=== PATIENT | male | born 1960 | race Caucasian/White ===

== ENCOUNTER → 2018-10-31 11:09 | Outpatient (CLI) | payer OTHER, SELFPAY ==
--- NOTE | 2018-10-31 11:12 | DI.CT.S_ITS ---
PROCEDURE: CT CHEST W CON INDICATIONS: colon cancer staging TECHNIQUE: After the administration of intravenous contrast, 5 mm thick sections acquired from the pulmonary apices to the posterior costophrenic angles. 7 mm thick coronal and sagittal MIP reformats were acquired. For radiation dose reduction, the following was used: automated exposure control, adjustment of mA and/or kV according to patient size. COMPARISON: Outside Film, CT, CT ABDOMEN PELVIS WITH CONTRAST, 09/30/2018, 19:41. FINDINGS: Image quality: Excellent. Lungs and pleura: There is a 2 mm pulmonary nodule in the left lung base on image 49/3. There is a second 2 mm pulmonary nodule in the extreme left lung base on image 58/3. There is a very subtle 4 mm area of density on the minor fissure on image 44/3 and image 26/6. No acute air space opacities. There are platelike areas of atelectasis in the lung bases bilaterally. No pleural effusions or pneumothorax. Central and peripheral airways are patent and normal in caliber. Mediastinum: Heart size is normal. No pericardial effusion. No mediastinal or hilar adenopathy by size criteria. Thoracic aorta and central pulmonary arteries are normal in size. Esophagus is normal in caliber. No hiatal hernia. Bones and chest wall: No suspicious bony lesions. No vertebral body compression fractures. No axillary or supraclavicular adenopathy by size criteria. Thyroid gland is unremarkable. Abdomen: Extensive hepatic metastatic disease is present throughout the liver. The entire liver is not imaged. Patient has had a recent CT from [facility] dated 09/30/18 which demonstrates the entire liver. No gross changes are identified. IMPRESSION: 1. Extensive hepatic metastatic disease, as previously described the. 2. There are 2 tiny pulmonary nodules in the left lung base, both of which measure 2 mm, too small to characterize. Additionally, there is a 4 mm area of fissural thickening on the minor fissure of the right lung. These are of uncertain significance, and can be followed on future studies. Dictated by: Jerrod Murcia M.D. on 10/31/2018 at 12:43 Approved by: Jerrod Murcia M.D. on 10/31/2018 at 13:04
== END ==
PROVIDERS: PCP Family Medicine
DX: C18.9 Malignant neoplasm of colon, unspecified (principal); C78.7 Secondary malignant neoplasm of liver and intrahepatic bile duct; R91.8 Other nonspecific abnormal finding of lung field
CPT/HCPCS: 71260; Q9967

== ENCOUNTER 2019-01-04 16:08 | Emergency (ER) | payer OTHER, SELFPAY ==
--- NOTE | 2019-01-04 16:19 | ED.RECABL ---
HPI - Recheck/Abnormal Lab/Rx <Kristina Suarez PA-C - Last Filed: 01/04/19 20:59> General Chief Complaint: Recheck/Abnormal Lab/Rx Stated Complaint: had a CT today, told he has Pulmonary embolism Time Seen by Provider: 01/04/19 16:18 Related Data Home Medications Medication Instructions Recorded Confirmed docusate calcium [Stool Softener] 240 mg DAILY 10/17/18 12/25/18 ergocalciferol (vitamin D2) 50,000 unit PO QWEEK 10/17/18 12/25/18 [Vitamin D2] ferrous sulfate 325 mg PO DAILY 10/17/18 12/25/18 oxycodone 10 mg PO Q4-6H PRN 10/17/18 12/25/18 fentanyl 1 patch TRANSDERMAL Q72H 11/06/18 12/25/18 oxycodone See Rx Instructions .ROUTE 11/06/18 12/25/18 .COMPLEX PRN dexamethasone 4 mg PO DAILY 12/11/18 12/25/18 Previous Rx's Medication Instructions Recorded fluorouracil 4,800 mg IV NOW #1 device 11/06/18 ondansetron HCl 8 mg PO Q8H PRN #30 tab 11/06/18 prochlorperazine maleate 10 mg PO Q6H PRN #30 tab 11/06/18 lorazepam [Ativan] 0.5 mg PO BID-TID PRN #30 tab 11/15/18 hyoscyamine sulfate 0.25 mg PO QID PRN #100 tab 12/05/18 apixaban [Eliquis] See Rx Instructions .ROUTE 01/04/19 .COMPLEX #74 each Allergies Allergy/AdvReac Type Severity Reaction Status Date / Time No Known Drug Allergies Allergy Verified 11/15/18 15:27 <Niurka Jade DO - Last Filed: 01/05/19 07:34> History of Present Illness HPI narrative: Patient 58-year-old male who presents today with pulmonary emboli. He has a history of cancer he had outpatient CT chest abdomen pelvis of results did show bilateral pulmonary emboli with moderate clot burden. He denies chest pain or shortness of breath. PFSH <Kristina Suarez PA-C - Last Filed: 01/04/19 20:59> Medical History (Updated 01/04/19 @ 17:53 by Kristina Suarez PA-C) Metastatic colon cancer to liver (Chronic) Surgical History (Updated 01/04/19 @ 16:54 by Kristina Suarez PA-C) Status post anterior cruciate ligament surgery (Resolved) Social History (Updated 01/04/19 @ 16:54 by Kristina Suarez PA-C) Smoking Status: Current some day smoker Social History (Updated 01/04/19 @ 16:54 by Kristina Suarez PA-C) Smoking Status: Current some day smoker Exam <Kristina Suarez PA-C - Last Filed: 01/04/19 20:59> Initial Vital Signs Initial Vital Signs: Vital Signs Temperature 97.7 F 01/04/19 16:20 Pulse Rate 100 H 01/04/19 16:20 Respiratory Rate 16 01/04/19 16:20 Blood Pressure 129/98 H 01/04/19 16:20 Pulse Oximetry 96 01/04/19 16:20 <DO Rosemary Hubbard Last Filed: 01/05/19 07:34> Initial Vital Signs Initial Vital Signs: Vital Signs Temperature 97.7 F 01/04/19 16:20 Pulse Rate 100 H 01/04/19 16:20 Respiratory Rate 16 01/04/19 16:20 Blood Pressure 129/98 H 01/04/19 16:20 Pulse Oximetry 96 01/04/19 16:20 Course <Kristina Suarez PA-C - Last Filed: 01/04/19 20:59> Orders Ordered: Discontinued Medications Apixaban (Eliquis) 10 mg PO NOW ONE Stop: 01/04/19 17:27 Last Admin: 01/04/19 17:51 Dose: 10 mg Vital Signs - 8 hr 01/04/19 16:20 01/04/19 16:30 01/04/19 17:00 Temperature 97.7 F Pulse Rate 100 H 90 94 H Respiratory Rate 16 17 16 Blood Pressure 129/98 H Blood Pressure [Left Arm] 127/98 H 112/75 Pulse Oximetry 96 96 96 <DO Rosemary Hubbard Last Filed: 01/05/19 07:34> Orders Ordered: Discontinued Medications Apixaban (Eliquis) 10 mg PO NOW ONE Stop: 01/04/19 17:27 Last Admin: 01/04/19 17:51 Dose: 10 mg Vital Signs - 8 hr 01/04/19 16:20 01/04/19 16:30 01/04/19 17:00 Temperature 97.7 F Pulse Rate 100 H 90 94 H Respiratory Rate 16 17 16 Blood Pressure 129/98 H Blood Pressure [Left Arm] 127/98 H 112/75 Pulse Oximetry 96 96 96 MDM - Recheck/Abnormal Lab/Rx <Kristina Suarez PA-C - Last Filed: 01/04/19 20:59> Lab Data Lab Results 01/04/19 01/04/19 Range/Units 16:34 16:34 PT 13.3 H (10.1-12.7) SECONDS INR 1.1 (0.9-1.3) APTT 29 (26.4-36.2) SECONDS Total Creatine Kinase < 20 L (55-170) U/L CK-MB (CK-2) TNP CK-MB (CK-2) Rel Index TNP Troponin I < 0.012 (0.01-0.034) ng/mL Imaging Data CT scan - chest: Radiologist's impression: [place] [address] CT Scan Report Signed Patient: Billy Johansen LMR#: [id number] : 2Acct:[id number] Age/Sex: 58 / MDate of Service: 01/04/19 Loc: ONC Accession Number: [id number] Procedure: CT chest abd pel w con Ordering Provider: Jerome Bass MD PROCEDURE: CT CHEST ABD PEL W CON INDICATIONS: f/u colon cancer TECHNIQUE: After the administration of oral and intravenous contrast, 5 mm thick sections acquired from the lung apices to the symphysis. 5 mm coronal and sagittal reformats were performed, with additional 7 mm coronal MIP reformats through the lungs. For radiation dose reduction, the following was used: automated exposure control, adjustment of mA and/or kV according to patient size. COMPARISON: [facility], CT, CT CHEST W CON, 10/31/2018, 11:28. Outside Film, CT, CT ABDOMEN PELVIS WITH CONTRAST, 09/30/2018, 19:41. FINDINGS: Image quality: Excellent. CHEST: Lungs and pleura: Platelike subsegmental atelectasis is present in the posterior right lower lobe and posterior medial right lower lobe. Platelike atelectatic changes are also seen vertically in the posterior and posterior medial left lower lobe, and along the lower lingular surface. Atelectatic changes are also seen minimally at the anteromedial right middle lobe. There is small area of subpleural honeycombing in the posterior lateral left lower lobe at the lung base. A perifissural 4 mm lung nodule along the medial right minor fissure is present. There is a 5 mm subpleural lung nodule laterally in the left upper lobe and midlung level No pleural effusions or pneumothorax. Central and peripheral airways appear patent and normal in caliber. Mediastinum: A left subclavian Mediport is in position. Heart size is normal. No pericardial effusion. No significant right heart enlargement or intraventricular septal deviation. Incidental note is made of bilateral pulmonary emboli which involve left anterior, lateral basal first order branches and proximal second order branches. An acute embolus also is seen in the right lower lobar pulmonary artery and extending into anterior and lateral basal segmental arteries. A second order thrombus is seen in lateral segment right middle lobe pulmonary arteries as well as anterior segment right upper lobe pulmonary arteries proximally. No mediastinal or hilar adenopathy by size criteria. Thoracic aorta and central pulmonary arteries are normal in size. Esophagus is normal in caliber. No hiatal hernia. Chest wall: No axillary or supraclavicular adenopathy by size criteria. Thyroid gland is normal. ABDOMEN: Solid organs: There has been interval overall decrease in size of liver as well as multiple ill-defined low-density metastatic lesions throughout the right and left lobes. The largest lesion in the medial right liver lobe has decreased in size from 4.5 cm to 2.4 cm. All other liver lesions also decreased in size. Gallbladder appears normal. Biliary system is non dilated. Pancreas enhances normally. Spleen is normal in size and enhancement. There is a nodule associated with the lateral limb of left adrenal gland and one associated with the body of the adrenal gland which has not changed since prior studies. The right adrenal gland is normal. Kidneys demonstrate normal size and enhancement, without hydronephrosis. Peritoneum and bowel: Luminal narrowing, wall thickening in the distal sigmoid with mild mucosal hyperemia. The remainder the colon contains a normal quantity of stool. Normal appendix is identified. Small bowel loops and stomach appear normal. No free fluid or air. Nodes and vessels: There is a prominent azul chain in left periodic retroperitoneum. The largest node measures about 1.2 cm in short axis, previously 1.1 cm (series 2 image 88). The distal abdominal aorta is minimally aneurysmal measuring 3.2 cm in AP diameter, stable. Bilateral common iliac artery aneurysms are present extending into the internal iliac arteries bilaterally. The left internal iliac artery aneurysm measures 2.9 cm in diameter and the right measures 2.8 cm. The inferior vena cava is normal in size. Miscellaneous: No ventral hernias. Small intramuscular lipoma along the right lateral abdominal wall. PELVIS: Genitourinary: Bladder wall thickness is normal. Mild prostatomegaly. Miscellaneous: No inguinal hernias or adenopathy. Bones: No suspicious bony lesions. No vertebral body compression fractures. IMPRESSION: 1. Small bilateral pulmonary nodules, one of which appears to be apparent visual lymph node, appear stable compared to the prior study given changes in technique. No new evidence of metastatic disease in the chest. 2. Incidental note made of bilateral pulmonary emboli. Overall clot burden is moderate. This finding was discussed with Dr. Trinidad, oncologist at 1340 hrs. on 01/04/19. Dr. Bass was unavailable. 3. Interval decrease in size of innumerable hepatic metastases. 4. Stable left periaortic adenopathy. 5. Distal sigmoid/rectosigmoid luminal narrowing suspicious for patient's primary neoplasm. No significant changes compared to the prior scan. 6. Distal abdominal aortic aneurysm and bilateral common/internal iliac artery aneurysms. 7. No evidence of new metastatic disease in the abdomen or pelvis. Dictated by: Amanda Henriquez M.D. on 01/04/2019 at 13:11 Approved by: Amanda Henriquez M.D. on 01/04/2019 at 14:09 ECG Data Attestation: I personally reviewed and interpreted this ECG as follows: (Sinus rhythm with ectopic atrial focus, rate 90, normal axis) Prior ECG tracings: available for review <Niurka Jade DO - Last Filed: 01/05/19 07:34> Lab Data Lab Results 01/04/19 01/04/19 Range/Units 16:34 16:34 PT 13.3 H (10.1-12.7) SECONDS INR 1.1 (0.9-1.3) APTT 29 (26.4-36.2) SECONDS Total Creatine Kinase < 20 L (55-170) U/L CK-MB (CK-2) TNP CK-MB (CK-2) Rel Index TNP Troponin I < 0.012 (0.01-0.034) ng/mL Imaging Data Chest abdomen pelvis: Radiologist's impression: PROCEDURE: CT CHEST ABD PEL W CON INDICATIONS: f/u colon cancer TECHNIQUE: After the administration of oral and intravenous contrast, 5 mm thick sections acquired from the lung apices to the symphysis. 5 mm coronal and sagittal reformats were performed, with additional 7 mm coronal MIP reformats through the lungs. For radiation dose reduction, the following was used: automated exposure control, adjustment of mA and/or kV according to patient size. COMPARISON: [facility], CT, CT CHEST W CON, 10/31/2018, 11:28. Outside Film, CT, CT ABDOMEN PELVIS WITH CONTRAST, 09/30/2018, 19:41. FINDINGS: Image quality: Excellent. CHEST: Lungs and pleura: Platelike subsegmental atelectasis is present in the posterior right lower lobe and posterior medial right lower lobe. Platelike atelectatic changes are also seen vertically in the posterior and posterior medial left lower lobe, and along the lower lingular surface. Atelectatic changes are also seen minimally at the anteromedial right middle lobe. There is small area of subpleural honeycombing in the posterior lateral left lower lobe at the lung base. A perifissural 4 mm lung nodule along the medial right minor fissure is present. There is a 5 mm subpleural lung nodule laterally in the left upper lobe and midlung level No pleural effusions or pneumothorax. Central and peripheral airways appear patent and normal in caliber. Mediastinum: A left subclavian Mediport is in position. Heart size is normal. No pericardial effusion. No significant right heart enlargement or intraventricular septal deviation. Incidental note is made of bilateral pulmonary emboli which involve left anterior, lateral basal first order branches and proximal second order branches. An acute embolus also is seen in the right lower lobar pulmonary artery and extending into anterior and lateral basal segmental arteries. A second order thrombus is seen in lateral segment right middle lobe pulmonary arteries as well as anterior segment right upper lobe pulmonary arteries proximally. No mediastinal or hilar adenopathy by size criteria. Thoracic aorta and central pulmonary arteries are normal in size. Esophagus is normal in caliber. No hiatal hernia. Chest wall: No axillary or supraclavicular adenopathy by size criteria. Thyroid gland is normal. ABDOMEN: Solid organs: There has been interval overall decrease in size of liver as well as multiple ill-defined low-density metastatic lesions throughout the right and left lobes. The largest lesion in the medial right liver lobe has decreased in size from 4.5 cm to 2.4 cm. All other liver lesions also decreased in size. Gallbladder appears normal. Biliary system is non dilated. Pancreas enhances normally. Spleen is normal in size and enhancement. There is a nodule associated with the lateral limb of left adrenal gland and one associated with the body of the adrenal gland which has not changed since prior studies. The right adrenal gland is normal. Kidneys demonstrate normal size and enhancement, without hydronephrosis. Peritoneum and bowel: Luminal narrowing, wall thickening in the distal sigmoid with mild mucosal hyperemia. The remainder the colon contains a normal quantity of stool. Normal appendix is identified. Small bowel loops and stomach appear normal. No free fluid or air. Nodes and vessels: There is a prominent azul chain in left periodic retroperitoneum. The largest node measures about 1.2 cm in short axis, previously 1.1 cm (series 2 image 88). The distal abdominal aorta is minimally aneurysmal measuring 3.2 cm in AP diameter, stable. Bilateral common iliac artery aneurysms are present extending into the internal iliac arteries bilaterally. The left internal iliac artery aneurysm measures 2.9 cm in diameter and the right measures 2.8 cm. The inferior vena cava is normal in size. Miscellaneous: No ventral hernias. Small intramuscular lipoma along the right lateral abdominal wall. PELVIS: Genitourinary: Bladder wall thickness is normal. Mild prostatomegaly. Miscellaneous: No inguinal hernias or adenopathy. Bones: No suspicious bony lesions. No vertebral body compression fractures. IMPRESSION: 1. Small bilateral pulmonary nodules, one of which appears to be apparent visual lymph node, appear stable compared to the prior study given changes in technique. No new evidence of metastatic disease in the chest. 2. Incidental note made of bilateral pulmonary emboli. Overall clot burden is moderate. This finding was discussed with Dr. Trinidad, oncologist at 1340 hrs. on 01/04/19. Dr. Bass was unavailable. 3. Interval decrease in size of innumerable hepatic metastases. 4. Stable left periaortic adenopathy. 5. Distal sigmoid/rectosigmoid luminal narrowing suspicious for patient's primary neoplasm. No significant changes compared to the prior scan. 6. Distal abdominal aortic aneurysm and bilateral common/internal iliac artery aneurysms. 7. No evidence of new metastatic disease in the abdomen or pelvis. Dictated by: Amanda Henriquez M.D. on 01/04/2019 at 13:11 Approved by: Amanda Henriquez M.D. on 01/04/2019 at 14:09 ECG Data Attestation: I personally reviewed and interpreted this ECG as follows: Prior ECG tracings: not available for review Interpretation: [place] rhythm rate 90 [place] interval 136. No priors to compare no ST elevation Discharge Plan Departure Patient Disposition: Home Clinical Impression: Pulmonary emboli Qualifiers: Pulmonary embolism type: other Chronicity: unspecified Acute cor pulmonale presence: without acute cor pulmonale Qualified Code(s): I26.99 - Other pulmonary embolism without acute cor pulmonale Discharge Date/Time: 01/04/19 18:02 Interventions: ED Discharge Assessment Last Done: 01/04/19 18:02 Instructions: DI for Pulmonary Embolism Activity Restrictions/Additional Instructions: Your scan today showed coincidentally that you have blood clots in your lungs, called pulmonary emboli. These have likely been there for sometime between your previous scan and today. Your more prone to blood clots just due to having cancer. Having been immobilized more due to being ill from your last chemotherapy cycle might increase risk and nicotine can as well. Please avoid smoking. We have given you the 1st dose of medicine to help thin the blood and prevent more clotting called Eliquis today. This is to be taken twice daily, 10 mg twice daily for a week, then 5 mg twice daily. You will likely need this for a minimum of 3-6 months, possibly longer. As we talked about, you should call 911 if you have any acute chest pain, difficulty breathing, fainting or other acute changes. Please talk with Dr. Bass as you have planned on Monday about your scan and chemotherapy side effects. Good luck with your treatment! Prescriptions: New Eliquis 5 mg (74 tabs) tablets,dose pack See Rx Instructions .ROUTE .COMPLEX Qty: 74 RF: 0 No Action ergocalciferol (vitamin D2) [Vitamin D2] 50,000 unit Capsule 50,000 unit PO QWEEK RF: 0 ferrous sulfate 325 mg (65 mg iron) Tablet 325 mg PO DAILY RF: 0 docusate calcium [Stool Softener] 240 mg Capsule 240 mg DAILY RF: 0 oxycodone 10 mg Tablet 10 mg PO Q4-6H PRN (Reason: Pain (Scale Score 4-6)) RF: 0 oxycodone 5 mg Tablet See Rx Instructions .ROUTE .COMPLEX PRN (Reason: Pain (Scale Score 4-6)) RF: 0 fentanyl 12 mcg/hr Patch 72 Hour 1 patch TRANSDERMAL Q72H RF: 0 ondansetron HCl 8 mg Tablet 8 mg PO Q8H PRN (Reason: Nausea) Qty: 30 RF: 0 prochlorperazine maleate 10 mg Tablet 10 mg PO Q6H PRN (Reason: Nausea) Qty: 30 RF: 0 fluorouracil 2.5 gram/50 mL Solution 4,800 mg IV NOW Qty: 1 RF: 0 lorazepam [Ativan] 0.5 mg Tablet 0.5 mg PO BID-TID PRN (Reason: Nausea) Qty: 30 RF: 0 hyoscyamine sulfate 0.125 mg Tablet 0.25 mg PO QID PRN (Reason: Cramps) Qty: 100 RF: 1 dexamethasone 4 mg Tablet 4 mg PO DAILY RF: 0 Referrals: Jerome Bass MD [Physician] - Mikel Page MD [Non-Staff] - <Niurka Jade DO - Last Filed: 01/05/19 07:34> Cosign ED Attending Diegoature Attestation: I was immediately available in the department for consultation. Documentation has been reviewed. I agree with assessment and plan.
[2019-01-04 16:20] VITALS: BP 129/98; PULSE 100; RESP 16; TEMP 36.5; O2SAT 96; BMI 18.8
[2019-01-04 16:30] VITALS: BP 127/98; PULSE 90; RESP 17; O2SAT 96
[2019-01-04 16:48] LABS: INR 1.1 (0.9-1.3); Prothrombin Time 13.3 SECONDS (10.1-12.7)
[2019-01-04 16:50] LABS: Creatine Kinase < 20 U/L (55-170)
[2019-01-04 16:51] LABS: PTT Partial Thromboplastin Tim 29 SECONDS (26.4-36.2)
[2019-01-04 17:00] VITALS: BP 112/75; PULSE 94; RESP 16; O2SAT 96
[2019-01-04 17:04] LABS: Troponin I < 0.012 ng/mL (0.01-0.034)
[2019-01-04] MEDS: APIXABAN 5 MG TABLET 10 MG PO (17:51)
== END 2019-01-04 18:02 | disposition home or self-care (01) ==
PROVIDERS: Emergency Provider Internal Medicine
DX: I26.99 Other pulmonary embolism without acute cor pulmonale (principal); C18.9 Malignant neoplasm of colon, unspecified; C78.7 Secondary malignant neoplasm of liver and intrahepatic bile duct
CPT/HCPCS: 36415; 82550; 84484; 85610; 85730; 93005; 99282; 99285

== ENCOUNTER → 2019-04-24 11:30 | Outpatient (CLI) | payer OTHER, SELFPAY ==
--- NOTE | 2019-04-24 12:14 | DI.CT.S_ITS ---
PROCEDURE: CT CHEST ABD PEL W CON INDICATIONS: follow up colon cancer TECHNIQUE: After the administration of oral and intravenous contrast, 5 mm thick sections acquired from the lung apices to the symphysis. 5 mm coronal and sagittal reformats were performed, with additional 7 mm coronal MIP reformats through the lungs. For radiation dose reduction, the following was used: automated exposure control, adjustment of mA and/or kV according to patient size. COMPARISON: [facility], CT, CT CHEST ABD PEL W CON, 01/04/2019, 11:23. FINDINGS: Image quality: Excellent. CHEST: Lungs and pleura: No acute airspace opacities. No pleural effusions or pneumothorax. Central and peripheral airways appear patent and normal in caliber. There is an unchanged appearance of nodularity along the left major fissure and lingula. Previous areas of patchy opacity within the bases and lingula have improved compared to prior exam. There are punctate areas of nodularity in the posterior left lower lobe seen on series 3 images 303 and 328. These areas were obscured by overlying opacities on prior exam. Mediastinum: Heart size is normal. No pericardial effusion. No mediastinal or hilar adenopathy by size criteria. Thoracic aorta and central pulmonary arteries are normal in size. Esophagus is normal in caliber. No hiatal hernia. Chest wall: No axillary or supraclavicular adenopathy by size criteria. Thyroid gland is unremarkable. Right chest wall musculature lipoma unchanged. ABDOMEN: Solid organs: Liver continues to demonstrate multiple low attenuation foci, although decreased in size and number compared to prior exam. The largest lesion in the right medial hepatic lobe seen on series 2 image 82 measures 1.7 cm AP by 1.1 cm transverse compared to 4.5 cm AP by 2.4 cm transverse. Gallbladder gallbladder is contracted. Biliary system is non dilated. Pancreas enhances normally. Spleen is normal in size and enhancement. No adrenal nodules. Kidneys demonstrate normal size and enhancement, without hydronephrosis. Peritoneum and bowel: Bowel loops are nonobstructive. No free fluid or air. Persistent appearance of sigmoid thickening and luminal narrowing, unchanged. Nodes and vessels: No retroperitoneal or mesenteric adenopathy by size criteria. The previous periaortic lymph node measuring 11 mm in short axis has decreased in size currently measuring 9 mm. Aortic and bilateral common iliac artery aneurysms are unchanged. Miscellaneous: No ventral hernias. PELVIS: Genitourinary: Bladder wall thickness is normal. Miscellaneous: No inguinal hernias or adenopathy. Bones: No suspicious bony lesions. No vertebral body compression fractures. IMPRESSION: 1. Interval decrease in size of previous hepatic lesions as well as adenopathy. 2. Pulmonary nodules as described above. Continued interval followup is recommended. 3. Persistent appearance of luminal narrowing and thickening within the sigmoid colon suspicious for site of colon neoplasm. Dictated by: Suki Llanes M.D. on 04/24/2019 at 13:20 Approved by: Suki Llanes M.D. on 04/24/2019 at 13:31
== END ==
PROVIDERS: PCP General Practice
DX: C19 Malignant neoplasm of rectosigmoid junction (principal); C78.7 Secondary malignant neoplasm of liver and intrahepatic bile duct; R91.8 Other nonspecific abnormal finding of lung field
CPT/HCPCS: 71260; 74177; Q9967

== ENCOUNTER → 2019-06-20 11:52 | Outpatient (CLI) | payer OTHER, SELFPAY ==
--- NOTE | 2019-06-20 11:53 | DI.CT.S_ITS ---
PROCEDURE: CT CHEST ABD PEL W CON INDICATIONS: Restaging colon cancer TECHNIQUE: After the administration of oral and intravenous contrast, 5 mm thick sections acquired from the lung apices to the symphysis. 5 mm coronal and sagittal reformats were performed, with additional 7 mm coronal MIP reformats through the lungs. For radiation dose reduction, the following was used: automated exposure control, adjustment of mA and/or kV according to patient size. COMPARISON: [facility], CT, CT CHEST ABD PEL W CON, 04/24/2019, 12:17. FINDINGS: Image quality: Excellent. CHEST: Lungs and pleura: No suspicious pulmonary nodules. Linear bibasilar atelectasis. Mediastinum: Heart size is normal. No pericardial effusion. No mediastinal or hilar adenopathy by size criteria. Thoracic aorta and central pulmonary arteries are normal in size. Esophagus is normal in caliber. No hiatal hernia. Chest wall: No axillary or supraclavicular adenopathy by size criteria. Thyroid gland is unremarkable. ABDOMEN: Solid organs: Liver: Numerous low density liver lesions are again noted. Many these are small. A segment 6 posterior segment right lobe liver lesion has increased in size from 1.5-2.1 cm. Reference previous image 77/2 and current image 78/2. A medial lesion in the right lobe is likely stable, previously measuring 1.7 cm on previous image 82/2 and currently measuring 1.6 cm in maximum diameter on current image 73/2. Other lesions are stable. Gallbladder is unremarkable. Biliary system is non dilated. Pancreas enhances normally. Spleen is normal in size and enhancement. No adrenal nodules. Kidneys demonstrate normal size and enhancement, without hydronephrosis. Peritoneum and bowel: Continued sigmoid wall thickening and luminal narrowing. Mild inflammatory change in adjacent fat. No free fluid or air. Nodes and vessels: Shotty periaortic and retrocrural adenopathy is stable. Again noted is aneurysmal dilatation of the abdominal aorta, measuring approximately 3.5 cm. Again noted is bilateral common iliac artery aneurysmal dilatation, measuring 2.4 cm on the right and 2.3 cm on the left. There is a left internal iliac artery aneurysm, measuring 3.1 cm. There is a right internal iliac artery aneurysm measuring 2.6 cm. There is a left external iliac artery aneurysm with moderate thrombus measuring 2.1 cm. Miscellaneous: No ventral hernias. PELVIS: Genitourinary: Bladder wall thickness is normal. Miscellaneous: No inguinal hernias or adenopathy. Bones: No suspicious bony lesions. No vertebral body compression fractures. IMPRESSION: 1. Stable appearance of sigmoid, which is likely the site of the patient's colonic neoplasm. 2. No evidence of metastatic disease in the chest. Linear bibasilar atelectasis. 3. Relatively stable hepatic metastatic disease. There is definite interval increase in size of one of the metastatic lesions, in segment 6. 3. Stable shotty periaortic adenopathy and retrocrural adenopathy. 7. Aortic aneurysm, bilateral common iliac artery aneurysms, left external iliac artery aneurysm, and bilateral internal iliac artery aneurysms. Dictated by: Jerrod Murcia M.D. on 06/20/2019 at 14:05 Approved by: Jerrod Murcia M.D. on 06/20/2019 at 14:25
--- NOTE | 2019-07-17 10:08 | PC.NURSE ---
[facility] CONTACT IS: TEL [phone] FAX: [phone]; THIS WAS NOT PUT IN THE SELF-POPULATING PATIENT PHARMACY IN SUMMARY OF EMR THE PHONE NUMBERS GIVEN ARE NOT CORRECT FOR THIS PATIENT.
== END ==
PROVIDERS: PCP General Practice; Visit Provider Internal Medicine Hematology & Oncology
DX: C18.9 Malignant neoplasm of colon, unspecified (principal); C78.7 Secondary malignant neoplasm of liver and intrahepatic bile duct; J98.11 Atelectasis; I71.4 Abdominal aortic aneurysm, without rupture; I72.3 Aneurysm of iliac artery
CPT/HCPCS: 71260; 74177; Q9967

== ENCOUNTER → 2019-10-16 11:32 | Outpatient (CLI) | payer OTHER, SELFPAY ==
--- NOTE | 2019-10-16 11:34 | DI.CT.S_ITS ---
PROCEDURE: CT CHEST ABD PEL W CON INDICATIONS: METASTATIC COLON CANCER TECHNIQUE: After the administration of oral and intravenous contrast, 5 mm thick sections acquired from the lung apices to the symphysis. 5 mm coronal and sagittal reformats were performed, with additional 7 mm coronal MIP reformats through the lungs. For radiation dose reduction, the following was used: automated exposure control, adjustment of mA and/or kV according to patient size. COMPARISON: [facility], CT, CT CHEST ABD PEL W CON, 01/04/2019, 11:23. [facility], CT, CT ABDOMEN PELVIS WITH CONTRAST, 09/30/2018, 19:41. [facility], CT, CT CHEST ABD PEL W CON, 06/20/2019, 13:21. FINDINGS: Image quality: Excellent. CHEST: Lungs and pleura: Mild emphysematous change. Dependent streaky opacity which is similar the prior exam and most likely represents scarring or atelectasis. Left lower lobe superior segment 3 mm pulmonary nodule, (3/253), may be previously obscured. Left major fissure nodule measuring 5 mm, (3/315), unchanged. No pleural effusions or pneumothorax. Trace secretions in the right mainstem bronchus. Mediastinum: Left-sided port with the catheter tip in the mid SVC. Heart size is normal. No pericardial effusion. No mediastinal or hilar adenopathy by size criteria. Thoracic aorta and central pulmonary arteries are normal in size. No central pulmonary embolism. Esophagus is normal in caliber. No hiatal hernia. Chest wall: Right lateral inferior chest wall intramuscular lipoma. No axillary or supraclavicular adenopathy by size criteria. Thyroid gland is unremarkable. ABDOMEN: Solid organs: Numerous hypodense lesions to the liver which are increased in size. For example: -Segment 6 inferior tip measuring 3 x 3 cm, (2/), previously 1.9 x 1.8 cm. -Segment 7 medially at the dome measuring 3.6 x 3.4 cm, (2), previously not well seen. -Note: Baseline CT demonstrated numerous hepatic lesions on 09/30/2018 which had previously decreased in size and are now enlarging. Gallbladder is unremarkable. Biliary system is non dilated. Pancreas enhances normally. Spleen is normal in size and enhancement. Calcified granuloma. Nodular thickening of the left adrenal gland, unchanged. Kidneys demonstrate normal size and enhancement, without hydronephrosis. Punctate nonobstructing calculus in the mid left kidney. Peritoneum and bowel: Descending colon loop colostomy in the left abdomen which is new compared to 06/20/2019. There is scattered colonic diverticuli. A focal thickening at the rectosigmoid junction, (2/123), more conspicuous. No bowel obstruction. Normal appendix. No pneumoperitoneum or ascites. Nodes and vessels: Shotty periaortic and right retrocrural lymph nodes, unchanged. Aortoiliac aneurysms are not significant change. Infrarenal aortic aneurysm measures 3.2 cm (21), previously 3.4 cm. 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 Right hepatic artery is replaced to the SMA, variant. Miscellaneous: No ventral hernias. PELVIS: Genitourinary: Bladder wall thickness is normal. Miscellaneous: No inguinal hernias or adenopathy. Bones: No suspicious bony lesions. No vertebral body compression fractures. IMPRESSION: 1. Interval increase in the numerous hypodense hepatic metastases. No ascites. 2. Shotty retrocrural and periaortic lymph nodes are unchanged. Indeterminate for metastatic disease. 3. Abnormal thickening of the rectosigmoid junction. Post left loop colostomy. 4. No definite metastatic disease in the chest or bones. 5. Trace secretions in the right mainstem bronchus. Similar dependent scarring or atelectasis. Dictated by: Bjorn Orellana M.D. on 10/16/2019 at 12:49 Approved by: Bjorn Orellana M.D. on 10/16/2019 at 13:44
== END ==
PROVIDERS: PCP General Practice; Referring Provider Internal Medicine Hematology & Oncology; Visit Provider Internal Medicine Hematology & Oncology
DX: C18.9 Malignant neoplasm of colon, unspecified (principal); C78.7 Secondary malignant neoplasm of liver and intrahepatic bile duct; R59.0 Localized enlarged lymph nodes; Z93.3 Colostomy status
CPT/HCPCS: 71260; 74177; Q9967

== ENCOUNTER → 2020-01-27 10:31 | Outpatient (CLI) | payer OTHER, SELFPAY ==
--- NOTE | 2020-01-27 10:33 | DI.CT.S_ITS ---
PROCEDURE: CT CHEST ABD PEL W CON INDICATIONS: Restaging met colon cancer TECHNIQUE: After the administration of oral and intravenous contrast, 5 mm thick sections acquired from the lung apices to the symphysis. 5 mm coronal and sagittal reformats were performed, with additional 7 mm coronal MIP reformats through the lungs. For radiation dose reduction, the following was used: automated exposure control, adjustment of mA and/or kV according to patient size. COMPARISON: [facility], CT, CT CHEST ABD PEL W CON, 10/16/2019, 12:31. [facility], CT, CT CHEST ABD PEL W CON, 06/20/2019, 13:21. FINDINGS: Image quality: Excellent. CHEST: Lungs and pleura: No acute airspace opacities. Note is made of areas of posterior medial lung scarring previously present, and a pulmonary mass lesions suggestive of metastatic disease is not found. No pleural effusions or pneumothorax. Central and peripheral airways appear patent and normal in caliber. Mediastinum: Heart size is normal. No pericardial effusion. No mediastinal or hilar adenopathy by size criteria. Thoracic aorta and central pulmonary arteries are normal in size. Esophagus is normal in caliber. No hiatal hernia. Chest wall: No axillary or supraclavicular adenopathy by size criteria. Thyroid gland appears normal where well seen. ABDOMEN: Solid organs: Liver is normal in size and shows improvement in previously present multifocal metastatic lesions. These lesions previously and currently have been hypoenhancing, with indistinct margination, but with reference to the most recent study when compared to the examination from 10/16/19 a mild interval reduction in size of hepatic masses has occurred. For example, at the posterior aspect of the right posterior hepatic segment a mass lesion previously estimated at measuring 4.1 cm has diminished to 2.7 cm. More inferiorly a lead generation representative mass at the inferior aspect of the right hepatic lobe posteriorly had previously measured up to 4.0 cm and when measured in the same area now measures 2.9 cm. At the same axial level a enhancing perfusion anomaly is seen anterolaterally, slightly more prominent than on the comparison study, but likely benign in etiology. Similar reduction in size of additional hepatic metastatic disease has developed. Gallbladder appears normal . Biliary system is non dilated. Pancreas enhances normally. Spleen is normal in size and enhancement. No adrenal nodules. Kidneys demonstrate normal size and enhancement, without hydronephrosis. Peritoneum and bowel: Bowel loops demonstrate normal wall thickness and caliber. No free fluid or air. Nodes and vessels: No retroperitoneal or mesenteric adenopathy by size criteria. Aorta and inferior vena cava are unchanged in size with mild aneurysmal dilatation of the mid abdominal aorta to 3.6 cm, and the common iliac arteries measure up to 2.2 cm on the right and 2.3 cm on the left. 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 Miscellaneous: No ventral hernias. PELVIS: Genitourinary: Bladder wall thickness is normal. Miscellaneous: No inguinal hernias or adenopathy. Ostomy site left lower quadrant, shows no operative complication. Bones: No suspicious bony lesions. No vertebral body compression fractures. IMPRESSION: 1. Mild but definite interval improvement in size of multiple hepatic mass lesions previously documented. 2. 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 Vascular surgical consultation likely is warranted specifically with attention to the internal iliac artery caliber which are unusually prominent in this patient. Dictated by: Augustus Richter M.D. on 01/27/2020 at 16:17 Approved by: Augustus Richter M.D. on 01/27/2020 at 16:32
--- NOTE | 2020-01-29 11:57 | ONC.SCHED ---
Faxed referral to [facility] with request to call patient to schedule and to let me know when scheduled. Requested that Alec call patient to ensure that he is not surprised by a call from [facility].
== END ==
PROVIDERS: PCP Family Medicine; Referring Provider Internal Medicine Hematology & Oncology; Visit Provider Internal Medicine Hematology & Oncology
DX: C18.9 Malignant neoplasm of colon, unspecified (principal); C78.7 Secondary malignant neoplasm of liver and intrahepatic bile duct; I71.4 Abdominal aortic aneurysm, without rupture; I72.3 Aneurysm of iliac artery
CPT/HCPCS: 71260; 74177; Q9967

== ENCOUNTER → 2020-04-01 11:16 | Outpatient (CLI) | payer OTHER, SELFPAY ==
--- NOTE | 2020-04-01 12:13 | DI.CT.S_ITS ---
PROCEDURE: CT CHEST ABD PEL W CON INDICATIONS: colon cancer TECHNIQUE: After the administration of oral and intravenous contrast, 5 mm thick sections acquired from the lung apices to the symphysis. 5 mm coronal and sagittal reformats were performed, with additional 7 mm coronal MIP reformats through the lungs. For radiation dose reduction, the following was used: automated exposure control, adjustment of mA and/or kV according to patient size. COMPARISON: [facility], CT, CT CHEST W CON, 10/31/2018, 11:28. [facility], CT, CT CHEST ABD PEL W CON, 10/16/2019, 12:31. [facility], CT, CT CHEST ABD PEL W CON, 01/27/2020, 11:19. FINDINGS: Image quality: Excellent. CHEST: Lungs and pleura: Moderate emphysematous change. Bibasilar streaky opacity similar to CT from October most likely represents scarring and or atelectasis. Left lower lobe pulmonary nodule measuring 6 mm, (2/221), previously 3 mm, and not seen in 2019. Left upper lobe pulmonary nodule measuring at 2 mm, (2/243), unchanged. No pleural effusions or pneumothorax. Central and peripheral airways appear patent and normal in caliber. Mediastinum: Left-sided port with the catheter tip at the upper 3rd of the SVC. Heart size is normal. No pericardial effusion. No mediastinal or hilar adenopathy by size criteria. Thoracic aorta and central pulmonary arteries are normal in size. Esophagus is normal in caliber. No hiatal hernia. Chest wall: No axillary or supraclavicular adenopathy by size criteria. Small right thyroid nodule. ABDOMEN: Solid organs: Interval increase in the hepatic lesions. Innumerable ill-defined hypodense hepatic lesions are again seen. For example: -Segment 2 measuring at 2.5 x 2.5 cm, (), previously 0.5 cm. -Segment six inferior margin measuring 2.4 x 2.3 cm, (), previously 1.9 x 1.9 cm on Gallbladder is unremarkable. Biliary system is non dilated. Pancreas enhances normally. Spleen is normal in size and enhancement. Nodular thickening of the right adrenal gland, unchanged but appears increased compared to 2019. Kidneys demonstrate normal size and enhancement, without hydronephrosis. Peritoneum and bowel: No small bowel obstruction. Left lower quadrant loop colostomy. Mild thickening of the distal sigmoid colon, (4/117), unchanged. A few colonic diverticuli. Normal appendix. No free fluid. No pneumoperitoneum. Nodes and vessels: Left periaortic node measuring 1.7 x 1.3 cm, (4/84), previously 1.3 x 1 cm. 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 Infrarenal abdominal aortic aneurysm measuring 3.4 cm, (487). Aneurysm of the right external iliac artery measuring 2.9 cm, (4/103). Aneurysm of the left external iliac artery measuring at 2.9 cm, (4/103). Aneurysm of the right internal iliac artery measuring up to 2.8 cm, (4/107). Aneurysm of the left internal iliac artery measuring up to 3.7 cm, (4/111). Miscellaneous: Tiny fat containing periumbilical hernia. PELVIS: Genitourinary: Bladder wall thickness is normal. Miscellaneous: No inguinal hernias or adenopathy. Bones: No suspicious bony lesions. No vertebral body compression fractures. IMPRESSION: 1. Interval increase in the numerous hepatic metastases. 2. Small retroperitoneal lymph node and nodular thickening of the right adrenal gland may represent metastases. 3. Left lower lobe pulmonary nodule measuring 6 mm appears increased and could represent metastasis. 4. No aggressive appearing osseous lesions. 5. Similar aortoiliac aneurysms. Dictated by: Bjorn Orellana M.D. on 04/01/2020 at 13:57 Approved by: Bjorn Orellana M.D. on 04/01/2020 at 14:19
== END ==
PROVIDERS: PCP Nurse Practitioner Family; Referring Provider Nurse Practitioner Family; Visit Provider Internal Medicine Hematology & Oncology
DX: C18.7 Malignant neoplasm of sigmoid colon (principal); C78.7 Secondary malignant neoplasm of liver and intrahepatic bile duct; R91.8 Other nonspecific abnormal finding of lung field; E27.9 Disorder of adrenal gland, unspecified; I71.4 Abdominal aortic aneurysm, without rupture; I72.3 Aneurysm of iliac artery
CPT/HCPCS: 36415; 71260; 74177; 80053; 85025; Q9967

== ENCOUNTER 2020-05-20 16:00 | Emergency (ER) | payer OTHER, SELFPAY ==
[2020-05-20] VITALS (9 sets, daily range): BP systolic 120–180; BP diastolic 77–115; PULSE 72–109; RESP 22; TEMP 36.5; O2SAT 87–98; BMI 21.8
--- NOTE | 2020-05-20 16:11 | DI.RAD.S_ITS ---
PROCEDURE: XR RIBS RT MIN 3V W CXR 1V INDICATIONS: fall pain posterior TECHNIQUE: 2 views of the right ribs were acquired, along with a single view chest. COMPARISON: , CT, CT CHEST ABD PEL W CON, 04/01/2020, 12:11. FINDINGS: Surgical changes and devices: Left chest Port-A-Cath. Bones and chest wall: Question nondisplaced posterior right 10th rib fracture.. No suspicious bony lesions. Overlying soft tissues appear unremarkable. Lungs and pleura: No pleural effusions or pneumothorax. Lungs appear clear. Question interval increase in size of a left lower lobe pulmonary nodule. Mediastinum: Mediastinal contours appear normal. Heart size is normal. IMPRESSION: 1. Question nondisplaced posterior right 10th rib fracture. 2. Question interval increase in size of left lower lobe pulmonary nodule. Dictated by: Jerrod Murcia M.D. on 05/20/2020 at 16:47 Approved by: Jerrod Murcia M.D. on 05/20/2020 at 16:49
--- NOTE | 2020-05-20 16:22 | PC.NURSE ---
CSpine cleared by Dr Jade, no C-Collar applied.
--- NOTE | 2020-05-20 16:25 | ED.FALL ---
HPI - Fall General Chief Complaint: Trauma Stated Complaint: 8ft fall from ladder to back Time Seen by Provider: 05/20/20 16:03 Source: patient Mode of arrival: Ambulatory Limitations: no limitations History of Present Illness HPI Narrative: Patient is a 59-year-old male presents after a fall off ladder. He has a history pulmonary embolism on Eliquis, metastatic colon cancer. He states he was cleaning the gutters when the ladder slipped and he fell landing on his right side. He did not hit his head or lose consciousness he has no neck pain. However he is quite adamant that he walks although he is quite slow and in pain. His right rib seems to be hurting him the most and are worse with movement. He denies any shortness of breath MD complaint: fall Onset (ago): hour(s) Fall from: from height (distance) (8ft off ladder) and other Related Data Home Medications Medication Instructions Recorded Confirmed docusate calcium [Stool Softener] 240 mg DAILY 10/17/18 05/04/20 ergocalciferol (vitamin D2) 50,000 unit PO QWEEK 10/17/18 05/04/20 [Vitamin D2] oxycodone 10 mg PO Q4-6H PRN 10/17/18 05/04/20 Previous Rx's Medication Instructions Recorded lorazepam [Ativan] 0.5 mg PO BID-TID PRN #30 tab 11/15/18 hyoscyamine sulfate 0.25 mg PO QID PRN #100 tab 12/05/18 apixaban [Eliquis] See Rx Instructions .ROUTE 01/04/19 .COMPLEX #74 each dexamethasone 1 mg PO DAILY 30 Days #30 tab 04/30/19 oxycodone 5 mg PO Q4H PRN #180 tab 07/09/19 apixaban [Eliquis] 5 mg PO BID #60 tab 07/18/19 fluorouracil See Rx Instructions .ROUTE 10/14/19 .COMPLEX #1 device fluorouracil See Rx Instructions .ROUTE 10/22/19 .COMPLEX #1 device fluorouracil See Rx Instructions .ROUTE 11/05/19 .COMPLEX #1 device fluorouracil See Rx Instructions .ROUTE 11/19/19 .COMPLEX #1 device fluorouracil See Rx Instructions .ROUTE 11/19/19 .COMPLEX #1 device fluorouracil See Rx Instructions .ROUTE 12/30/19 .COMPLEX #1 device prochlorperazine maleate 10 mg PO Q6H PRN #60 tab 12/30/19 [Compazine] fluorouracil See Rx Instructions .ROUTE 01/20/20 .COMPLEX #1 device fluorouracil See Rx Instructions .ROUTE 03/02/20 .COMPLEX #1 device fluorouracil See Rx Instructions .ROUTE 04/13/20 .COMPLEX #1 device fluorouracil See Rx Instructions .ROUTE 05/04/20 .COMPLEX #1 device Allergies Allergy/AdvReac Type Severity Reaction Status Date / Time No Known Drug Allergies Allergy Verified 05/20/20 16:13 Review of Systems Review of Systems Narrative: GENERAL: Denies chills, fatigue, malaise, fever, sweats, travel HEENT: Denies sinus pain, ear pain, sore throat, difficulty swallowing, neck pain RESPIRATORY: Denies dyspnea, cough, wheezing, hemoptysis, sputum. CARDIOVASCULAR: Denies chest pain, palpitations, orthopnea, edema GASTROINTESTINAL: Denies nausea, vomiting, abdominal pain, diarrhea, constipation, melena. : Denies dysuria, frequency, incontinence, hematuria, urinary retention, flank pain. MUSCULOSKELETAL: Back pain rib pain, see SKIN: No rash, no erythema, no pruritus NEUROLOGIC: Denies weakness, dizziness, headache, numbness, change in speech, confusion, no LOC PSYCHIATRIC: No concerning psychosocial issues. 12 point review of systems is negative except for those stated above and HPI Patient History Medical History (Updated 05/20/20 @ 18:29 by Niurka Jade DO) Colon cancer Colostomy in place Metastatic colon cancer to liver Port-A-Cath in place Pulmonary embolism Surgical History Status post anterior cruciate ligament surgery Social History Smoking Status: Current some day smoker Smoking Status: Current some day smoker Substance Use Type: marijuana Exam Initial Vital Signs Initial Vital Signs: Vital Signs Pulse Rate 107 H 05/20/20 16:08 GENERAL: Chronically ill male a, appears in pain walking very slowly. HEENT: Head atraumatic,EOMI, pupils reactive, face symmetric, moist mucous membranes CARDIOVASCULAR: Regular rate and rhythm without murmurs, rubs or gallops. RESPIRATORY: Breath sounds equal bilaterally, no wheezes rales or rhonchi. In tender right posterior ribs just below scapula ABDOMEN: Soft, nontender. Normoactive bowel sounds all 4 quadrants. No guarding or rebound. BACK: No midline pain or spinal pain no sign of contusion or erythema EXTREMITIES: Normal range of motion, no clubbing or edema. Neurovascularly intact. No scapula pain or shoulder pain NEUROLOGICAL: Alert and oriented x4.Normal gait and speech. Cranial nerves II through XII grossly intact. SKIN: Warm, dry, no laceration, no petechiae, no rashes or lesions. Course Orders Ordered: Discontinued Medications Hydromorphone HCl (Hydromorphone 1 Mg Inj) 1 mg IM NOW ONE Stop: 05/20/20 17:15 Last Admin: 05/20/20 17:43 Dose: 1 mg Documented by: Hydromorphone HCl (Hydromorphone 0.5 Mg Inj) 0.5 mg IV NOW ONE Stop: 05/20/20 17:42 Last Admin: 05/20/20 17:49 Dose: 0.5 mg Documented by: Sodium Chloride (Normal Saline 0.9%) 1,000 mls @ 1,000 mls/hr IV BOLUS ONE Stop: 05/20/20 18:40 Last Infusion: 05/20/20 18:43 Dose: Infused Documented by: Vital Signs Vital signs: Vital Signs - 8 hr 05/20/20 16:08 05/20/20 16:09 05/20/20 16:13 Temperature 97.7 F Pulse Rate 107 H 109 H 109 H Respiratory Rate 22 Blood Pressure 180/115 H 180/115 H Pulse Oximetry 92 92 05/20/20 16:40 05/20/20 17:00 05/20/20 17:30 Temperature Pulse Rate 72 99 H 90 Respiratory Rate Blood Pressure Pulse Oximetry 98 94 89 L 05/20/20 17:42 Temperature Pulse Rate 101 H Respiratory Rate Blood Pressure 120/77 Pulse Oximetry 87 L MDM - Fall Lab Data Result diagrams: 05/20/20 17:34 05/20/20 17:34 Labs: Lab Results 05/20/20 05/20/20 Range/Units 17:34 17:34 WBC 12.2 H (4.5-11.0) X10^3/uL RBC 4.91 (4.5-5.9) X10^6/uL Hgb 14.5 (13.5-17.5) g/dL Hct 43.7 (41-53) % MCV 89.1 (80-100) fL MCH 29.5 (26-34) PG MCHC 33.2 (30-36) % RDW 16.3 H (11.6-14.8) % Plt Count 264 (150-400) X10^3/uL Neut % (Auto) 73.8 (50-75) % Lymph % (Auto) 14.5 L (25-40) % [place] % (Auto) 10.5 (3-14) % Eos % (Auto) 0.4 L (2-4) % Baso % (Auto) 0.8 (0-2) % Neut # (Auto) 9000 H (4337-6368) /uL Lymph # (Auto) 1800 (1355-7493) /uL [place] # (Auto) 1300 H (0-900) /uL Eos # (Auto) 0 (0-450) /uL Baso # (Auto) 100 (0-100) /uL Sodium 138 (137-145) mmol/L Potassium 4.0 (3.4-5.1) mmol/L Chloride 107 (98-107) mmol/L Carbon Dioxide 23 (22-32) mmol/L BUN 9 (9-20) mg/dL Creatinine 0.70 (0.66-1.25) mg/dL Estimated GFR > 60.0 (>60) mL/min BUN/Creatinine Ratio 12.9 (6-22) Glucose 139 H (70-100) mg/dL Calcium 9.4 (8.4-10.2) mg/dL Total Bilirubin 0.7 (0.2-1.3) mg/dL AST 36 (17-59) IU/L ALT 29 (<50) IU/L Alkaline Phosphatase 122 (38-126) U/L Total Protein 8.0 (6.3-8.2) g/dL Albumin 4.4 (3.5-5.0) g/dL Globulin 3.6 (1.7-4.1) g/dL Albumin/Globulin Ratio 1.2 (1.0-2.8) Imaging Data Chest x-ray: My Impression: Obvious 6 rib fracture on the right Radiologist's Impression: PROCEDURE: XR RIBS RT MIN 3V W CXR 1V INDICATIONS: fall pain posterior TECHNIQUE: 2 views of the right ribs were acquired, along with a single view chest. COMPARISON: [facility], CT, CT CHEST ABD PEL W CON, 04/01/2020, 12:11. FINDINGS: Surgical changes and devices: Left chest Port-A-Cath. Bones and chest wall: Question nondisplaced posterior right 10th rib fracture.. No suspicious bony lesions. Overlying soft tissues appear unremarkable. Lungs and pleura: No pleural effusions or pneumothorax. Lungs appear clear. Question interval increase in size of a left lower lobe pulmonary nodule. Mediastinum: Mediastinal contours appear normal. Heart size is normal. IMPRESSION: 1. Question nondisplaced posterior right 10th rib fracture. 2. Question interval increase in size of left lower lobe pulmonary nodule. Dictated by: Jerrod Murcia M.D. on 05/20/2020 at 16:47 MDM Narrative Medical decision making narrative: Initially rib x-ray head CT and C-spine CT are ordered patient is offered pain medicine but refuses. Unfortunately due to pain he is unable to lie on the CT can not scanner and now refusing his head CT. I did discuss with both he and his daughter though he did not hit his head he did have high risk injury of falling at least 8 ft on EliSolexelis, he also has known metastatic disease concern for intracranial process. Patient finally did agree to pain medication. Prior to him receiving pain medication he started vomiting. IV was placed with Zofran and Dilaudid. Patient is overall feeling much better. He still is refusing head CT. Mostly because he is scared every time has CTs something else is found. I discussed of warning signs with the patient and daughter of intracranial bleed. He has no headache no sign of head trauma. At this time patient continues to refuse CT scan he has pain medication nausea medication and incentive spirometer at home. Encouraged him to use the incentive spirometer. He has oxycodone at home and fentanyl patches. The patient is clinically sober, free from distracting injury, appears to have intact insight, judgment and reason. Does not meet criteria for involuntary hospitalization. Patient has the capacity to make decisions. I discussed all findings with the patient and daughter, Education has been performed regarding treatment plan, diagnosis, warning signs and symptoms and all concerns have been addressed. Verbally agree with and understood all of the above. Discharge Plan Departure Patient Disposition: Home Clinical Impression: Multiple rib fractures Qualifiers: Encounter type: initial encounter Fracture type: closed Laterality: right Qualified Code(s): S22.41XA - Multiple fractures of ribs, right side, initial encounter for closed fracture Instructions: DI for Rib Fracture Activity Restrictions/Additional Instructions: *You have been diagnosed with possible rib fractures *What to do: You are at risk for brain bleeding because he 1 Eliquis and you had quite a big fall today. Expect to have rib pain ongoing for a number of weeks however it should start to improve Use incentive spirometer 4-5 times an hour while awake to help prevent pneumonia *Continue to take medications as directed *Follow up with your primary care provider in 2-3 days *Return to ER if you should have persistent vomiting, headache, confusion, increased pain, shortness of breaths or any new, worsening or concerning symptoms Prescriptions: No Action ergocalciferol (vitamin D2) [Vitamin D2] 50,000 unit Capsule 50,000 unit PO QWEEK RF: 0 docusate calcium [Stool Softener (docusate samantha)] 240 mg Capsule 240 mg DAILY RF: 0 oxycodone 10 mg Tablet 10 mg PO Q4-6H PRN (Reason: Pain (Scale Score 4-6)) RF: 0 lorazepam [Ativan] 0.5 mg Tablet 0.5 mg PO BID-TID PRN (Reason: Nausea) Qty: 30 RF: 0 hyoscyamine sulfate 0.125 mg Tablet 0.25 mg PO QID PRN (Reason: Cramps) Qty: 100 RF: 1 dexamethasone 1 mg Tablet 1 mg PO DAILY 30 Days Qty: 30 RF: 6 oxycodone 5 mg Tablet 5 mg PO Q4H PRN (Reason: Pain (Scale Score 4-6)) Qty: 180 RF: 0 Eliquis 5 mg Tablet 5 mg PO BID Qty: 60 RF: 11 fluorouracil 2.5 gram/50 mL Solution See Rx Instructions .ROUTE .COMPLEX Qty: 1 RF: 0 fluorouracil 2.5 gram/50 mL Solution See Rx Instructions .ROUTE .COMPLEX Qty: 1 RF: 0 fluorouracil 2.5 gram/50 mL Solution See Rx Instructions .ROUTE .COMPLEX Qty: 1 RF: 0 fluorouracil 2.5 gram/50 mL Solution See Rx Instructions .ROUTE .COMPLEX Qty: 1 RF: 0 fluorouracil 2.5 gram/50 mL Solution See Rx Instructions .ROUTE .COMPLEX Qty: 1 RF: 0 prochlorperazine maleate [Compazine] 10 mg Tablet 10 mg PO Q6H PRN (Reason: nausea, chemotherapy) Qty: 60 RF: 0 fluorouracil 2.5 gram/50 mL Solution See Rx Instructions .ROUTE .COMPLEX Qty: 1 RF: 0 fluorouracil 2.5 gram/50 mL Solution See Rx Instructions .ROUTE .COMPLEX Qty: 1 RF: 0 fluorouracil 2.5 gram/50 mL Solution See Rx Instructions .ROUTE .COMPLEX Qty: 1 RF: 0 fluorouracil 2.5 gram/50 mL Solution See Rx Instructions .ROUTE .COMPLEX Qty: 1 RF: 0 fluorouracil 2.5 gram/50 mL Solution See Rx Instructions .ROUTE .COMPLEX Qty: 1 RF: 0 Eliquis DVT-PE Treat 30D Start 5 mg (74 tabs) tablets,dose pack See Rx Instructions .ROUTE .COMPLEX Qty: 74 RF: 0 Referrals: Giovanna Benton ARNP [Primary Care Provider] -
--- NOTE | 2020-05-20 16:50 | PC.NURSE ---
Refusing head and neck CT due to pain, also declining pain medication. aware
[2020-05-20] MEDS: ONDANSETRON 4 MG/2 ML INJ (17:42)
[2020-05-20] MEDS: SODIUM CHLORIDE 0.9% 1,000 ML 1000 ML IV (17:42)
[2020-05-20] MEDS: HYDROMORPHONE 1 MG INJ IM (17:43)
[2020-05-20 17:48] LABS: Add Manual Diff / Slide Review NO; Basophils Absolute Auto 100 /uL (0-100); Basophils Percent Auto 0.8 % (0-2); Eosinophils Absolute Auto 0 /uL (0-450); Eosinophils Percent Auto 0.4 % (2-4); Hematocrit 43.7 % (41-53); Hemoglobin 14.5 g/dL (13.5-17.5); Lymphocytes Absolute Auto 1800 /uL (1100-4500); Lymphocytes Percent Auto 14.5 % (25-40); Mean Corpuscular HGB Conc 33.2 % (30-36); Mean Corpuscular Hemoglobin 29.5 PG (26-34); Mean Corpuscular Volume 89.1 fL (80-100); Monocytes Absolute Auto 1300 /uL (0-900); Monocytes Percent Auto 10.5 % (3-14); Neutrophils Absolute Auto 9000 /uL (1500-7000); Neutrophils Percent Auto 73.8 % (50-75); Platelet Count 264 X10^3/uL (150-400); Red Blood Cell Count 4.91 X10^6/uL (4.5-5.9); Red Cell Distribution Width 16.3 % (11.6-14.8); White Blood Cell Count 12.2 X10^3/uL (4.5-11.0)
[2020-05-20] MEDS: HYDROMORPHONE 0.5 MG INJ IV (17:49)
[2020-05-20 17:53] LABS: Alanine Aminotransferase 29 IU/L (<50); Albumin 4.4 g/dL (3.5-5.0); Albumin Globulin Ratio 1.2 (1.0-2.8); Alkaline Phosphatase 122 U/L (38-126); Aspartate Aminotransferase 36 IU/L (17-59); BUN Creatinine Ratio 12.9 (6-22); Bilirubin Total 0.7 mg/dL (0.2-1.3); Blood Urea Nitrogen 9 mg/dL (9-20); Calcium 9.4 mg/dL (8.4-10.2); Carbon Dioxide 23 mmol/L (22-32); Chloride 107 mmol/L (98-107); Estimated Glomerular Filt Rate > 60.0 mL/min (>60); Globulin 3.6 g/dL (1.7-4.1); Glucose 139 mg/dL (70-100); HEMOLYSIS < 15 (0-50); Sodium 138 mmol/L (137-145)
--- NOTE | 2020-05-20 17:55 | PC.NURSE ---
pt ashen and nauseous with bout of emesis x 2 in room. states feeling better. color returned to face. IV placed, labs drawn, pain meds and nausea meds given per MAR. pt continues to refuse CT due to inability to lay down. Dr ordaz made aware. pt standing or leaning on side of bed in position of comfort. NAD.
== END 2020-05-20 18:43 | disposition home or self-care (01) ==
PROVIDERS: Emergency Provider Emergency Medicine; PCP Nurse Practitioner Family
DX: S22.41XA Multiple fractures of ribs, right side, initial encounter for closed fracture (principal); W11.XXXA Fall on and from ladder, initial encounter; I26.99 Other pulmonary embolism without acute cor pulmonale; Z79.01 Long term (current) use of anticoagulants
CPT/HCPCS: 36415; 71101; 80053; 85025; 96361; 96372; 96374; 96375; 99283; 99285; 99291; J1170; J2405

== ENCOUNTER → 2020-06-04 11:17 | Outpatient (CLI) | payer OTHER, SELFPAY ==
--- NOTE | 2020-06-04 11:17 | DI.CT.S_ITS ---
PROCEDURE: CT CHEST ABD PEL W CON INDICATIONS: worsening pain post fall TECHNIQUE: After the administration of oral and intravenous contrast, 5 mm thick sections acquired from the lung apices to the symphysis. 5 mm coronal and sagittal reformats were performed, with additional 7 mm coronal MIP reformats through the lungs. For radiation dose reduction, the following was used: automated exposure control, adjustment of mA and/or kV according to patient size. COMPARISON: [facility], CT, CT CHEST ABD PEL W CON, 04/01/2020, 12:11. [facility], CT, CT CHEST ABD PEL W CON, 01/27/2020, 11:19. FINDINGS: Image quality: Excellent. CHEST: Lungs and pleura: No acute airspace opacities. There is increased alveolar consolidation and air bronchograms seen at the posterior lung bases, either representing atelectasis or development of mild pneumonia bilaterally. No pleural effusions or pneumothorax. Central and peripheral airways appear patent and normal in caliber. Mediastinum: Heart size is normal. No pericardial effusion. No mediastinal or hilar adenopathy by size criteria. Thoracic aorta and central pulmonary arteries are normal in size. Esophagus is normal in caliber. No hiatal hernia. Chest wall: No axillary or supraclavicular adenopathy by size criteria. Thyroid gland appears normal where well seen. ABDOMEN: Solid organs: Liver is normal in size and its abnormal enhancement pattern produced by extensive hepatic metastatic disease has further worsened from 04/01/20. To example metastatic lesions located at the upper right hepatic lobe seen currently on series 2, image 56 have approximately doubled in volume, more anteriorly measuring 1.7 cm previously and 2.5 cm currently. More posteriorly measuring 1.4 cm previously and 2.1 cm currently within the left hepatic lobe anteriorly a 2.7 cm mass has enlarged to 4.2 cm. Gallbladder shows an unusual increase in radiodensity likely due to tumor invasion or metastatic focus when comparing the appearance of the gallbladder 04/01/20 versus currently on series 2, image 86. . Biliary system is non dilated. Pancreas enhances normally. Spleen is normal in size and enhancement. No adrenal nodules. Kidneys demonstrate normal size and enhancement, without hydronephrosis. Peritoneum and bowel: Bowel loops demonstrate normal wall thickness and caliber. No free fluid or air. Nodes and vessels: New retroperitoneal and mesenteric adenopathy by size criteria has developed, best seen in the peripancreatic region where previously present small nodes now are significantly enlarged up to 4.5 cm in maximal dimension. An impinging extraluminal node may explain the apparent change in the gallbladder appearance from the prior study to the current examination.. Aorta and inferior vena cava are normal in size. Miscellaneous: No ventral hernias. PELVIS: Genitourinary: Bladder wall thickness is normal. Miscellaneous: No inguinal hernias or adenopathy. Aneurysmal dilatation of the iliac arteries is again seen, with patent internal blood flow crossing into the lower extremities. Ostomy site left lower quadrant again noted. Bones: No suspicious bony lesions. No vertebral body compression fractures. IMPRESSION: Significant interval change has occurred involving the liver and azul structures within the abdomen. The liver contains new and enlarging multifocal metastatic lesions, which previously had appeared moderately severe and now appears severe. The azul changes are best seen at the peripancreatic area, with multiple large lymph nodes now present in areas previously free of adenopathy. Currently no bowel or biliary obstruction is seen but the appreciable enlargement raises concern for impending obstructive influence. Stable bilateral common iliac artery aneurysms, extending into the external iliac arteries bilaterally. This is stable from 04/01/20. Dictated by: Augustus Richter M.D. on 06/04/2020 at 12:59 Approved by: Augustus Richter M.D. on 06/04/2020 at 13:09
== END ==
PROVIDERS: PCP Nurse Practitioner Family; Referring Provider Internal Medicine Hematology & Oncology; Visit Provider Internal Medicine Hematology & Oncology
DX: C18.9 Malignant neoplasm of colon, unspecified (principal); C78.7 Secondary malignant neoplasm of liver and intrahepatic bile duct; R59.0 Localized enlarged lymph nodes; S22.41XA Multiple fractures of ribs, right side, initial encounter for closed fracture
CPT/HCPCS: 71260; 74177; Q9967

== ENCOUNTER → 2020-08-13 08:20 | Oncology outpatient (ONC) | payer OTHER, SELFPAY ==
[2018-10-17 08:44] VITALS: BP 112/76; PULSE 110; RESP 18; TEMP 36.5; O2SAT 95
--- NOTE | 2018-10-17 10:01 | P.CONONC_ITS ---
History of Present Illness - Data of Consult Consult date: 10/17/18 Primary Care Provider: Liang Deleon MD - Consult Narrative Narrative: Diagnosis: Metastatic colon cancer History of present illness: Billy Johansen is a 57 year old male who is referred for further evaluation of a newly discovered sigmoid colon mass with likely liver metastasis. Patient reports that for the last year, he has had some blood in the stool that he thought was related to a hemorrhoid. He initially was having some pain with bowel movements but those symptoms resolved. Over the winter, he began to develop some abdominal pain. he tried changing his diet but it did not really help with the pain. he did lose about 20-30 lb though. Eventually, the pain was bad enough that he sought medical attention. He had a CT scan done that showed some thickening of the colon at the rectosigmoid junction. There is also evidence of multiple liver metastasis. His CEA was markedly elevated at 1652. He was seen by Dr. Deleon and had a colonoscopy performed. He was found to have a mass at 20 cm. A biopsy showed serrated adenoma but no evidence of malignancy. The patient denies any shortness of breath or chest pain. He is not having any cough. His appetite has been fair over the last couple of days. He is not having any nausea or vomiting. He has had some intermittent blood in the stool. He was taking iron and vitamin D for awhile but has stopped. He is using some oxycodone for pain. The pain is primarily in the right upper quadrant. It seems to be worse if he lies flat. He has not noted any adenopathy. He is not having any numbness tingling or paresthesias. His past medical history is notable for prior ACL repair. He has otherwise been quite healthy. His medications include only oxycodone. Again, he had been taking vitamin D and iron. Social history: He lives in [place]. He quit smoking about 2 years ago. He does not drink alcohol. 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 He is . He is here with his daughter today. His family history is notable for grandmother with colon cancer. There is no other family history of malignancy. CC: Jerome Bass MD Home Medications and Allergies Home Medications Medication Instructions Recorded Confirmed Type docusate calcium [Stool Softener] 10/17/18 History ergocalciferol (vitamin D2) 50,000 unit PO QWEEK 10/17/18 10/17/18 History [Vitamin D2] ferrous sulfate 325 mg PO DAILY 10/17/18 10/17/18 History oxycodone 10 mg PO Q4-6H PRN 10/17/18 10/17/18 History Review of Systems - Patient Self-Reported Symptoms SR Constitution: Weight loss/gain SR Gastrointestinal issues: Poor or no appetite Constitutional: weight loss, able to conduct usual activities Gastrointestinal: change in appetite, abdominal pain, abnormal stools Exam Vital signs: Vital Signs Temp Pulse Resp BP Pulse Ox 10/17/18 08:44 97.7 F 110 H 18 112/76 95 Intake and Output 10/16/18 10/17/18 10/17/18 23:59 07:59 15:59 Other: Weight 80.5 kg Patient Weight 10/17/18 23:59 Weight 80.5 kg - Constitutional positive no acute distress, positive average body habitus - Routine HEENT Exam Head: Present: normocephalic, atraumatic Eye: Present: EOMI, PERRL. Absent: conjunctival icterus, scleral injection ENT: Present: mucous membranes moist, oropharynx clear Comments: He does have dentures. - Routine Neck Exam Present: supple. Absent: lymphadenopathy, thyromegaly - Routine Chest/Breast/Axilla Exam Axillae: Absent: lymphadenopathy - Routine Respiratory Exam Present: Clear to auscultation bilaterally. Absent: rales, wheezes - Routine Cardiovascular Exam Present: RRR, S1, S2. Absent: murmur - Routine Abdominal Exam Present: soft, normoactive bowel sounds. Absent: distended Comments: He is tender in the right upper quadrant. There is no rebound or guarding. The liver edge is palpable about 3-4 finger breaths below the costal margin. There are no other masses. - Routine Extremities Exam Absent: cyanosis, clubbing, edema - Routine Back/Spine Exam Back/Spine: Present: full ROM. Absent: paraspinal tenderness, vertebral tenderness - Routine Skin Exam Present: intact. Absent: petechiae, rash - Routine Neurological Exam Present: alert, oriented X3 - Routine Psychiatric Exam Present: normal affect, normal thought process Assessment and Plan (1) Colon cancer Current visit: Yes Status: Acute 57-year-old man with a rectosigmoid mass and apparent liver metastasis. This almost certainly represents metastatic colon cancer. Unfortunately, his initial biopsy was nondiagnostic. Will make referral back to Dr. Deleon for a repeat biopsy. If for some reason that is going to be delayed or is not feasible, liver biopsy would be acceptable as well. he does not have any symptoms to suggest obstruction and there has been only a small amount of bleeding from his tumor. I think he can be managed initially with chemotherapy. If he were to develop obstructive symptoms or significant bleeding, surgical resection of his primary tumor should be considered. Today, we discussed the role of chemotherapy in prolonging survival and maintaining her improving quality of life in patients with metastatic colon cancer. Initial chemotherapy choice would depend somewhat on his molecular make up of his tumor. If he is wild type MARION and BRAF, there is a suggestion that left-sided tumors do better with initial Erbitux based therapy. If that were the case, I would likely suggested FOLFIRI with Erbitux. On the other hand, if he does have her mutation, FOLFIRI or FOLFOX with Avastin would be recommended. We did talk about side effects of chemotherapy. This would include a low risk for alopecia. Nausea vomiting myelosuppression risk for infection, mouth sores skin rash, diarrhea ear and risk for neuropathy were reviewed. He is anxious to get started as soon as can be practically arranged. He will need to have a re-biopsy is his initial 1 was negative or nondiagnostic. He will need to have a port placed. He also should have a CT scan of his chest to complete his staging. He did have multiple questions regarding the role of diet which I answered to the best my ability. He also had questions regarding expected survival. I explained that the average survival for newly diagnosed metastatic colon cancer with chemotherapy was on the order of about 2-2 and half years but that there was a lot of variation. He will return to clinic here after his biopsy and CT scan. Hopefully at that time, more definitive treatment plan can be made. 80 minutes was spent with the patient and his daughter that, the majority in counseling.
--- NOTE | 2018-10-18 15:19 | PC.NURSE ---
Pt called regarding pain medication. He saw Dr Bass for his first consult on 10/17 where they discussed the idea of him transitioning to oxycontin for better control. Dr Bass is not in the office until Monday, Pt says he has enough to get him thru until then. I suggested that he try to increase his dose 1-2 hours after taking the initial 10mg. Pills are scored so he could take an additional 5mg 1-2 hours into it and he may get better control. I will request a to phone call on Monday so that Dr Trinidad may order the oxycontin.
--- NOTE | 2018-10-22 16:53 | ONC.SCHED ---
SPOKE WITH KATHARINE AT THE [facility] LAST WEEK AND SHE WAS GOING TO HANDLE THE REFERRALS HERSELF AND THE CT. I HAVE NOT HEARD BACK SO I WILL FOLLOW UP TOMORROW. I TRIED CALLING KATHARINE AND GOT VM TODAY. I'M NOT CONFIDENT THAT SHE DID HANDLE THE REFERRAL.
--- NOTE | 2018-10-23 10:00 | ONC.SCHED ---
SPOKE WITH KATHARINE SEVERAL TIMES AND YESTERDAY SHE SAID SHE HAD TAKEN CARE OF THE REFERRAL TO DR. CAMARENA AND HAS THE PATIENT SCHEDULED. SHE SAID SHE WOULD ALSO TAKE CARE OF THE CT. THIS MORNING I GOT A CALL FROM ANOTHER PERSON, DID NOT GET HER NAME BUT SHE WAS A NURSE WHO SAID THAT THE REFERRALS WERE NOT IN PLACE BUT THAT SHE WOULD TAKE CARE OF IT CYNTHIA SINCE THE PT. IS SCHEDULED TOMORROW. I TOLD HER WE NORMALLY DO THE REFERRALS BUT THIS BREAKFAST HOSTESS (KATHARINE) AND THE PATIENT TOLD ME KATHARINE WAS TAKING CARE OF IT. I ASKED HER IF SHE COULD DO AN URGENT REFERRAL TODAY AND THAT GOING FURTHER WE WOULD HANDLE THE REFERRALS. I'M NOT SURE ON THE PROTOCOL TO WHAT THE [facility] DOES FOR REFERRALS BUT I'LL STAY IN TOUCH WITH THEM.
--- NOTE | 2018-10-23 12:17 | PC.NURSE ---
Rx for oxycontin received and placed in will call. Pt notified.
--- NOTE | 2018-10-23 12:43 | ONC.SCHED ---
Spoke with [facility] over the phone and there is an auth already in place for surgery and the CT falls under the visit and does not require prior auth. in this case. I don't know if it's always the case with [facility] and diagnositic procedures so we will probably have to always double check. So everything is a go for this patient that's order this far. He will have his procedure tomorrow and CT October 31.
--- NOTE | 2018-10-23 12:47 | ONC.SCHED ---
Pt's CT Scan is a check in at 11:10 for an 11:30 scan. I called the patient to let him know.
--- NOTE | 2018-10-23 13:17 | ONC.SCHED ---
The person I spoke with at [facility] [place] was Melissa Pollard who told me the auth was good for biopsy and port placement with Dr. Deleon and that the CT did not need prior auth.
--- NOTE | 2018-10-23 16:02 | ONC.SCHED ---
I wanted to document that I spoke with Melissa Pollard with [facility] regarding the auth for the referral and port placement.
--- NOTE | 2018-11-06 15:05 | ONC.SCHED ---
per Dr Bass's request, Karen called [facility] and ordered MARION and BRAF mutations to be run (11/01/18)
[2018-11-06 16:38] VITALS: BP 126/87; PULSE 96; RESP 18; TEMP 37.1; O2SAT 95
--- NOTE | 2018-11-06 17:45 | ONC.PN ---
PN -Subjective Interval history: Diagnosis: Metastatic colon cancer with liver metastasis, normal mismatch repair. Interval history: The patient is a 57-year-old man who returns today for follow-up. He has recently been diagnosed with metastatic colon cancer with liver metastasis. He continues to complain of pain in the right upper quadrant. He has been using oxycodone 1 tablet about every 4 hours. He finds that this does provide relief although not particularly long-lasting. He did try some OxyContin but found that it made him too groggy and he stopped taking it after just 1 pill. He was seen by our palliative care nurse and given a prescription for fentanyl patches but he has not used them yet. His appetite has been fair. His bowels have been moving. He has had a little bit of ongoing bleeding but it has not been severe. He has not noted any adenopathy. No shortness of breath or cough. Strength and energy level have been stable as well. he did have a repeat biopsy of the colon as well as a port placement. He denies any other changes in his health. His medications include Colace vitamin-D iron and oxycodone. He does have a prescription for fentanyl patches but has not used it. - Patient Self-Reported Symptoms SR Constitution: Weight loss/gain SR Gastrointestinal issues: Poor or no appetite Home Medications and Allergies Home Medications Medication Instructions Recorded Confirmed Type docusate calcium [Stool Softener] 10/17/18 History ergocalciferol (vitamin D2) 50,000 unit PO QWEEK 10/17/18 10/17/18 History [Vitamin D2] ferrous sulfate 325 mg PO DAILY 10/17/18 10/17/18 History oxycodone 10 mg PO Q4-6H PRN 10/17/18 10/17/18 History oxycodone [OxyContin] 20 mg PO Q12H 30 Days #60 tab 10/23/18 Rx fentanyl 1 patch TRANSDERMAL Q72H 11/06/18 11/06/18 History fluorouracil 4,800 mg IV NOW #1 device 11/06/18 Rx ondansetron HCl 8 mg PO Q8H PRN #30 tab 11/06/18 Rx oxycodone See Rx Instructions .ROUTE 11/06/18 11/06/18 History .COMPLEX PRN prochlorperazine maleate 10 mg PO Q6H PRN #30 tab 11/06/18 Rx Exam Vital signs: Vital Signs Temp Pulse Resp BP Pulse Ox 11/06/18 16:38 98.7 F 96 H 18 126/87 95 Intake and Output 11/06/18 11/06/18 11/06/18 07:59 15:59 23:59 Other: Weight 79.7 kg Patient Weight 11/06/18 23:59 Weight 79.7 kg - Constitutional positive no acute distress, positive average body habitus Comments: He is not further examined. Results - Imaging CT scan - chest: report reviewed (No obvious metastasis in the lungs. He did have some tiny indeterminate pulmonary nodules in the 2-4 mm range.) Assessment and Plan (1) Colon cancer Current visit: Yes Status: Acute 57-year-old man with a rectosigmoid mass and apparent liver metastasis. His recent biopsy did in fact confirm a invasive well-differentiated adenocarcinoma. Mismatch repair proteins were normal. MARION and BR AF mutations are pending. He did have his port placed. He is ready to begin therapy soon. Today, we discussed the Backbone chemotherapy for colorectal cancer. I described FOLFIRI or FOLFOX given intravenously over 2 days every 2 weeks. Side effects of each were reviewed and compared. In general, I think the FOLFIRI is a little bit better tolerated with the lower risk for neuropathy and cytopenias but a higher risk for diarrhea and GI side effects. We also reviewed low risk for alopecia, nausea and vomiting. We talked about changes in taste and appetite as well as fatigue. We did talk about risk for infection and cytopenias. We talked about abdominal pain and diarrhea as well as the need for Imodium. For patients who have left-sided tumors with wild-type MARION and BR AF, it appears that survival is better with the addition of Erbitux. If there are mutations then Avastin should be used instead. I would expect the results of his mutation testing within the next few days. Side effects of Erbitux and skin rash and allergic reactions reviewed. We also talked about side effects of Avastin including hypertension proteinuria and bleeding and clotting complications. He had questions regarding the role of nutrition. I explained that he should follow general healthy well-balanced diet. He had questions regarding prognosis. I did point out that the average survival for patients with metastatic colon cancer was on the order about 2-2 and half years but there was extensive variation about that. He is anxious to begin therapy as soon as can be practically arranged. We will plan on starting next week. Greater than 40 minutes was spent with the patient and his , the majority in counseling.
--- NOTE | 2018-11-12 10:33 | ONC.MSW ---
Description: T/C-Pt complaint re: treatment scheduling Activity: Pt called, upset, because he states that he was told by Dr. Bass that he is supposed to start chemo tomorrow, and has not been scheduled for either the chemo teaching or told what time he's supposed to be here. MANAGER ETL went to schedulers, determined that he was ready to be scheduled last week. They will f/u with pt to schedule him for tomorrow as originally planned. QMM completed by NUSRAT.
--- NOTE | 2018-11-12 16:34 | ONC.SCHED ---
Authorization has been done for his Chemo. Check Scanning
--- NOTE | 2018-11-12 16:48 | ONC.SCHED ---
Perez Valdez did not need auth for chemo meds
[2018-11-13 09:11] LABS: Add Manual Diff / Slide Review NO; Basophils Absolute Auto 100 /uL (0-100); Basophils Percent Auto 1.2 % (0-2); Eosinophils Absolute Auto 200 /uL (0-450); Eosinophils Percent Auto 2.1 % (2-4); Hemoglobin 12.7 g/dL (13.5-17.5); Lymphocytes Absolute Auto 1000 /uL (1100-4500); Lymphocytes Percent Auto 9.4 % (25-40); Mean Corpuscular HGB Conc 33.4 % (30-36); Mean Corpuscular Hemoglobin 26.7 PG (26-34); Mean Corpuscular Volume 79.8 fL (80-100); Monocytes Absolute Auto 900 /uL (0-900); Monocytes Percent Auto 9.4 % (3-14); Neutrophils Absolute Auto 7900 /uL (1500-7000); Neutrophils Percent Auto 77.9 % (50-75); Platelet Count 436 X10^3/uL (150-400); Red Blood Cell Count 4.76 X10^6/uL (4.5-5.9); Red Cell Distribution Width 14.9 % (11.6-14.8); White Blood Cell Count 10.1 X10^3/uL (4.5-11.0)
[2018-11-13 09:20] VITALS: BP 114/79; PULSE 102; RESP 16; TEMP 36.5; O2SAT 95
[2018-11-13 09:23] LABS: Alanine Aminotransferase 33 IU/L (21-72); Albumin Globulin Ratio 1.1 (1.0-2.8); Alkaline Phosphatase 227 U/L (38-126); Aspartate Aminotransferase 38 IU/L (17-59); BUN Creatinine Ratio 12.5 (6-22); Bilirubin Total 0.4 mg/dL (0.2-1.3); Blood Urea Nitrogen 10 mg/dL (9-20); Calcium 9.1 mg/dL (8.4-10.2); Carbon Dioxide 30 mmol/L (22-32); Chloride 100 mmol/L (98-107); Estimated Glomerular Filt Rate > 60.0 mL/min (>60); Globulin 3.5 g/dL (1.7-4.1); Glucose 133 mg/dL (70-100); HEMOLYSIS < 15 (0-50); Magnesium 2.2 mg/dL (1.6-2.3); Potassium 4.4 mmol/L (3.4-5.1); Sodium 139 mmol/L (137-145); Total Protein 7.5 g/dL (6.3-8.2)
--- NOTE | 2018-11-13 09:29 | ONC.PN ---
PN -Subjective Interval history: Diagnosis: Metastatic colon cancer with liver metastasis, normal mismatch repair. Interval history: The patient is a 57-year-old man who returns today for follow-up. He has recently been diagnosed with metastatic colon cancer with liver metastasis. Since his last visit here, he has been feeling about the same. He notes ongoing pain in his abdomen and back. He has been using oxycodone with some degree of relief. He has a fentanyl patches but has not been using them. He denies any fevers or chills. He has had a little bit of nausea but no vomiting. He has been using some Zofran which has been working well. No shortness of breath or cough. He has not noted any adenopathy. His bowels are moving well. His pathology did show wild type MARION and BRAF His medications include Colace vitamin-D iron and oxycodone. He does have a prescription for fentanyl patches but has not used it. - Patient Self-Reported Symptoms SR Constitution: Fatigue/Malaise SR Gastrointestinal issues: Poor or no appetite, Nausea, Diarrhea, Constipation, Abdominal pain SR Musculoskeletal issues: Muscle pain or cramps, Back or neck pain, Difficulty walking Home Medications and Allergies Home Medications Medication Instructions Recorded Confirmed Type docusate calcium [Stool Softener] 10/17/18 History ergocalciferol (vitamin D2) 50,000 unit PO QWEEK 10/17/18 10/17/18 History [Vitamin D2] ferrous sulfate 325 mg PO DAILY 10/17/18 10/17/18 History oxycodone 10 mg PO Q4-6H PRN 10/17/18 10/17/18 History oxycodone [OxyContin] 20 mg PO Q12H 30 Days #60 tab 10/23/18 Rx fentanyl 1 patch TRANSDERMAL Q72H 11/06/18 11/06/18 History fluorouracil 4,800 mg IV NOW #1 device 11/06/18 Rx ondansetron HCl 8 mg PO Q8H PRN #30 tab 11/06/18 Rx oxycodone See Rx Instructions .ROUTE 11/06/18 11/06/18 History .COMPLEX PRN prochlorperazine maleate 10 mg PO Q6H PRN #30 tab 11/06/18 Rx Exam Vital signs: Vital Signs Temp Pulse Resp BP Pulse Ox 11/13/18 09:20 97.7 F 102 H 16 114/79 95 Intake and Output 11/12/18 11/13/18 11/13/18 23:59 07:59 15:59 Other: Weight 77.4 kg Patient Weight 11/13/18 23:59 Weight 77.4 kg - Constitutional positive no acute distress, positive average body habitus Comments: He is not further examined. Results - Labs Laboratory Last Values WBC 10.1 X10^3/uL (4.5-11.0) 11/13/18 08:45 RBC 4.76 X10^6/uL (4.5-5.9) 11/13/18 08:45 Hgb 12.7 g/dL (13.5-17.5) L 11/13/18 08:45 Hct 38.0 % (41-53) L 11/13/18 08:45 MCV 79.8 fL (80-100) L 11/13/18 08:45 MCH 26.7 PG (26-34) 11/13/18 08:45 MCHC 33.4 % (30-36) 11/13/18 08:45 RDW 14.9 % (11.6-14.8) H 11/13/18 08:45 Plt Count 436 X10^3/uL (150-400) H 11/13/18 08:45 Neut % (Auto) 77.9 % (50-75) H 11/13/18 08:45 Lymph % (Auto) 9.4 % (25-40) L 11/13/18 08:45 Hitchcock % (Auto) 9.4 % (3-14) 11/13/18 08:45 Eos % (Auto) 2.1 % (2-4) 11/13/18 08:45 Baso % (Auto) 1.2 % (0-2) 11/13/18 08:45 Neut # (Auto) 7900 /uL (7493-9960) H 11/13/18 08:45 Lymph # (Auto) 1000 /uL (7308-3336) L 11/13/18 08:45 Hitchcock # (Auto) 900 /uL (0-900) 11/13/18 08:45 Eos # (Auto) 200 /uL (0-450) 11/13/18 08:45 Baso # (Auto) 100 /uL (0-100) 11/13/18 08:45 Sodium 139 mmol/L (137-145) 11/13/18 08:45 Potassium 4.4 mmol/L (3.4-5.1) 11/13/18 08:45 Chloride 100 mmol/L (98-107) 11/13/18 08:45 Carbon Dioxide 30 mmol/L (22-32) 11/13/18 08:45 BUN 10 mg/dL (9-20) 11/13/18 08:45 Creatinine 0.80 mg/dL (0.66-1.25) 11/13/18 08:45 Estimated GFR > 60.0 mL/min (>60) 11/13/18 08:45 BUN/Creatinine Ratio 12.5 (6-22) 11/13/18 08:45 Glucose 133 mg/dL (70-100) H 11/13/18 08:45 Calcium 9.1 mg/dL (8.4-10.2) 11/13/18 08:45 Magnesium 2.2 mg/dL (1.6-2.3) 11/13/18 08:45 Total Bilirubin 0.4 mg/dL (0.2-1.3) 11/13/18 08:45 AST 38 IU/L (17-59) 11/13/18 08:45 ALT 33 IU/L (21-72) 11/13/18 08:45 Alkaline Phosphatase 227 U/L (38-126) H 11/13/18 08:45 Total Protein 7.5 g/dL (6.3-8.2) 11/13/18 08:45 Albumin 4.0 g/dL (3.5-5.0) 11/13/18 08:45 Globulin 3.5 g/dL (1.7-4.1) 11/13/18 08:45 Albumin/Globulin Ratio 1.1 (1.0-2.8) 11/13/18 08:45 Assessment and Plan (1) Colon cancer Current visit: Yes Status: Acute 57-year-old man with a rectosigmoid mass and apparent liver metastasis. His recent biopsy did in fact confirm a invasive well-differentiated adenocarcinoma. Mismatch repair proteins were normal. MARION and BR AF mutations are normal. He did have his port placed. He is ready to begin therapy today. We briefly reviewed schedule chemotherapy and expected toxicities. He is anxious to begin. He will continue with oxycodone for his pain. He is somewhat nervous about using the fentanyl patches. He will return to clinic in about 2 weeks for follow-up but sooner should the need arise. Greater than 40 minutes was spent with the patient and his , the majority in counseling.
[2018-11-13] MEDS: SODIUM CHLORIDE 0.9% 100 ML 21 ML IV (09:54)
[2018-11-13] MEDS: DEXAMETHASONE 12 MG in SODIUM CHLORIDE 0.9% 50 ML 212 ML IV (10:04)
[2018-11-13] MEDS: diphenhydrAMINE 50 MG/ML VIAL 25 MG IV (10:30)
[2018-11-13] MEDS: ONDANSETRON 16 MG in SODIUM CHLORIDE 0.9% 50 ML 232 ML IV (10:44)
[2018-11-13] MEDS: CETUXIMAB IV (11:41)
[2018-11-13] MEDS: ISOOSMOTIC VEHICLE IV ×2 (11:41→16:36)
[2018-11-13] MEDS: OXYCODONE IR 5 MG TABLET 10 MG PO (12:10)
[2018-11-13] MEDS: IRINOTECAN IV (13:59)
[2018-11-13] MEDS: DEXTROSE 5% IV ×2 (13:59)
[2018-11-13] MEDS: LEUCOVORIN IV (13:59)
[2018-11-13] MEDS: FLUOROURACIL IV (16:36)
--- NOTE | 2018-11-13 17:19 | PC.NURSE ---
5fu dose checked with NR.RXB, CADD pump attached with equashield after checking for positive blood return, all clamps open, pump running with green light flashing.
[2018-11-14] MEDS: SODIUM CHLORIDE 0.9% 1,000 ML 1000 ML IV (16:55)
[2018-11-15 15:09] VITALS: BP 104/61; PULSE 82; RESP 16; TEMP 36.5
--- NOTE | 2018-11-15 15:12 | PC.NURSE ---
Patient here for pump disconnect. He reports feeling quite a bit of nauseau so that he is also not eating very much since Monday's treatment. He is taking his zofran tablets as ordered at home. Request to Dr. Trinidad made to give 1 L. NS while patient here today and 1 tab lorazepam as well as to call in a prescription to his [place] pharmacy for Lorazepam to be taken with his zofran at home.
--- NOTE | 2018-11-15 16:49 | PC.NURSE ---
Pt states he's been feeling horrible. C/O feeling nauseated, decreased appetite, fatigue. States hasn't eaten much these past 2 days. States he feels he's been drinking enough fluids. States experienced chills on Monday and covered himself with a whole bunch of warm blankets and a heated blanket and took temp and it read 102.5, but then took off all the warm blankets and got out of bed and walked around and rechecked temp and it was 100.3-100.4. Only had that one episode of feeling chilled. Pt is afebrile today. Spoke with pt about taking ondansetron and lorazepam together to see if that's more effective. Prescription sent over to his pharmacy by Sylvia BELL. IV fluids being administered today. Will continue to monitor.
--- NOTE | 2018-11-20 09:57 | PC.NURSE ---
Patient called this am with following report: Since 11/18 evening severe waves of cramps in lower abdomen up to 10 pain scale, was not able to have a bowel movement. Went to ER on Monday after being up with this pain all night. They did CT scan and told him it was colitis and prescribed Augmentin 875/125. On returning home he had a very large amount of watery diahrrea with no blood or mucous. As well he had emesis 2x during night and continued cramping in waves up to severity 10. He was also prescribed naproxen. This am he took one immodium after diahrrea with 8oz water and one pain pill. He states he will not come in for labs or fluids because feeling too poorly but does have a palliative nurse coming at 1300. He states ER doc said WBC was ok and patient will request ER to fax lab results to Dr. Bass. Report made to Dr. Bass and communicated back to patient per telephone that he wants patient to finish the Augmentin and that he can come in if he can come in for fluids and nausea medication, that he should continue taking the immodium after each diahrrea up to 8 times/day. Patient voiced understanding and will consider coming in if needed. He was advised to eat and drink small amounts frequently through out day. Patient will be in for labs and treatment in one week.
--- NOTE | 2018-11-27 08:26 | ONC.PN ---
PN -Subjective Interval history: Diagnosis: Metastatic colon cancer with liver metastasis, normal mismatch repair, wild type MARION and BRAF Treatment: FOLFIRI X1 11/13/2018 Interval history: Patient reported that at the end of the first week of the first cycle FOLFIRI and cetuximab, patient developed worsening abdominal cramping. He was afraid of blocked up', and went to the emergency room at [facility]. CT scan showed ?colitis?. Patient was constipated. Patient was given MiraLax and enema. Thereafter patient has episodes of diarrhea. Overall patient was thought to be dehydrated and possibly infected. He was treated with intravenous fluids as well as antibiotics. Patient only took antibiotics once and stopped. Patient thereafter has been doing well without any fever or chills. Patient did notice some papular rashes across the nose - Patient Self-Reported Symptoms SR Constitution: Fatigue/Malaise SR Gastrointestinal issues: Poor or no appetite, Nausea, Diarrhea, Constipation, Abdominal pain SR Musculoskeletal issues: Muscle pain or cramps, Back or neck pain, Difficulty walking - Additional ROS All systems PM: reviewed and no additional remarkable complaints except as stated Home Medications and Allergies Home Medications Medication Instructions Recorded Confirmed Type docusate calcium [Stool Softener] 10/17/18 History ergocalciferol (vitamin D2) 50,000 unit PO QWEEK 10/17/18 10/17/18 History [Vitamin D2] ferrous sulfate 325 mg PO DAILY 10/17/18 10/17/18 History oxycodone 10 mg PO Q4-6H PRN 10/17/18 10/17/18 History fentanyl 1 patch TRANSDERMAL Q72H 11/06/18 11/06/18 History fluorouracil 4,800 mg IV NOW #1 device 11/06/18 Rx ondansetron HCl 8 mg PO Q8H PRN #30 tab 11/06/18 Rx oxycodone See Rx Instructions .ROUTE 11/06/18 11/06/18 History .COMPLEX PRN prochlorperazine maleate 10 mg PO Q6H PRN #30 tab 11/06/18 Rx lorazepam [Ativan] 0.5 mg PO BID-TID PRN #30 tab 11/15/18 Rx Allergies Allergy/AdvReac Type Severity Reaction Status Date / Time No Known Drug Allergies Allergy Verified 11/15/18 15:27 Exam Vital signs: Last Vital Signs Temp 97.1 F L 11/27/18 09:10 Pulse 85 11/27/18 09:10 Resp 16 11/27/18 09:10 BP 108/75 11/27/18 09:10 Pulse Ox 96 11/27/18 09:10 ECOG 1 Narrative: Gen: WD, thin, NAD, pleasant and cooperative. Accompanied by his HEENT: NCAT, EOMI, PERRLA, anicteric sclera. Neck: Supple, No palpable thyromegaly or lymphadenopathy. Respiratory: CTAB, no wheezes audible. No JVD Cardiovascular: RRR, S1 and S2 normal, no M/G/R. Abdomen: Soft, liver palpable below the right costal margin with mild tenderness Extremities: No LE pitting edema. Lymphatic: no palpable lymph nodes in the neck, axillae Skin: scattered papular rashes noted across the nose Neurological: AOx3, CN II-XII grossly intact. No focal motor or sensory deficit. Psychiatric: anxious; cooperative. Results - Labs Laboratory Last Values WBC 7.3 X10^3/uL (4.5-11.0) 11/27/18 08:50 RBC 4.42 X10^6/uL (4.5-5.9) L 11/27/18 08:50 Hgb 11.8 g/dL (13.5-17.5) L 11/27/18 08:50 Hct 35.2 % (41-53) L 11/27/18 08:50 MCV 79.8 fL (80-100) L 11/27/18 08:50 MCH 26.7 PG (26-34) 11/27/18 08:50 MCHC 33.5 % (30-36) 11/27/18 08:50 RDW 15.5 % (11.6-14.8) H 11/27/18 08:50 Plt Count 304 X10^3/uL (150-400) 11/27/18 08:50 Neut % (Auto) 76.2 % (50-75) H 11/27/18 08:50 Lymph % (Auto) 9.7 % (25-40) L 11/27/18 08:50 [place] % (Auto) 8.8 % (3-14) 11/27/18 08:50 Eos % (Auto) 4.5 % (2-4) H 11/27/18 08:50 Baso % (Auto) 0.8 % (0-2) 11/27/18 08:50 Neut # (Auto) 5600 /uL (5146-5064) 11/27/18 08:50 Lymph # (Auto) 700 /uL (7487-2197) L 11/27/18 08:50 [place] # (Auto) 600 /uL (0-900) 11/27/18 08:50 Eos # (Auto) 300 /uL (0-450) 11/27/18 08:50 Baso # (Auto) 100 /uL (0-100) 11/27/18 08:50 Sodium 136 mmol/L (137-145) L 11/27/18 08:50 Potassium 4.3 mmol/L (3.4-5.1) 11/27/18 08:50 Chloride 102 mmol/L (98-107) 11/27/18 08:50 Carbon Dioxide 29 mmol/L (22-32) 11/27/18 08:50 BUN 12 mg/dL (9-20) 11/27/18 08:50 Creatinine 0.70 mg/dL (0.66-1.25) 11/27/18 08:50 Estimated GFR > 60.0 mL/min (>60) 11/27/18 08:50 BUN/Creatinine Ratio 17.1 (6-22) 11/27/18 08:50 Glucose 99 mg/dL (70-100) 11/27/18 08:50 Calcium 8.5 mg/dL (8.4-10.2) 11/27/18 08:50 Magnesium 2.1 mg/dL (1.6-2.3) 11/27/18 08:50 Total Bilirubin 0.2 mg/dL (0.2-1.3) 11/27/18 08:50 AST 21 IU/L (17-59) 11/27/18 08:50 ALT 35 IU/L (21-72) 11/27/18 08:50 Alkaline Phosphatase 138 U/L (38-126) H 11/27/18 08:50 Total Protein 6.6 g/dL (6.3-8.2) 11/27/18 08:50 Albumin 3.6 g/dL (3.5-5.0) 11/27/18 08:50 Globulin 3.0 g/dL (1.7-4.1) 11/27/18 08:50 Albumin/Globulin Ratio 1.2 (1.0-2.8) 11/27/18 08:50 Carcinoembryonic Ag 2030.0 ng/mL (0.1-3.0) H 11/13/18 08:45 Assessment and Plan (1) Colon cancer 58-year-old man with a rectosigmoid mass and apparent liver metastasis. Biopsy showed invasive well-differentiated adenocarcinoma. Mismatch repair proteins were normal. MARION and BR AF mutations are normal. He did have his port placed. He was started on FOLFIRI with cetuximab on 11/13/2018. The first cycle of the chemotherapy was complicated by abdominal cramping and mild papular rashes on the face. I will proceed with scheduled cycle 2 therapy with FOLFIRI and cetuximab. Patient will be back in 2 weeks for the next cycle of the chemotherapy and to see Dr. Bass.
[2018-11-27 09:10] VITALS: BP 108/75; PULSE 85; RESP 16; TEMP 36.2; O2SAT 96
[2018-11-27 09:15] LABS: Add Manual Diff / Slide Review NO; Basophils Absolute Auto 100 /uL (0-100); Basophils Percent Auto 0.8 % (0-2); Eosinophils Absolute Auto 300 /uL (0-450); Eosinophils Percent Auto 4.5 % (2-4); Hematocrit 35.2 % (41-53); Hemoglobin 11.8 g/dL (13.5-17.5); Lymphocytes Absolute Auto 700 /uL (1100-4500); Lymphocytes Percent Auto 9.7 % (25-40); Mean Corpuscular HGB Conc 33.5 % (30-36); Mean Corpuscular Hemoglobin 26.7 PG (26-34); Mean Corpuscular Volume 79.8 fL (80-100); Monocytes Absolute Auto 600 /uL (0-900); Monocytes Percent Auto 8.8 % (3-14); Neutrophils Absolute Auto 5600 /uL (1500-7000); Neutrophils Percent Auto 76.2 % (50-75); Platelet Count 304 X10^3/uL (150-400); Red Blood Cell Count 4.42 X10^6/uL (4.5-5.9); Red Cell Distribution Width 15.5 % (11.6-14.8); White Blood Cell Count 7.3 X10^3/uL (4.5-11.0)
[2018-11-27 09:33] LABS: Alanine Aminotransferase 35 IU/L (21-72); Albumin 3.6 g/dL (3.5-5.0); Albumin Globulin Ratio 1.2 (1.0-2.8); Alkaline Phosphatase 138 U/L (38-126); Aspartate Aminotransferase 21 IU/L (17-59); BUN Creatinine Ratio 17.1 (6-22); Bilirubin Total 0.2 mg/dL (0.2-1.3); Blood Urea Nitrogen 12 mg/dL (9-20); Calcium 8.5 mg/dL (8.4-10.2); Carbon Dioxide 29 mmol/L (22-32); Chloride 102 mmol/L (98-107); Estimated Glomerular Filt Rate > 60.0 mL/min (>60); Glucose 99 mg/dL (70-100); HEMOLYSIS < 15 (0-50); Magnesium 2.1 mg/dL (1.6-2.3); Potassium 4.3 mmol/L (3.4-5.1); Sodium 136 mmol/L (137-145); Total Protein 6.6 g/dL (6.3-8.2)
[2018-11-27] MEDS: DEXAMETHASONE 12 MG in SODIUM CHLORIDE 0.9% 50 ML 212 ML IV (09:52)
[2018-11-27] MEDS: ONDANSETRON 16 MG in SODIUM CHLORIDE 0.9% 50 ML 232 ML IV (10:24)
[2018-11-27] MEDS: diphenhydrAMINE 50 MG/ML VIAL 25 MG IV (10:24)
[2018-11-27] MEDS: SODIUM CHLORIDE 0.9% 100 ML 21 ML IV (10:29)
[2018-11-27] MEDS: OXYCODONE IR 5 MG TABLET 10 MG PO ×2 (11:00→15:18)
--- NOTE | 2018-11-27 11:07 | ONC.MSW ---
*Pt received a Chemo Quilt today.
[2018-11-27] MEDS: CETUXIMAB IV (11:09)
[2018-11-27] MEDS: ISOOSMOTIC VEHICLE IV ×2 (11:09→15:47)
[2018-11-27] MEDS: IRINOTECAN IV (13:32)
[2018-11-27] MEDS: LEUCOVORIN IV (13:32)
[2018-11-27] MEDS: DEXTROSE 5% IV ×2 (13:32)
[2018-11-27] MEDS: FLUOROURACIL IV (15:47)
--- NOTE | 2018-11-27 16:49 | PC.NURSE ---
5FU casette dosage double checked with NR.RXB. Blood return positive. CADD pump attached using equashield, all clamps open, pump running with green light flashing. Patient informed to return at 1430 on .
--- NOTE | 2018-11-29 18:05 | PC.NURSE ---
5FU pump Dc'd w/o issue. Pt tolerated treatment. Denies chest pain and SOB. Port flushes per protocol.
--- NOTE | 2018-12-04 15:52 | PC.NURSE ---
Returned pt's call. Pt c/o stomach cramps with nausea. Pt reports 1-2 BMs/day over the last few days. Pt canceled appt for today. Pt reports it's not as bad as the last cycle, but it's really uncomfortable. Discussed pain regimen with pt and importance of staying on pain med schedule, pt voiced understanding. Pt reports not having tried his Ativan RX for nausea at this time, instructed pt to take as prescribed, pt agreeable. Pt declines to come into clinic today for IV fluids but agrees to come in tomorrow for lab draw and fluids at 11am. This securities underwriter asked schedulers to place pt on schedule for tomorrow.
[2018-12-05] MEDS: SODIUM CHLORIDE 0.9% 1,000 ML 1000 ML IV (11:32)
[2018-12-05 11:40] VITALS: BP 100/77; PULSE 100; RESP 15; TEMP 36.9; O2SAT 94
[2018-12-05] MEDS: ONDANSETRON 8 MG in SODIUM CHLORIDE 0.9% 50 ML 216 ML IV (11:46)
[2018-12-05 11:53] LABS: Add Manual Diff / Slide Review NO; Basophils Absolute Auto 0 /uL (0-100); Basophils Percent Auto 0.6 % (0-2); Eosinophils Absolute Auto 100 /uL (0-450); Eosinophils Percent Auto 2.9 % (2-4); Hematocrit 40.2 % (41-53); Hemoglobin 13.4 g/dL (13.5-17.5); Lymphocytes Absolute Auto 800 /uL (1100-4500); Mean Corpuscular HGB Conc 33.3 % (30-36); Mean Corpuscular Hemoglobin 26.5 PG (26-34); Mean Corpuscular Volume 79.6 fL (80-100); Monocytes Absolute Auto 800 /uL (0-900); Monocytes Percent Auto 16.7 % (3-14); Neutrophils Absolute Auto 2900 /uL (1500-7000); Neutrophils Percent Auto 62.8 % (50-75); Platelet Count 340 X10^3/uL (150-400); Red Blood Cell Count 5.05 X10^6/uL (4.5-5.9); Red Cell Distribution Width 15.2 % (11.6-14.8); White Blood Cell Count 4.5 X10^3/uL (4.5-11.0)
[2018-12-05 12:01] LABS: Alanine Aminotransferase 56 IU/L (21-72); Albumin 3.9 g/dL (3.5-5.0); Albumin Globulin Ratio 1.2 (1.0-2.8); Alkaline Phosphatase 151 U/L (38-126); Aspartate Aminotransferase 41 IU/L (17-59); BUN Creatinine Ratio 13.8 (6-22); Bilirubin Total 0.6 mg/dL (0.2-1.3); Blood Urea Nitrogen 11 mg/dL (9-20); Calcium 8.9 mg/dL (8.4-10.2); Carbon Dioxide 28 mmol/L (22-32); Chloride 94 mmol/L (98-107); Estimated Glomerular Filt Rate > 60.0 mL/min (>60); Globulin 3.2 g/dL (1.7-4.1); Glucose 96 mg/dL (70-100); HEMOLYSIS < 15 (0-50); Magnesium 1.8 mg/dL (1.6-2.3); Potassium 4.1 mmol/L (3.4-5.1); Sodium 133 mmol/L (137-145); Total Protein 7.1 g/dL (6.3-8.2)
[2018-12-05] MEDS: DEXAMETHASONE 10 MG/ML VIAL 8 MG IV (12:30)
--- NOTE | 2018-12-06 16:12 | PC.NURSE ---
On 11/12 chemo teaching was done with patient who was accompanied by his parents. His mother will be accompanying him during some treatments and assisting him at home in addition to patient's . Chemotherapy Education: Cetuximab, 5FU, irinotecan, leucovorin Pt provided written information on all topics discussed. Written materials printed from www[facility] Pt was given an overview of cancer and mechanism of action of cancer cells, that cancer is caused by cells that are dividing rapidly, and out of control. Traditional chemotherapy works by targeting the fast dividing cells and killing them. Chemotherapy affecting healthy cells dividing quickly causes many of the side effects (hair follicles, bone marrow, mucus membranes). Overview of blood cell functions of white cells to fight infection, red cells to carry oxygen, and platelets to stop bleeding was discussed, and that when bone marrow is affected by chemo, there is a decrease in production of these cells. Home care of the patient following chemotherapy was discussed. Body fluids will be contaminated for 48 hours following treatment, and any body fluids handled by caregivers should be handled wearing gloves, surfaces need to be cleaned with soap and water, any soiled linens or clothing need to be washed separately in hot water, toilet lid should be closed when flushing, person cleaning the toilet should wear gloves. How chemotherapy is administered by the RN?s in the clinic, that orders are double checked by pharmacy and checked again by two RN?s prior to administration. Nurses wear protective gear to prevent exposure to them of the chemotherapy agents which can also cause cancer. Cancer center information discussed and written hand out provided listing on-call oncologist available weekends and after hours triage R.N. hours and infusion room guide. New patient binder given, which includes clinic names, phone numbers, clinic information, calendar, cancer glossary, and list of resources. Handout on advanced directives Common side effects of chemotherapy were discussed with self care tips for prevention of complications. Information also provided in writing. These included: Low blood counts (anemia, thrombocytopenia, neutropenia) Hair loss (alopecia) Nausea and vomiting Decreased appetite Loss of fertility Diarrhea Mouth sores Constipation Peripheral neuropathy Chemo brain/cognitive changes Fatigue Instructions on when to call your healthcare team or on-call physician immediately: Fever of 100.4 or higher, chills, any signs of infection Shortness of breath, wheezing, difficulty breathing, closing of throat, swelling of face, hives (signs of possible allergic reaction) Chest pain, fast heart beat or feelings of a different heart rhythm Swelling of an extremity with or without pain signs of stroke Instructions on when to call your healthcare team within the next 24 hours Nausea that interferes with ability to eat and unrelieved with prescribed medication Diarrhea (4-6 episodes in 24 hour period). Unusual bleeding or bruising Black or tarry stools, or blood in your stools Blood in the urine pain or burning with urination Extreme fatigue (unable to perform self-care activities) Mouth sores or sore areas in your mouth Bad headache Dizziness or lightheadedness Large weight gain over a short period of time General self-care tips while undergoing treatment discussed were as follows. Written materials were provided covering in detail and additional self care tips. Drink at least 2-3 quarts (8-10 glasses) of no-caffeinated beverages daily unless you are instructed otherwise and empty your bladder frequently Report any concerning symptoms to your healthcare team Avoid crowds and sick people, wash your hands frequently Use a soft bristled toothbrush, rinse three times a day with 1 tsp baking soda or 1 tsp salt mixed with warm water Avoid any mouthwashes or oral and skin products containing alcohol or fragrances Use electric razors to avoid cutting yourself Avoid contact sports or activities that could cause head injury or bleeding Avoid sun exposure, wear SPF 15 or higher, wear protective clothing Get plenty of rest, meter your activities Maintain good nutrition Avoid alcoholic beverages Attend your scheduled appointments and lab draws Treatment regimen reviewed and medications were discussed with attention to specific side effects and self care for the pt?s treatment regimen. Pt was provided with literature regarding chemo and common side effects. Additionally, pt was provided with information regarding the immunotherapy cetuximab particularly that this drug can cause a rash which he should report. Patient was also given a wallet card to show at other medical providers indicating that he is on immunotherapy and the possible side effects. Patient was also instructed to report mucous or blood in his stool. Pt instructed to read literature at home. Keep a list of questions which we are happy to go over at future visits. For any urgent questions please feel free to call any time.
[2018-12-11 08:46] LABS: Add Manual Diff / Slide Review NO; Basophils Absolute Auto 100 /uL (0-100); Basophils Percent Auto 0.8 % (0-2); Eosinophils Absolute Auto 200 /uL (0-450); Eosinophils Percent Auto 3.4 % (2-4); Hematocrit 38.3 % (41-53); Hemoglobin 12.8 g/dL (13.5-17.5); Lymphocytes Absolute Auto 1700 /uL (1100-4500); Lymphocytes Percent Auto 23.6 % (25-40); Mean Corpuscular HGB Conc 33.3 % (30-36); Mean Corpuscular Hemoglobin 26.5 PG (26-34); Mean Corpuscular Volume 79.6 fL (80-100); Monocytes Absolute Auto 1500 /uL (0-900); Monocytes Percent Auto 20.8 % (3-14); Neutrophils Absolute Auto 3800 /uL (1500-7000); Neutrophils Percent Auto 51.4 % (50-75); Platelet Count 343 X10^3/uL (150-400); Red Blood Cell Count 4.82 X10^6/uL (4.5-5.9); Red Cell Distribution Width 15.9 % (11.6-14.8); White Blood Cell Count 7.4 X10^3/uL (4.5-11.0)
[2018-12-11 08:53] VITALS: BP 116/74; PULSE 88; RESP 18; TEMP 36.8; O2SAT 98
[2018-12-11 08:56] LABS: Alanine Aminotransferase 57 IU/L (21-72); Albumin 3.7 g/dL (3.5-5.0); Albumin Globulin Ratio 1.2 (1.0-2.8); Alkaline Phosphatase 112 U/L (38-126); Aspartate Aminotransferase 35 IU/L (17-59); BUN Creatinine Ratio 16.7 (6-22); Bilirubin Total 0.4 mg/dL (0.2-1.3); Blood Urea Nitrogen 10 mg/dL (9-20); Calcium 9.1 mg/dL (8.4-10.2); Carbon Dioxide 29 mmol/L (22-32); Chloride 103 mmol/L (98-107); Estimated Glomerular Filt Rate > 60.0 mL/min (>60); Glucose 91 mg/dL (70-100); HEMOLYSIS 34 (0-50); Magnesium 2.1 mg/dL (1.6-2.3); Potassium 3.7 mmol/L (3.4-5.1); Sodium 138 mmol/L (137-145); Total Protein 6.7 g/dL (6.3-8.2)
--- NOTE | 2018-12-11 09:25 | P.PNONC_ITS ---
PN -Subjective Interval history: Diagnosis: Metastatic colon cancer with liver metastasis, normal mismatch repair, wild type MARION and BRAF Treatment: FOLFIRI and Erbitux X 2 starting in October 2018 Interval history: Patient is a 58-year-old man with metastatic colon cancer. He returns today for follow-up. He has completed 2 cycles of FOLFIRI with Erbitux. He had a lot of abdominal cramping and diarrhea following his 2nd cycle. He needed some extra hydration. He also tried some hyoscyamine without much relief. He did start on some dexamethasone 4 mg daily beginning about a week ago. Since then, he has been feeling a lot better. He feels like his appetite has improved. He has been able to gain a couple of lb. He has not had any further nausea and vomiting. His abdominal cramping persist but has lessened in severity. He is having 1 or 2 watery stools per day. He has not noticed any worsening skin rash. No fevers or chills. No mouth sores. No shortness of breath or cough. He has not noticed any adenopathy. He denies any other changes in his health. - Patient Self-Reported Symptoms SR Constitution: Fatigue/Malaise SR Gastrointestinal issues: Poor or no appetite, Nausea, Diarrhea, Constipation, Abdominal pain SR Musculoskeletal issues: Muscle pain or cramps, Back or neck pain, Difficulty walking Home Medications and Allergies Home Medications Medication Instructions Recorded Confirmed Type docusate calcium [Stool Softener] 240 mg DAILY 10/17/18 12/11/18 History ergocalciferol (vitamin D2) 50,000 unit PO QWEEK 10/17/18 12/11/18 History [Vitamin D2] ferrous sulfate 325 mg PO DAILY 10/17/18 12/11/18 History oxycodone 10 mg PO Q4-6H PRN 10/17/18 12/11/18 History fentanyl 1 patch TRANSDERMAL Q72H 11/06/18 12/11/18 History fluorouracil 4,800 mg IV NOW #1 device 11/06/18 Rx ondansetron HCl 8 mg PO Q8H PRN #30 tab 11/06/18 Rx oxycodone See Rx Instructions .ROUTE 11/06/18 12/11/18 History .COMPLEX PRN prochlorperazine maleate 10 mg PO Q6H PRN #30 tab 11/06/18 12/11/18 Rx lorazepam [Ativan] 0.5 mg PO BID-TID PRN #30 tab 11/15/18 Rx hyoscyamine sulfate 0.25 mg PO QID PRN #100 tab 12/05/18 Rx dexamethasone 4 mg PO DAILY 12/11/18 12/11/18 History Allergies Allergy/AdvReac Type Severity Reaction Status Date / Time No Known Drug Allergies Allergy Verified 11/15/18 15:27 Exam Vital signs: Vital Signs Temp Pulse Resp BP Pulse Ox 12/11/18 08:53 98.2 F 88 18 116/74 98 Intake and Output 12/10/18 12/11/18 12/11/18 23:59 07:59 15:59 Other: Weight 71.4 kg Patient Weight 12/11/18 23:59 Weight 71.4 kg - Constitutional positive no acute distress, positive average body habitus - Routine HEENT Exam Head: Present: normocephalic, atraumatic Eye: Present: EOMI, PERRL. Absent: conjunctival icterus, scleral injection ENT: Present: mucous membranes moist, oropharynx clear - Routine Neck Exam Present: supple. Absent: lymphadenopathy, thyromegaly - Routine Respiratory Exam Present: Clear to auscultation bilaterally. Absent: rales, wheezes - Routine Cardiovascular Exam Present: RRR, S1, S2. Absent: murmur - Routine Abdominal Exam Present: soft, normoactive bowel sounds. Absent: tenderness, organomegaly, mass - Routine Extremities Exam Absent: cyanosis, clubbing, edema - Routine Skin Exam Present: intact. Absent: petechiae Comments: He has a faint follicular rash on the nose and a little bit on the hands. - Routine Neurological Exam Present: alert, oriented X3 - Routine Psychiatric Exam Present: normal affect, normal thought process Results - Labs Laboratory Last Values WBC 7.4 X10^3/uL (4.5-11.0) 12/11/18 08:35 RBC 4.82 X10^6/uL (4.5-5.9) 12/11/18 08:35 Hgb 12.8 g/dL (13.5-17.5) L 12/11/18 08:35 Hct 38.3 % (41-53) L 12/11/18 08:35 MCV 79.6 fL (80-100) L 12/11/18 08:35 MCH 26.5 PG (26-34) 12/11/18 08:35 MCHC 33.3 % (30-36) 12/11/18 08:35 RDW 15.9 % (11.6-14.8) H 12/11/18 08:35 Plt Count 343 X10^3/uL (150-400) 12/11/18 08:35 Neut % (Auto) 51.4 % (50-75) 12/11/18 08:35 Lymph % (Auto) 23.6 % (25-40) L 12/11/18 08:35 [place] % (Auto) 20.8 % (3-14) H 12/11/18 08:35 Eos % (Auto) 3.4 % (2-4) 12/11/18 08:35 Baso % (Auto) 0.8 % (0-2) 12/11/18 08:35 Neut # (Auto) 3800 /uL (3775-6503) 12/11/18 08:35 Lymph # (Auto) 1700 /uL (1467-1625) 12/11/18 08:35 [place] # (Auto) 1500 /uL (0-900) H 12/11/18 08:35 Eos # (Auto) 200 /uL (0-450) 12/11/18 08:35 Baso # (Auto) 100 /uL (0-100) 12/11/18 08:35 Sodium 138 mmol/L (137-145) 12/11/18 08:35 Potassium 3.7 mmol/L (3.4-5.1) 12/11/18 08:35 Chloride 103 mmol/L (98-107) 12/11/18 08:35 Carbon Dioxide 29 mmol/L (22-32) 12/11/18 08:35 BUN 10 mg/dL (9-20) 12/11/18 08:35 Creatinine 0.60 mg/dL (0.66-1.25) L 12/11/18 08:35 Estimated GFR > 60.0 mL/min (>60) 12/11/18 08:35 BUN/Creatinine Ratio 16.7 (6-22) 12/11/18 08:35 Glucose 91 mg/dL (70-100) 12/11/18 08:35 Calcium 9.1 mg/dL (8.4-10.2) 12/11/18 08:35 Magnesium 2.1 mg/dL (1.6-2.3) 12/11/18 08:35 Total Bilirubin 0.4 mg/dL (0.2-1.3) 12/11/18 08:35 AST 35 IU/L (17-59) 12/11/18 08:35 ALT 57 IU/L (21-72) 12/11/18 08:35 Alkaline Phosphatase 112 U/L (38-126) 12/11/18 08:35 Total Protein 6.7 g/dL (6.3-8.2) 12/11/18 08:35 Albumin 3.7 g/dL (3.5-5.0) 12/11/18 08:35 Globulin 3.0 g/dL (1.7-4.1) 12/11/18 08:35 Albumin/Globulin Ratio 1.2 (1.0-2.8) 12/11/18 08:35 Carcinoembryonic Ag 1460.0 ng/mL (0.1-3.0) H 11/27/18 08:50 Assessment and Plan (1) Colon cancer 58-year-old man with a rectosigmoid mass and liver metastasis. Biopsy showed invasive well-differentiated adenocarcinoma. Mismatch repair proteins were no rmal. MARION and BR AF mutations are normal. He has completed 2 cycles of FOLFIRI with Erbitux but has had a lot of GI toxicity. Will go ahead with his 3rd cycle today but with a 25% dose reduction in the irinotecan. His CEA has been dropping which is encouraging. He will continue with his steroids for now. I would anticipate a CT scan following his 4th cycle of treatment to assess response.
[2018-12-11] MEDS: DEXAMETHASONE 12 MG in SODIUM CHLORIDE 0.9% 50 ML 212 ML IV (09:47)
[2018-12-11] MEDS: FOSAPREPITANT 150 MG in SODIUM CHLORIDE 0.9% 150 ML 300 ML IV (10:10)
[2018-12-11] MEDS: SODIUM CHLORIDE 0.9% 1,000 ML 1000 ML IV (10:39)
[2018-12-11] MEDS: diphenhydrAMINE 50 MG/ML VIAL 25 MG IV (11:05)
[2018-12-11] MEDS: PALONOSETRON 0.25 MG/5 ML VIAL IV (11:05)
[2018-12-11] MEDS: CETUXIMAB IV (11:18)
[2018-12-11] MEDS: ISOOSMOTIC VEHICLE IV ×2 (11:18→15:40)
[2018-12-11] MEDS: IRINOTECAN IV (13:36)
[2018-12-11] MEDS: DEXTROSE 5% IV ×2 (13:36)
[2018-12-11] MEDS: LEUCOVORIN IV (13:36)
[2018-12-11] MEDS: FLUOROURACIL IV (15:40)
--- NOTE | 2018-12-11 16:41 | PC.NURSE ---
5fu pump settings werified with 2nd RN, Latisha.Blood return confirmed, equa-sgield in place. Clear dressing;CDI. Pump connected and infusing w/o difficulty, green light flashing.
--- NOTE | 2018-12-12 14:50 | PC.NURSE ---
Pt phone earlier this morning expressing concern r/t to port needle. Pt felt that port needle was positioned in a way that he felt it might just fall out, I can see a bit of the needle. Pt reports speaking with [facility] and followed their instructions over the phone. Pt reports that clear tega derm dressing is still intact and secured. Pt states I couldn't sleep last night at all, I was so worried it was going to come out. PT has 5fu pump in place. Pt agreeable to come into clinic for port assessment. Pt arrived to clinic, port assessed, appears intact. Pump stopped and line flushed, good blood return noted. Port needled dc'd per pt's request and new needle placed. 5fu pump reconnected, equa-shield in place, new tegaderm in place and secured, pump infusing w/o difficulty, green light flashing. Pt reports feeling much better.
[2018-12-13] MEDS: SODIUM CHLORIDE 0.9% 1,000 ML 1000 ML IV (15:01)
[2018-12-18 13:39] VITALS: BP 98/69; PULSE 86; RESP 16
[2018-12-18] MEDS: SODIUM CHLORIDE 0.9% 500 ML 1000 ML IV (13:39)
[2018-12-18 13:47] LABS: Add Manual Diff / Slide Review NO; Basophils Absolute Auto 0 /uL (0-100); Basophils Percent Auto 0.4 % (0-2); Eosinophils Absolute Auto 100 /uL (0-450); Eosinophils Percent Auto 2.3 % (2-4); Hematocrit 38.3 % (41-53); Hemoglobin 12.5 g/dL (13.5-17.5); Lymphocytes Absolute Auto 700 /uL (1100-4500); Lymphocytes Percent Auto 12.4 % (25-40); Mean Corpuscular HGB Conc 32.6 % (30-36); Mean Corpuscular Hemoglobin 26.2 PG (26-34); Mean Corpuscular Volume 80.5 fL (80-100); Monocytes Absolute Auto 300 /uL (0-900); Monocytes Percent Auto 5.1 % (3-14); Neutrophils Absolute Auto 4700 /uL (1500-7000); Neutrophils Percent Auto 79.8 % (50-75); Platelet Count 212 X10^3/uL (150-400); Red Blood Cell Count 4.76 X10^6/uL (4.5-5.9); Red Cell Distribution Width 15.7 % (11.6-14.8); White Blood Cell Count 5.9 X10^3/uL (4.5-11.0)
[2018-12-18 14:01] LABS: Alanine Aminotransferase 46 IU/L (21-72); Albumin 3.3 g/dL (3.5-5.0); Albumin Globulin Ratio 1.2 (1.0-2.8); Alkaline Phosphatase 102 U/L (38-126); Aspartate Aminotransferase 24 IU/L (17-59); Bilirubin Total 0.4 mg/dL (0.2-1.3); Blood Urea Nitrogen 12 mg/dL (9-20); Calcium 8.4 mg/dL (8.4-10.2); Carbon Dioxide 28 mmol/L (22-32); Chloride 101 mmol/L (98-107); Estimated Glomerular Filt Rate > 60.0 mL/min (>60); Globulin 2.8 g/dL (1.7-4.1); Glucose 113 mg/dL (70-100); HEMOLYSIS 28 (0-50); Magnesium 1.9 mg/dL (1.6-2.3); Potassium 3.9 mmol/L (3.4-5.1); Sodium 137 mmol/L (137-145); Total Protein 6.1 g/dL (6.3-8.2)
[2018-12-25 08:39] VITALS: BP 107/68; PULSE 79; RESP 16; TEMP 36.7; O2SAT 96
--- NOTE | 2018-12-25 08:59 | ONC.PN ---
PN -Subjective Interval history: Diagnosis: Metastatic colon cancer with liver metastasis, normal mismatch repair, wild type MARION and BRAF Treatment: FOLFIRI and Erbitux for 3 cycles with a dose reduction in irinotecan starting in October 2018 Interval history: Patient is a 58-year-old man with metastatic colon cancer. He returns today for follow-up. He has completed 3 cycles of FOLFIRI with Erbitux. With his last cycle, he did have a dose reduction in the irinotecan. He reports that he has tolerated the cycle of chemotherapy better than previous cycles. He had a little bit of diarrhea that lasted for 2 or 3 days but has since resolved. His strength and energy level have improved especially over the last 5 or 6 days. His pain has been improving. He is only taking about 3 oxycodone per day. His appetite has been good. He has had a little bit of nausea on the 1st 3 or 4 days after the infusions but no vomiting. No mouth sores or skin rash. No fevers or chills. He denies any shortness of breath or cough. He continues on dexamethasone 4 mg a day but does have a plan with his palliative nurse to taper that dose over the next 1-2 weeks. He denies any other changes in his health. - Patient Self-Reported Symptoms SR Constitution: Fatigue/Malaise SR Gastrointestinal issues: Poor or no appetite, Nausea, Diarrhea, Constipation, Abdominal pain SR Musculoskeletal issues: Muscle pain or cramps, Back or neck pain, Difficulty walking Home Medications and Allergies Home Medications Medication Instructions Recorded Confirmed Type docusate calcium [Stool Softener] 240 mg DAILY 10/17/18 12/25/18 History ergocalciferol (vitamin D2) 50,000 unit PO QWEEK 10/17/18 12/25/18 History [Vitamin D2] ferrous sulfate 325 mg PO DAILY 10/17/18 12/25/18 History oxycodone 10 mg PO Q4-6H PRN 10/17/18 12/25/18 History fentanyl 1 patch TRANSDERMAL Q72H 11/06/18 12/25/18 History fluorouracil 4,800 mg IV NOW #1 device 11/06/18 12/25/18 Rx ondansetron HCl 8 mg PO Q8H PRN #30 tab 11/06/18 12/25/18 Rx oxycodone See Rx Instructions .ROUTE 11/06/18 12/25/18 History .COMPLEX PRN prochlorperazine maleate 10 mg PO Q6H PRN #30 tab 11/06/18 12/25/18 Rx lorazepam [Ativan] 0.5 mg PO BID-TID PRN #30 tab 11/15/18 12/25/18 Rx hyoscyamine sulfate 0.25 mg PO QID PRN #100 tab 12/05/18 12/25/18 Rx dexamethasone 4 mg PO DAILY 12/11/18 12/25/18 History Allergies Allergy/AdvReac Type Severity Reaction Status Date / Time No Known Drug Allergies Allergy Verified 11/15/18 15:27 Exam Vital signs: Vital Signs Temp Pulse Resp BP Pulse Ox 12/25/18 08:39 98.0 F 79 16 107/68 96 Intake and Output 12/24/18 12/25/18 12/25/18 23:59 07:59 15:59 Other: Weight 73.3 kg Patient Weight 12/25/18 23:59 Weight 73.3 kg - Constitutional positive no acute distress, positive average body habitus - Routine HEENT Exam Head: Present: normocephalic, atraumatic Eye: Present: EOMI, PERRL. Absent: conjunctival icterus, scleral injection ENT: Present: mucous membranes moist, oropharynx clear - Routine Neck Exam Present: supple. Absent: lymphadenopathy, thyromegaly - Routine Respiratory Exam Present: Clear to auscultation bilaterally. Absent: rales, wheezes - Routine Cardiovascular Exam Present: RRR, S1, S2. Absent: murmur - Routine Abdominal Exam Present: soft, normoactive bowel sounds. Absent: tenderness, organomegaly, mass Comments: The liver is palpable under the costal margin on deep inspiration. - Routine Extremities Exam Absent: cyanosis, clubbing, edema - Routine Back/Spine Exam Back/Spine: Absent: vertebral tenderness - Routine Skin Exam Present: intact. Absent: petechiae, rash - Routine Neurological Exam Present: alert, oriented X3 - Routine Psychiatric Exam Present: normal affect, normal thought process Results - Labs Laboratory Last Values WBC 5.9 X10^3/uL (4.5-11.0) 12/18/18 13:35 RBC 4.76 X10^6/uL (4.5-5.9) 12/18/18 13:35 Hgb 12.5 g/dL (13.5-17.5) L 12/18/18 13:35 Hct 38.3 % (41-53) L 12/18/18 13:35 MCV 80.5 fL (80-100) 12/18/18 13:35 MCH 26.2 PG (26-34) 12/18/18 13:35 MCHC 32.6 % (30-36) 12/18/18 13:35 RDW 15.7 % (11.6-14.8) H 12/18/18 13:35 Plt Count 212 X10^3/uL (150-400) 12/18/18 13:35 Neut % (Auto) 79.8 % (50-75) H 12/18/18 13:35 Lymph % (Auto) 12.4 % (25-40) L 12/18/18 13:35 [place] % (Auto) 5.1 % (3-14) 12/18/18 13:35 Eos % (Auto) 2.3 % (2-4) 12/18/18 13:35 Baso % (Auto) 0.4 % (0-2) 12/18/18 13:35 Neut # (Auto) 4700 /uL (1048-5949) 12/18/18 13:35 Lymph # (Auto) 700 /uL (5911-6796) L 12/18/18 13:35 [place] # (Auto) 300 /uL (0-900) 12/18/18 13:35 Eos # (Auto) 100 /uL (0-450) 12/18/18 13:35 Baso # (Auto) 0 /uL (0-100) 12/18/18 13:35 Sodium 137 mmol/L (137-145) 12/18/18 13:35 Potassium 3.9 mmol/L (3.4-5.1) 12/18/18 13:35 Chloride 101 mmol/L (98-107) 12/18/18 13:35 Carbon Dioxide 28 mmol/L (22-32) 12/18/18 13:35 BUN 12 mg/dL (9-20) 12/18/18 13:35 Creatinine 0.60 mg/dL (0.66-1.25) L 12/18/18 13:35 Estimated GFR > 60.0 mL/min (>60) 12/18/18 13:35 BUN/Creatinine Ratio 20.0 (6-22) 12/18/18 13:35 Glucose 113 mg/dL (70-100) H 12/18/18 13:35 Calcium 8.4 mg/dL (8.4-10.2) 12/18/18 13:35 Magnesium 1.9 mg/dL (1.6-2.3) 12/18/18 13:35 Total Bilirubin 0.4 mg/dL (0.2-1.3) 12/18/18 13:35 AST 24 IU/L (17-59) 12/18/18 13:35 ALT 46 IU/L (21-72) 12/18/18 13:35 Alkaline Phosphatase 102 U/L (38-126) 12/18/18 13:35 Total Protein 6.1 g/dL (6.3-8.2) L 12/18/18 13:35 Albumin 3.3 g/dL (3.5-5.0) L 12/18/18 13:35 Globulin 2.8 g/dL (1.7-4.1) 12/18/18 13:35 Albumin/Globulin Ratio 1.2 (1.0-2.8) 12/18/18 13:35 Carcinoembryonic Ag 918.0 ng/mL (0.1-3.0) H 12/11/18 08:35 Assessment and Plan (1) Colon cancer 58-year-old man with a rectosigmoid mass and liver metastasis. Biopsy showed invasive well-differentiated adenocarcinoma. Mismatch repair proteins were normal. MARION and BR AF mutations are normal. He has completed 3 cycles of FOLFIRI with Erbitux with a decrease in the irinotecan dose. He is tolerating it much better. His CEA has been dropping steadily. Will go ahead with his 4th cycle today. He will return to clinic in about 2 weeks for follow-up. He will be due for a CT scan at that time.
[2018-12-25 09:22] LABS: Add Manual Diff / Slide Review NO; Basophils Absolute Auto 0 /uL (0-100); Basophils Percent Auto 0.6 % (0-2); Eosinophils Absolute Auto 300 /uL (0-450); Eosinophils Percent Auto 4.1 % (2-4); Hematocrit 39.2 % (41-53); Hemoglobin 13.1 g/dL (13.5-17.5); Lymphocytes Absolute Auto 2200 /uL (1100-4500); Lymphocytes Percent Auto 27.9 % (25-40); Mean Corpuscular HGB Conc 33.5 % (30-36); Mean Corpuscular Hemoglobin 27.3 PG (26-34); Mean Corpuscular Volume 81.6 fL (80-100); Monocytes Absolute Auto 1100 /uL (0-900); Monocytes Percent Auto 13.7 % (3-14); Neutrophils Absolute Auto 4300 /uL (1500-7000); Neutrophils Percent Auto 53.7 % (50-75); Platelet Count 235 X10^3/uL (150-400); Red Cell Distribution Width 17.4 % (11.6-14.8)
[2018-12-25 09:35] LABS: Alanine Aminotransferase 42 IU/L (21-72); Albumin 3.5 g/dL (3.5-5.0); Albumin Globulin Ratio 1.2 (1.0-2.8); Alkaline Phosphatase 95 U/L (38-126); BUN Creatinine Ratio 21.7 (6-22); Bilirubin Total 0.5 mg/dL (0.2-1.3); Blood Urea Nitrogen 13 mg/dL (9-20); Calcium 8.4 mg/dL (8.4-10.2); Carbon Dioxide 28 mmol/L (22-32); Chloride 104 mmol/L (98-107); Estimated Glomerular Filt Rate > 60.0 mL/min (>60); Globulin 2.9 g/dL (1.7-4.1); Glucose 96 mg/dL (70-100); Sodium 139 mmol/L (137-145); Total Protein 6.4 g/dL (6.3-8.2)
[2018-12-25 09:36] LABS: HEMOLYSIS 77 (0-50)
[2018-12-25 09:37] LABS: Aspartate Aminotransferase 25 IU/L (17-59)
[2018-12-25] MEDS: SODIUM CHLORIDE 0.9% 1,000 ML 1000 ML IV (09:50)
[2018-12-25] MEDS: PALONOSETRON 0.25 MG/5 ML VIAL IV (10:21)
[2018-12-25] MEDS: diphenhydrAMINE 50 MG/ML VIAL 25 MG IV (10:21)
[2018-12-25] MEDS: FOSAPREPITANT 150 MG in SODIUM CHLORIDE 0.9% 150 ML 300 ML IV (10:32)
[2018-12-25] MEDS: CETUXIMAB IV (11:34)
[2018-12-25] MEDS: ISOOSMOTIC VEHICLE IV ×2 (11:34→15:53)
[2018-12-25] MEDS: DEXTROSE 5% IV ×2 (13:45→13:47)
[2018-12-25] MEDS: IRINOTECAN IV (13:45)
[2018-12-25] MEDS: LEUCOVORIN IV (13:47)
[2018-12-25] MEDS: FLUOROURACIL IV (15:53)
--- NOTE | 2018-12-25 15:58 | PC.NURSE ---
dose checked and +blood return on Irinotecan
--- NOTE | 2018-12-25 16:56 | PC.NURSE ---
orders checked for 5FU pump. +blood return and checked with second RN Isabel. 5FU pumping.
[2018-12-27 14:57] VITALS: BP 105/69; PULSE 85; RESP 16; TEMP 36.6; O2SAT 94
[2018-12-27] MEDS: SODIUM CHLORIDE 0.9% 1,000 ML 1000 ML IV (14:58)
--- NOTE | 2018-12-27 16:26 | PC.NURSE ---
CADD pump disconnect. Pt tolerated tx well.
--- NOTE | 2019-01-02 12:09 | PC.NURSE ---
This nurse called patient re his cancellation of today and labs previous. Yesterday he had called and cancelled due to feeling poorly with nauseau. Today he states feeling somewhat better, eating and drinking some with urine output being adequate, no dizziness and nauseau a little but ok. This nurse planned with him to schedule him to go to acute care floor on Monday to receive fluids and zofran after his CT scan of that day at 1000 if he feels he is needing it. He voiced understanding and that he would get labs drawn before hand at main lab and inform acute care if he will not be staying for the fluids.
--- NOTE | 2019-01-02 18:25 | PC.NURSE ---
This nurse called to inform patient that labs on Monday will be drawn at CT office so that he does not have to come earlier than the original DI scheduled time of 1000, also that a nurse there will access his port for him for the blood draw and IV fluids, reminded him that he is scheduled and if desired can go to acute care floor afterwards for IV fluids and zofran if nauseau still bad. Patient voiced understanding.
--- NOTE | 2019-01-04 11:03 | DI.CT.S_ITS ---
PROCEDURE: CT CHEST ABD PEL W CON INDICATIONS: f/u colon cancer TECHNIQUE: After the administration of oral and intravenous contrast, 5 mm thick sections acquired from the lung apices to the symphysis. 5 mm coronal and sagittal reformats were performed, with additional 7 mm coronal MIP reformats through the lungs. For radiation dose reduction, the following was used: automated exposure control, adjustment of mA and/or kV according to patient size. COMPARISON: [facility], CT, CT CHEST W CON, 10/31/2018, 11:28. Outside Film, CT, CT ABDOMEN PELVIS WITH CONTRAST, 09/30/2018, 19:41. FINDINGS: Image quality: Excellent. CHEST: Lungs and pleura: Platelike subsegmental atelectasis is present in the posterior right lower lobe and posterior medial right lower lobe. Platelike atelectatic changes are also seen vertically in the posterior and posterior medial left lower lobe, and along the lower lingular surface. Atelectatic changes are also seen minimally at the anteromedial right middle lobe. There is small area of subpleural honeycombing in the posterior lateral left lower lobe at the lung base. A perifissural 4 mm lung nodule along the medial right minor fissure is present. There is a 5 mm subpleural lung nodule laterally in the left upper lobe and midlung level No pleural effusions or pneumothorax. Central and peripheral airways appear patent and normal in caliber. Mediastinum: A left subclavian Mediport is in position. Heart size is normal. No pericardial effusion. No significant right heart enlargement or intraventricular septal deviation. Incidental note is made of bilateral pulmonary emboli which involve left anterior, lateral basal first order branches and proximal second order branches. An acute embolus also is seen in the right lower lobar pulmonary artery and extending into anterior and lateral basal segmental arteries. A second order thrombus is seen in lateral segment right middle lobe pulmonary arteries as well as anterior segment right upper lobe pulmonary arteries proximally. No mediastinal or hilar adenopathy by size criteria. Thoracic aorta and central pulmonary arteries are normal in size. Esophagus is normal in caliber. No hiatal hernia. Chest wall: No axillary or supraclavicular adenopathy by size criteria. Thyroid gland is normal. ABDOMEN: Solid organs: There has been interval overall decrease in size of liver as well as multiple ill-defined low-density metastatic lesions throughout the right and left lobes. The largest lesion in the medial right liver lobe has decreased in size from 4.5 cm to 2.4 cm. All other liver lesions also decreased in size. Gallbladder appears normal. Biliary system is non dilated. Pancreas enhances normally. Spleen is normal in size and enhancement. There is a nodule associated with the lateral limb of left adrenal gland and one associated with the body of the adrenal gland which has not changed since prior studies. The right adrenal gland is normal. Kidneys demonstrate normal size and enhancement, without hydronephrosis. Peritoneum and bowel: Luminal narrowing, wall thickening in the distal sigmoid with mild mucosal hyperemia. The remainder the colon contains a normal quantity of stool. Normal appendix is identified. Small bowel loops and stomach appear normal. No free fluid or air. Nodes and vessels: There is a prominent azul chain in left periodic retroperitoneum. The largest node measures about 1.2 cm in short axis, previously 1.1 cm (series 2 image 88). The distal abdominal aorta is minimally aneurysmal measuring 3.2 cm in AP diameter, stable. Bilateral common iliac artery aneurysms are present extending into the internal iliac arteries bilaterally. The left internal iliac artery aneurysm measures 2.9 cm in diameter and the right measures 2.8 cm. The inferior vena cava is normal in size. Miscellaneous: No ventral hernias. Small intramuscular lipoma along the right lateral abdominal wall. PELVIS: Genitourinary: Bladder wall thickness is normal. Mild prostatomegaly. Miscellaneous: No inguinal hernias or adenopathy. Bones: No suspicious bony lesions. No vertebral body compression fractures. IMPRESSION: 1. Small bilateral pulmonary nodules, one of which appears to be apparent visual lymph node, appear stable compared to the prior study given changes in technique. No new evidence of metastatic disease in the chest. 2. Incidental note made of bilateral pulmonary emboli. Overall clot burden is moderate. This finding was discussed with Dr. Trinidad, oncologist at 1340 hrs. on 01/04/19. Dr. Bass was unavailable. 3. Interval decrease in size of innumerable hepatic metastases. 4. Stable left periaortic adenopathy. 5. Distal sigmoid/rectosigmoid luminal narrowing suspicious for patient's primary neoplasm. No significant changes compared to the prior scan. 6. Distal abdominal aortic aneurysm and bilateral common/internal iliac artery aneurysms. 7. No evidence of new metastatic disease in the abdomen or pelvis. Dictated by: Amanda Henriquez M.D. on 01/04/2019 at 13:11 Approved by: Amanda Henriquez M.D. on 01/04/2019 at 14:09
[2019-01-04] MEDS: SODIUM CHLORIDE 0.9% 1,000 ML 1000 ML IV (11:08)
[2019-01-04 11:09] VITALS: BP 107/70; PULSE 90; RESP 16; TEMP 35.9; O2SAT 96
[2019-01-04 11:59] LABS: Add Manual Diff / Slide Review NO; Basophils Absolute Auto 0 /uL (0-100); Basophils Percent Auto 0.3 % (0-2); Eosinophils Absolute Auto 200 /uL (0-450); Eosinophils Percent Auto 1.9 % (2-4); Hematocrit 39.6 % (41-53); Hemoglobin 13.2 g/dL (13.5-17.5); Lymphocytes Absolute Auto 1000 /uL (1100-4500); Mean Corpuscular HGB Conc 33.2 % (30-36); Mean Corpuscular Hemoglobin 27.1 PG (26-34); Mean Corpuscular Volume 81.4 fL (80-100); Monocytes Absolute Auto 1100 /uL (0-900); Monocytes Percent Auto 13.6 % (3-14); Neutrophils Absolute Auto 5800 /uL (1500-7000); Neutrophils Percent Auto 72.2 % (50-75); Platelet Count 296 X10^3/uL (150-400); Red Blood Cell Count 4.86 X10^6/uL (4.5-5.9); Red Cell Distribution Width 18.6 % (11.6-14.8); White Blood Cell Count 8.1 X10^3/uL (4.5-11.0)
[2019-01-04 12:06] LABS: Alanine Aminotransferase 32 IU/L (21-72); Albumin 3.3 g/dL (3.5-5.0); Albumin Globulin Ratio 1.1 (1.0-2.8); Alkaline Phosphatase 137 U/L (38-126); Aspartate Aminotransferase 28 IU/L (17-59); BUN Creatinine Ratio 17.1 (6-22); Bilirubin Total 0.7 mg/dL (0.2-1.3); Blood Urea Nitrogen 12 mg/dL (9-20); Calcium 8.5 mg/dL (8.4-10.2); Carbon Dioxide 29 mmol/L (22-32); Chloride 96 mmol/L (98-107); Estimated Glomerular Filt Rate > 60.0 mL/min (>60); Glucose 93 mg/dL (70-100); HEMOLYSIS 15 (0-50); Magnesium 1.9 mg/dL (1.6-2.3); Potassium 3.9 mmol/L (3.4-5.1); Sodium 134 mmol/L (137-145); Total Protein 6.3 g/dL (6.3-8.2)
[2019-01-09 14:38] VITALS: BP 116/78; PULSE 100; RESP 20; TEMP 36.8; O2SAT 97
--- NOTE | 2019-01-09 15:12 | ONC.PN ---
PN -Subjective Interval history: Diagnosis: Metastatic colon cancer with liver metastasis, normal mismatch repair, wild type MARION and BRAF Treatment: FOLFIRI and Erbitux for 4 cycles with a dose reduction in irinotecan starting in October 2018 Interval history: Patient is a 58-year-old man with metastatic colon cancer. He returns today for follow-up. He has completed 4 cycles of FOLFIRI with Erbitux. With his last cycle, he noticed some increased toxicity. He had more prolonged abdominal cramping and diarrhea. His appetite was poor. He felt weak and tired. He did not have any fevers or chills. No shortness of breath cough for chest pain. He did stop he his steroid and also stopped his oxycodone. He had a restaging CT scan done. He had dramatic improvement in his liver metastasis but was found to have pulmonary emboli. He has since started on anticoagulation with Xarelto. He denies any other changes in his health. - Patient Self-Reported Symptoms SR Constitution: Fatigue/Malaise SR Gastrointestinal issues: Poor or no appetite, Nausea, Diarrhea, Constipation, Abdominal pain SR Musculoskeletal issues: Muscle pain or cramps, Back or neck pain, Difficulty walking Home Medications and Allergies Home Medications Medication Instructions Recorded Confirmed Type docusate calcium [Stool Softener] 240 mg DAILY 10/17/18 12/25/18 History ergocalciferol (vitamin D2) 50,000 unit PO QWEEK 10/17/18 12/25/18 History [Vitamin D2] ferrous sulfate 325 mg PO DAILY 10/17/18 12/25/18 History oxycodone 10 mg PO Q4-6H PRN 10/17/18 12/25/18 History fentanyl 1 patch TRANSDERMAL Q72H 11/06/18 12/25/18 History fluorouracil 4,800 mg IV NOW #1 device 11/06/18 12/25/18 Rx ondansetron HCl 8 mg PO Q8H PRN #30 tab 11/06/18 12/25/18 Rx oxycodone See Rx Instructions .ROUTE 11/06/18 12/25/18 History .COMPLEX PRN prochlorperazine maleate 10 mg PO Q6H PRN #30 tab 11/06/18 12/25/18 Rx lorazepam [Ativan] 0.5 mg PO BID-TID PRN #30 tab 11/15/18 12/25/18 Rx hyoscyamine sulfate 0.25 mg PO QID PRN #100 tab 12/05/18 12/25/18 Rx apixaban [Eliquis] See Rx Instructions .ROUTE 01/04/19 Rx .COMPLEX #74 each Allergies Allergy/AdvReac Type Severity Reaction Status Date / Time No Known Drug Allergies Allergy Verified 11/15/18 15:27 Exam Vital signs: Vital Signs Temp Pulse Resp BP Pulse Ox 01/09/19 14:38 98.2 F 100 H 20 116/78 97 Intake and Output 01/08/19 01/09/19 01/09/19 23:59 07:59 15:59 Other: Weight 71.5 kg Patient Weight 01/09/19 23:59 Weight 71.5 kg - Constitutional positive no acute distress, positive average body habitus - Routine HEENT Exam Head: Present: normocephalic, atraumatic Eye: Present: EOMI, PERRL. Absent: conjunctival icterus, scleral injection ENT: Present: mucous membranes moist, oropharynx clear - Routine Neck Exam Present: supple. Absent: lymphadenopathy, thyromegaly - Routine Respiratory Exam Present: Clear to auscultation bilaterally. Absent: rales, wheezes - Routine Cardiovascular Exam Present: RRR, S1, S2. Absent: murmur - Routine Abdominal Exam Present: soft, normoactive bowel sounds. Absent: tenderness, organomegaly, mass - Routine Extremities Exam Absent: cyanosis, clubbing, edema - Routine Back/Spine Exam Back/Spine: Absent: vertebral tenderness - Routine Skin Exam Present: intact. Absent: petechiae, rash - Routine Neurological Exam Present: alert, oriented X3 - Routine Psychiatric Exam Present: normal affect, normal thought process Results - Labs Laboratory Last Values WBC 8.1 X10^3/uL (4.5-11.0) 01/04/19 11:00 RBC 4.86 X10^6/uL (4.5-5.9) 01/04/19 11:00 Hgb 13.2 g/dL (13.5-17.5) L 01/04/19 11:00 Hct 39.6 % (41-53) L 01/04/19 11:00 MCV 81.4 fL (80-100) 01/04/19 11:00 MCH 27.1 PG (26-34) 01/04/19 11:00 MCHC 33.2 % (30-36) 01/04/19 11:00 RDW 18.6 % (11.6-14.8) H 01/04/19 11:00 Plt Count 296 X10^3/uL (150-400) 01/04/19 11:00 Neut % (Auto) 72.2 % (50-75) 01/04/19 11:00 Lymph % (Auto) 12.0 % (25-40) L 01/04/19 11:00 [place] % (Auto) 13.6 % (3-14) 01/04/19 11:00 Eos % (Auto) 1.9 % (2-4) L 01/04/19 11:00 Baso % (Auto) 0.3 % (0-2) 01/04/19 11:00 Neut # (Auto) 5800 /uL (5294-9964) 01/04/19 11:00 Lymph # (Auto) 1000 /uL (7745-2763) L 01/04/19 11:00 [place] # (Auto) 1100 /uL (0-900) H 01/04/19 11:00 Eos # (Auto) 200 /uL (0-450) 01/04/19 11:00 Baso # (Auto) 0 /uL (0-100) 01/04/19 11:00 Sodium 134 mmol/L (137-145) L 01/04/19 11:00 Potassium 3.9 mmol/L (3.4-5.1) 01/04/19 11:00 Chloride 96 mmol/L (98-107) L 01/04/19 11:00 Carbon Dioxide 29 mmol/L (22-32) 01/04/19 11:00 BUN 12 mg/dL (9-20) 01/04/19 11:00 Creatinine 0.70 mg/dL (0.66-1.25) 01/04/19 11:00 Estimated GFR > 60.0 mL/min (>60) 01/04/19 11:00 BUN/Creatinine Ratio 17.1 (6-22) 01/04/19 11:00 Glucose 93 mg/dL (70-100) 01/04/19 11:00 Calcium 8.5 mg/dL (8.4-10.2) 01/04/19 11:00 Magnesium 1.9 mg/dL (1.6-2.3) 01/04/19 11:00 Total Bilirubin 0.7 mg/dL (0.2-1.3) 01/04/19 11:00 AST 28 IU/L (17-59) 01/04/19 11:00 ALT 32 IU/L (21-72) 01/04/19 11:00 Alkaline Phosphatase 137 U/L (38-126) H 01/04/19 11:00 Total Protein 6.3 g/dL (6.3-8.2) 01/04/19 11:00 Albumin 3.3 g/dL (3.5-5.0) L 01/04/19 11:00 Globulin 3.0 g/dL (1.7-4.1) 01/04/19 11:00 Albumin/Globulin Ratio 1.1 (1.0-2.8) 01/04/19 11:00 Carcinoembryonic Ag 576.0 ng/mL (0.1-3.0) H 12/25/18 09:10 Assessment and Plan (1) Colon cancer 58-year-old man with a rectosigmoid mass and liver metastasis. Biopsy showed invasive well-differentiated adenocarcinoma. Mismatch repair proteins were normal. MARION and BRAF mutations are normal. He has completed 4 cycles of FOLFIRI with Erbitux with a decrease in the irinotecan dose. His CT scan shows dramatic improvement. He will continue with his current regimen but does request a delay of about 2 weeks before his next cycle. Because of his side effects, he will try taking a lower dose of dexamethasone, 2 mg daily from days 3 through 7. I have also encouraged him to use the oxycodone if needed for pain or cramping. He will return to clinic in about 2 weeks for follow-up but sooner should the need arise.
[2019-01-22 08:25] VITALS: BP 127/87; PULSE 82; RESP 18; TEMP 36.7; O2SAT 98
--- NOTE | 2019-01-22 08:40 | ONC.PN ---
PN -Subjective Interval history: Diagnosis: Metastatic colon cancer with liver metastasis, normal mismatch repair, wild type MARION and BRAF Treatment: FOLFIRI and Erbitux for 4 cycles with a dose reduction in irinotecan starting in October 2018 Interval history: Patient is a 58-year-old man with metastatic colon cancer. He returns today for follow-up. He has completed 4 cycles of FOLFIRI with Erbitux. Because of some increasing abdominal cramping and diarrhea as well as fatigue, he took an extra 2 weeks between his treatments. Over the last week or 2, he has been feeling much better. He notes that his appetite has been improving and he has been gaining some weight. He is bowels have been moving normally. He has not had any further abdominal cramping. No fevers chills or sweats. No skin rash. He has had some itching. He has not noticed any increasing pain. No shortness of breath or cough. No mouth sores. He denies any other changes in his health. - Patient Self-Reported Symptoms SR Constitution: Fatigue/Malaise SR Gastrointestinal issues: Poor or no appetite, Nausea, Diarrhea, Constipation, Abdominal pain SR Musculoskeletal issues: Muscle pain or cramps, Back or neck pain, Difficulty walking Home Medications and Allergies Home Medications Medication Instructions Recorded Confirmed Type docusate calcium [Stool Softener] 240 mg DAILY 10/17/18 12/25/18 History ergocalciferol (vitamin D2) 50,000 unit PO QWEEK 10/17/18 12/25/18 History [Vitamin D2] oxycodone 10 mg PO Q4-6H PRN 10/17/18 12/25/18 History fentanyl 1 patch TRANSDERMAL Q72H 11/06/18 12/25/18 History fluorouracil 4,800 mg IV NOW #1 device 11/06/18 12/25/18 Rx ondansetron HCl 8 mg PO Q8H PRN #30 tab 11/06/18 12/25/18 Rx oxycodone See Rx Instructions .ROUTE 11/06/18 12/25/18 History .COMPLEX PRN prochlorperazine maleate 10 mg PO Q6H PRN #30 tab 11/06/18 12/25/18 Rx lorazepam [Ativan] 0.5 mg PO BID-TID PRN #30 tab 05/16/19 06/25/19 Rx hyoscyamine sulfate 0.25 mg PO QID PRN #100 tab 12/05/18 12/25/18 Rx apixaban [Eliquis] See Rx Instructions .ROUTE 01/04/19 01/22/19 Rx .COMPLEX #74 each dexamethasone 2 mg PO DAILY 01/22/19 01/22/19 History Allergies Allergy/AdvReac Type Severity Reaction Status Date / Time No Known Drug Allergies Allergy Verified 11/15/18 15:27 Exam Vital signs: Vital Signs Temp Pulse Resp BP Pulse Ox 01/22/19 08:25 98.1 F 82 18 127/87 98 Intake and Output 01/21/19 01/22/19 01/22/19 23:59 07:59 15:59 Other: Weight 78.6 kg Patient Weight 01/22/19 23:59 Weight 78.6 kg - Constitutional positive no acute distress, positive average body habitus - Routine HEENT Exam Head: Present: normocephalic, atraumatic Eye: Present: EOMI, PERRL. Absent: conjunctival icterus, scleral injection ENT: Present: mucous membranes moist, oropharynx clear - Routine Neck Exam Present: supple. Absent: lymphadenopathy, thyromegaly - Routine Respiratory Exam Present: Clear to auscultation bilaterally. Absent: rales, wheezes - Routine Cardiovascular Exam Present: RRR, S1, S2. Absent: murmur - Routine Abdominal Exam Present: soft, normoactive bowel sounds. Absent: tenderness, organomegaly, mass - Routine Extremities Exam Absent: cyanosis, clubbing, edema - Routine Skin Exam Present: intact. Absent: petechiae, rash - Routine Neurological Exam Present: alert, oriented X3 - Routine Psychiatric Exam Present: normal affect, normal thought process Results - Labs Laboratory Last Values WBC 8.1 X10^3/uL (4.5-11.0) 01/04/19 11:00 RBC 4.86 X10^6/uL (4.5-5.9) 01/04/19 11:00 Hgb 13.2 g/dL (13.5-17.5) L 01/04/19 11:00 Hct 39.6 % (41-53) L 01/04/19 11:00 MCV 81.4 fL (80-100) 01/04/19 11:00 MCH 27.1 PG (26-34) 01/04/19 11:00 MCHC 33.2 % (30-36) 01/04/19 11:00 RDW 18.6 % (11.6-14.8) H 01/04/19 11:00 Plt Count 296 X10^3/uL (150-400) 01/04/19 11:00 Neut % (Auto) 72.2 % (50-75) 01/04/19 11:00 Lymph % (Auto) 12.0 % (25-40) L 01/04/19 11:00 [place] % (Auto) 13.6 % (3-14) 01/04/19 11:00 Eos % (Auto) 1.9 % (2-4) L 01/04/19 11:00 Baso % (Auto) 0.3 % (0-2) 01/04/19 11:00 Neut # (Auto) 5800 /uL (8959-4185) 01/04/19 11:00 Lymph # (Auto) 1000 /uL (7897-4712) L 01/04/19 11:00 [place] # (Auto) 1100 /uL (0-900) H 01/04/19 11:00 Eos # (Auto) 200 /uL (0-450) 01/04/19 11:00 Baso # (Auto) 0 /uL (0-100) 01/04/19 11:00 Sodium 134 mmol/L (137-145) L 01/04/19 11:00 Potassium 3.9 mmol/L (3.4-5.1) 01/04/19 11:00 Chloride 96 mmol/L (98-107) L 01/04/19 11:00 Carbon Dioxide 29 mmol/L (22-32) 01/04/19 11:00 BUN 12 mg/dL (9-20) 01/04/19 11:00 Creatinine 0.70 mg/dL (0.66-1.25) 01/04/19 11:00 Estimated GFR > 60.0 mL/min (>60) 01/04/19 11:00 BUN/Creatinine Ratio 17.1 (6-22) 01/04/19 11:00 Glucose 93 mg/dL (70-100) 01/04/19 11:00 Calcium 8.5 mg/dL (8.4-10.2) 01/04/19 11:00 Magnesium 1.9 mg/dL (1.6-2.3) 01/04/19 11:00 Total Bilirubin 0.7 mg/dL (0.2-1.3) 01/04/19 11:00 AST 28 IU/L (17-59) 01/04/19 11:00 ALT 32 IU/L (21-72) 01/04/19 11:00 Alkaline Phosphatase 137 U/L (38-126) H 01/04/19 11:00 Total Protein 6.3 g/dL (6.3-8.2) 01/04/19 11:00 Albumin 3.3 g/dL (3.5-5.0) L 01/04/19 11:00 Globulin 3.0 g/dL (1.7-4.1) 01/04/19 11:00 Albumin/Globulin Ratio 1.1 (1.0-2.8) 01/04/19 11:00 Carcinoembryonic Ag 576.0 ng/mL (0.1-3.0) H 12/25/18 09:10 Assessment and Plan (1) Colon cancer 58-year-old man with a rectosigmoid mass and liver metastasis. Biopsy showed invasive well-differentiated adenocarcinoma. Mismatch repair proteins were normal. MARION and BRAF mutations are normal. He has completed 4 cycles of FOLFIRI with Erbitux with a decrease in the irinotecan dose. His CT scan shows dramatic improvement. He will resume his chemotherapy today. He will return to clinic in about 2 weeks for follow-up. Because of his side effects, he will try taking a lower dose of dexamethasone, 2 mg daily from days 3 through 7. I have also encouraged him to use the oxycodone if needed for pain or cramping. His CT scan did show incidental bilateral pulmonary emboli and he remains on anticoagulation.
--- NOTE | 2019-01-22 08:44 | P.PNONC_ITS ---
PN -Subjective Interval history: Diagnosis: Metastatic colon cancer with liver metastasis, normal mismatch repair, wild type MARION and BRAF Treatment: FOLFIRI and Erbitux for 4 cycles with a dose reduction in irinotecan starting in October 2018 Interval history: Patient is a 58-year-old man with metastatic colon cancer. He returns today for follow-up. He has completed 4 cycles of FOLFIRI with Erbitux. Because of some increasing abdominal cramping and diarrhea as well as fatigue, he took an extra 2 weeks between his treatments. Over the last week or 2, he has been feeling much better. He notes that his appetite has been improving and he has been gaining some weight. He is bowels have been moving normally. He has not had a ny further abdominal cramping. No fevers chills or sweats. No skin rash. He has had some itching. He has not noticed any increasing pain. No shortness of breath or cough. No mouth sores. He denies any other changes in his health. - Patient Self-Reported Symptoms SR Constitution: Fatigue/Malaise SR Gastrointestinal issues: Poor or no appetite, Nausea, Diarrhea, Constipation, Abdominal pain SR Musculoskeletal issues: Muscle pain or cramps, Back or neck pain, Difficulty walking Home Medications and Allergies Home Medications Medication Instructions Recorded Confirmed Type docusate calcium [Stool Softener] 240 mg DAILY 10/17/18 12/25/18 History ergocalciferol (vitamin D2) 50,000 unit PO QWEEK 10/17/18 12/25/18 History [Vitamin D2] oxycodone 10 mg PO Q4-6H PRN 10/17/18 12/25/18 History fentanyl 1 patch TRANSDERMAL Q72H 11/06/18 12/25/18 History fluorouracil 4,800 mg IV NOW #1 device 11/06/18 12/25/18 Rx ondansetron HCl 8 mg PO Q8H PRN #30 tab 11/06/18 12/25/18 Rx oxycodone See Rx Instructions .ROUTE 11/06/18 12/25/18 History .COMPLEX PRN prochlorperazine maleate 10 mg PO Q6H PRN #30 tab 11/06/18 12/25/18 Rx lorazepam [Ativan] 0.5 mg PO BID-TID PRN #30 tab 11/15/18 12/25/18 Rx hyoscyamine sulfate 0.25 mg PO QID PRN #100 tab 12/05/18 12/25/18 Rx apixaban [Eliquis] See Rx Instructions .ROUTE 01/04/19 01/22/19 Rx .COMPLEX #74 each dexamethasone 2 mg PO DAILY 01/22/19 01/22/19 History Allergies Allergy/AdvReac Type Severity Reaction Status Date / Time No Known Drug Allergies Allergy Verified 11/15/18 15:27 Exam Vital signs: Vital Signs Temp Pulse Resp BP Pulse Ox 01/22/19 08:25 98.1 F 82 18 127/87 98 Intake and Output 01/21/19 01/22/19 01/22/19 23:59 07:59 15:59 Other: Weight 78.6 kg Patient Weight 01/22/19 23:59 Weight 78.6 kg - Constitutional positive no acute distress, positive average body habitus - Routine HEENT Exam Head: Present: normocephalic, atraumatic Eye: Present: EOMI, PERRL. Absent: conjunctival icterus, scleral injection ENT: Present: mucous membranes moist, oropharynx clear - Routine Neck Exam Present: supple. Absent: lymphadenopathy, thyromegaly - Routine Respiratory Exam Present: Clear to auscultation bilaterally. Absent: rales, wheezes - Routine Cardiovascular Exam Present: RRR, S1, S2. Absent: murmur - Routine Abdominal Exam Present: soft, normoactive bowel sounds. Absent: tenderness, organomegaly, mass - Routine Extremities Exam Absent: cyanosis, clubbing, edema - Routine Skin Exam Present: intact. Absent: petechiae, rash - Routine Neurological Exam Present: alert, oriented X3 - Routine Psychiatric Exam Present: normal affect, normal thought process Results - Labs Laboratory Last Values WBC 8.1 X10^3/uL (4.5-11.0) 01/04/19 11:00 RBC 4.86 X10^6/uL (4.5-5.9) 01/04/19 11:00 Hgb 13.2 g/dL (13.5-17.5) L 01/04/19 11:00 Hct 39.6 % (41-53) L 01/04/19 11:00 MCV 81.4 fL (80-100) 01/04/19 11:00 MCH 27.1 PG (26-34) 01/04/19 11:00 MCHC 33.2 % (30-36) 01/04/19 11:00 RDW 18.6 % (11.6-14.8) H 01/04/19 11:00 Plt Count 296 X10^3/uL (150-400) 01/04/19 11:00 Neut % (Auto) 72.2 % (50-75) 01/04/19 11:00 Lymph % (Auto) 12.0 % (25-40) L 01/04/19 11:00 [place] % (Auto) 13.6 % (3-14) 01/04/19 11:00 Eos % (Auto) 1.9 % (2-4) L 01/04/19 11:00 Baso % (Auto) 0.3 % (0-2) 01/04/19 11:00 Neut # (Auto) 5800 /uL (8686-8918) 01/04/19 11:00 Lymph # (Auto) 1000 /uL (9910-8050) L 01/04/19 11:00 [place] # (Auto) 1100 /uL (0-900) H 01/04/19 11:00 Eos # (Auto) 200 /uL (0-450) 01/04/19 11:00 Baso # (Auto) 0 /uL (0-100) 01/04/19 11:00 Sodium 134 mmol/L (137-145) L 01/04/19 11:00 Potassium 3.9 mmol/L (3.4-5.1) 01/04/19 11:00 Chloride 96 mmol/L (98-107) L 01/04/19 11:00 Carbon Dioxide 29 mmol/L (22-32) 01/04/19 11:00 BUN 12 mg/dL (9-20) 01/04/19 11:00 Creatinine 0.70 mg/dL (0.66-1.25) 01/04/19 11:00 Estimated GFR > 60.0 mL/min (>60) 01/04/19 11:00 BUN/Creatinine Ratio 17.1 (6-22) 01/04/19 11:00 Glucose 93 mg/dL (70-100) 01/04/19 11:00 Calcium 8.5 mg/dL (8.4-10.2) 01/04/19 11:00 Magnesium 1.9 mg/dL (1.6-2.3) 01/04/19 11:00 Total Bilirubin 0.7 mg/dL (0.2-1.3) 01/04/19 11:00 AST 28 IU/L (17-59) 01/04/19 11:00 ALT 32 IU/L (21-72) 01/04/19 11:00 Alkaline Phosphatase 137 U/L (38-126) H 01/04/19 11:00 Total Protein 6.3 g/dL (6.3-8.2) 01/04/19 11:00 Albumin 3.3 g/dL (3.5-5.0) L 01/04/19 11:00 Globulin 3.0 g/dL (1.7-4.1) 01/04/19 11:00 Albumin/Globulin Ratio 1.1 (1.0-2.8) 01/04/19 11:00 Carcinoembryonic Ag 576.0 ng/mL (0.1-3.0) H 12/25/18 09:10 Assessment and Plan (1) Colon cancer 58-year-old man with a rectosigmoid mass and liver metastasis. Biopsy showed invasive well-differentiated adenocarcinoma. Mismatch repair proteins were normal. MARION and BRAF mutations are normal. He has completed 4 cycles of FOLFIRI with Erbitux with a decrease in the irinotecan dose. His CT scan shows dramatic improvement. He will resume his chemotherapy today. He will return to clinic in about 2 weeks for follow-up. Because of his side effects, he will try taking a lower dose of dexamethasone, 2 mg daily from days 3 through 7. I have also encouraged him to use the oxycodone if needed for pain or cramping. His CT scan did show incidental bilateral pulmonary emboli and he remains on anticoagulation.
[2019-01-22 09:29] LABS: Add Manual Diff / Slide Review NO; Basophils Absolute Auto 100 /uL (0-100); Basophils Percent Auto 1.2 % (0-2); Eosinophils Absolute Auto 200 /uL (0-450); Eosinophils Percent Auto 2.6 % (2-4); Hematocrit 34.7 % (41-53); Hemoglobin 11.6 g/dL (13.5-17.5); Lymphocytes Absolute Auto 1100 /uL (1100-4500); Lymphocytes Percent Auto 12.3 % (25-40); Mean Corpuscular HGB Conc 33.3 % (30-36); Mean Corpuscular Hemoglobin 28.1 PG (26-34); Mean Corpuscular Volume 84.4 fL (80-100); Monocytes Absolute Auto 1100 /uL (0-900); Monocytes Percent Auto 12.6 % (3-14); Neutrophils Absolute Auto 6200 /uL (1500-7000); Neutrophils Percent Auto 71.3 % (50-75); Platelet Count 296 X10^3/uL (150-400); Red Blood Cell Count 4.11 X10^6/uL (4.5-5.9); Red Cell Distribution Width 21.7 % (11.6-14.8); White Blood Cell Count 8.7 X10^3/uL (4.5-11.0)
[2019-01-22 09:55] LABS: Alanine Aminotransferase 26 IU/L (21-72); Albumin 3.3 g/dL (3.5-5.0); Albumin Globulin Ratio 1.2 (1.0-2.8); Alkaline Phosphatase 100 U/L (38-126); Aspartate Aminotransferase 15 IU/L (17-59); Bilirubin Total 0.4 mg/dL (0.2-1.3); Blood Urea Nitrogen 11 mg/dL (9-20); Calcium 8.4 mg/dL (8.4-10.2); Carbon Dioxide 26 mmol/L (22-32); Chloride 108 mmol/L (98-107); Estimated Glomerular Filt Rate > 60.0 mL/min (>60); Globulin 2.7 g/dL (1.7-4.1); Glucose 87 mg/dL (70-100); HEMOLYSIS < 15 (0-50); Potassium 4.5 mmol/L (3.4-5.1); Sodium 140 mmol/L (137-145)
[2019-01-22 09:56] LABS: Anisocytosis 1+; Poikilocytosis 1+
[2019-01-22] MEDS: diphenhydrAMINE 50 MG/ML VIAL 25 MG IV (10:26)
[2019-01-22] MEDS: PALONOSETRON 0.25 MG/5 ML VIAL IV (10:26)
[2019-01-22] MEDS: SODIUM CHLORIDE 0.9% 100 ML 21 ML IV (10:27)
[2019-01-22] MEDS: FOSAPREPITANT 150 MG in SODIUM CHLORIDE 0.9% 150 ML 300 ML IV (11:11)
[2019-01-22] MEDS: ISOOSMOTIC VEHICLE IV ×2 (11:54→16:30)
[2019-01-22] MEDS: CETUXIMAB IV (11:54)
[2019-01-22] MEDS: LEUCOVORIN IV (14:30)
[2019-01-22] MEDS: DEXTROSE 5% IV ×2 (14:30)
[2019-01-22] MEDS: IRINOTECAN IV (14:30)
[2019-01-22] MEDS: FLUOROURACIL IV (16:30)
--- NOTE | 2019-01-22 17:06 | PC.NURSE ---
CADD pump setting verified with Sylvia BELL. Equa shield in place, blood return confirmed. 5FU infusing w/o difficulty, green light flashing. Tega derm dressing to port CDI.
[2019-01-24 14:54] VITALS: BP 103/81; PULSE 81; RESP 14; TEMP 36.7; O2SAT 93
[2019-01-24] MEDS: SODIUM CHLORIDE 0.9% 1,000 ML 1000 ML IV (15:20)
--- NOTE | 2019-01-24 15:24 | PC.NURSE ---
Addendum entered by Joslyn Marie R.N. 01/24/19 16:38: Patient tolerated NS bolus well. Patient states that zofran helpful. Original Note: Patient here for CAD pump disconnect. Patient tolerated procedure well. Patient feeling very weak and nauseous. Patient will received 1L NS bolus while here as well as zofran iv for nausea. Patient states that he has very little appetite at home. Patient states he is taking PO zofran as needed for nausea.
[2019-01-24] MEDS: ONDANSETRON 8 MG in SODIUM CHLORIDE 0.9% 50 ML 216 ML IV (15:40)
--- NOTE | 2019-01-29 16:37 | PC.NURSE ---
no blood return on port; pt declined TPA today. flushes without pain or problems. pt declined NS 1 liter today. states drinking fluids without problems; states has 1 diarrhea stool daily. no nausea.
[2019-02-05 08:33] VITALS: BP 128/70; PULSE 73; RESP 16; TEMP 37; O2SAT 98
--- NOTE | 2019-02-05 08:50 | P.PNONC_ITS ---
PN -Subjective Interval history: Diagnosis: Metastatic colon cancer with liver metastasis, normal mismatch repair, wild type MARION and BRAF Treatment: FOLFIRI and Erbitux for 5 cycles with a dose reduction in irinotecan starting in October 2018 Interval history: Patient is a 58-year-old man with metastatic colon cancer. He returns today for follow-up. He has completed 5 cycles of FOLFIRI with Erbitux. He reports that he tolerated his most recent cycle quite well. He did have some mild diarrhea for about 3 days after disconnect in the pump but it was only about 1 time a day. His cramping was much reduced. His appetite has been good. He denies any nausea or vomiting. No mouth sores or skin rash. No fevers chills or sweats. No shortness of breath. Strength and energy level have been good. He still has some mild pain in the right upper quadrant but it continues to diminish. He denies any other changes in his health. - Patient Self-Reported Symptoms SR Constitution: Fatigue/Malaise SR Gastrointestinal issues: Poor or no appetite, Nausea, Diarrhea, Constipation, Abdominal pain SR Musculoskeletal issues: Muscle pain or cramps, Back or neck pain, Difficulty walking Home Medications and Allergies Home Medications Medication Instructions Recorded Confirmed Type docusate calcium [Stool Softener] 240 mg DAILY 10/17/18 02/05/19 History ergocalciferol (vitamin D2) 50,000 unit PO QWEEK 10/17/18 02/05/19 History [Vitamin D2] oxycodone 10 mg PO Q4-6H PRN 10/17/18 02/05/19 History fentanyl 1 patch TRANSDERMAL Q72H 11/06/18 02/05/19 History fluorouracil 4,800 mg IV NOW #1 device 11/06/18 02/05/19 Rx ondansetron HCl 8 mg PO Q8H PRN #30 tab 11/06/18 02/05/19 Rx oxycodone See Rx Instructions .ROUTE 11/06/18 02/05/19 History .COMPLEX PRN prochlorperazine maleate 10 mg PO Q6H PRN #30 tab 11/06/18 02/05/19 Rx lorazepam [Ativan] 0.5 mg PO BID-TID PRN #30 tab 11/15/18 02/05/19 Rx hyoscyamine sulfate 0.25 mg PO QID PRN #100 tab 12/05/18 02/05/19 Rx apixaban [Eliquis] See Rx Instructions .ROUTE 01/04/19 02/05/19 Rx .COMPLEX #74 each dexamethasone 2 mg PO DAILY 01/22/19 02/05/19 History apixaban [Eliquis] 5 mg PO BID #60 tab 02/05/19 Rx Allergies Allergy/AdvReac Type Severity Reaction Status Date / Time No Known Drug Allergies Allergy Verified 11/15/18 15:27 Exam Vital signs: Vital Signs Temp Pulse Resp BP Pulse Ox 02/05/19 08:33 98.6 F 73 16 128/70 98 Intake and Output 02/04/19 02/05/19 02/05/19 23:59 07:59 15:59 Other: Weight 79.1 kg Patient Weight 02/05/19 23:59 Weight 79.1 kg - Constitutional positive no acute distress, positive average body habitus - Routine HEENT Exam Head: Present: normocephalic, atraumatic Eye: Present: EOMI, PERRL. Absent: conjunctival icterus, scleral injection ENT: Present: mucous membranes moist, oropharynx clear - Routine Neck Exam Present: supple. Absent: lymphadenopathy, thyromegaly - Routine Respiratory Exam Present: Clear to auscultation bilaterally. Absent: rales, wheezes - Routine Cardiovascular Exam Present: RRR, S1, S2. Absent: murmur - Routine Abdominal Exam Present: soft, normoactive bowel sounds. Absent: tenderness, organomegaly, mass - Routine Extremities Exam Absent: cyanosis, clubbing, edema - Routine Back/Spine Exam Back/Spine: Absent: vertebral tenderness - Routine Skin Exam Present: intact. Absent: petechiae, rash - Routine Neurological Exam Present: alert, oriented X3 - Routine Psychiatric Exam Present: normal affect, normal thought process Results - Labs Laboratory Last Values WBC 8.7 X10^3/uL (4.5-11.0) 01/22/19 09:15 RBC 4.11 X10^6/uL (4.5-5.9) L 01/22/19 09:15 Hgb 11.6 g/dL (13.5-17.5) L 01/22/19 09:15 Hct 34.7 % (41-53) L 01/22/19 09:15 MCV 84.4 fL (80-100) 01/22/19 09:15 MCH 28.1 PG (26-34) 01/22/19 09:15 MCHC 33.3 % (30-36) 01/22/19 09:15 RDW 21.7 % (11.6-14.8) H 01/22/19 09:15 Plt Count 296 X10^3/uL (150-400) 01/22/19 09:15 Neut % (Auto) 71.3 % (50-75) 01/22/19 09:15 Lymph % (Auto) 12.3 % (25-40) L 01/22/19 09:15 [place] % (Auto) 12.6 % (3-14) 01/22/19 09:15 Eos % (Auto) 2.6 % (2-4) 01/22/19 09:15 Baso % (Auto) 1.2 % (0-2) 01/22/19 09:15 Neut # (Auto) 6200 /uL (7963-9130) 01/22/19 09:15 Lymph # (Auto) 1100 /uL (9125-1430) 01/22/19 09:15 [place] # (Auto) 1100 /uL (0-900) H 01/22/19 09:15 Eos # (Auto) 200 /uL (0-450) 01/22/19 09:15 Baso # (Auto) 100 /uL (0-100) 01/22/19 09:15 RBC Morphology Not Reportable 01/22/19 09:15 Poikilocytosis 1+ H 01/22/19 09:15 Anisocytosis 1+ H 01/22/19 09:15 Sodium 140 mmol/L (137-145) 01/22/19 09:15 Potassium 4.5 mmol/L (3.4-5.1) 01/22/19 09:15 Chloride 108 mmol/L (98-107) H 01/22/19 09:15 Carbon Dioxide 26 mmol/L (22-32) 01/22/19 09:15 BUN 11 mg/dL (9-20) 01/22/19 09:15 Creatinine 0.50 mg/dL (0.66-1.25) L 01/22/19 09:15 Estimated GFR > 60.0 mL/min (>60) 01/22/19 09:15 BUN/Creatinine Ratio 22.0 (6-22) 01/22/19 09:15 Glucose 87 mg/dL (70-100) 01/22/19 09:15 Calcium 8.4 mg/dL (8.4-10.2) 01/22/19 09:15 Magnesium 2.0 mg/dL (1.6-2.3) 01/22/19 09:15 Total Bilirubin 0.4 mg/dL (0.2-1.3) 01/22/19 09:15 AST 15 IU/L (17-59) L 01/22/19 09:15 ALT 26 IU/L (21-72) 01/22/19 09:15 Alkaline Phosphatase 100 U/L (38-126) 01/22/19 09:15 Total Protein 6.0 g/dL (6.3-8.2) L 01/22/19 09:15 Albumin 3.3 g/dL (3.5-5.0) L 01/22/19 09:15 Globulin 2.7 g/dL (1.7-4.1) 01/22/19 09:15 Albumin/Globulin Ratio 1.2 (1.0-2.8) 01/22/19 09:15 Carcinoembryonic Ag 122.0 ng/mL (0.1-3.0) H 01/22/19 09:15 Assessment and Plan (1) Colon cancer 58-year-old man with a rectosigmoid mass and liver metastasis. Biopsy showed invasive well-differentiated adenocarcinoma. Mismatch repair proteins were normal. MARION and BRAF mutations are normal. He has completed 5 cycles of FOL FIRI with Erbitux with a decrease in the irinotecan dose. His CT scan shows dramatic improvement. He seems to be doing well with low-dose dexamethasone and will continue with 2 mg daily. We will proceed with his next cycle of chemotherapy today. He will return to clinic in 2 weeks for follow-up. His CEA continues to fall. When it stabilizes, I think we may be able to switch to a maintenance strategy by dropping the irinotecan. He will return to clinic here in 2 weeks for follow-up. He did have incidental bilateral pulmonary emboli discovered in December and he remains on anticoagulation.
[2019-02-05 09:15] LABS: Add Manual Diff / Slide Review NO; Basophils Absolute Auto 100 /uL (0-100); Basophils Percent Auto 0.6 % (0-2); Eosinophils Absolute Auto 500 /uL (0-450); Eosinophils Percent Auto 4.4 % (2-4); Hemoglobin 12.3 g/dL (13.5-17.5); Lymphocytes Absolute Auto 2000 /uL (1100-4500); Mean Corpuscular HGB Conc 34.3 % (30-36); Mean Corpuscular Hemoglobin 29.2 PG (26-34); Mean Corpuscular Volume 85.2 fL (80-100); Monocytes Absolute Auto 1100 /uL (0-900); Monocytes Percent Auto 10.6 % (3-14); Neutrophils Absolute Auto 6900 /uL (1500-7000); Neutrophils Percent Auto 65.4 % (50-75); Platelet Count 274 X10^3/uL (150-400); Red Blood Cell Count 4.23 X10^6/uL (4.5-5.9); Red Cell Distribution Width 21.4 % (11.6-14.8); White Blood Cell Count 10.5 X10^3/uL (4.5-11.0)
[2019-02-05 09:25] LABS: Alanine Aminotransferase 22 IU/L (21-72); Albumin 3.6 g/dL (3.5-5.0); Albumin Globulin Ratio 1.3 (1.0-2.8); Alkaline Phosphatase 69 U/L (38-126); Aspartate Aminotransferase 17 IU/L (17-59); Bilirubin Total 0.4 mg/dL (0.2-1.3); Blood Urea Nitrogen 12 mg/dL (9-20); Calcium 8.4 mg/dL (8.4-10.2); Carbon Dioxide 25 mmol/L (22-32); Chloride 109 mmol/L (98-107); Estimated Glomerular Filt Rate > 60.0 mL/min (>60); Globulin 2.7 g/dL (1.7-4.1); Glucose 89 mg/dL (70-100); HEMOLYSIS 36 (0-50); Potassium 3.8 mmol/L (3.4-5.1); Sodium 141 mmol/L (137-145); Total Protein 6.3 g/dL (6.3-8.2)
[2019-02-05 09:35] LABS: Anisocytosis 3+
[2019-02-05 09:36] LABS: Hypochromasia 1+; Poikilocytosis 2+
[2019-02-05 09:37] LABS: Macrocytosis 1+
[2019-02-05] MEDS: SODIUM CHLORIDE 0.9% 100 ML 21 ML IV (09:53)
[2019-02-05] MEDS: diphenhydrAMINE 50 MG/ML VIAL 25 MG IV (10:17)
[2019-02-05] MEDS: FOSAPREPITANT 150 MG in SODIUM CHLORIDE 0.9% 150 ML 300 ML IV (10:21)
[2019-02-05 10:43] LABS: Carcinoembryonic Antigen 75.3 ng/mL (0.1-3.0)
[2019-02-05] MEDS: PALONOSETRON 0.25 MG/5 ML VIAL IV (11:07)
[2019-02-05] MEDS: CETUXIMAB IV (11:22)
[2019-02-05] MEDS: ISOOSMOTIC VEHICLE IV (11:22)
[2019-02-05] MEDS: LEUCOVORIN 800 MG in DEXTROSE 5% (CHEMO IV) 250 ML 250 ML 193.333 ML IV (13:46)
[2019-02-05] MEDS: DEXTROSE 5% IV (13:47)
[2019-02-05] MEDS: IRINOTECAN IV (13:47)
[2019-02-05] MEDS: FLUOROURACIL 800 MG in ISOOSMOTIC VEHICLE (CHEMO) 0 ML 96 ML IV (16:09)
--- NOTE | 2019-02-07 15:24 | PC.NURSE ---
Patient here for pump disconnect today. Pump complete, reservoir empty. Pump disconnected per protocol. Patient Port-a-cath de-accessed after flush with NS and heparin. Patient declined to have NS fluid bolus today as he stated that he was feeling great.
[2019-02-19 08:38] VITALS: BP 114/69; PULSE 82; RESP 16; TEMP 36.7; O2SAT 95
--- NOTE | 2019-02-19 09:03 | P.PNONC_ITS ---
PN -Subjective Interval history: Diagnosis: Metastatic colon cancer with liver metastasis, normal mismatch repair, wild type MARION and BRAF Treatment: FOLFIRI and Erbitux for 6 cycles with a dose reduction in irinotecan starting in October 2018 Interval history: Patient is a 58-year-old man with metastatic colon cancer. He returns today for follow-up. He has completed 6 cycles of FOLFIRI with Erbitux. He reports that he tolerated his most recent cycle quite well. He did have some abdominal cramping and loose stool that lasted for about 2 days after the completion of his infusion. He finds that the steroids have been helping. He is currently taking 2 mg daily and planning to cut back to 1 mg after this upcoming treatment. He is not having any nausea or vomiting. No mouth sores or skin rash. His appetite has been good. No fevers chills or sweats. Strength and energy level have been little bit low but stable. He still has some occasional pain in the right upper quadrant. He has been taking 3 or 4 oxycodone tablets per day but is no longer using fentanyl patches. He tells me that he and his family or taking act camping trip the week of and request delaying his next cycle of chemotherapy by a week. - Patient Self-Reported Symptoms SR Constitution: Fatigue/Malaise SR Gastrointestinal issues: Poor or no appetite, Nausea, Diarrhea, Constipation, Abdominal pain SR Musculoskeletal issues: Muscle pain or cramps, Back or neck pain, Difficulty walking Home Medications and Allergies Home Medications Medication Instructions Recorded Confirmed Type docusate calcium [Stool Softener] 240 mg DAILY 10/17/18 02/19/19 History ergocalciferol (vitamin D2) 50,000 unit PO QWEEK 10/17/18 02/19/19 History [Vitamin D2] oxycodone 10 mg PO Q4-6H PRN 10/17/18 02/19/19 History fentanyl 1 patch TRANSDERMAL Q72H 11/06/18 02/19/19 History fluorouracil 4,800 mg IV NOW #1 device 11/06/18 02/19/19 Rx ondansetron HCl 8 mg PO Q8H PRN #30 tab 11/06/18 02/19/19 Rx oxycodone See Rx Instructions .ROUTE 11/06/18 02/19/19 History .COMPLEX PRN prochlorperazine maleate 10 mg PO Q6H PRN #30 tab 11/06/18 02/19/19 Rx lorazepam [Ativan] 0.5 mg PO BID-TID PRN #30 tab 11/15/18 02/19/19 Rx hyoscyamine sulfate 0.25 mg PO QID PRN #100 tab 12/05/18 02/19/19 Rx apixaban [Eliquis] See Rx Instructions .ROUTE 01/04/19 02/19/19 Rx .COMPLEX #74 each dexamethasone 2 mg PO DAILY 01/22/19 02/19/19 History apixaban [Eliquis] 5 mg PO BID #60 tab 02/05/19 02/19/19 Rx Allergies Allergy/AdvReac Type Severity Reaction Status Date / Time No Known Drug Allergies Allergy Verified 11/15/18 15:27 Exam Vital signs: Vital Signs Temp Pulse Resp BP Pulse Ox 02/19/19 08:38 98.0 F 82 16 114/69 95 Intake and Output 02/18/19 02/19/19 02/19/19 23:59 07:59 15:59 Other: Weight 82.4 kg Patient Weight 02/19/19 23:59 Weight 82.4 kg - Constitutional positive no acute distress, positive average body habitus - Routine HEENT Exam Head: Present: normocephalic, atraumatic Eye: Present: EOMI, PERRL. Absent: conjunctival icterus, scleral injection ENT: Present: mucous membranes moist, oropharynx clear - Routine Neck Exam Present: supple. Absent: lymphadenopathy, thyromegaly - Routine Respiratory Exam Present: Clear to auscultation bilaterally. Absent: rales, wheezes - Routine Cardiovascular Exam Present: RRR, S1, S2. Absent: murmur - Routine Abdominal Exam Present: soft, normoactive bowel sounds. Absent: tenderness, organomegaly, mass - Routine Extremities Exam Absent: cyanosis, clubbing, edema - Routine Back/Spine Exam Back/Spine: Absent: vertebral tenderness - Routine Skin Exam Present: intact. Absent: petechiae, rash - Routine Neurological Exam Present: alert, oriented X3 - Routine Psychiatric Exam Present: normal affect, normal thought process Results - Labs Laboratory Last Values WBC 10.5 X10^3/uL (4.5-11.0) 02/05/19 08:59 RBC 4.23 X10^6/uL (4.5-5.9) L 02/05/19 08:59 Hgb 12.3 g/dL (13.5-17.5) L 02/05/19 08:59 Hct 36.0 % (41-53) L 02/05/19 08:59 MCV 85.2 fL (80-100) 02/05/19 08:59 MCH 29.2 PG (26-34) 02/05/19 08:59 MCHC 34.3 % (30-36) 02/05/19 08:59 RDW 21.4 % (11.6-14.8) H 02/05/19 08:59 Plt Count 274 X10^3/uL (150-400) 02/05/19 08:59 Neut % (Auto) 65.4 % (50-75) 02/05/19 08:59 Lymph % (Auto) 19.0 % (25-40) L 02/05/19 08:59 [place] % (Auto) 10.6 % (3-14) 02/05/19 08:59 Eos % (Auto) 4.4 % (2-4) H 02/05/19 08:59 Baso % (Auto) 0.6 % (0-2) 02/05/19 08:59 Neut # (Auto) 6900 /uL (8164-5462) 02/05/19 08:59 Lymph # (Auto) 2000 /uL (4256-1809) 02/05/19 08:59 [place] # (Auto) 1100 /uL (0-900) H 02/05/19 08:59 Eos # (Auto) 500 /uL (0-450) H 02/05/19 08:59 Baso # (Auto) 100 /uL (0-100) 02/05/19 08:59 RBC Morphology See below 02/05/19 08:59 Hypochromasia 1+ H 02/05/19 08:59 Poikilocytosis 2+ H 02/05/19 08:59 Anisocytosis 3+ H 02/05/19 08:59 Macrocytosis 1+ H 02/05/19 08:59 Sodium 141 mmol/L (137-145) 02/05/19 08:59 Potassium 3.8 mmol/L (3.4-5.1) 02/05/19 08:59 Chloride 109 mmol/L (98-107) H 02/05/19 08:59 Carbon Dioxide 25 mmol/L (22-32) 02/05/19 08:59 BUN 12 mg/dL (9-20) 02/05/19 08:59 Creatinine 0.50 mg/dL (0.66-1.25) L 02/05/19 08:59 Estimated GFR > 60.0 mL/min (>60) 02/05/19 08:59 BUN/Creatinine Ratio 24.0 (6-22) H 02/05/19 08:59 Glucose 89 mg/dL (70-100) 02/05/19 08:59 Calcium 8.4 mg/dL (8.4-10.2) 02/05/19 08:59 Magnesium 2.0 mg/dL (1.6-2.3) 01/22/19 09:15 Total Bilirubin 0.4 mg/dL (0.2-1.3) 02/05/19 08:59 AST 17 IU/L (17-59) 02/05/19 08:59 ALT 22 IU/L (21-72) 02/05/19 08:59 Alkaline Phosphatase 69 U/L (38-126) 02/05/19 08:59 Total Protein 6.3 g/dL (6.3-8.2) 02/05/19 08:59 Albumin 3.6 g/dL (3.5-5.0) 02/05/19 08:59 Globulin 2.7 g/dL (1.7-4.1) 02/05/19 08:59 Albumin/Globulin Ratio 1.3 (1.0-2.8) 02/05/19 08:59 Carcinoembryonic Ag 75.3 ng/mL (0.1-3.0) H 02/05/19 08:55 Assessment and Plan (1) Colon cancer 58-year-old man with a rectosigmoid mass and liver metastasis. Biopsy showed invasive well-differentiated adenocarcinoma. Mismatch repair proteins were normal. MARION and BRAF mutations are normal. He has completed 6 cycles of FOLFIRI with Erbitux with a decrease in the irinotecan dose. He is tolerating his chemotherapy adequately. His CEA continues to fall. He will proceed with his next cycle of treatment today. He will return to clinic in 3 weeks for follow-up. We will plan on switching to a maintenance strategy once his CEA plateaus. He did have incidental bilateral pulmonary emboli discovered in December and he remains on anticoagulation.
[2019-02-19 09:27] LABS: Add Manual Diff / Slide Review NO; Basophils Absolute Auto 100 /uL (0-100); Basophils Percent Auto 0.8 % (0-2); Eosinophils Absolute Auto 200 /uL (0-450); Eosinophils Percent Auto 2.8 % (2-4); Hematocrit 36.4 % (41-53); Hemoglobin 12.1 g/dL (13.5-17.5); Lymphocytes Absolute Auto 2000 /uL (1100-4500); Lymphocytes Percent Auto 22.2 % (25-40); Mean Corpuscular HGB Conc 33.2 % (30-36); Mean Corpuscular Hemoglobin 28.7 PG (26-34); Mean Corpuscular Volume 86.3 fL (80-100); Monocytes Absolute Auto 1000 /uL (0-900); Monocytes Percent Auto 10.9 % (3-14); Neutrophils Absolute Auto 5600 /uL (1500-7000); Neutrophils Percent Auto 63.3 % (50-75); Platelet Count 246 X10^3/uL (150-400); Red Blood Cell Count 4.22 X10^6/uL (4.5-5.9); Red Cell Distribution Width 20.7 % (11.6-14.8); White Blood Cell Count 8.8 X10^3/uL (4.5-11.0)
[2019-02-19 09:35] LABS: Alanine Aminotransferase 26 IU/L (21-72); Albumin 3.6 g/dL (3.5-5.0); Albumin Globulin Ratio 1.3 (1.0-2.8); Alkaline Phosphatase 59 U/L (38-126); Aspartate Aminotransferase 19 IU/L (17-59); Bilirubin Total 0.4 mg/dL (0.2-1.3); Blood Urea Nitrogen 14 mg/dL (9-20); Calcium 8.5 mg/dL (8.4-10.2); Carbon Dioxide 26 mmol/L (22-32); Chloride 108 mmol/L (98-107); Estimated Glomerular Filt Rate > 60.0 mL/min (>60); Globulin 2.8 g/dL (1.7-4.1); Glucose 77 mg/dL (70-100); Sodium 141 mmol/L (137-145); Total Protein 6.4 g/dL (6.3-8.2)
[2019-02-19 09:36] LABS: HEMOLYSIS 51 (0-50); Potassium 4.3 mmol/L (3.4-5.1)
[2019-02-19 10:05] LABS: Anisocytosis 1+; Rouleaux 1+
[2019-02-19] MEDS: FOSAPREPITANT 150 MG in SODIUM CHLORIDE 0.9% 150 ML 300 ML IV (10:20)
[2019-02-19 10:28] LABS: Carcinoembryonic Antigen 50.6 ng/mL (0.1-3.0)
[2019-02-19] MEDS: diphenhydrAMINE 50 MG/ML VIAL 25 MG IV (11:18)
[2019-02-19] MEDS: PALONOSETRON 0.25 MG/5 ML VIAL IV (11:18)
[2019-02-19] MEDS: ISOOSMOTIC VEHICLE IV (11:34)
[2019-02-19] MEDS: CETUXIMAB IV (11:34)
[2019-02-19] MEDS: SODIUM CHLORIDE 0.9% 100 ML 21 ML IV (11:34)
--- NOTE | 2019-02-19 13:41 | ONC.MSW ---
Description: Employment Leave Forms/Resources Activity: Met with pt to answer questions about FMLA, temporary leave, and the medical marijuana authorization form. ROD MACHINE OPERATOR will assist pt with completing these forms and having Dr. Bass sign them. Confirmed that we are indeed using the incorrect paper for the med. [email or web address] form, will obtain the correct paper by tomorrow and send pt new copy. No further needs identified at this time.
[2019-02-19] MEDS: IRINOTECAN IV (14:04)
[2019-02-19] MEDS: DEXTROSE 5% IV (14:04)
[2019-02-19] MEDS: LEUCOVORIN 800 MG in DEXTROSE 5% (CHEMO IV) 250 ML 250 ML 193.333 ML IV (14:05)
[2019-02-19] MEDS: FLUOROURACIL 800 MG in ISOOSMOTIC VEHICLE (CHEMO) 0 ML 96 ML IV (17:02)
--- NOTE | 2019-02-19 18:20 | PC.NURSE ---
CADD casette double checked with nr.rxb, blood return positive, attached to port access with luerlock and equashield, all clamps open, pump verified running at correct settings, green light flashing. Patient will return on at 1600.
--- NOTE | 2019-02-20 15:16 | ONC.MSW ---
Description: Resources, FMLA Activity: INDUSTRIAL RELATIONS MANAGER completed pt's FMLA forms, completed the Emergency Medical Leave letter, and have nearly completed his new Medical Marijuana Authorization forms. Scanned and emailed the FMLA/Letter documents to his email, as he requested. NUSRAT requested a call back from his daughter, Mayra, in order to complete the Designated Provider sections on both of their forms. Will send him the completed forms once this is done.
[2019-02-21 16:21] VITALS: BP 123/71; PULSE 75; RESP 16; TEMP 36.6; O2SAT 97
--- NOTE | 2019-02-21 16:22 | PC.NURSE ---
PUMP DEACCESS: Patient states feeling well, 5FU cartridge empty, pump disconnected and port deaccessed post flush.
--- NOTE | 2019-02-21 16:37 | PC.NURSE ---
KACYD pump d/c by ALEX
--- NOTE | 2019-03-11 09:52 | ONC.SCHED ---
left [facility] [place] check in at 8:20 per Shayla to have his labs/treatment/and follow up in the mix with Dr. Bass. Patient called back and had some concerns with starting treatment before talking to Dr. Bass. Patient was concerned that his labs needed to be resulted before treatment. I explained to him that labs will be read before treatment and I sent him to triage to get further clarification to ease his mind.
[2019-03-12 08:58] LABS: Add Manual Diff / Slide Review NO; Basophils Absolute Auto 100 /uL (0-100); Basophils Percent Auto 0.8 % (0-2); Eosinophils Absolute Auto 200 /uL (0-450); Eosinophils Percent Auto 1.6 % (2-4); Hemoglobin 13.3 g/dL (13.5-17.5); Lymphocytes Absolute Auto 2200 /uL (1100-4500); Lymphocytes Percent Auto 22.1 % (25-40); Mean Corpuscular HGB Conc 33.2 % (30-36); Mean Corpuscular Hemoglobin 29.4 PG (26-34); Mean Corpuscular Volume 88.5 fL (80-100); Monocytes Absolute Auto 1500 /uL (0-900); Monocytes Percent Auto 14.9 % (3-14); Neutrophils Absolute Auto 5900 /uL (1500-7000); Neutrophils Percent Auto 60.6 % (50-75); Platelet Count 306 X10^3/uL (150-400); Red Blood Cell Count 4.52 X10^6/uL (4.5-5.9); Red Cell Distribution Width 19.4 % (11.6-14.8); White Blood Cell Count 9.8 X10^3/uL (4.5-11.0)
[2019-03-12 09:07] VITALS: BP 123/92; PULSE 80; RESP 16; TEMP 36.6; O2SAT 94
[2019-03-12 09:18] LABS: Alanine Aminotransferase 31 IU/L (21-72); Albumin 3.7 g/dL (3.5-5.0); Albumin Globulin Ratio 1.4 (1.0-2.8); Alkaline Phosphatase 84 U/L (38-126); Aspartate Aminotransferase 15 IU/L (17-59); BUN Creatinine Ratio 23.3 (6-22); Bilirubin Total 0.3 mg/dL (0.2-1.3); Blood Urea Nitrogen 14 mg/dL (9-20); Calcium 9.1 mg/dL (8.4-10.2); Carbon Dioxide 27 mmol/L (22-32); Chloride 108 mmol/L (98-107); Estimated Glomerular Filt Rate > 60.0 mL/min (>60); Globulin 2.6 g/dL (1.7-4.1); Glucose 74 mg/dL (70-100); HEMOLYSIS < 15 (0-50); Magnesium 1.9 mg/dL (1.6-2.3); Potassium 4.1 mmol/L (3.4-5.1); Sodium 143 mmol/L (137-145); Total Protein 6.3 g/dL (6.3-8.2)
--- NOTE | 2019-03-12 09:34 | ONC.PN ---
PN -Subjective Interval history: Diagnosis: Metastatic colon cancer with liver metastasis, normal mismatch repair, wild type MARION and BRAF Treatment: FOLFIRI and Erbitux for 7 cycles with a dose reduction in irinotecan starting in October 2018 Interval history: Patient is a 58-year-old man with metastatic colon cancer. He returns today for follow-up. He has completed 7 cycles of FOLFIRI with Erbitux. He reports that he tolerated his most recent cycle quite well. He did have some abdominal cramping and loose stool that lasted for about 1 or 2 days. He had some nausea and vomiting around the same time period the symptoms did resolve on their own. No mouth sores or skin rash. His appetite has been good. No fevers chills or sweats. Strength and energy level have been little bit low but stable. He is not having any pain. He did have an extra week off with his last round of therapy for camping trip. He feels like the extra time really helped his strength and energy level improved. He denies any other changes in his health. He tells me that he is thinking of retiring. He is planning to apply for social security disability. - Patient Self-Reported Symptoms SR Constitution: Fatigue/Malaise SR Gastrointestinal issues: Poor or no appetite, Nausea, Diarrhea, Constipation, Abdominal pain SR Musculoskeletal issues: Muscle pain or cramps, Back or neck pain, Difficulty walking Home Medications and Allergies Home Medications Medication Instructions Recorded Confirmed Type docusate calcium [Stool Softener] 240 mg DAILY 10/17/18 02/19/19 History ergocalciferol (vitamin D2) 50,000 unit PO QWEEK 10/17/18 02/19/19 History [Vitamin D2] oxycodone 10 mg PO Q4-6H PRN 10/17/18 02/19/19 History fentanyl 1 patch TRANSDERMAL Q72H 11/06/18 02/19/19 History fluorouracil 4,800 mg IV NOW #1 device 11/06/18 02/19/19 Rx ondansetron HCl 8 mg PO Q8H PRN #30 tab 11/06/18 02/19/19 Rx oxycodone See Rx Instructions .ROUTE 11/06/18 02/19/19 History .COMPLEX PRN prochlorperazine maleate 10 mg PO Q6H PRN #30 tab 11/06/18 02/19/19 Rx lorazepam [Ativan] 0.5 mg PO BID-TID PRN #30 tab 11/15/18 02/19/19 Rx hyoscyamine sulfate 0.25 mg PO QID PRN #100 tab 12/05/18 02/19/19 Rx apixaban [Eliquis] See Rx Instructions .ROUTE 01/04/19 02/19/19 Rx .COMPLEX #74 each dexamethasone 2 mg PO DAILY 01/22/19 02/19/19 History apixaban [Eliquis] 5 mg PO BID #60 tab 02/05/19 02/19/19 Rx Allergies Allergy/AdvReac Type Severity Reaction Status Date / Time No Known Drug Allergies Allergy Verified 11/15/18 15:27 Exam Vital signs: Vital Signs Temp Pulse Resp BP Pulse Ox 03/12/19 09:07 97.8 F 80 16 123/92 H 94 Intake and Output 03/11/19 03/12/19 03/12/19 23:59 07:59 15:59 Other: Weight 81.9 kg Patient Weight 03/12/19 23:59 Weight 81.9 kg - Constitutional positive no acute distress, positive average body habitus - Routine HEENT Exam Head: Present: normocephalic, atraumatic Eye: Present: EOMI, PERRL. Absent: conjunctival icterus, scleral injection ENT: Present: mucous membranes moist, oropharynx clear - Routine Neck Exam Present: supple. Absent: lymphadenopathy, thyromegaly - Routine Respiratory Exam Present: Clear to auscultation bilaterally. Absent: rales, wheezes - Routine Cardiovascular Exam Present: RRR, S1, S2. Absent: murmur - Routine Abdominal Exam Present: soft, normoactive bowel sounds. Absent: tenderness, organomegaly, mass - Routine Extremities Exam Absent: cyanosis, clubbing, edema - Routine Back/Spine Exam Back/Spine: Absent: vertebral tenderness - Routine Skin Exam Present: intact. Absent: petechiae, rash - Routine Neurological Exam Present: alert, oriented X3 - Routine Psychiatric Exam Present: normal affect, normal thought process Results - Labs Laboratory Last Values WBC 9.8 X10^3/uL (4.5-11.0) 03/12/19 08:45 RBC 4.52 X10^6/uL (4.5-5.9) 03/12/19 08:45 Hgb 13.3 g/dL (13.5-17.5) L 03/12/19 08:45 Hct 40.0 % (41-53) L 03/12/19 08:45 MCV 88.5 fL (80-100) 03/12/19 08:45 MCH 29.4 PG (26-34) 03/12/19 08:45 MCHC 33.2 % (30-36) 03/12/19 08:45 RDW 19.4 % (11.6-14.8) H 03/12/19 08:45 Plt Count 306 X10^3/uL (150-400) 03/12/19 08:45 Neut % (Auto) 60.6 % (50-75) 03/12/19 08:45 Lymph % (Auto) 22.1 % (25-40) L 03/12/19 08:45 [place] % (Auto) 14.9 % (3-14) H 03/12/19 08:45 Eos % (Auto) 1.6 % (2-4) L 03/12/19 08:45 Baso % (Auto) 0.8 % (0-2) 03/12/19 08:45 Neut # (Auto) 5900 /uL (7365-7960) 03/12/19 08:45 Lymph # (Auto) 2200 /uL (3580-5629) 03/12/19 08:45 [place] # (Auto) 1500 /uL (0-900) H 03/12/19 08:45 Eos # (Auto) 200 /uL (0-450) 03/12/19 08:45 Baso # (Auto) 100 /uL (0-100) 03/12/19 08:45 RBC Morphology See below 02/19/19 09:15 Hypochromasia 1+ H 02/05/19 08:59 Poikilocytosis 2+ H 02/05/19 08:59 Anisocytosis 1+ H 02/19/19 09:15 Macrocytosis 1+ H 02/05/19 08:59 Rouleaux 1+ H 02/19/19 09:15 Sodium 143 mmol/L (137-145) 03/12/19 08:45 Potassium 4.1 mmol/L (3.4-5.1) 03/12/19 08:45 Chloride 108 mmol/L (98-107) H 03/12/19 08:45 Carbon Dioxide 27 mmol/L (22-32) 03/12/19 08:45 BUN 14 mg/dL (9-20) 03/12/19 08:45 Creatinine 0.60 mg/dL (0.66-1.25) L 03/12/19 08:45 Estimated GFR > 60.0 mL/min (>60) 03/12/19 08:45 BUN/Creatinine Ratio 23.3 (6-22) H 03/12/19 08:45 Glucose 74 mg/dL (70-100) 03/12/19 08:45 Calcium 9.1 mg/dL (8.4-10.2) 03/12/19 08:45 Magnesium 1.9 mg/dL (1.6-2.3) 03/12/19 08:45 Total Bilirubin 0.3 mg/dL (0.2-1.3) 03/12/19 08:45 AST 15 IU/L (17-59) L 03/12/19 08:45 ALT 31 IU/L (21-72) 03/12/19 08:45 Alkaline Phosphatase 84 U/L (38-126) 03/12/19 08:45 Total Protein 6.3 g/dL (6.3-8.2) 03/12/19 08:45 Albumin 3.7 g/dL (3.5-5.0) 03/12/19 08:45 Globulin 2.6 g/dL (1.7-4.1) 03/12/19 08:45 Albumin/Globulin Ratio 1.4 (1.0-2.8) 03/12/19 08:45 Carcinoembryonic Ag 50.6 ng/mL (0.1-3.0) H 02/19/19 08:24 Assessment and Plan (1) Colon cancer 58-year-old man with a rectosigmoid mass and liver metastasis. Biopsy showed invasive well-differentiated adenocarcinoma. Mismatch repair proteins were normal. MARION and BRAF mutations are normal. He has completed 7 cycles of FOLFIRI with Erbitux with a decrease in the irinotecan dose. He is tolerating his chemotherapy adequately. His CEA continues to fall. He will proceed with his next cycle of treatment today. He will return to clinic in 2 weeks for follow-up. We will plan on switching to a maintenance strategy once his CEA plateaus. He did have incidental bilateral pulmonary emboli discovered in December and he remains on anticoagulation.
[2019-03-12 09:47] LABS: Carcinoembryonic Antigen 29.5 ng/mL (0.1-3.0)
[2019-03-12] MEDS: FOSAPREPITANT 150 MG in SODIUM CHLORIDE 0.9% 150 ML 300 ML IV (10:13)
[2019-03-12] MEDS: PALONOSETRON 0.25 MG/5 ML VIAL IV (11:09)
[2019-03-12] MEDS: diphenhydrAMINE 50 MG/ML VIAL 25 MG IV (11:09)
[2019-03-12] MEDS: CETUXIMAB IV (11:32)
[2019-03-12] MEDS: ISOOSMOTIC VEHICLE IV (11:32)
[2019-03-12] MEDS: DEXTROSE 5% IV (14:01)
[2019-03-12] MEDS: IRINOTECAN IV (14:01)
[2019-03-12] MEDS: LEUCOVORIN 800 MG in DEXTROSE 5% (CHEMO IV) 250 ML 250 ML 193.333 ML IV (14:07)
[2019-03-12] MEDS: FLUOROURACIL 800 MG in ISOOSMOTIC VEHICLE (CHEMO) 0 ML 96 ML IV (16:16)
--- NOTE | 2019-03-12 16:59 | PC.NURSE ---
pt educated on new CADD pump. 5FU dose verified with Josué. connections secured and aquashield used. pump started and green light blinking. +blood return.
[2019-03-14 15:27] VITALS: BP 103/67; PULSE 84; RESP 16; TEMP 36.8; O2SAT 93
--- NOTE | 2019-03-14 15:56 | PC.NURSE ---
PUMP DISCONNECT: Patient states feeling a bit tired out but otherwise eating and drinking well and no problems. Pump casette empty, disconnected and port deaccessed post flushing.
--- NOTE | 2019-03-19 16:07 | PC.NURSE ---
Patient stated to Norma at reminder call re labs that he did not want to come in for labs as not feeling well. This nurse called back. Patient reports nauseau and cramping and that he has lost some weight again. He is eating more now and drinking ok. I told him that he can come in to get labs and fluids tomorrow and he agreed to call in am and check in with triage nurse of his status.
--- NOTE | 2019-03-21 17:42 | PC.NURSE ---
Patient called by this nurse today as he did not come to possible appt yesterday for fluids reportedly because he did not feel well. Today he states doing much better and able to eat quite well again. I encouraged him to drink plenty.
[2019-03-26 08:26] VITALS: BP 111/67; PULSE 96; RESP 20; TEMP 36.8; O2SAT 96
--- NOTE | 2019-03-26 08:43 | P.PNONC_ITS ---
PN -Subjective Interval history: Diagnosis: Metastatic colon cancer with liver metastasis, normal mismatch repair, wild type MARION and BRAF Treatment: FOLFIRI and Erbitux for 8 cycles with a dose reduction in irinotecan starting in October 2018 Interval history: Patient is a 58-year-old man with metastatic colon cancer. He returns today for follow-up. He has completed 8 cycles of FOLFIRI with Erbitux. He reports that he tolerated his most recent cycle was some increased difficulty, he has noted increased fatigue. He has had ongoing abdominal cramping. He has been using 2 mg a day of dexamethasone but it has not been helping as much as previously. He has had some nausea but no vomiting. He has had some diarrhea. His appetite has been low. He notes some increased fatigue and generalized weakness. No mouth sores or skin rash. He is not having any other pain. No shortness of breath or cough. No fevers or chills. He denies any other changes in his health. He tells me that he is thinking of retiring. He is planning to apply for social security disability. - Patient Self-Reported Symptoms SR Constitution: Fatigue/Malaise SR Gastrointestinal issues: Poor or no appetite, Nausea, Diarrhea, Constipation, Abdominal pain SR Musculoskeletal issues: Muscle pain or cramps, Back or neck pain, Difficulty walking Home Medications and Allergies Home Medications Medication Instructions Recorded Confirmed Type docusate calcium [Stool Softener] 240 mg DAILY 10/17/18 03/26/19 History ergocalciferol (vitamin D2) 50,000 unit PO QWEEK 10/17/18 03/26/19 History [Vitamin D2] oxycodone 10 mg PO Q4-6H PRN 10/17/18 03/26/19 History fentanyl 1 patch TRANSDERMAL Q72H 11/06/18 03/26/19 History fluorouracil 4,800 mg IV NOW #1 device 11/06/18 03/26/19 Rx ondansetron HCl 8 mg PO Q8H PRN #30 tab 11/06/18 03/26/19 Rx oxycodone See Rx Instructions .ROUTE 11/06/18 03/26/19 History .COMPLEX PRN prochlorperazine maleate 10 mg PO Q6H PRN #30 tab 11/06/18 03/26/19 Rx lorazepam [Ativan] 0.5 mg PO BID-TID PRN #30 tab 11/15/18 03/26/19 Rx hyoscyamine sulfate 0.25 mg PO QID PRN #100 tab 12/05/18 03/26/19 Rx apixaban [Eliquis] See Rx Instructions .ROUTE 01/04/19 03/26/19 Rx .COMPLEX #74 each dexamethasone 2 mg PO DAILY 01/22/19 03/26/19 History apixaban [Eliquis] 5 mg PO BID #60 tab 02/05/19 03/26/19 Rx Allergies Allergy/AdvReac Type Severity Reaction Status Date / Time No Known Drug Allergies Allergy Verified 11/15/18 15:27 Exam Vital signs: Vital Signs Temp Pulse Resp BP Pulse Ox 03/26/19 08:26 98.2 F 96 H 20 111/67 96 Intake and Output 03/25/19 03/26/19 03/26/19 23:59 07:59 15:59 Other: Weight 83.1 kg Patient Weight 03/26/19 23:59 Weight 83.1 kg - Constitutional positive no acute distress, positive average body habitus - Routine HEENT Exam Head: Present: normocephalic, atraumatic Eye: Present: EOMI, PERRL. Absent: conjunctival icterus, scleral injection ENT: Present: mucous membranes moist, oropharynx clear - Routine Neck Exam Present: supple. Absent: lymphadenopathy, thyromegaly - Routine Respiratory Exam Present: Clear to auscultation bilaterally. Absent: rales, wheezes - Routine Cardiovascular Exam Present: RRR, S1, S2. Absent: murmur - Routine Abdominal Exam Present: soft, normoactive bowel sounds. Absent: tenderness, organomegaly, mass - Routine Extremities Exam Absent: cyanosis, clubbing, edema - Routine Back/Spine Exam Back/Spine: Absent: vertebral tenderness - Routine Skin Exam Present: intact. Absent: petechiae, rash - Routine Neurological Exam Present: alert, oriented X3 - Routine Psychiatric Exam Present: normal affect, normal thought process Results - Labs Laboratory Last Values WBC 9.8 X10^3/uL (4.5-11.0) 03/12/19 08:45 RBC 4.52 X10^6/uL (4.5-5.9) 03/12/19 08:45 Hgb 13.3 g/dL (13.5-17.5) L 03/12/19 08:45 Hct 40.0 % (41-53) L 03/12/19 08:45 MCV 88.5 fL (80-100) 03/12/19 08:45 MCH 29.4 PG (26-34) 03/12/19 08:45 MCHC 33.2 % (30-36) 03/12/19 08:45 RDW 19.4 % (11.6-14.8) H 03/12/19 08:45 Plt Count 306 X10^3/uL (150-400) 03/12/19 08:45 Neut % (Auto) 60.6 % (50-75) 03/12/19 08:45 Lymph % (Auto) 22.1 % (25-40) L 03/12/19 08:45 [place] % (Auto) 14.9 % (3-14) H 03/12/19 08:45 Eos % (Auto) 1.6 % (2-4) L 03/12/19 08:45 Baso % (Auto) 0.8 % (0-2) 03/12/19 08:45 Neut # (Auto) 5900 /uL (7036-8553) 03/12/19 08:45 Lymph # (Auto) 2200 /uL (0476-7361) 03/12/19 08:45 [place] # (Auto) 1500 /uL (0-900) H 03/12/19 08:45 Eos # (Auto) 200 /uL (0-450) 03/12/19 08:45 Baso # (Auto) 100 /uL (0-100) 03/12/19 08:45 RBC Morphology See below 02/19/19 09:15 Hypochromasia 1+ H 02/05/19 08:59 Poikilocytosis 2+ H 02/05/19 08:59 Anisocytosis 1+ H 02/19/19 09:15 Macrocytosis 1+ H 02/05/19 08:59 Rouleaux 1+ H 02/19/19 09:15 Sodium 143 mmol/L (137-145) 03/12/19 08:45 Potassium 4.1 mmol/L (3.4-5.1) 03/12/19 08:45 Chloride 108 mmol/L (98-107) H 03/12/19 08:45 Carbon Dioxide 27 mmol/L (22-32) 03/12/19 08:45 BUN 14 mg/dL (9-20) 03/12/19 08:45 Creatinine 0.60 mg/dL (0.66-1.25) L 03/12/19 08:45 Estimated GFR > 60.0 mL/min (>60) 03/12/19 08:45 BUN/Creatinine Ratio 23.3 (6-22) H 03/12/19 08:45 Glucose 74 mg/dL (70-100) 03/12/19 08:45 Calcium 9.1 mg/dL (8.4-10.2) 03/12/19 08:45 Magnesium 1.9 mg/dL (1.6-2.3) 03/12/19 08:45 Total Bilirubin 0.3 mg/dL (0.2-1.3) 03/12/19 08:45 AST 15 IU/L (17-59) L 03/12/19 08:45 ALT 31 IU/L (21-72) 03/12/19 08:45 Alkaline Phosphatase 84 U/L (38-126) 03/12/19 08:45 Total Protein 6.3 g/dL (6.3-8.2) 03/12/19 08:45 Albumin 3.7 g/dL (3.5-5.0) 03/12/19 08:45 Globulin 2.6 g/dL (1.7-4.1) 03/12/19 08:45 Albumin/Globulin Ratio 1.4 (1.0-2.8) 03/12/19 08:45 Carcinoembryonic Ag 29.5 ng/mL (0.1-3.0) H 03/12/19 08:45 Assessment and Plan (1) Colon cancer 58-year-old man with a rectosigmoid mass and liver metastasis. Biopsy showed invasive well-differentiated adenocarcinoma. Mismatch repair proteins were normal. MARION and BRAF mutations are normal. He has completed 8 cycles of FOLFIRI with Erbitux with a decrease in the irinotecan dose. He is having some increased toxicity. His CEA has continued to decline and is down to 29. I think given his increased abdominal cramping and fatigue, will delay his next treatment a week. We also talked about the possibility of switching to maintenance strategy by dropping out the irinotecan from his regimen and continue with 5 FU and Erbitux. This would hopefully lessen his degree of toxicity but still maintain good control of his tumor. When his CEA begins to increase, we could consider adding oxaliplatin or irinotecan back to his regimen at that time. He is excited to make this change. We will plan on resuming his chemotherapy next week than with 5 FU leucovorin and Erbitux. He did have incidental bilateral pulmonary emboli discovered in December and he remains on anticoagulation.
--- NOTE | 2019-03-27 11:27 | PC.NURSE ---
[facility] faxed to [phone]
[2019-04-02 09:55] LABS: Add Manual Diff / Slide Review NO; Basophils Absolute Auto 100 /uL (0-100); Eosinophils Absolute Auto 300 /uL (0-450); Eosinophils Percent Auto 3.7 % (2-4); Hemoglobin 13.9 g/dL (13.5-17.5); Lymphocytes Absolute Auto 2000 /uL (1100-4500); Lymphocytes Percent Auto 23.6 % (25-40); Mean Corpuscular HGB Conc 33.9 % (30-36); Mean Corpuscular Hemoglobin 29.9 PG (26-34); Mean Corpuscular Volume 88.2 fL (80-100); Monocytes Absolute Auto 800 /uL (0-900); Monocytes Percent Auto 9.7 % (3-14); Neutrophils Absolute Auto 5400 /uL (1500-7000); Platelet Count 295 X10^3/uL (150-400); Red Blood Cell Count 4.65 X10^6/uL (4.5-5.9); Red Cell Distribution Width 17.9 % (11.6-14.8); White Blood Cell Count 8.7 X10^3/uL (4.5-11.0)
[2019-04-02 10:12] VITALS: BP 127/85; PULSE 97; RESP 20; TEMP 36.5; O2SAT 97
[2019-04-02 10:13] LABS: Alanine Aminotransferase 23 IU/L (21-72); Albumin 3.9 g/dL (3.5-5.0); Albumin Globulin Ratio 1.3 (1.0-2.8); Alkaline Phosphatase 66 U/L (38-126); Aspartate Aminotransferase 26 IU/L (17-59); BUN Creatinine Ratio 21.7 (6-22); Bilirubin Total 0.6 mg/dL (0.2-1.3); Blood Urea Nitrogen 13 mg/dL (9-20); Calcium 8.7 mg/dL (8.4-10.2); Carbon Dioxide 27 mmol/L (22-32); Chloride 108 mmol/L (98-107); Estimated Glomerular Filt Rate > 60.0 mL/min (>60); Glucose 141 mg/dL (70-100); Potassium 4.1 mmol/L (3.4-5.1); Sodium 142 mmol/L (137-145); Total Protein 6.9 g/dL (6.3-8.2)
[2019-04-02 10:19] LABS: HEMOLYSIS 95 (0-50)
[2019-04-02] MEDS: LORazepam 0.5 MG TABLET PO (10:30)
[2019-04-02] MEDS: PALONOSETRON 0.25 MG/5 ML VIAL IV (10:55)
[2019-04-02] MEDS: diphenhydrAMINE 50 MG/ML VIAL 25 MG IV (10:55)
[2019-04-02] MEDS: SODIUM CHLORIDE 0.9% 100 ML 21 ML IV (11:16)
[2019-04-02] MEDS: FOSAPREPITANT 150 MG in SODIUM CHLORIDE 0.9% 150 ML 300 ML IV (11:16)
[2019-04-02 11:22] LABS: Carcinoembryonic Antigen 21.4 ng/mL (0.1-3.0)
[2019-04-02] MEDS: CETUXIMAB IV (12:50)
[2019-04-02] MEDS: ISOOSMOTIC VEHICLE IV ×2 (12:50→16:01)
[2019-04-02] MEDS: LEUCOVORIN IV (15:08)
[2019-04-02] MEDS: DEXTROSE 5% IV (15:08)
[2019-04-02] MEDS: FLUOROURACIL IV (16:01)
--- NOTE | 2019-04-02 16:35 | PC.NURSE ---
Connected pt to CADD pump. Blood return verified, and dose verified with JAKE RN. Green light verified with pt.
--- NOTE | 2019-04-04 16:41 | PC.NURSE ---
CADD pump dc'd without issue. Pt tolerated well. reports feeling good. Port flushed per protocol, dc'd needle intact.
--- NOTE | 2019-04-11 15:21 | ONC.SCHED ---
Spoke with patient regarding CT auth, he was asking if we had submitted it. I spoke with Treva at [facility] his door person and she said she submitted it today. As soon as I get it I will call him to schedule the CT. Carmen was working on this so I'm not sure it every got done.
[2019-04-16 09:16] LABS: Add Manual Diff / Slide Review NO; Basophils Absolute Auto 100 /uL (0-100); Basophils Percent Auto 0.6 % (0-2); Eosinophils Absolute Auto 300 /uL (0-450); Eosinophils Percent Auto 2.7 % (2-4); Hematocrit 41.4 % (41-53); Hemoglobin 13.9 g/dL (13.5-17.5); Lymphocytes Absolute Auto 1300 /uL (1100-4500); Lymphocytes Percent Auto 13.3 % (25-40); Mean Corpuscular HGB Conc 33.6 % (30-36); Mean Corpuscular Hemoglobin 29.8 PG (26-34); Mean Corpuscular Volume 88.5 fL (80-100); Monocytes Absolute Auto 800 /uL (0-900); Monocytes Percent Auto 8.5 % (3-14); Neutrophils Absolute Auto 7100 /uL (1500-7000); Neutrophils Percent Auto 74.9 % (50-75); Platelet Count 234 X10^3/uL (150-400); Red Blood Cell Count 4.68 X10^6/uL (4.5-5.9); Red Cell Distribution Width 17.4 % (11.6-14.8); White Blood Cell Count 9.5 X10^3/uL (4.5-11.0)
[2019-04-16 09:28] LABS: Alanine Aminotransferase 19 IU/L (21-72); Albumin Globulin Ratio 1.4 (1.0-2.8); Alkaline Phosphatase 79 U/L (38-126); Aspartate Aminotransferase 20 IU/L (17-59); BUN Creatinine Ratio 12.9 (6-22); Bilirubin Total 0.5 mg/dL (0.2-1.3); Blood Urea Nitrogen 9 mg/dL (9-20); Carbon Dioxide 27 mmol/L (22-32); Chloride 105 mmol/L (98-107); Estimated Glomerular Filt Rate > 60.0 mL/min (>60); Globulin 2.9 g/dL (1.7-4.1); Glucose 126 mg/dL (70-100); HEMOLYSIS 20 (0-50); Magnesium 2.1 mg/dL (1.6-2.3); Potassium 4.2 mmol/L (3.4-5.1); Sodium 141 mmol/L (137-145); Total Protein 6.9 g/dL (6.3-8.2)
[2019-04-16 10:07] LABS: Carcinoembryonic Antigen 17.2 ng/mL (0.1-3.0)
[2019-04-16] MEDS: PALONOSETRON 0.25 MG/5 ML VIAL IV (10:20)
[2019-04-16] MEDS: diphenhydrAMINE 50 MG/ML VIAL 25 MG IV (10:20)
[2019-04-16] MEDS: FOSAPREPITANT 150 MG in SODIUM CHLORIDE 0.9% 150 ML 300 ML IV (11:13)
[2019-04-16] MEDS: SODIUM CHLORIDE 0.9% 100 ML 21 ML IV (12:08)
[2019-04-16] MEDS: CETUXIMAB IV (12:08)
[2019-04-16] MEDS: ISOOSMOTIC VEHICLE IV ×2 (12:08→15:24)
--- NOTE | 2019-04-16 13:23 | P.PNONC_ITS ---
PN -Subjective Interval history: Diagnosis: Metastatic colon cancer with liver metastasis, normal mismatch repair, wild type MARION and BRAF Treatment: 1. FOLFIRI and Erbitux for 8 cycles with a dose reduction in irinotecan starting in October 2018 2. Maintenance therapy with 5 FU leucovorin and Erbitux beginning in March 2019 Interval history: Patient is a 58-year-old man with metastatic colon cancer. He returns today for follow-up. He has completed 8 cycles of FOLFIRI with Erbitux. And has recently transition to maintenance therapy. He has been tolerating the therapy reasonably well but notes some ongoing abdominal pain and poor appetite. It has not been as intense as with previous cycles but has been fairly persistent lasting about 8-10 days. He has not had any nausea or vomiting. He has had some fatigue. No mouth sores or skin rash. No fevers or chills. He denies any unusual bleeding or bruising. He previously had improvement in his symptoms with dexamethasone. He had been taking 1 mg a day but stopped a few weeks ago. He did have a CT scan ordered but has had problems with his insurance company an d approval. It has not yet been performed. He denies any other changes in his health. - Patient Self-Reported Symptoms SR Constitution: Fatigue/Malaise SR Gastrointestinal issues: Poor or no appetite, Nausea, Diarrhea, Constipation, Abdominal pain SR Musculoskeletal issues: Muscle pain or cramps, Back or neck pain, Difficulty walking Home Medications and Allergies Home Medications Medication Instructions Recorded Confirmed Type docusate calcium [Stool Softener] 240 mg DAILY 10/17/18 03/26/19 History ergocalciferol (vitamin D2) 50,000 unit PO QWEEK 10/17/18 03/26/19 History [Vitamin D2] oxycodone 10 mg PO Q4-6H PRN 10/17/18 03/26/19 History fentanyl 1 patch TRANSDERMAL Q72H 11/06/18 03/26/19 History fluorouracil 4,800 mg IV NOW #1 device 11/06/18 03/26/19 Rx ondansetron HCl 8 mg PO Q8H PRN #30 tab 11/06/18 03/26/19 Rx oxycodone See Rx Instructions .ROUTE 11/06/18 03/26/19 History .COMPLEX PRN prochlorperazine maleate 10 mg PO Q6H PRN #30 tab 11/06/18 03/26/19 Rx lorazepam [Ativan] 0.5 mg PO BID-TID PRN #30 tab 11/15/18 03/26/19 Rx hyoscyamine sulfate 0.25 mg PO QID PRN #100 tab 12/05/18 03/26/19 Rx apixaban [Eliquis] See Rx Instructions .ROUTE 01/04/19 03/26/19 Rx .COMPLEX #74 each dexamethasone 2 mg PO DAILY 01/22/19 03/26/19 History apixaban [Eliquis] 5 mg PO BID #60 tab 02/05/19 03/26/19 Rx Allergies Allergy/AdvReac Type Severity Reaction Status Date / Time No Known Drug Allergies Allergy Verified 11/15/18 15:27 Exam Vital signs: Intake and Output 04/15/19 04/16/19 04/16/19 23:59 07:59 15:59 Intake Total 201.2 / 201.2 Balance 201.2 / 201.2 Intake: IV 201.2 / 201.2 Fosaprepitant 150 mg In Sodium 150 / 150 Chloride 0.9% 150 ml @ 300 mls/ hr IV [facility] Rx#:[id number] dexAMETHasone 12 mg In Sodium 51.2 / 51.2 Chloride 0.9% 50 ml @ 204.8 mls /hr IV [facility] Rx#:[id number] - Constitutional positive no acute distress, positive average body habitus Comments: He is not further examined. Results - Labs Laboratory Last Values WBC 9.5 X10^3/uL (4.5-11.0) 04/16/19 09:10 RBC 4.68 X10^6/uL (4.5-5.9) 04/16/19 09:10 Hgb 13.9 g/dL (13.5-17.5) 04/16/19 09:10 Hct 41.4 % (41-53) 04/16/19 09:10 MCV 88.5 fL (80-100) 04/16/19 09:10 MCH 29.8 PG (26-34) 04/16/19 09:10 MCHC 33.6 % (30-36) 04/16/19 09:10 RDW 17.4 % (11.6-14.8) H 04/16/19 09:10 Plt Count 234 X10^3/uL (150-400) 04/16/19 09:10 Neut % (Auto) 74.9 % (50-75) 04/16/19 09:10 Lymph % (Auto) 13.3 % (25-40) L 04/16/19 09:10 [place] % (Auto) 8.5 % (3-14) 04/16/19 09:10 Eos % (Auto) 2.7 % (2-4) 04/16/19 09:10 Baso % (Auto) 0.6 % (0-2) 04/16/19 09:10 Neut # (Auto) 7100 /uL (6424-9605) H 04/16/19 09:10 Lymph # (Auto) 1300 /uL (3058-1688) 04/16/19 09:10 [place] # (Auto) 800 /uL (0-900) 04/16/19 09:10 Eos # (Auto) 300 /uL (0-450) 04/16/19 09:10 Baso # (Auto) 100 /uL (0-100) 04/16/19 09:10 RBC Morphology See below 02/19/19 09:15 Hypochromasia 1+ H 02/05/19 08:59 Poikilocytosis 2+ H 02/05/19 08:59 Anisocytosis 1+ H 02/19/19 09:15 Macrocytosis 1+ H 02/05/19 08:59 Rouleaux 1+ H 02/19/19 09:15 Sodium 141 mmol/L (137-145) 04/16/19 09:10 Potassium 4.2 mmol/L (3.4-5.1) 04/16/19 09:10 Chloride 105 mmol/L (98-107) 04/16/19 09:10 Carbon Dioxide 27 mmol/L (22-32) 04/16/19 09:10 BUN 9 mg/dL (9-20) 04/16/19 09:10 Creatinine 0.70 mg/dL (0.66-1.25) 04/16/19 09:10 Estimated GFR > 60.0 mL/min (>60) 04/16/19 09:10 BUN/Creatinine Ratio 12.9 (6-22) 04/16/19 09:10 Glucose 126 mg/dL (70-100) H 04/16/19 09:10 Calcium 9.0 mg/dL (8.4-10.2) 04/16/19 09:10 Magnesium 2.1 mg/dL (1.6-2.3) 04/16/19 09:10 Total Bilirubin 0.5 mg/dL (0.2-1.3) 04/16/19 09:10 AST 20 IU/L (17-59) 04/16/19 09:10 ALT 19 IU/L (21-72) L 04/16/19 09:10 Alkaline Phosphatase 79 U/L (38-126) 04/16/19 09:10 Total Protein 6.9 g/dL (6.3-8.2) 04/16/19 09:10 Albumin 4.0 g/dL (3.5-5.0) 04/16/19 09:10 Globulin 2.9 g/dL (1.7-4.1) 04/16/19 09:10 Albumin/Globulin Ratio 1.4 (1.0-2.8) 04/16/19 09:10 Carcinoembryonic Ag 17.2 ng/mL (0.1-3.0) H 04/16/19 09:10 Assessment and Plan (1) Colon cancer 58-year-old man with a rectosigmoid mass and liver metastasis. Biopsy showed invasive well-differentiated adenocarcinoma. Mismatch repair proteins were normal. MARION and BRAF mutations are normal. He has completed 8 cycles of FOLFIRI with Erbitux with a decrease in the irinotecan dose. He is now on his 2 nd cycle of maintenance therapy. He will resume his dexamethasone 1 mg daily. I think that may help with his symptoms. Will continue with his current schedule. He will return to clinic in 2 weeks for follow-up. He will trying get his CT scan scheduled the soon as insurance approval is obtained. He did have incidental bilateral pulmonary emboli discovered in December and he remains on anticoagulation.
[2019-04-16 13:36] VITALS: BP 128/78; PULSE 87; RESP 16; TEMP 36.7; O2SAT 91
[2019-04-16] MEDS: LEUCOVORIN IV (14:17)
[2019-04-16] MEDS: DEXTROSE 5% IV (14:17)
[2019-04-16] MEDS: FLUOROURACIL IV (15:24)
--- NOTE | 2019-04-16 16:15 | PC.NURSE ---
5fu pump settings verified with 2nd RN, Yifan. Blood return confirmed. Equa shield in place. Pump infusing, green light flashing. No acute distress noted.
[2019-04-30 09:13] LABS: Add Manual Diff / Slide Review NO; Basophils Absolute Auto 100 /uL (0-100); Basophils Percent Auto 0.5 % (0-2); Eosinophils Absolute Auto 200 /uL (0-450); Eosinophils Percent Auto 1.3 % (2-4); Hematocrit 39.9 % (41-53); Hemoglobin 13.9 g/dL (13.5-17.5); Lymphocytes Absolute Auto 1800 /uL (1100-4500); Lymphocytes Percent Auto 13.6 % (25-40); Mean Corpuscular HGB Conc 34.7 % (30-36); Mean Corpuscular Hemoglobin 30.7 PG (26-34); Mean Corpuscular Volume 88.4 fL (80-100); Monocytes Absolute Auto 1000 /uL (0-900); Monocytes Percent Auto 7.8 % (3-14); Neutrophils Absolute Auto 9900 /uL (1500-7000); Neutrophils Percent Auto 76.8 % (50-75); Platelet Count 280 X10^3/uL (150-400); Red Blood Cell Count 4.51 X10^6/uL (4.5-5.9); Red Cell Distribution Width 17.2 % (11.6-14.8); White Blood Cell Count 12.9 X10^3/uL (4.5-11.0)
[2019-04-30 09:27] LABS: Alanine Aminotransferase 19 IU/L (21-72); Albumin 4.1 g/dL (3.5-5.0); Albumin Globulin Ratio 1.4 (1.0-2.8); Alkaline Phosphatase 57 U/L (38-126); Aspartate Aminotransferase 22 IU/L (17-59); BUN Creatinine Ratio 16.7 (6-22); Bilirubin Total 0.5 mg/dL (0.2-1.3); Blood Urea Nitrogen 10 mg/dL (9-20); Calcium 9.1 mg/dL (8.4-10.2); Carbon Dioxide 29 mmol/L (22-32); Chloride 106 mmol/L (98-107); Estimated Glomerular Filt Rate > 60.0 mL/min (>60); Glucose 119 mg/dL (70-100); Magnesium 1.9 mg/dL (1.6-2.3); Potassium 4.1 mmol/L (3.4-5.1); Sodium 143 mmol/L (137-145); Total Protein 7.1 g/dL (6.3-8.2)
[2019-04-30 09:29] LABS: HEMOLYSIS 68 (0-50)
[2019-04-30 09:57] LABS: Carcinoembryonic Antigen 12.5 ng/mL (0.1-3.0)
[2019-04-30 10:13] VITALS: BP 119/70; PULSE 85; RESP 16; TEMP 36.6; O2SAT 93
[2019-04-30] MEDS: diphenhydrAMINE 50 MG/ML VIAL 25 MG IV (10:26)
[2019-04-30] MEDS: PALONOSETRON 0.25 MG/5 ML VIAL IV (10:29)
[2019-04-30] MEDS: FOSAPREPITANT 150 MG in SODIUM CHLORIDE 0.9% 150 ML 300 ML IV (10:31)
[2019-04-30] MEDS: ISOOSMOTIC VEHICLE IV ×2 (11:23→14:28)
[2019-04-30] MEDS: CETUXIMAB IV (11:23)
[2019-04-30 11:53] VITALS: BP 119/70; PULSE 85; RESP 16; TEMP 36.6; O2SAT 98
--- NOTE | 2019-04-30 12:48 | ONC.PN ---
PN -Subjective Interval history: Diagnosis: Metastatic colon cancer with liver metastasis, normal mismatch repair, wild type MARION and BRAF Treatment: 1. FOLFIRI and Erbitux for 8 cycles with a dose reduction in irinotecan starting in October 2018 2. Maintenance therapy with 5 FU leucovorin and Erbitux beginning in March 2019 Interval history: Patient is a 58-year-old man with metastatic colon cancer. He returns today for follow-up. He has completed 8 cycles of FOLFIRI with Erbitux. And has recently transition to maintenance therapy. He has been tolerating the therapy reasonably well. With his most recent cycle, he had mole about 1 day of abdominal cramping and loose stool but resolved fairly quickly. His strength and energy level have been good. He has returned to work part-time. He is not having any shortness of breath or cough. No mouth sores. He has a little bit of erythema on his face intermittently. He denies any other rash. His appetite has been good. He denies any new aches or pains. No fevers chills or sweats. He has not noticed any adenopathy. He denies any other changes in his health. - Patient Self-Reported Symptoms SR Constitution: Fatigue/Malaise SR Gastrointestinal issues: Poor or no appetite, Nausea, Diarrhea, Constipation, Abdominal pain SR Musculoskeletal issues: Muscle pain or cramps, Back or neck pain, Difficulty walking Home Medications and Allergies Home Medications Medication Instructions Recorded Confirmed Type docusate calcium [Stool Softener] 240 mg DAILY 10/17/18 04/30/19 History ergocalciferol (vitamin D2) 50,000 unit PO QWEEK 10/17/18 04/30/19 History [Vitamin D2] oxycodone 10 mg PO Q4-6H PRN 10/17/18 03/26/19 History fluorouracil 4,800 mg IV NOW #1 device 11/06/18 04/30/19 Rx ondansetron HCl 8 mg PO Q8H PRN #30 tab 11/06/18 04/30/19 Rx oxycodone See Rx Instructions .ROUTE 11/06/18 04/30/19 History .COMPLEX PRN prochlorperazine maleate 10 mg PO Q6H PRN #30 tab 11/06/18 04/30/19 Rx lorazepam [Ativan] 0.5 mg PO BID-TID PRN #30 tab 11/15/18 04/30/19 Rx hyoscyamine sulfate 0.25 mg PO QID PRN #100 tab 12/05/18 04/30/19 Rx apixaban [Eliquis] See Rx Instructions .ROUTE 01/04/19 03/26/19 Rx .COMPLEX #74 each dexamethasone 2 mg PO DAILY 01/22/19 04/30/19 History apixaban [Eliquis] 5 mg PO BID #60 tab 02/05/19 04/30/19 Rx dexamethasone 1 mg PO DAILY 30 Days #30 tab 04/30/19 Rx Allergies Allergy/AdvReac Type Severity Reaction Status Date / Time No Known Drug Allergies Allergy Verified 11/15/18 15:27 Exam Vital signs: Vital Signs Temp Pulse Resp BP Pulse Ox 04/30/19 11:53 97.8 F 85 16 119/70 98 04/30/19 10:13 97.8 F 85 16 119/70 93 Intake and Output 04/29/19 04/30/19 04/30/19 23:59 07:59 15:59 Intake Total 203 Balance 203 / Intake: IV Fosaprepitant 150 mg In Sodium 150 / 150 Chloride 0.9% 150 ml @ 300 mls/ hr IV [facility] Rx#:[id number] dexAMETHasone 12 mg In Sodium 53 / 53 Chloride 0.9% 50 ml @ 212 mls/ hr IV [facility]CHE[facility] Rx#:[id number] Other: Weight 86.2 kg Patient Weight 04/30/19 23:59 Weight 86.2 kg - Constitutional positive no acute distress, positive average body habitus Comments: He is not further examined. Results - Labs Laboratory Last Values WBC 12.9 X10^3/uL (4.5-11.0) H 04/30/19 09:00 RBC 4.51 X10^6/uL (4.5-5.9) 04/30/19 09:00 Hgb 13.9 g/dL (13.5-17.5) 04/30/19 09:00 Hct 39.9 % (41-53) L 04/30/19 09:00 MCV 88.4 fL (80-100) 04/30/19 09:00 MCH 30.7 PG (26-34) 04/30/19 09:00 MCHC 34.7 % (30-36) 04/30/19 09:00 RDW 17.2 % (11.6-14.8) H 04/30/19 09:00 Plt Count 280 X10^3/uL (150-400) 04/30/19 09:00 Neut % (Auto) 76.8 % (50-75) H 04/30/19 09:00 Lymph % (Auto) 13.6 % (25-40) L 04/30/19 09:00 [place] % (Auto) 7.8 % (3-14) 04/30/19 09:00 Eos % (Auto) 1.3 % (2-4) L 04/30/19 09:00 Baso % (Auto) 0.5 % (0-2) 04/30/19 09:00 Neut # (Auto) 9900 /uL (3091-8661) H 04/30/19 09:00 Lymph # (Auto) 1800 /uL (3569-7252) 04/30/19 09:00 [place] # (Auto) 1000 /uL (0-900) H 04/30/19 09:00 Eos # (Auto) 200 /uL (0-450) 04/30/19 09:00 Baso # (Auto) 100 /uL (0-100) 04/30/19 09:00 RBC Morphology See below 02/19/19 09:15 Hypochromasia 1+ H 02/05/19 08:59 Poikilocytosis 2+ H 02/05/19 08:59 Anisocytosis 1+ H 02/19/19 09:15 Macrocytosis 1+ H 02/05/19 08:59 Rouleaux 1+ H 02/19/19 09:15 Sodium 143 mmol/L (137-145) 04/30/19 09:00 Potassium 4.1 mmol/L (3.4-5.1) 04/30/19 09:00 Chloride 106 mmol/L (98-107) 04/30/19 09:00 Carbon Dioxide 29 mmol/L (22-32) 04/30/19 09:00 BUN 10 mg/dL (9-20) 04/30/19 09:00 Creatinine 0.60 mg/dL (0.66-1.25) L 04/30/19 09:00 Estimated GFR > 60.0 mL/min (>60) 04/30/19 09:00 BUN/Creatinine Ratio 16.7 (6-22) 04/30/19 09:00 Glucose 119 mg/dL (70-100) H 04/30/19 09:00 Calcium 9.1 mg/dL (8.4-10.2) 04/30/19 09:00 Magnesium 1.9 mg/dL (1.6-2.3) 04/30/19 09:00 Total Bilirubin 0.5 mg/dL (0.2-1.3) 04/30/19 09:00 AST 22 IU/L (17-59) 04/30/19 09:00 ALT 19 IU/L (21-72) L 04/30/19 09:00 Alkaline Phosphatase 57 U/L (38-126) 04/30/19 09:00 Total Protein 7.1 g/dL (6.3-8.2) 04/30/19 09:00 Albumin 4.1 g/dL (3.5-5.0) 04/30/19 09:00 Globulin 3.0 g/dL (1.7-4.1) 04/30/19 09:00 Albumin/Globulin Ratio 1.4 (1.0-2.8) 04/30/19 09:00 Carcinoembryonic Ag 12.5 ng/mL (0.1-3.0) H 04/30/19 09:00 Assessment and Plan (1) Colon cancer 58-year-old man with a rectosigmoid mass and liver metastasis. Biopsy showed invasive well-differentiated adenocarcinoma. Mismatch repair proteins were normal. MARION and BRAF mutations are normal. He has completed 8 cycles of FOLFIRI with Erbitux with a decrease in the irinotecan dose. He is now on maintenance therapy and tolerating it with minimal side effects. He will continue his dexamethasone 1 mg daily. I think that may help with his symptoms. Will continue with his current schedule. He will return to clinic in 2 weeks for follow-up. His recent CT shows ongoing response with decrease in the size of his liver metastases. He did have incidental bilateral pulmonary emboli discovered in December and he remains on anticoagulation. A 25 minutes was spent with the patient the majority in counseling.
[2019-04-30] MEDS: DEXTROSE 5% IV (13:36)
[2019-04-30] MEDS: LEUCOVORIN IV (13:36)
--- NOTE | 2019-04-30 13:42 | PC.NURSE ---
Per Dr. Kali ospina to give Leucovorin dose over 45mins, order entered in for future doses.
[2019-04-30] MEDS: SODIUM CHLORIDE 0.9% 100 ML 21 ML IV (14:26)
[2019-04-30] MEDS: FLUOROURACIL IV (14:28)
--- NOTE | 2019-04-30 15:11 | PC.NURSE ---
Patient tolerated his treatment today without side effects. Patient home with 5FU CADD pump running at ordered settings. Patient will return 05/02 at 1300 for pump disconnect. Pump/5FU orders reviewed with Gem Brown RN. Pump setting verified with patient, pump running and green light visualized by this RN and patient.
--- NOTE | 2019-05-02 13:52 | PC.NURSE ---
CADD PUMP DISCONNECT: casette empty, patient states feeling great, he is working again.
[2019-05-14 08:47] VITALS: BP 133/87; PULSE 89; RESP 18; TEMP 35.7; O2SAT 97
--- NOTE | 2019-05-14 09:11 | P.PNONC_ITS ---
PN -Subjective Interval history: Diagnosis: Metastatic colon cancer with liver metastasis, normal mismatch repair, wild type MARION and BRAF Treatment: 1. FOLFIRI and Erbitux for 8 cycles with a dose reduction in irinotecan starting in October 2018 2. Maintenance therapy with 5 FU leucovorin and Erbitux beginning in March 2019 Interval history: Patient is a 58-year-old man with metastatic colon cancer. He returns today for follow-up. He has completed 8 cycles of FOLFIRI with Erbitux. He has been on maintenance therapy now with 5 FU and Erbitux. He has had some increased difficulty with his most recent round of chemotherapy. He feels like his fatigue has been worse. He was able to work a few hours a day not during the 2nd week. He is not having any shortness of breath. He had nausea that persisted almost the whole 2 weeks. Did respond to oral antiemetics. He did not have any vomiting. He has not noticed any diarrhea. He has had occasional abdominal cramps although they have not been too severe. The he denies any fevers or chills. No mouth sores. He has not had any worsening skin rash but has noticed some cracking of the skin around his fingernails. - Patient Self-Reported Symptoms SR Constitution: Fatigue/Malaise SR Gastrointestinal issues: Poor or no appetite, Nausea, Diarrhea, Constipation, Abdominal pain SR Musculoskeletal issues: Muscle pain or cramps, Back or neck pain, Difficulty walking Home Medications and Allergies Home Medications Medication Instructions Recorded Confirmed Type docusate calcium [Stool Softener] 240 mg DAILY 10/17/18 05/14/19 History ergocalciferol (vitamin D2) 50,000 unit PO QWEEK 10/17/18 05/14/19 History [Vitamin D2] oxycodone 10 mg PO Q4-6H PRN 10/17/18 05/14/19 History fluorouracil 4,800 mg IV NOW #1 device 11/06/18 05/14/19 Rx ondansetron HCl 8 mg PO Q8H PRN #30 tab 11/06/18 05/14/19 Rx oxycodone See Rx Instructions .ROUTE 11/06/18 05/14/19 History .COMPLEX PRN prochlorperazine maleate 10 mg PO Q6H PRN #30 tab 11/06/18 05/14/19 Rx lorazepam [Ativan] 0.5 mg PO BID-TID PRN #30 tab 11/15/18 05/14/19 Rx hyoscyamine sulfate 0.25 mg PO QID PRN #100 tab 12/05/18 05/14/19 Rx apixaban [Eliquis] See Rx Instructions .ROUTE 01/04/19 05/14/19 Rx .COMPLEX #74 each apixaban [Eliquis] 5 mg PO BID #60 tab 02/05/19 05/14/19 Rx dexamethasone 1 mg PO DAILY 30 Days #30 tab 04/30/19 05/14/19 Rx Allergies Allergy/AdvReac Type Severity Reaction Status Date / Time No Known Drug Allergies Allergy Verified 11/15/18 15:27 Exam Vital signs: Vital Signs Temp Pulse Resp BP Pulse Ox 05/14/19 08:47 96.2 F L 89 18 133/87 97 Intake and Output 05/13/19 05/14/19 05/14/19 23:59 07:59 15:59 Other: Weight 84.6 kg Patient Weight 05/14/19 23:59 Weight 84.6 kg - Constitutional positive no acute distress, positive average body habitus - Routine HEENT Exam Head: Present: normocephalic, atraumatic Eye: Present: EOMI, PERRL. Absent: conjunctival icterus, scleral injection ENT: Present: mucous membranes moist, oropharynx clear - Routine Neck Exam Present: supple. Absent: lymphadenopathy, thyromegaly - Routine Chest/Breast/Axilla Exam Axillae: Absent: lymphadenopathy - Routine Respiratory Exam Present: Clear to auscultation bilaterally. Absent: rales, wheezes - Routine Cardiovascular Exam Present: RRR, S1, S2. Absent: murmur - Routine Abdominal Exam Present: soft, normoactive bowel sounds. Absent: tenderness, organomegaly, mass - Routine Extremities Exam Absent: cyanosis, clubbing, edema - Routine Back/Spine Exam Back/Spine: Absent: vertebral tenderness - Routine Skin Exam Present: intact. Absent: petechiae, rash - Routine Neurological Exam Present: alert, oriented X3 - Routine Psychiatric Exam Present: normal affect, normal thought process Results - Labs Laboratory Last Values WBC 12.9 X10^3/uL (4.5-11.0) H 04/30/19 09:00 RBC 4.51 X10^6/uL (4.5-5.9) 04/30/19 09:00 Hgb 13.9 g/dL (13.5-17.5) 04/30/19 09:00 Hct 39.9 % (41-53) L 04/30/19 09:00 MCV 88.4 fL (80-100) 04/30/19 09:00 MCH 30.7 PG (26-34) 04/30/19 09:00 MCHC 34.7 % (30-36) 04/30/19 09:00 RDW 17.2 % (11.6-14.8) H 04/30/19 09:00 Plt Count 280 X10^3/uL (150-400) 04/30/19 09:00 Neut % (Auto) 76.8 % (50-75) H 04/30/19 09:00 Lymph % (Auto) 13.6 % (25-40) L 04/30/19 09:00 [place] % (Auto) 7.8 % (3-14) 04/30/19 09:00 Eos % (Auto) 1.3 % (2-4) L 04/30/19 09:00 Baso % (Auto) 0.5 % (0-2) 04/30/19 09:00 Neut # (Auto) 9900 /uL (2818-9450) H 04/30/19 09:00 Lymph # (Auto) 1800 /uL (9420-0713) 04/30/19 09:00 [place] # (Auto) 1000 /uL (0-900) H 04/30/19 09:00 Eos # (Auto) 200 /uL (0-450) 04/30/19 09:00 Baso # (Auto) 100 /uL (0-100) 04/30/19 09:00 RBC Morphology See below 02/19/19 09:15 Hypochromasia 1+ H 02/05/19 08:59 Poikilocytosis 2+ H 02/05/19 08:59 Anisocytosis 1+ H 02/19/19 09:15 Macrocytosis 1+ H 02/05/19 08:59 Rouleaux 1+ H 02/19/19 09:15 Sodium 143 mmol/L (137-145) 04/30/19 09:00 Potassium 4.1 mmol/L (3.4-5.1) 04/30/19 09:00 Chloride 106 mmol/L (98-107) 04/30/19 09:00 Carbon Dioxide 29 mmol/L (22-32) 04/30/19 09:00 BUN 10 mg/dL (9-20) 04/30/19 09:00 Creatinine 0.60 mg/dL (0.66-1.25) L 04/30/19 09:00 Estimated GFR > 60.0 mL/min (>60) 04/30/19:00 BUN/Creatinine Ratio 16.7 (6-22) 04/30/19 09:00 Glucose 119 mg/dL (70-100) H 04/30/19 09:00 Calcium 9.1 mg/dL (8.4-10.2) 04/30/19 09:00 Magnesium 1.9 mg/dL (1.6-2.3) 04/30/19 09:00 Total Bilirubin 0.5 mg/dL (0.2-1.3) 04/30/19 09:00 AST 22 IU/L (17-59) 04/30/19 09:00 ALT 19 IU/L (21-72) L 04/30/19 09:00 Alkaline Phosphatase 57 U/L (38-126) 04/30/19 09:00 Total Protein 7.1 g/dL (6.3-8.2) 04/30/19 09:00 Albumin 4.1 g/dL (3.5-5.0) 04/30/19 09:00 Globulin 3.0 g/dL (1.7-4.1) 04/30/19 09:00 Albumin/Globulin Ratio 1.4 (1.0-2.8) 04/30/19 09:00 Carcinoembryonic Ag 12.5 ng/mL (0.1-3.0) H 04/30/19 09:00 Assessment and Plan (1) Colon cancer 58-year-old man with a rectosigmoid mass and liver metastasis. Biopsy showed invasive well-differentiated adenocarcinoma. Mismatch repair proteins were normal. MARION and BRAF mutations are normal. He has completed 8 cycles of FOLFIRI with Erbitux with a decrease in the irinotecan dose. He is now on maintenance therapy but is having increasing toxicity mostly in the form of fatigue but also with nausea. He will take 2 week break from his treatment to allow his symptoms to ariela. He will return to clinic in about 2 weeks for follow-up and will resume his therapy at that time. His CEA is have been continuing to decline. He did have incidental bilateral pulmonary emboli discovered in December and he remains on anticoagulation. He is planning on retiring from his job in the spring. He continues to struggle with his mood and mortality but has been pleased with support from his coworkers and community. He is planning on talking to a counselor about this. 40 minutes was spent with the patient the majority in counseling.
[2019-05-14 09:47] LABS: Alanine Aminotransferase 25 IU/L (<50); Albumin Globulin Ratio 1.4 (1.0-2.8); Alkaline Phosphatase 54 U/L (38-126); BUN Creatinine Ratio 12.9 (6-22); Bilirubin Total 0.6 mg/dL (0.2-1.3); Blood Urea Nitrogen 9 mg/dL (9-20); Calcium 8.7 mg/dL (8.4-10.2); Carbon Dioxide 26 mmol/L (22-32); Chloride 107 mmol/L (98-107); Estimated Glomerular Filt Rate > 60.0 mL/min (>60); Globulin 2.8 g/dL (1.7-4.1); Glucose 89 mg/dL (70-100); Sodium 140 mmol/L (137-145); Total Protein 6.8 g/dL (6.3-8.2)
[2019-05-14 09:49] LABS: HEMOLYSIS 89 (0-50)
[2019-05-14 09:50] LABS: Aspartate Aminotransferase 27 IU/L (17-59); Potassium 4.3 mmol/L (3.4-5.1)
[2019-05-14 09:55] LABS: Add Manual Diff / Slide Review NO; Basophils Absolute Auto 100 /uL (0-100); Basophils Percent Auto 0.8 % (0-2); Eosinophils Absolute Auto 300 /uL (0-450); Eosinophils Percent Auto 3.1 % (2-4); Hematocrit 40.7 % (41-53); Hemoglobin 13.9 g/dL (13.5-17.5); Lymphocytes Absolute Auto 1400 /uL (1100-4500); Mean Corpuscular HGB Conc 34.1 % (30-36); Mean Corpuscular Hemoglobin 30.4 PG (26-34); Monocytes Absolute Auto 1000 /uL (0-900); Monocytes Percent Auto 11.7 % (3-14); Neutrophils Absolute Auto 5900 /uL (1500-7000); Neutrophils Percent Auto 68.4 % (50-75); Platelet Count 192 X10^3/uL (150-400); Red Blood Cell Count 4.57 X10^6/uL (4.5-5.9); Red Cell Distribution Width 17.8 % (11.6-14.8); White Blood Cell Count 8.6 X10^3/uL (4.5-11.0)
[2019-05-14 10:18] LABS: Carcinoembryonic Antigen 12.6 ng/mL (0.1-3.0)
[2019-05-27 09:45] LABS: Add Manual Diff / Slide Review NO; Basophils Absolute Auto 100 /uL (0-100); Basophils Percent Auto 0.8 % (0-2); Eosinophils Absolute Auto 200 /uL (0-450); Eosinophils Percent Auto 2.3 % (2-4); Hematocrit 41.1 % (41-53); Hemoglobin 13.9 g/dL (13.5-17.5); Lymphocytes Absolute Auto 1300 /uL (1100-4500); Lymphocytes Percent Auto 15.6 % (25-40); Mean Corpuscular HGB Conc 33.9 % (30-36); Mean Corpuscular Volume 88.3 fL (80-100); Monocytes Absolute Auto 800 /uL (0-900); Monocytes Percent Auto 9.9 % (3-14); Neutrophils Absolute Auto 6100 /uL (1500-7000); Neutrophils Percent Auto 71.4 % (50-75); Platelet Count 234 X10^3/uL (150-400); Red Blood Cell Count 4.65 X10^6/uL (4.5-5.9); Red Cell Distribution Width 17.6 % (11.6-14.8); White Blood Cell Count 8.6 X10^3/uL (4.5-11.0)
[2019-05-27 10:00] LABS: Alanine Aminotransferase 18 IU/L (<50); Albumin 3.9 g/dL (3.5-5.0); Albumin Globulin Ratio 1.4 (1.0-2.8); Alkaline Phosphatase 69 U/L (38-126); Aspartate Aminotransferase 19 IU/L (17-59); BUN Creatinine Ratio 17.1 (6-22); Bilirubin Total 0.6 mg/dL (0.2-1.3); Blood Urea Nitrogen 12 mg/dL (9-20); Calcium 8.9 mg/dL (8.4-10.2); Carbon Dioxide 29 mmol/L (22-32); Chloride 106 mmol/L (98-107); Estimated Glomerular Filt Rate > 60.0 mL/min (>60); Globulin 2.7 g/dL (1.7-4.1); Glucose 116 mg/dL (70-100); HEMOLYSIS 16 (0-50); Potassium 3.6 mmol/L (3.4-5.1); Sodium 139 mmol/L (137-145); Total Protein 6.6 g/dL (6.3-8.2)
[2019-05-27 10:20] VITALS: BP 126/75; PULSE 86; RESP 16; TEMP 36.9; O2SAT 92
[2019-05-27] MEDS: SODIUM CHLORIDE 0.9% 100 ML 21 ML IV (10:33)
[2019-05-27] MEDS: PALONOSETRON 0.25 MG/5 ML VIAL IV (10:34)
[2019-05-27] MEDS: diphenhydrAMINE 50 MG/ML VIAL 25 MG IV (10:34)
[2019-05-27] MEDS: FOSAPREPITANT 150 MG in SODIUM CHLORIDE 0.9% 150 ML 300 ML IV (11:27)
[2019-05-27] MEDS: CETUXIMAB IV (12:16)
[2019-05-27] MEDS: ISOOSMOTIC VEHICLE IV ×2 (12:16→15:32)
[2019-05-27] MEDS: LEUCOVORIN IV (14:30)
[2019-05-27] MEDS: DEXTROSE 5% IV (14:30)
[2019-05-27] MEDS: FLUOROURACIL IV (15:32)
--- NOTE | 2019-05-27 16:19 | PC.NURSE ---
Addendum entered by Latisha Brown R.N. 05/27/19 16:20: pt states abd cramping subsided after premeds Original Note: 5fu pump dose verified with edgardo BELL. +blood return, connections secure and pump green light blinking.
--- NOTE | 2019-05-29 15:16 | PC.NURSE ---
pump disconnect per amanda. pt tolerated infusing.
[2019-06-11 09:26] LABS: Add Manual Diff / Slide Review NO; Basophils Absolute Auto 100 /uL (0-100); Basophils Percent Auto 0.5 % (0-2); Eosinophils Absolute Auto 200 /uL (0-450); Eosinophils Percent Auto 2.1 % (2-4); Hematocrit 41.7 % (41-53); Lymphocytes Absolute Auto 1600 /uL (1100-4500); Lymphocytes Percent Auto 13.7 % (25-40); Mean Corpuscular HGB Conc 33.5 % (30-36); Mean Corpuscular Hemoglobin 29.8 PG (26-34); Mean Corpuscular Volume 88.8 fL (80-100); Monocytes Absolute Auto 1200 /uL (0-900); Monocytes Percent Auto 10.4 % (3-14); Neutrophils Absolute Auto 8400 /uL (1500-7000); Neutrophils Percent Auto 73.3 % (50-75); Platelet Count 251 X10^3/uL (150-400); Red Cell Distribution Width 17.5 % (11.6-14.8); White Blood Cell Count 11.5 X10^3/uL (4.5-11.0)
[2019-06-11 09:34] LABS: Alanine Aminotransferase 21 IU/L (<50); Albumin 4.1 g/dL (3.5-5.0); Albumin Globulin Ratio 1.4 (1.0-2.8); Alkaline Phosphatase 73 U/L (38-126); Aspartate Aminotransferase 22 IU/L (17-59); BUN Creatinine Ratio 15.7 (6-22); Bilirubin Total 0.6 mg/dL (0.2-1.3); Blood Urea Nitrogen 11 mg/dL (9-20); Calcium 9.1 mg/dL (8.4-10.2); Carbon Dioxide 27 mmol/L (22-32); Chloride 106 mmol/L (98-107); Estimated Glomerular Filt Rate > 60.0 mL/min (>60); Globulin 2.9 g/dL (1.7-4.1); Glucose 98 mg/dL (70-100); HEMOLYSIS 26 (0-50); Magnesium 2.1 mg/dL (1.6-2.3); Potassium 3.8 mmol/L (3.4-5.1); Sodium 141 mmol/L (137-145)
[2019-06-11 09:36] VITALS: BP 147/84; PULSE 101; RESP 16; TEMP 36.8; O2SAT 97
--- NOTE | 2019-06-11 10:08 | ONC.PN ---
PN -Subjective Interval history: Diagnosis: Metastatic colon cancer with liver metastasis, normal mismatch repair, wild type MARION and BRAF Treatment: 1. FOLFIRI and Erbitux for 8 cycles with a dose reduction in irinotecan starting in October 2018 2. Maintenance therapy with 5 FU leucovorin and Erbitux beginning in March 2019 Interval history: Patient is a 58-year-old man with metastatic colon cancer. He returns today for follow-up. He has completed 8 cycles of FOLFIRI with Erbitux. He has been on maintenance therapy now with 5 FU and Erbitux. Since his last visit, he has noted some increasing side effects with his chemotherapy. He has been bothered by increasing fatigue. He has also had more severe abdominal cramping. He has had some nausea but no vomiting. He has been tending towards constipation but has been taking some stool softeners. He has not noticed any blood in the stool. No fevers or chills. No mouth sores. No skin rash. He denies any shortness of breath or cough. Because of the fatigue, he has been finding it increasingly difficult to work. He would prefer to change to and Erbitux alone maintenance. He denies any other changes in his health. He does note that he and his may be planning a trip to [facility] [place] although they are not yet sure about that. - Patient Self-Reported Symptoms SR Constitution: Fatigue/Malaise SR Gastrointestinal issues: Poor or no appetite, Nausea, Diarrhea, Constipation, Abdominal pain SR Musculoskeletal issues: Muscle pain or cramps, Back or neck pain, Difficulty walking Home Medications and Allergies Home Medications Medication Instructions Recorded Confirmed Type docusate calcium [Stool Softener] 240 mg DAILY 10/17/18 06/11/19 History ergocalciferol (vitamin D2) 50,000 unit PO QWEEK 10/17/18 06/11/19 History [Vitamin D2] oxycodone 10 mg PO Q4-6H PRN 10/17/18 06/11/19 History fluorouracil 4,800 mg IV NOW #1 device 11/06/18 06/11/19 Rx ondansetron HCl 8 mg PO Q8H PRN #30 tab 11/06/18 06/11/19 Rx oxycodone See Rx Instructions .ROUTE 11/06/18 06/11/19 History .COMPLEX PRN prochlorperazine maleate 10 mg PO Q6H PRN #30 tab 11/06/18 06/11/19 Rx lorazepam [Ativan] 0.5 mg PO BID-TID PRN #30 tab 11/15/18 06/11/19 Rx hyoscyamine sulfate 0.25 mg PO QID PRN #100 tab 12/05/18 06/11/19 Rx apixaban [Eliquis] See Rx Instructions .ROUTE 01/04/19 06/11/19 Rx .COMPLEX #74 each apixaban [Eliquis] 5 mg PO BID #60 tab 02/05/19 06/11/19 Rx dexamethasone 1 mg PO DAILY 30 Days #30 tab 04/30/19 06/11/19 Rx Allergies Allergy/AdvReac Type Severity Reaction Status Date / Time No Known Drug Allergies Allergy Verified 11/15/18 15:27 Exam Vital signs: Vital Signs Temp Pulse Resp BP Pulse Ox 06/11/19 09:36 98.2 F 101 H 16 147/84 H 97 Intake and Output 06/10/19 06/11/19 06/11/19 23:59 07:59 15:59 Other: Weight 83.8 kg Patient Weight 06/11/19 23:59 Weight 83.8 kg - Constitutional positive no acute distress, positive average body habitus - Routine HEENT Exam Head: Present: normocephalic, atraumatic Eye: Present: EOMI, PERRL. Absent: conjunctival icterus, scleral injection ENT: Present: mucous membranes moist, oropharynx clear - Routine Neck Exam Present: supple. Absent: lymphadenopathy - Routine Respiratory Exam Present: Clear to auscultation bilaterally. Absent: rales, wheezes - Routine Cardiovascular Exam Present: RRR, S1, S2. Absent: murmur - Routine Abdominal Exam Present: soft, normoactive bowel sounds. Absent: tenderness, organomegaly, mass - Routine Extremities Exam Absent: cyanosis, clubbing, edema - Routine Back/Spine Exam Back/Spine: Absent: vertebral tenderness - Routine Skin Exam Present: intact. Absent: petechiae, rash - Routine Neurological Exam Present: alert, oriented X3 - Routine Psychiatric Exam Present: normal affect, normal thought process Results - Labs Laboratory Last Values WBC 11.5 X10^3/uL (4.5-11.0) H 06/11/19 09:05 RBC 4.70 X10^6/uL (4.5-5.9) 06/11/19 09:05 Hgb 14.0 g/dL (13.5-17.5) 06/11/19 09:05 Hct 41.7 % (41-53) 06/11/19 09:05 MCV 88.8 fL (80-100) 06/11/19 09:05 MCH 29.8 PG (26-34) 06/11/19 09:05 MCHC 33.5 % (30-36) 06/11/19 09:05 RDW 17.5 % (11.6-14.8) H 06/11/19 09:05 Plt Count 251 X10^3/uL (150-400) 06/11/19 09:05 Neut % (Auto) 73.3 % (50-75) 06/11/19 09:05 Lymph % (Auto) 13.7 % (25-40) L 06/11/19 09:05 [place] % (Auto) 10.4 % (3-14) 06/11/19 09:05 Eos % (Auto) 2.1 % (2-4) 06/11/19 09:05 Baso % (Auto) 0.5 % (0-2) 06/11/19 09:05 Neut # (Auto) 8400 /uL (0458-3803) H 06/11/19 09:05 Lymph # (Auto) 1600 /uL (7046-7205) 06/11/19 09:05 [place] # (Auto) 1200 /uL (0-900) H 06/11/19 09:05 Eos # (Auto) 200 /uL (0-450) 06/11/19 09:05 Baso # (Auto) 100 /uL (0-100) 06/11/19 09:05 RBC Morphology See below 02/19/19 09:15 Hypochromasia 1+ H 02/05/19 08:59 Poikilocytosis 2+ H 02/05/19 08:59 Anisocytosis 1+ H 02/19/19 09:15 Macrocytosis 1+ H 02/05/19 08:59 Rouleaux 1+ H 02/19/19 09:15 Sodium 141 mmol/L (137-145) 06/11/19 09:05 Potassium 3.8 mmol/L (3.4-5.1) 06/11/19 09:05 Chloride 106 mmol/L (98-107) 06/11/19 09:05 Carbon Dioxide 27 mmol/L (22-32) 06/11/19 09:05 BUN 11 mg/dL (9-20) 06/11/19 09:05 Creatinine 0.70 mg/dL (0.66-1.25) 06/11/19 09:05 Estimated GFR > 60.0 mL/min (>60) 06/11/19 09:05 BUN/Creatinine Ratio 15.7 (6-22) 06/11/19 09:05 Glucose 98 mg/dL (70-100) 06/11/19 09:05 Calcium 9.1 mg/dL (8.4-10.2) 06/11/19 09:05 Magnesium 2.1 mg/dL (1.6-2.3) 06/11/19 09:05 Total Bilirubin 0.6 mg/dL (0.2-1.3) 06/11/19 09:05 AST 22 IU/L (17-59) 06/11/19 09:05 ALT 21 IU/L (<50) 06/11/19 09:05 Alkaline Phosphatase 73 U/L (38-126) 06/11/19 09:05 Total Protein 7.0 g/dL (6.3-8.2) 06/11/19 09:05 Albumin 4.1 g/dL (3.5-5.0) 06/11/19 09:05 Globulin 2.9 g/dL (1.7-4.1) 06/11/19 09:05 Albumin/Globulin Ratio 1.4 (1.0-2.8) 06/11/19 09:05 Carcinoembryonic Ag 13.0 ng/mL (0.1-3.0) H 05/27/19 09:30 Assessment and Plan (1) Colon cancer 58-year-old man with a rectosigmoid mass and liver metastasis. Biopsy showed invasive well-differentiated adenocarcinoma. Mismatch repair proteins were normal. MARION and BRAF mutations are normal. He has completed 8 cycles of FOLFIRI with Erbitux with a decrease in the irinotecan dose. He is now on maintenance therapy but is having increasing toxicity mostly in the form of fatigue but also with abdominal cramping. His CEA seems to have plateaued. I think it is reasonable to try him on Erbitux maintenance alone. Will continue to follow his CEA. Will get him scheduled for a new baseline CT scan. He will return to clinic in about 2 weeks for follow-up. If he does travel to [place] than it will be in 3 weeks. He did have incidental bilateral pulmonary emboli discovered in December and he remains on anticoagulation. 40 minutes was spent with the patient the majority in counseling.
[2019-06-11] MEDS: diphenhydrAMINE 50 MG/ML VIAL 25 MG IV (10:25)
[2019-06-11] MEDS: PALONOSETRON 0.25 MG/5 ML VIAL IV (10:25)
[2019-06-11] MEDS: SODIUM CHLORIDE 0.9% 100 ML 30 ML IV (10:26)
[2019-06-11 10:37] LABS: Carcinoembryonic Antigen 11.1 ng/mL (0.1-3.0)
[2019-06-11] MEDS: ISOOSMOTIC VEHICLE IV (11:28)
[2019-06-11] MEDS: CETUXIMAB IV (11:28)
--- NOTE | 2019-06-11 12:47 | ONC.MSW ---
*Provided Last Chemo Card.
--- NOTE | 2019-06-13 17:12 | ONC.SCHED ---
Faxed request to Treva to do prior auth for CT per her request. Should be authorized by Monday.
--- NOTE | 2019-06-17 11:28 | ONC.SCHED ---
Spoke with José Miguel again regarding backdating an auth and apparently the [facility] case checker has to put that auth through. I left a message for Treva, the patient's case checker on this and to have her call me back. [employer] is the med that is needing auth.
--- NOTE | 2019-06-17 11:31 | ONC.SCHED ---
[id number] is the med needing prior auth and backdating
--- NOTE | 2019-06-24 12:21 | PC.NURSE ---
PATIENT CALLED REQUESTING TO KNOW RESULTS OF HIS CHEST/ABDOMINAL CT CYNTHIA AND WOULD LIKE DR CRUMP TO CALL HIM WITH RESULTS BEFORE HE LEAVES TOMORROW FOR HIS BERNARDO VACATION. HE CAN BE REACHED AT HIS CELL [phone]. REQUEST PER THIS NOTE TO DR. CRUMP.
[2019-07-09 09:11] LABS: Add Manual Diff / Slide Review NO; Basophils Absolute Auto 0 /uL (0-100); Basophils Percent Auto 0.5 % (0-2); Eosinophils Absolute Auto 300 /uL (0-450); Eosinophils Percent Auto 3.4 % (2-4); Hematocrit 39.3 % (41-53); Hemoglobin 13.3 g/dL (13.5-17.5); Lymphocytes Absolute Auto 2000 /uL (1100-4500); Lymphocytes Percent Auto 23.7 % (25-40); Mean Corpuscular HGB Conc 33.9 % (30-36); Mean Corpuscular Hemoglobin 30.2 PG (26-34); Mean Corpuscular Volume 89.3 fL (80-100); Monocytes Absolute Auto 1100 /uL (0-900); Monocytes Percent Auto 12.8 % (3-14); Neutrophils Absolute Auto 5000 /uL (1500-7000); Neutrophils Percent Auto 59.6 % (50-75); Platelet Count 225 X10^3/uL (150-400); Red Blood Cell Count 4.41 X10^6/uL (4.5-5.9); Red Cell Distribution Width 17.1 % (11.6-14.8); White Blood Cell Count 8.3 X10^3/uL (4.5-11.0)
[2019-07-09 09:22] LABS: Alanine Aminotransferase 16 IU/L (<50); Albumin Globulin Ratio 1.5 (1.0-2.8); Alkaline Phosphatase 53 U/L (38-126); Aspartate Aminotransferase 19 IU/L (17-59); BUN Creatinine Ratio 18.3 (6-22); Bilirubin Total 0.4 mg/dL (0.2-1.3); Blood Urea Nitrogen 11 mg/dL (9-20); Calcium 8.6 mg/dL (8.4-10.2); Carbon Dioxide 25 mmol/L (22-32); Chloride 109 mmol/L (98-107); Estimated Glomerular Filt Rate > 60.0 mL/min (>60); Globulin 2.7 g/dL (1.7-4.1); Glucose 92 mg/dL (70-100); HEMOLYSIS 50 (0-50); Sodium 142 mmol/L (137-145); Total Protein 6.7 g/dL (6.3-8.2)
--- NOTE | 2019-07-09 09:22 | P.PNONC_ITS ---
PN -Subjective Interval history: ID/CC: 58 year old male with metastatic colon cancer with liver metastasis, normal mismatch repair, wild type MARION and BRAF Treatment: 1. FOLFIRI and Erbitux for 8 cycles with a dose reduction in irinotecan starting in October 2018 2. Maintenance therapy with 5 FU leucovorin and Erbitux beginning in March 2019 Interval history: He returns today to discuss maintenance Erbitux. Clinically, he has been doing well. He denies fever or chills. No shortness of breath and no chest pain He completed completed 8 cycles of FOLFIRI with Erbitux, and then has been on maintenance therapy with 5 FU and Erbitux. On 06/20/2019, he underwent CT CAP w/contrast that showed stable appearance of sigmoid, no evidence of metastatic disease in the chest, relatively stable hepatic metastatic disease with definite interval increase in size of one of the segment 6 lesions, stable shotty periaortic adenopathy and retrocrural adenopathy. - Patient Self-Reported Symptoms SR Constitution: Fatigue/Malaise SR Gastrointestinal issues: Poor or no appetite, Nausea, Diarrhea, Constipation, Abdominal pain SR Musculoskeletal issues: Muscle pain or cramps, Back or neck pain, Difficulty walking - Additional ROS All systems PM: reviewed and no additional remarkable complaints except as stated Home Medications and Allergies Home Medications Medication Instructions Recorded Confirmed Type docusate calcium [Stool Softener] 240 mg DAILY 10/17/18 07/09/19 History ergocalciferol (vitamin D2) 50,000 unit PO QWEEK 10/17/18 07/09/19 History [Vitamin D2] oxycodone 10 mg PO Q4-6H PRN 10/17/18 07/09/19 History fluorouracil 4,800 mg IV NOW #1 device 11/06/18 07/09/19 Rx ondansetron HCl 8 mg PO Q8H PRN #30 tab 11/06/18 07/09/19 Rx prochlorperazine maleate 10 mg PO Q6H PRN #30 tab 11/06/18 07/09/19 Rx lorazepam [Ativan] 0.5 mg PO BID-TID PRN #30 tab 11/15/18 07/09/19 Rx hyoscyamine sulfate 0.25 mg PO QID PRN #100 tab 12/05/18 07/09/19 Rx apixaban [Eliquis] See Rx Instructions .ROUTE 01/04/19 07/09/19 Rx .COMPLEX #74 each apixaban [Eliquis] 5 mg PO BID #60 tab 02/05/19 07/09/19 Rx dexamethasone 1 mg PO DAILY 30 Days #30 tab 04/30/19 07/09/19 Rx oxycodone 5 mg PO Q4H PRN #180 tab 07/09/19 Rx Allergies Allergy/AdvReac Type Severity Reaction Status Date / Time No Known Drug Allergies Allergy Verified 11/15/18 15:27 Exam Vital signs: Last Vital Signs Temp 98.2 F 06/11/19 09:36 Pulse 66 07/09/19 09:29 Resp 18 07/09/19 09:29 BP 152/87 H 07/09/19 09:29 Pulse Ox 96 07/09/19 09:29 ECOG 1 - Constitutional positive no acute distress, positive cooperative - Routine HEENT Exam Head: Present: normocephalic, atraumatic Eye: Present: EOMI, PERRL, normal accommodation. Absent: conjunctival icterus ENT: Present: mucous membranes moist - Routine Neck Exam Present: supple. Absent: lymphadenopathy - Routine Chest/Breast/Axilla Exam Axillae: Absent: lymphadenopathy - Routine Respiratory Exam Present: Clear to auscultation bilaterally. Absent: wheezes - Routine Cardiovascular Exam Present: RRR, S1, S2. Absent: murmur, gallop, rubs - Routine Abdominal Exam Present: soft. Absent: tenderness, distended, organomegaly - Routine Extremities Exam Absent: edema - Routine Neurological Exam Present: alert, oriented X3, CN II-XII intact. Absent: sensory deficit, motor deficit - Routine Psychiatric Exam Present: normal affect Results - Labs Laboratory Last Values WBC 8.3 X10^3/uL (4.5-11.0) 07/09/19 09:00 RBC 4.41 X10^6/uL (4.5-5.9) L 07/09/19 09:00 Hgb 13.3 g/dL (13.5-17.5) L 07/09/19 09:00 Hct 39.3 % (41-53) L 07/09/19 09:00 MCV 89.3 fL (80-100) 07/09/19 09:00 MCH 30.2 PG (26-34) 07/09/19 09:00 MCHC 33.9 % (30-36) 07/09/19 09:00 RDW 17.1 % (11.6-14.8) H 07/09/19 09:00 Plt Count 225 X10^3/uL (150-400) 07/09/19 09:00 Neut % (Auto) 59.6 % (50-75) 07/09/19 09:00 Lymph % (Auto) 23.7 % (25-40) L 07/09/19 09:00 [place] % (Auto) 12.8 % (3-14) 07/09/19 09:00 Eos % (Auto) 3.4 % (2-4) 07/09/19 09:00 Baso % (Auto) 0.5 % (0-2) 07/09/19 09:00 Neut # (Auto) 5000 /uL (8214-3488) 07/09/19 09:00 Lymph # (Auto) 2000 /uL (5107-6328) 07/09/19 09:00 [place] # (Auto) 1100 /uL (0-900) H 07/09/19 09:00 Eos # (Auto) 300 /uL (0-450) 07/09/19 09:00 Baso # (Auto) 0 /uL (0-100) 07/09/19 09:00 RBC Morphology See below 02/19/19 09:15 Hypochromasia 1+ H 02/05/19 08:59 Poikilocytosis 2+ H 02/05/19 08:59 Anisocytosis 1+ H 02/19/19 09:15 Macrocytosis 1+ H 02/05/19 08:59 Rouleaux 1+ H 02/19/19 09:15 Sodium 142 mmol/L (137-145) 07/09/19 09:00 Potassium 4.0 mmol/L (3.4-5.1) 07/09/19 09:00 Chloride 109 mmol/L (98-107) H 07/09/19 09:00 Carbon Dioxide 25 mmol/L (22-32) 07/09/19 09:00 BUN 11 mg/dL (9-20) 07/09/19 09:00 Creatinine 0.60 mg/dL (0.66-1.25) L 07/09/19 09:00 Estimated GFR > 60.0 mL/min (>60) 07/09/19 09:00 BUN/Creatinine Ratio 18.3 (6-22) 07/09/19 09:00 Glucose 92 mg/dL (70-100) 07/09/19 09:00 Calcium 8.6 mg/dL (8.4-10.2) 07/09/19 09:00 Magnesium 2.0 mg/dL (1.6-2.3) 07/09/19 09:00 Total Bilirubin 0.4 mg/dL (0.2-1.3) 07/09/19 09:00 AST 19 IU/L (17-59) 07/09/19 09:00 ALT 16 IU/L (<50) 07/09/19 09:00 Alkaline Phosphatase 53 U/L (38-126) 07/09/19 09:00 Total Protein 6.7 g/dL (6.3-8.2) 07/09/19 09:00 Albumin 4.0 g/dL (3.5-5.0) 07/09/19 09:00 Globulin 2.7 g/dL (1.7-4.1) 07/09/19 09:00 Albumin/Globulin Ratio 1.5 (1.0-2.8) 07/09/19 09:00 Carcinoembryonic Ag 12.3 ng/mL (0.1-3.0) H 07/09/19 09:00 Assessment and Plan (1) Colon cancer Overview: 58-year-old man with a rectosigmoid mass and liver metastasis. Biopsy showed invasive well-differentiated adenocarcinoma. Mismatch repair proteins were normal. MARION and BRAF mutations are normal. He has completed 8 cycles of FOLFIRI with Erbitux with a decrease in the irinotecan dose. He is now on maintenance therapy but is having increasing toxicity mostly in the form of fatigue but also with abdominal cramping. His CEA seems to have plateaued. Assessment: I reviewed the CT scan results with patient. I answered all the questions patient asked about the results. I explained to the patient most of the lesions in the liver remained stable. One of the lesion increased slightly. Overall I think his disease is still stable. I agree with Dr. Bass that continued maintenance therapy with Erbitux is in viable option. Of course we are continuing imaging monitoring. I recommend repeat scan in 2 months as a follow- up. Plan: 1. Ok to proceed to cetuximab today 2. RTC in 2 weeks, labs per treatment plan. (2) Pulmonary embolism He did have incidental bilateral pulmonary emboli discovered in December and he remains on anticoagulation.
[2019-07-09 09:29] VITALS: BP 152/87; PULSE 66; RESP 18; O2SAT 96
[2019-07-09] MEDS: PALONOSETRON 0.25 MG/5 ML VIAL IV (10:14)
[2019-07-09] MEDS: diphenhydrAMINE 25 MG TABLET PO (10:14)
[2019-07-09] MEDS: SODIUM CHLORIDE 0.9% 100 ML 21 ML IV (10:20)
[2019-07-09 10:25] LABS: Carcinoembryonic Antigen 12.3 ng/mL (0.1-3.0)
[2019-07-09] MEDS: CETUXIMAB IV (11:01)
[2019-07-09] MEDS: ISOOSMOTIC VEHICLE IV (11:01)
--- NOTE | 2019-07-18 11:11 | PC.NURSE ---
Eliquis 5mg PO BID #60 with 11 refills RX faxed to [facility] at [phone]
[2019-07-23 09:05] VITALS: BP 139/86; PULSE 82; RESP 16; TEMP 36.9; O2SAT 97
--- NOTE | 2019-07-23 09:06 | ONC.PN ---
PN -Subjective Interval history: ID/CC: 58 year old male with metastatic colon cancer with liver metastasis, normal mismatch repair, wild type MARION and BRAF Treatment: 1. FOLFIRI and Erbitux for 8 cycles with a dose reduction in irinotecan starting in October 2018 2. Maintenance therapy with 5 FU leucovorin and Erbitux beginning in March 2019 3. Single agent maintenance with Erbitux started 07/09/2019 Interval history: Since 07/09/2019, after discussing with the patient, we decided to continue single agent maintenance therapy with Erbitux. Patient said that he tolerated well. However he is complaining significant dry skin. No rashes. He denies any shortness of breath or chest pain. Denies abdominal pain. He denies any diarrhea or constipation. - Patient Self-Reported Symptoms SR Constitution: Fatigue/Malaise SR Gastrointestinal issues: Poor or no appetite, Nausea, Diarrhea, Constipation, Abdominal pain SR Musculoskeletal issues: Muscle pain or cramps, Back or neck pain, Difficulty walking - Additional ROS All systems PM: reviewed and no additional remarkable complaints except as stated Home Medications and Allergies Home Medications Medication Instructions Recorded Confirmed Type docusate calcium [Stool Softener] 240 mg DAILY 10/17/18 07/23/19 History ergocalciferol (vitamin D2) 50,000 unit PO QWEEK 10/17/18 07/23/19 History [Vitamin D2] oxycodone 10 mg PO Q4-6H PRN 10/17/18 07/23/19 History fluorouracil 4,800 mg IV NOW #1 device 11/06/18 07/23/19 Rx ondansetron HCl 8 mg PO Q8H PRN #30 tab 11/06/18 07/23/19 Rx prochlorperazine maleate 10 mg PO Q6H PRN #30 tab 11/06/18 07/23/19 Rx lorazepam [Ativan] 0.5 mg PO BID-TID PRN #30 tab 11/15/18 07/23/19 Rx hyoscyamine sulfate 0.25 mg PO QID PRN #100 tab 12/05/18 07/23/19 Rx apixaban [Eliquis] See Rx Instructions .ROUTE 01/04/19 07/23/19 Rx .COMPLEX #74 each dexamethasone 1 mg PO DAILY 30 Days #30 tab 04/30/19 07/23/19 Rx oxycodone 5 mg PO Q4H PRN #180 tab 07/09/19 07/23/19 Rx apixaban [Eliquis] 5 mg PO BID #60 tab 07/18/19 07/23/19 Rx Allergies Allergy/AdvReac Type Severity Reaction Status Date / Time No Known Drug Allergies Allergy Verified 11/15/18 15:27 Exam Vital signs: Vital Signs Temp Pulse Resp BP Pulse Ox 07/23/19 09:05 98.4 F 82 16 139/86 97 Intake and Output 07/22/19 07/23/19 07/23/19 23:59 07:59 15:59 Other: Weight 87 kg Patient Weight 07/23/19 23:59 Weight 87 kg Narrative: Gen: WDWN, overweight, NAD, pleasant and cooperative. HEENT: NCAT, EOMI, PERRLA, anicteric sclera. Neck: Supple, No palpable thyromegaly or lymphadenopathy. Respiratory: CTAB, no wheezes audible. No JVD Cardiovascular: RRR, S1 and S2 normal, no M/G/R. Abdomen: Soft, NTND, BS normal, no palpable organomegaly Extremities: No LE pitting edema. Lymphatic: no palpable lymph nodes in the neck, axillae, or groins. Neurological: AOx3, CN II-XII grossly intact. No focal motor or sensory deficit. Psychiatric: Normal affect, no depression, slightly anxious. Results - Labs Laboratory Last Values WBC 8.3 X10^3/uL (4.5-11.0) 07/09/19 09:00 RBC 4.41 X10^6/uL (4.5-5.9) L 07/09/19 09:00 Hgb 13.3 g/dL (13.5-17.5) L 07/09/19 09:00 Hct 39.3 % (41-53) L 07/09/19 09:00 MCV 89.3 fL (80-100) 07/09/19 09:00 MCH 30.2 PG (26-34) 07/09/19 09:00 MCHC 33.9 % (30-36) 07/09/19 09:00 RDW 17.1 % (11.6-14.8) H 07/09/19 09:00 Plt Count 225 X10^3/uL (150-400) 07/09/19 09:00 Neut % (Auto) 59.6 % (50-75) 07/09/19 09:00 Lymph % (Auto) 23.7 % (25-40) L 07/09/19 09:00 [place] % (Auto) 12.8 % (3-14) 07/09/19 09:00 Eos % (Auto) 3.4 % (2-4) 07/09/19 09:00 Baso % (Auto) 0.5 % (0-2) 07/09/19 09:00 Neut # (Auto) 5000 /uL (1852-9522) 07/09/19 09:00 Lymph # (Auto) 2000 /uL (0386-9423) 07/09/19 09:00 [place] # (Auto) 1100 /uL (0-900) H 07/09/19 09:00 Eos # (Auto) 300 /uL (0-450) 07/09/19 09:00 Baso # (Auto) 0 /uL (0-100) 07/09/19 09:00 RBC Morphology See below 02/19/19 09:15 Hypochromasia 1+ H 02/05/19 08:59 Poikilocytosis 2+ H 02/05/19 08:59 Anisocytosis 1+ H 02/19/19 09:15 Macrocytosis 1+ H 02/05/19 08:59 Rouleaux 1+ H 02/19/19 09:15 Sodium 142 mmol/L (137-145) 07/09/19 09:00 Potassium 4.0 mmol/L (3.4-5.1) 07/09/19 09:00 Chloride 109 mmol/L (98-107) H 07/09/19 09:00 Carbon Dioxide 25 mmol/L (22-32) 07/09/19 09:00 BUN 11 mg/dL (9-20) 07/09/19 09:00 Creatinine 0.60 mg/dL (0.66-1.25) L 07/09/19 09:00 Estimated GFR > 60.0 mL/min (>60) 07/09/19 09:00 BUN/Creatinine Ratio 18.3 (6-22) 07/09/19 09:00 Glucose 92 mg/dL (70-100) 07/09/19 09:00 Calcium 8.6 mg/dL (8.4-10.2) 07/09/19 09:00 Magnesium 2.0 mg/dL (1.6-2.3) 07/09/19 09:00 Total Bilirubin 0.4 mg/dL (0.2-1.3) 07/09/19 09:00 AST 19 IU/L (17-59) 07/09/19 09:00 ALT 16 IU/L (<50) 07/09/19 09:00 Alkaline Phosphatase 53 U/L (38-126) 07/09/19 09:00 Total Protein 6.7 g/dL (6.3-8.2) 07/09/19 09:00 Albumin 4.0 g/dL (3.5-5.0) 07/09/19 09:00 Globulin 2.7 g/dL (1.7-4.1) 07/09/19 09:00 Albumin/Globulin Ratio 1.5 (1.0-2.8) 07/09/19 09:00 Carcinoembryonic Ag 12.3 ng/mL (0.1-3.0) H 07/09/19 09:00 Assessment and Plan (1) Colon cancer Overview: 58-year-old man with a rectosigmoid mass and liver metastasis. Biopsy showed invasive well-differentiated adenocarcinoma. Mismatch repair proteins were normal. MARION and BRAF mutations are normal. He has completed 8 cycles of FOLFIRI with Erbitux with a decrease in the irinotecan dose. He is now on maintenance therapy. His CEA seems to have plateaued. Assessment: With single agent Erbitux, patient seems to be tolerating well. Talked with him again that I will continue current maintenance therapy, monitor the tumor marker regularly and will repeat the scan of the chest abdomen pelvis after 2 months of treatment. I talked with him that depending on whether there is any significant increase in the CEA level or imaging evidence of disease recurrence, future plan may include repeat biopsy with further molecular profiling. Patient voiced understanding. Patient said that he is fully involved in his own care and has read a lot. I talked with him that the field of gastrointestinal cancer research is moving forward quickly. People nowadays with stage IV colon cancer live much longer than before, at least double the survival time. Plan: 1. Ok to proceed to cetuximab today 2. RTC in 2 weeks, labs per treatment plan. (2) Pulmonary embolism He did have incidental bilateral pulmonary emboli discovered in December 2018 and he remains on anticoagulation Eliquis 5 mg bid. No bleeding events. Will continue
[2019-07-23 09:47] LABS: Add Manual Diff / Slide Review NO; Basophils Absolute Auto 100 /uL (0-100); Basophils Percent Auto 0.8 % (0-2); Eosinophils Absolute Auto 300 /uL (0-450); Eosinophils Percent Auto 3.4 % (2-4); Hematocrit 40.4 % (41-53); Hemoglobin 13.9 g/dL (13.5-17.5); Lymphocytes Absolute Auto 1800 /uL (1100-4500); Lymphocytes Percent Auto 21.2 % (25-40); Mean Corpuscular HGB Conc 34.4 % (30-36); Mean Corpuscular Hemoglobin 30.1 PG (26-34); Mean Corpuscular Volume 87.6 fL (80-100); Monocytes Absolute Auto 1000 /uL (0-900); Monocytes Percent Auto 11.5 % (3-14); Neutrophils Absolute Auto 5500 /uL (1500-7000); Neutrophils Percent Auto 63.1 % (50-75); Platelet Count 204 X10^3/uL (150-400); Red Blood Cell Count 4.61 X10^6/uL (4.5-5.9); Red Cell Distribution Width 16.2 % (11.6-14.8); White Blood Cell Count 8.6 X10^3/uL (4.5-11.0)
[2019-07-23 09:57] LABS: Alanine Aminotransferase 19 IU/L (<50); Albumin 4.1 g/dL (3.5-5.0); Albumin Globulin Ratio 1.3 (1.0-2.8); Alkaline Phosphatase 75 U/L (38-126); Aspartate Aminotransferase 20 IU/L (17-59); BUN Creatinine Ratio 11.7 (6-22); Bilirubin Total 0.5 mg/dL (0.2-1.3); Blood Urea Nitrogen 7 mg/dL (9-20); Calcium 9.2 mg/dL (8.4-10.2); Carbon Dioxide 27 mmol/L (22-32); Chloride 108 mmol/L (98-107); Estimated Glomerular Filt Rate > 60.0 mL/min (>60); Globulin 3.2 g/dL (1.7-4.1); Glucose 87 mg/dL (70-100); HEMOLYSIS < 15 (0-50); Magnesium 1.9 mg/dL (1.6-2.3); Potassium 3.6 mmol/L (3.4-5.1); Sodium 143 mmol/L (137-145); Total Protein 7.3 g/dL (6.3-8.2)
[2019-07-23] MEDS: PALONOSETRON 0.25 MG/5 ML VIAL IV (10:25)
[2019-07-23] MEDS: diphenhydrAMINE 25 MG TABLET PO (10:25)
[2019-07-23 10:44] LABS: Carcinoembryonic Antigen 14.5 ng/mL (0.1-3.0)
[2019-07-23] MEDS: SODIUM CHLORIDE 0.9% 100 ML 21 ML IV (10:46)
[2019-07-23] MEDS: CETUXIMAB IV (11:21)
[2019-07-23] MEDS: ISOOSMOTIC VEHICLE IV (11:21)
--- NOTE | 2019-07-23 13:41 | PC.NURSE ---
Pt declined flu shot.
[2019-08-06 09:46] LABS: Add Manual Diff / Slide Review NO; Basophils Absolute Auto 100 /uL (0-100); Basophils Percent Auto 0.5 % (0-2); Eosinophils Absolute Auto 200 /uL (0-450); Eosinophils Percent Auto 2.3 % (2-4); Hematocrit 42.1 % (41-53); Hemoglobin 14.3 g/dL (13.5-17.5); Lymphocytes Absolute Auto 2000 /uL (1100-4500); Lymphocytes Percent Auto 18.9 % (25-40); Mean Corpuscular HGB Conc 33.9 % (30-36); Mean Corpuscular Hemoglobin 29.9 PG (26-34); Mean Corpuscular Volume 88.3 fL (80-100); Monocytes Absolute Auto 900 /uL (0-900); Monocytes Percent Auto 8.9 % (3-14); Neutrophils Absolute Auto 7300 /uL (1500-7000); Neutrophils Percent Auto 69.4 % (50-75); Platelet Count 266 X10^3/uL (150-400); Red Blood Cell Count 4.77 X10^6/uL (4.5-5.9); Red Cell Distribution Width 15.6 % (11.6-14.8); White Blood Cell Count 10.6 X10^3/uL (4.5-11.0)
[2019-08-06 09:58] LABS: Alanine Aminotransferase 18 IU/L (<50); Albumin Globulin Ratio 1.2 (1.0-2.8); Alkaline Phosphatase 63 U/L (38-126); Aspartate Aminotransferase 22 IU/L (17-59); BUN Creatinine Ratio 11.7 (6-22); Bilirubin Total 0.5 mg/dL (0.2-1.3); Blood Urea Nitrogen 7 mg/dL (9-20); Calcium 9.1 mg/dL (8.4-10.2); Carbon Dioxide 26 mmol/L (22-32); Chloride 107 mmol/L (98-107); Estimated Glomerular Filt Rate > 60.0 mL/min (>60); Globulin 3.3 g/dL (1.7-4.1); Glucose 127 mg/dL (70-100); HEMOLYSIS 27 (0-50); Magnesium 1.8 mg/dL (1.6-2.3); Potassium 3.8 mmol/L (3.4-5.1); Sodium 142 mmol/L (137-145); Total Protein 7.3 g/dL (6.3-8.2)
[2019-08-06 10:16] VITALS: BP 138/61; PULSE 80; RESP 18; TEMP 36.9; O2SAT 98
--- NOTE | 2019-08-06 10:21 | ONC.PN ---
PN -Subjective Interval history: ID/CC: 58 year old male with metastatic colon cancer with liver metastasis, normal mismatch repair, wild type MARION and BRAF Treatment: 1. FOLFIRI and Erbitux for 8 cycles with a dose reduction in irinotecan starting in October 2018 2. Maintenance therapy with 5 FU leucovorin and Erbitux beginning in March 2019 3. Single agent maintenance with Erbitux started 07/09/2019 Interval history: Since his previous visit here, patient went down to [facility] and had a wonderful time over there. Patient said that he had good energy good appetite. He played golf and did hiking without any difficulties. Patient, however, is complaining intermittent abdominal cramps. But no nausea no vomiting. No diarrhea and no constipation. Patient does not have any new rashes. - Patient Self-Reported Symptoms SR Constitution: Fatigue/Malaise SR Gastrointestinal issues: Poor or no appetite, Nausea, Diarrhea, Constipation, Abdominal pain SR Musculoskeletal issues: Muscle pain or cramps, Back or neck pain, Difficulty walking - Additional ROS All systems PM: reviewed and no additional remarkable complaints except as stated Home Medications and Allergies Home Medications Medication Instructions Recorded Confirmed Type docusate calcium [Stool Softener] 240 mg DAILY 10/17/18 07/23/19 History ergocalciferol (vitamin D2) 50,000 unit PO QWEEK 10/17/18 07/23/19 History [Vitamin D2] oxycodone 10 mg PO Q4-6H PRN 10/17/18 07/23/19 History fluorouracil 4,800 mg IV NOW #1 device 11/06/18 07/23/19 Rx ondansetron HCl 8 mg PO Q8H PRN #30 tab 11/06/18 07/23/19 Rx prochlorperazine maleate 10 mg PO Q6H PRN #30 tab 11/06/18 07/23/19 Rx lorazepam [Ativan] 0.5 mg PO BID-TID PRN #30 tab 11/15/18 07/23/19 Rx hyoscyamine sulfate 0.25 mg PO QID PRN #100 tab 12/05/18 07/23/19 Rx apixaban [Eliquis] See Rx Instructions .ROUTE 01/04/19 07/23/19 Rx .COMPLEX #74 each dexamethasone 1 mg PO DAILY 30 Days #30 tab 04/30/19 07/23/19 Rx oxycodone 5 mg PO Q4H PRN #180 tab 07/09/19 07/23/19 Rx apixaban [Eliquis] 5 mg PO BID #60 tab 07/18/19 07/23/19 Rx Allergies Allergy/AdvReac Type Severity Reaction Status Date / Time No Known Drug Allergies Allergy Verified 11/15/18 15:27 Exam Vital signs: Last Vital Signs Temp 98.5 F 08/06/19 10:16 Pulse 80 08/06/19 10:16 Resp 18 08/06/19 10:16 BP 138/61 08/06/19 10:16 Pulse Ox 98 08/06/19 10:16 ECOG 1 Narrative: Gen: WDWN, overweight, NAD, pleasant and cooperative. HEENT: NCAT, EOMI, PERRLA, anicteric sclera. Neck: Supple, No palpable thyromegaly or lymphadenopathy. Respiratory: CTAB, no wheezes audible. No JVD Cardiovascular: RRR, S1 and S2 normal, no M/G/R. Abdomen: Soft, NTND, BS normal, no palpable organomegaly Extremities: No LE pitting edema. Lymphatic: no palpable lymph nodes in the neck, axillae. Neurological: AOx3, CN II-XII grossly intact. No focal motor or sensory deficit. Psychiatric: Normal affect, no depression, slightly anxious. Results - Labs Laboratory Last Values WBC 10.6 X10^3/uL (4.5-11.0) 08/06/19 09:30 RBC 4.77 X10^6/uL (4.5-5.9) 08/06/19 09:30 Hgb 14.3 g/dL (13.5-17.5) 08/06/19 09:30 Hct 42.1 % (41-53) 08/06/19 09:30 MCV 88.3 fL (80-100) 08/06/19 09:30 MCH 29.9 PG (26-34) 08/06/19 09:30 MCHC 33.9 % (30-36) 08/06/19 09:30 RDW 15.6 % (11.6-14.8) H 08/06/19 09:30 Plt Count 266 X10^3/uL (150-400) 08/06/19 09:30 Neut % (Auto) 69.4 % (50-75) 08/06/19 09:30 Lymph % (Auto) 18.9 % (25-40) L 08/06/19 09:30 [place] % (Auto) 8.9 % (3-14) 08/06/19 09:30 Eos % (Auto) 2.3 % (2-4) 08/06/19 09:30 Baso % (Auto) 0.5 % (0-2) 08/06/19 09:30 Neut # (Auto) 7300 /uL (3559-2571) H 08/06/19 09:30 Lymph # (Auto) 2000 /uL (3843-1584) 08/06/19 09:30 [place] # (Auto) 900 /uL (0-900) 08/06/19 09:30 Eos # (Auto) 200 /uL (0-450) 08/06/19 09:30 Baso # (Auto) 100 /uL (0-100) 08/06/19 09:30 RBC Morphology See below 02/19/19 09:15 Hypochromasia 1+ H 02/05/19 08:59 Poikilocytosis 2+ H 02/05/19 08:59 Anisocytosis 1+ H 02/19/19 09:15 Macrocytosis 1+ H 02/05/19 08:59 Rouleaux 1+ H 02/19/19 09:15 Sodium 142 mmol/L (137-145) 08/06/19 09:30 Potassium 3.8 mmol/L (3.4-5.1) 08/06/19 09:30 Chloride 107 mmol/L (98-107) 08/06/19 09:30 Carbon Dioxide 26 mmol/L (22-32) 08/06/19 09:30 BUN 7 mg/dL (9-20) L 08/06/19 09:30 Creatinine 0.60 mg/dL (0.66-1.25) L 08/06/19 09:30 Estimated GFR > 60.0 mL/min (>60) 08/06/19 09:30 BUN/Creatinine Ratio 11.7 (6-22) 08/06/19 09:30 Glucose 127 mg/dL (70-100) H 08/06/19 09:30 Calcium 9.1 mg/dL (8.4-10.2) 08/06/19 09:30 Magnesium 1.8 mg/dL (1.6-2.3) 08/06/19 09:30 Total Bilirubin 0.5 mg/dL (0.2-1.3) 08/06/19 09:30 AST 22 IU/L (17-59) 08/06/19 09:30 ALT 18 IU/L (<50) 08/06/19 09:30 Alkaline Phosphatase 63 U/L (38-126) 08/06/19 09:30 Total Protein 7.3 g/dL (6.3-8.2) 08/06/19 09:30 Albumin 4.0 g/dL (3.5-5.0) 08/06/19 09:30 Globulin 3.3 g/dL (1.7-4.1) 08/06/19 09:30 Albumin/Globulin Ratio 1.2 (1.0-2.8) 08/06/19 09:30 Carcinoembryonic Ag 14.5 ng/mL (0.1-3.0) H 07/23/19 09:30 Assessment and Plan (1) Colon cancer Overview: 58-year-old man with a rectosigmoid mass and liver metastasis. Biopsy showed invasive well-differentiated adenocarcinoma. Mismatch repair proteins were normal. MARION and BRAF mutations are normal. He has completed 8 cycles of FOLFIRI with Erbitux with a decrease in the irinotecan dose. He is now on maintenance therapy. His CEA seems to have plateaued. Assessment: I reviewed today's lab results with the patient. They are appropriate. Clinically patient has been doing well and almost asymptomatic except mild intermittent abdominal cramps. His CEA level also has been relatively stable for the last couple of months. I talked with him that I will continue current treatment and will scan regularly. I also talked with the patient about possible second-line therapy in the future including for example regorafenib, [id number], or ramcirumab. I gave patient the name of this medications and he is interested in doing some research himself. Plan: 1. Ok to proceed to cetuximab today 2. RTC in 2 weeks, labs per treatment plan. (2) Pulmonary embolism He did have incidental bilateral pulmonary emboli discovered in December 2018 and he remains on anticoagulation Eliquis 5 mg bid. No bleeding events. Will continue
[2019-08-06] MEDS: SODIUM CHLORIDE 0.9% 100 ML 21 ML IV (10:49)
[2019-08-06] MEDS: PALONOSETRON 0.25 MG/5 ML VIAL IV (10:58)
[2019-08-06] MEDS: diphenhydrAMINE 50 MG/ML VIAL 25 MG IV (11:04)
[2019-08-06] MEDS: ISOOSMOTIC VEHICLE IV (11:41)
[2019-08-06] MEDS: CETUXIMAB IV (11:41)
[2019-08-06 14:04] LABS: Carcinoembryonic Antigen 16.3 ng/mL (0.1-3.0)
[2019-08-20 10:31] VITALS: BP 129/69; PULSE 72; RESP 18; TEMP 36.9; O2SAT 98
--- NOTE | 2019-08-20 10:35 | ONC.PN ---
PN -Subjective Interval history: ID/CC: 58 year old male with metastatic colon cancer with liver metastasis, normal mismatch repair, wild type MARION and BRAF Treatment: 1. FOLFIRI and Erbitux for 8 cycles with a dose reduction in irinotecan starting in October 2018 2. Maintenance therapy with 5 FU leucovorin and Erbitux beginning in March 2019 3. Single agent maintenance with Erbitux started 07/09/2019 Interval history: Patient presents here today for Erbitux infusion. Patient has been doing well. Patient is complaining lower back pain which he attributed to lifting of stone out the truck. Patient denies any lower extremity weakness or tingling or numbing. He denies any shortness of breath or chest pain. No abdominal pain. No diarrhea. No maculopapular rashes. - Patient Self-Reported Symptoms SR Constitution: Fatigue/Malaise SR Gastrointestinal issues: Poor or no appetite, Nausea, Diarrhea, Constipation, Abdominal pain SR Musculoskeletal issues: Muscle pain or cramps - Additional ROS All systems PM: reviewed and no additional remarkable complaints except as stated Home Medications and Allergies Home Medications Medication Instructions Recorded Confirmed Type docusate calcium [Stool Softener] 240 mg DAILY 10/17/18 08/20/19 History ergocalciferol (vitamin D2) 50,000 unit PO QWEEK 10/17/18 08/20/19 History [Vitamin D2] oxycodone 10 mg PO Q4-6H PRN 10/17/18 08/20/19 History fluorouracil 4,800 mg IV NOW #1 device 11/06/18 08/20/19 Rx ondansetron HCl 8 mg PO Q8H PRN #30 tab 11/06/18 08/20/19 Rx prochlorperazine maleate 10 mg PO Q6H PRN #30 tab 11/06/18 08/20/19 Rx lorazepam [Ativan] 0.5 mg PO BID-TID PRN #30 tab 11/15/18 08/20/19 Rx hyoscyamine sulfate 0.25 mg PO QID PRN #100 tab 12/05/18 08/20/19 Rx apixaban [Eliquis] See Rx Instructions .ROUTE 01/04/19 08/20/19 Rx .COMPLEX #74 each dexamethasone 1 mg PO DAILY 30 Days #30 tab 04/30/19 08/20/19 Rx oxycodone 5 mg PO Q4H PRN #180 tab 07/09/19 08/20/19 Rx apixaban [Eliquis] 5 mg PO BID #60 tab 07/18/19 08/20/19 Rx Allergies Allergy/AdvReac Type Severity Reaction Status Date / Time No Known Drug Allergies Allergy Verified 11/15/18 15:27 Exam Vital signs: Vital Signs Temp Pulse Resp BP Pulse Ox 08/20/19 10:31 98.4 F 72 18 129/69 98 Intake and Output 08/19/19 08/20/19 08/20/19 23:59 07:59 15:59 Other: Weight 88.3 kg Patient Weight 08/20/19 23:59 Weight 88.3 kg Narrative: ECOG 1 Gen: WDWN, overweight, NAD, pleasant and cooperative. HEENT: NCAT, EOMI, PERRLA, anicteric sclera. Neck: Supple, No palpable thyromegaly or lymphadenopathy. Respiratory: CTAB, no wheezes audible. No JVD Cardiovascular: RRR, S1 and S2 normal, no M/G/R. Abdomen: Soft, NTND, BS normal, no palpable organomegaly Extremities: No LE pitting edema. Lymphatic: no palpable lymph nodes in the neck, axillae. Neurological: AOx3, CN II-XII grossly intact. No focal motor or sensory deficit. Psychiatric: Normal affect, no depression, slightly anxious. Results - Labs Reviewed Assessment and Plan (1) Colon cancer Overview: 58-year-old man with a rectosigmoid mass and liver metastasis. Biopsy showed invasive well-differentiated adenocarcinoma. Mismatch repair proteins were normal. MARION and BRAF mutations are normal. He has completed 8 cycles of FOLFIRI with Erbitux with a decrease in the irinotecan dose. He is now on maintenance therapy. His CEA seems to have plateaued. Assessment: I reviewed today's lab results with the patient. They are appropriate. I will proceed with scheduled Erbitux. Patient did look look up online the medications we talked about during his previous visit including regorafenib, ZEX165, or ramcirumab. Patient apparently has read a lot. He personally prefers [id number] compared to regorafenib. He has not read much about ramcirumab yet. I talked with him that I will obtain a repeat study with CT chest abdomen pelvis within the next 1 month and will evaluate the response and talk with him about options. Overall, if he is responding to Erbitux and he is tolerating well, we will continue current treatment without any changes. Plan: 1. Ok to proceed to cetuximab today 2. CT CAP w/contrast the week of 09/09/2019 3. RTC in 2 weeks, labs per treatment plan. (2) Pulmonary embolism He did have incidental bilateral pulmonary emboli discovered in December 2018 and he remains on anticoagulation Eliquis 5 mg bid. No bleeding events. Will continue
[2019-08-20] MEDS: ALTEPLASE 2 MG/2 ML VIAL IV (10:39)
[2019-08-20 11:28] LABS: Add Manual Diff / Slide Review NO; Basophils Absolute Auto 100 /uL (0-100); Basophils Percent Auto 0.6 % (0-2); Eosinophils Absolute Auto 100 /uL (0-450); Hemoglobin 13.8 g/dL (13.5-17.5); Lymphocytes Absolute Auto 1000 /uL (1100-4500); Lymphocytes Percent Auto 8.3 % (25-40); Mean Corpuscular HGB Conc 33.5 % (30-36); Mean Corpuscular Hemoglobin 29.5 PG (26-34); Mean Corpuscular Volume 88.2 fL (80-100); Monocytes Absolute Auto 700 /uL (0-900); Monocytes Percent Auto 6.3 % (3-14); Neutrophils Absolute Auto 9800 /uL (1500-7000); Neutrophils Percent Auto 83.8 % (50-75); Platelet Count 196 X10^3/uL (150-400); Red Blood Cell Count 4.65 X10^6/uL (4.5-5.9); Red Cell Distribution Width 15.6 % (11.6-14.8); White Blood Cell Count 11.7 X10^3/uL (4.5-11.0)
[2019-08-20 11:46] LABS: Alanine Aminotransferase 19 IU/L (<50); Albumin 3.9 g/dL (3.5-5.0); Albumin Globulin Ratio 1.2 (1.0-2.8); Alkaline Phosphatase 73 U/L (38-126); Aspartate Aminotransferase 18 IU/L (17-59); Bilirubin Total 0.3 mg/dL (0.2-1.3); Blood Urea Nitrogen 9 mg/dL (9-20); Carbon Dioxide 25 mmol/L (22-32); Chloride 106 mmol/L (98-107); Estimated Glomerular Filt Rate > 60.0 mL/min (>60); Globulin 3.2 g/dL (1.7-4.1); Glucose 96 mg/dL (70-100); HEMOLYSIS 18 (0-50); Magnesium 1.8 mg/dL (1.6-2.3); Potassium 4.3 mmol/L (3.4-5.1); Sodium 139 mmol/L (137-145); Total Protein 7.1 g/dL (6.3-8.2)
[2019-08-20 12:11] LABS: Carcinoembryonic Antigen 14.4 ng/mL (0.1-3.0)
[2019-08-20] MEDS: SODIUM CHLORIDE 0.9% 100 ML 21 ML IV (12:15)
[2019-08-20] MEDS: diphenhydrAMINE 25 MG TABLET PO (12:50)
[2019-08-20] MEDS: CETUXIMAB IV (12:52)
[2019-08-20] MEDS: ISOOSMOTIC VEHICLE IV (12:52)
[2019-09-03 09:21] VITALS: BP 126/95; PULSE 79; RESP 18; TEMP 36.4; O2SAT 96
--- NOTE | 2019-09-03 09:21 | P.PNONC_ITS ---
PN -Subjective Interval history: ID/CC: 58 year old male with metastatic colon cancer with liver metastasis, normal mismatch repair, wild type MARION and BRAF Oncology History: 58-year-old man who presented initially with blood in the stool, abdominal pain and weight loss. He had a CT scan that showed some thickening of the colon at the rectosigmoid junction. There was also evidence of multiple liver metastasis. His CEA was markedly elevated at 1652. He was seen by Dr. Deleon and had a colonoscopy performed in 10/10/2018. He was found to have a mass at 20 cm, unable to transit. Biopsy showed serrated adenoma but no evidence of malignancy. Patient underwent repeat colonoscopy with sedation on 10/24/2018. At this time, the scope was able to transit through a circumferential malignant mass at around 20-25 cm. The surgical pathology showed invasive well differentiated colon adenocarcinoma, MSI by IHC showed normal expression of all tested mismatch repair proteins. Molecular tests showed the cance cells were negative for major KRAS mutations by PCR, and negative for major NRAS mutations by PCR. He then received FOLFIRI and Erbitux for 8 cycles with a dose reduction in irinotecan starting in October 2018, followed by maintenance therapy with 5 FU leucovorin and Erbitux beginning in March 2019 until late 2018. Starting from 07/09/2019, he was started on single agent maintenance with Erbitux. Interval history: Patient presents here today for Erbitux infusion. Patient is complaining cramping in the lower abdomen since early this morning, 01/09 in intensity without nausea and vomiting. He ate a lot of orioles today. He denies any blood in the stool and denies any fever or chills or back pain. His last bowel movement was last night. Summary of Therapies: 1. FOLFIRI and Erbitux for 8 cycles with a dose reduction in irinotecan starting in October 2018 2. Maintenance therapy with 5 FU leucovorin and Erbitux beginning in March 2019 3. Single agent maintenance with Erbitux started 07/09/2019 - Patient Self-Reported Symptoms SR Constitution: Fatigue/Malaise SR Gastrointestinal issues: Poor or no appetite, Nausea, Diarrhea, Constipation, Abdominal pain SR Musculoskeletal issues: Muscle pain or cramps - Additional ROS All systems PM: reviewed and no additional remarkable complaints except as stated Home Medications and Allergies Home Medications Medication Instructions Recorded Confirmed Type docusate calcium [Stool Softener] 240 mg DAILY 10/17/18 08/20/19 History ergocalciferol (vitamin D2) 50,000 unit PO QWEEK 10/17/18 08/20/19 History [Vitamin D2] oxycodone 10 mg PO Q4-6H PRN 10/17/18 08/20/19 History fluorouracil 4,800 mg IV NOW #1 device 11/06/18 08/20/19 Rx ondansetron HCl 8 mg PO Q8H PRN #30 tab 11/06/18 08/20/19 Rx prochlorperazine maleate 10 mg PO Q6H PRN #30 tab 11/06/18 08/20/19 Rx lorazepam [Ativan] 0.5 mg PO BID-TID PRN #30 tab 11/15/18 08/20/19 Rx hyoscyamine sulfate 0.25 mg PO QID PRN #100 tab 12/05/18 08/20/19 Rx apixaban [Eliquis] See Rx Instructions .ROUTE 01/04/19 08/20/19 Rx .COMPLEX #74 each dexamethasone 1 mg PO DAILY 30 Days #30 tab 04/30/19 08/20/19 Rx oxycodone 5 mg PO Q4H PRN #180 tab 07/09/19 08/20/19 Rx apixaban [Eliquis] 5 mg PO BID #60 tab 07/18/19 08/20/19 Rx Allergies Allergy/AdvReac Type Severity Reaction Status Date / Time No Known Drug Allergies Allergy Verified 11/15/18 15:27 Exam Vital signs: 09/03/19 13:08 Last Vital Signs Temp 97.6 F 09/03/19 09:21 Pulse 79 09/03/19 09:21 Resp 18 09/03/19 09:21 BP 126/95 H 09/03/19 09:21 Pulse Ox 96 09/03/19 09:21 Narrative: ECOG 1 Gen: WDWN, overweight, NAD, pleasant and cooperative. HEENT: NCAT, EOMI, PERRLA, anicteric sclera. Neck: Supple, No palpable thyromegaly or lymphadenopathy. Respiratory: CTAB, no wheezes audible. No JVD Cardiovascular: RRR, S1 and S2 normal, no M/G/R. Abdomen: Soft, NTND, BS normal, no palpable organomegaly Extremities: No LE pitting edema. Lymphatic: no palpable lymph nodes in the neck, axillae. Neurological: AOx3, CN II-XII grossly intact. No focal motor or sensory deficit. Psychiatric: Normal affect, no depression, slightly anxious. Results - Labs Laboratory Last Values WBC 11.7 X10^3/uL (4.5-11.0) H 08/20/19 11:20 RBC 4.65 X10^6/uL (4.5-5.9) 08/20/19 11:20 Hgb 13.8 g/dL (13.5-17.5) 08/20/19 11:20 Hct 41.0 % (41-53) 08/20/19 11:20 MCV 88.2 fL (80-100) 08/20/19 11:20 MCH 29.5 PG (26-34) 08/20/19 11:20 MCHC 33.5 % (30-36) 08/20/19 11:20 RDW 15.6 % (11.6-14.8) H 08/20/19 11:20 Plt Count 196 X10^3/uL (150-400) 08/20/19 11:20 Neut % (Auto) 83.8 % (50-75) H 08/20/19 11:20 Lymph % (Auto) 8.3 % (25-40) L 08/20/19 11:20 Carolina % (Auto) 6.3 % (3-14) 08/20/19 11:20 Eos % (Auto) 1.0 % (2-4) L 08/20/19 11:20 Baso % (Auto) 0.6 % (0-2) 08/20/19 11:20 Neut # (Auto) 9800 /uL (6148-4084) H 08/20/19 11:20 Lymph # (Auto) 1000 /uL (7900-1059) L 08/20/19 11:20 Carolina # (Auto) 700 /uL (0-900) 08/20/19 11:20 Eos # (Auto) 100 /uL (0-450) 08/20/19 11:20 Baso # (Auto) 100 /uL (0-100) 08/20/19 11:20 RBC Morphology See below 02/19/19 09:15 Hypochromasia 1+ H 02/05/19 08:59 Poikilocytosis 2+ H 02/05/19 08:59 Anisocytosis 1+ H 02/19/19 09:15 Macrocytosis 1+ H 02/05/19 08:59 Rouleaux 1+ H 02/19/19 09:15 Sodium 139 mmol/L (137-145) 08/20/19 11:20 Potassium 4.3 mmol/L (3.4-5.1) 08/20/19 11:20 Chloride 106 mmol/L (98-107) 08/20/19 11:20 Carbon Dioxide 25 mmol/L (22-32) 08/20/19 11:20 BUN 9 mg/dL (9-20) 08/20/19 11:20 Creatinine 0.60 mg/dL (0.66-1.25) L 08/20/19 11:20 Estimated GFR > 60.0 mL/min (>60) 08/20/19 11:20 BUN/Creatinine Ratio 15.0 (6-22) 08/20/19 11:20 Glucose 96 mg/dL (70-100) 08/20/19 11:20 Calcium 9.0 mg/dL (8.4-10.2) 08/20/19 11:20 Magnesium 1.8 mg/dL (1.6-2.3) 08/20/19 11:20 Total Bilirubin 0.3 mg/dL (0.2-1.3) 08/20/19 11:20 AST 18 IU/L (17-59) 08/20/19 11:20 ALT 19 IU/L (<50) 08/20/19 11:20 Alkaline Phosphatase 73 U/L (38-126) 08/20/19 11:20 Total Protein 7.1 g/dL (6.3-8.2) 08/20/19 11:20 Albumin 3.9 g/dL (3.5-5.0) 08/20/19 11:20 Globulin 3.2 g/dL (1.7-4.1) 08/20/19 11:20 Albumin/Globulin Ratio 1.2 (1.0-2.8) 08/20/19 11:20 Carcinoembryonic Ag 14.4 ng/mL (0.1-3.0) H 08/20/19 11:20 Assessment and Plan (1) Colon cancer Overview: 58-year-old man with a rectosigmoid mass and liver metastasis. Biopsy showed invasive well-differentiated adenocarcinoma. Mismatch repair proteins were normal. MARION and BRAF mutations are normal. He has completed 8 cycles of FOLFIRI with Erbitux with a decrease in the irinotecan dose. He is now on maintenance therapy. His CEA seems to have plateaued. Assessment: Today showed the patient the CEA levels. It has remained stable without any significant changes. I talked with him that it indicates that the Erbitux is effective in controlling his colon cancer. Talked him that the abdominal cramps most likely is related to his most recent food. I advised that we give him extra 1 L normal saline. Also cautioned him that if he sees any blood in the stool or worsening abdominal pain, he needs to call us. He is scheduled for CT scan next week. I will see the patient after this CAT scan. Plan: 1. Ok to proceed to cetuximab today 2. NS 1000 cc iv over one hour today 3. CT CAP w/contrast the week of 09/09/2019 4. RTC in 2 weeks, labs per treatment plan. (2) Pulmonary embolism He did have incidental bilateral pulmonary emboli discovered in December 2018 and he remains on anticoagulation Eliquis 5 mg bid. No bleeding events. Will continue
[2019-09-03 09:44] LABS: Add Manual Diff / Slide Review NO; Basophils Absolute Auto 100 /uL (0-100); Basophils Percent Auto 0.7 % (0-2); Eosinophils Absolute Auto 300 /uL (0-450); Eosinophils Percent Auto 2.5 % (2-4); Hematocrit 41.1 % (41-53); Hemoglobin 13.8 g/dL (13.5-17.5); Lymphocytes Absolute Auto 1800 /uL (1100-4500); Lymphocytes Percent Auto 15.7 % (25-40); Mean Corpuscular HGB Conc 33.7 % (30-36); Mean Corpuscular Hemoglobin 29.5 PG (26-34); Mean Corpuscular Volume 87.7 fL (80-100); Monocytes Absolute Auto 1200 /uL (0-900); Monocytes Percent Auto 10.7 % (3-14); Neutrophils Absolute Auto 7900 /uL (1500-7000); Neutrophils Percent Auto 70.4 % (50-75); Platelet Count 225 X10^3/uL (150-400); Red Blood Cell Count 4.69 X10^6/uL (4.5-5.9); Red Cell Distribution Width 15.8 % (11.6-14.8); White Blood Cell Count 11.2 X10^3/uL (4.5-11.0)
[2019-09-03 09:49] LABS: Alanine Aminotransferase 20 IU/L (<50); Albumin 3.9 g/dL (3.5-5.0); Albumin Globulin Ratio 1.2 (1.0-2.8); Alkaline Phosphatase 64 U/L (38-126); Aspartate Aminotransferase 21 IU/L (17-59); BUN Creatinine Ratio 16.7 (6-22); Bilirubin Total 0.5 mg/dL (0.2-1.3); Blood Urea Nitrogen 10 mg/dL (9-20); Calcium 8.8 mg/dL (8.4-10.2); Carbon Dioxide 27 mmol/L (22-32); Chloride 109 mmol/L (98-107); Estimated Glomerular Filt Rate > 60.0 mL/min (>60); Globulin 3.2 g/dL (1.7-4.1); Glucose 98 mg/dL (70-100); HEMOLYSIS 19 (0-50); Magnesium 1.9 mg/dL (1.6-2.3); Potassium 3.7 mmol/L (3.4-5.1); Sodium 143 mmol/L (137-145); Total Protein 7.1 g/dL (6.3-8.2)
[2019-09-03] MEDS: SODIUM CHLORIDE 0.9% 1,000 ML 1000 ML IV (09:50)
[2019-09-03] MEDS: diphenhydrAMINE 50 MG/ML VIAL 25 MG IV (10:47)
[2019-09-03] MEDS: SODIUM CHLORIDE 0.9% 100 ML 21 ML IV (10:48)
[2019-09-03] MEDS: CETUXIMAB IV (11:17)
[2019-09-03] MEDS: ISOOSMOTIC VEHICLE IV (11:17)
[2019-09-03 11:27] LABS: Carcinoembryonic Antigen 25.4 ng/mL (0.1-3.0)
--- NOTE | 2019-09-16 17:52 | PC.NURSE ---
PATIENT CALLED TO REPORT HE HAS CANCELLED TREATMENT FOR TOMORROW AND MOVED DR MELÉNDEZ APPT TO MONDAY. HE STATES HE NEEDS A BREAK AFTER THE ABDOMINAL SURGERY FOR BLOCKAGE AND GETTING USED TO COLOSTOMY. THIS NURSE CONFIRMED FOR HIM THAT RECORDS ARE SCANNED IN FROM [facility] FOR DR MELÉNDEZ TO SEE BEFORE HIS APPT ON 09/18.
[2019-09-19 16:11] VITALS: BP 115/75; PULSE 76; RESP 18; TEMP 36.5; O2SAT 98
--- NOTE | 2019-09-19 16:22 | P.PNONC_ITS ---
PN -Subjective Interval history: ID/CC: 58 year old male with metastatic colon cancer with liver metastasis, normal mismatch repair, wild type MARION and BRAF Oncology History: 58-year-old man who presented initially with blood in the stool, abdominal pain and weight loss. He had a CT scan that showed some thickening of the colon at the rectosigmoid junction. There was also evidence of multiple liver metastasis. His CEA was markedly elevated at 1652. He was seen by Dr. Deleon and had a colonoscopy performed in 10/10/2018. He was found to have a mass at 20 cm, unable to transit. Biopsy showed serrated adenoma but no evidence of malignancy. Patient underwent repeat colonoscopy with sedation on 10/24/2018. At this time, the scope was able to transit through a circumferential malignant mass at around 20-25 cm. The surgical pathology showed invasive well differentiated colon adenocarcinoma, MSI by IHC showed normal expression of all tested mismatch repair proteins. Molecular tests showed the cance cells were negative for major KRAS mutations by PCR, and negative for major NRAS mutations by PCR. He then received FOLFIRI and Erbitux for 8 cycles with a dose reduction in irinotecan starting in October 2018, followed by maintenance therapy with 5 FU leucovorin and Erbitux beginning in March 2019 until late 2018. Starting from 07/09/2019, he was started on single agent maintenance with Erbitux. Interval history: Since his previous visit, passing has developed intractable nausea vomiting abdominal cramping pain. He was evaluated at the emergency room of [facility] CT of the abdomen pelvis on 09/08/2019 showed distal sigmoid colonic mass has decreased in size from the index examination of 09/30/2018. However it resulted in luminal narrowing and upstream colonic dilation, suggestive of at least partial colonic obstruction. Multiple hepatic metastasis have significantly improved from the prior examination. Small left adrenal nodule appeared slightly decreased in size. Indeterminate lingular nodule was noted. Fusiform aneurysms of the abdominal aorta (3.3 cm), bilateral common iliac arteries (right 2.6 cm, left 2.4 cm), bilateral inter low iliac arteries (right 2.7 cm, left 3.2 cm), and proximal left external iliac artery (2.0 cm). Dr. Durham took the patient to the operating room and performed an exploratory laparotomy with left lower quadrant loop diverting colostomy on 09/09/2019. After the surgery, patient said that the symptoms have improved dramatically. Patient said that the abdominal cramping pain has basically resolved. Patient denies any other new pain especially denies any abdominal right upper quadrant pain. Summary of Therapies: 1. FOLFIRI and Erbitux for 8 cycles with a dose reduction in irinotecan starting in October 2018 2. Maintenance therapy with 5 FU leucovorin and Erbitux beginning in March 2019 3. Single agent maintenance with Erbitux started 07/09/2019 4. LLQ loop diverting colostomy on 09/09/2019 for bowel obstruction. - Patient Self-Reported Symptoms SR Constitution: Fatigue/Malaise SR Gastrointestinal issues: Abdominal pain SR Musculoskeletal issues: Muscle pain or cramps - Additional ROS All systems PM: reviewed and no additional remarkable complaints except as stated Home Medications and Allergies Home Medications Medication Instructions Recorded Confirmed Type docusate calcium [Stool Softener] 240 mg DAILY 10/17/18 09/19/19 History ergocalciferol (vitamin D2) 50,000 unit PO QWEEK 10/17/18 09/19/19 History [Vitamin D2] oxycodone 10 mg PO Q4-6H PRN 10/17/18 09/19/19 History fluorouracil 4,800 mg IV NOW #1 device 11/06/18 08/20/19 Rx ondansetron HCl 8 mg PO Q8H PRN #30 tab 11/06/18 09/19/19 Rx prochlorperazine maleate 10 mg PO Q6H PRN #30 tab 11/06/18 09/19/19 Rx lorazepam [Ativan] 0.5 mg PO BID-TID PRN #30 tab 11/15/18 09/19/19 Rx hyoscyamine sulfate 0.25 mg PO QID PRN #100 tab 12/05/18 09/19/19 Rx apixaban [Eliquis] See Rx Instructions .ROUTE 01/04/19 09/19/19 Rx .COMPLEX #74 each dexamethasone 1 mg PO DAILY 30 Days #30 tab 04/30/19 09/19/19 Rx oxycodone 5 mg PO Q4H PRN #180 tab 07/09/19 09/19/19 Rx apixaban [Eliquis] 5 mg PO BID #60 tab 07/18/19 09/19/19 Rx Allergies Allergy/AdvReac Type Severity Reaction Status Date / Time No Known Drug Allergies Allergy Verified 11/15/18 15:27 Exam Vital signs: Vital Signs Temp Pulse Resp BP Pulse Ox 09/19/19 16:11 97.7 F 76 18 115/75 98 Intake and Output 09/19/19 09/19/19 09/19/19 07:59 15:59 23:59 Other: Weight 82 kg Patient Weight 09/19/19 23:59 Weight 82 kg Narrative: ECOG 1 Gen: WDWN, overweight, NAD, pleasant and cooperative. HEENT: NCAT, EOMI, PERRLA, anicteric sclera. Neck: Supple, No palpable thyromegaly or lymphadenopathy. Respiratory: CTAB, no wheezes audible. No JVD Cardiovascular: RRR, S1 and S2 normal, no M/G/R. Abdomen: Soft, NTND, no palpable organomegaly. LLQ colostomy noted. Extremities: No LE pitting edema. Lymphatic: no palpable lymph nodes in the neck, axillae. Neurological: AOx3, CN II-XII grossly intact. No focal motor or sensory deficit. Psychiatric: Normal affect, no depression, slightly anxious. Results - Labs Laboratory Last Values WBC 11.2 X10^3/uL (4.5-11.0) H 09/03/19 09:30 RBC 4.69 X10^6/uL (4.5-5.9) 09/03/19 09:30 Hgb 13.8 g/dL (13.5-17.5) 09/03/19 09:30 Hct 41.1 % (41-53) 09/03/19 09:30 MCV 87.7 fL (80-100) 09/03/19 09:30 MCH 29.5 PG (26-34) 09/03/19 09:30 MCHC 33.7 % (30-36) 09/03/19 09:30 RDW 15.8 % (11.6-14.8) H 09/03/19 09:30 Plt Count 225 X10^3/uL (150-400) 09/03/19 09:30 Neut % (Auto) 70.4 % (50-75) 09/03/19 09:30 Lymph % (Auto) 15.7 % (25-40) L 09/03/19 09:30 Sebastian % (Auto) 10.7 % (3-14) 09/03/19 09:30 Eos % (Auto) 2.5 % (2-4) 09/03/19 09:30 Baso % (Auto) 0.7 % (0-2) 09/03/19 09:30 Neut # (Auto) 7900 /uL (4708-2413) H 09/03/19 09:30 Lymph # (Auto) 1800 /uL (2650-7621) 09/03/19 09:30 Sebastian # (Auto) 1200 /uL (0-900) H 09/03/19 09:30 Eos # (Auto) 300 /uL (0-450) 09/03/19 09:30 Baso # (Auto) 100 /uL (0-100) 09/03/19 09:30 RBC Morphology See below 02/19/19 09:15 Hypochromasia 1+ H 02/05/19 08:59 Poikilocytosis 2+ H 02/05/19 08:59 Anisocytosis 1+ H 02/19/19 09:15 Macrocytosis 1+ H 02/05/19 08:59 Rouleaux 1+ H 02/19/19 09:15 Sodium 143 mmol/L (137-145) 09/03/19 09:30 Potassium 3.7 mmol/L (3.4-5.1) 09/03/19 09:30 Chloride 109 mmol/L (98-107) H 09/03/19 09:30 Carbon Dioxide 27 mmol/L (22-32) 09/03/19 09:30 BUN 10 mg/dL (9-20) 09/03/19 09:30 Creatinine 0.60 mg/dL (0.66-1.25) L 09/03/19 09:30 Estimated GFR > 60.0 mL/min (>60) 09/03/19 09:30 BUN/Creatinine Ratio 16.7 (6-22) 09/03/19 09:30 Glucose 98 mg/dL (70-100) 09/03/19 09:30 Calcium 8.8 mg/dL (8.4-10.2) 09/03/19 09:30 Magnesium 1.9 mg/dL (1.6-2.3) 09/03/19 09:30 Total Bilirubin 0.5 mg/dL (0.2-1.3) 09/03/19 09:30 AST 21 IU/L (17-59) 09/03/19 09:30 ALT 20 IU/L (<50) 09/03/19 09:30 Alkaline Phosphatase 64 U/L (38-126) 09/03/19 09:30 Total Protein 7.1 g/dL (6.3-8.2) 09/03/19 09:30 Albumin 3.9 g/dL (3.5-5.0) 09/03/19 09:30 Globulin 3.2 g/dL (1.7-4.1) 09/03/19 09:30 Albumin/Globulin Ratio 1.2 (1.0-2.8) 09/03/19 09:30 Carcinoembryonic Ag 25.4 ng/mL (0.1-3.0) H 09/03/19 09:30 Assessment and Plan (1) Colon cancer Overview: 58-year-old man with a rectosigmoid mass and liver metastasis. Biopsy showed invasive well-differentiated adenocarcinoma. Mismatch repair proteins were normal. MARION and BRAF mutations are normal. He has completed 8 cycles of FOLFIRI with Erbitux with a decrease in the irinotecan dose. He is now on maintenance therapy. His CEA seems to have plateaued. Assessment: Since his previous visit, patient underwent urgent diverting colostomy for bowel obstruction on 09/09/2019. Patient there after has been doing quite with resolution of the abdominal cramps. Patient denies any fever or chills. However he does complain fatigue. He is wondering if the cetuximab can be on hold for couple of weeks. Explained to the patient first about the CT scan results. The CT scan from the [facility] showed significant response compared to CT scans from last year. I talked with the patient since he just had the surgery, I would temporarily hold the cetuximab for about a month before restaging and resuming the treatment. Patient voiced understanding. Plan: 1. Hold cetuximab for now 2. RTC in 4 weeks, CBC, CMP, CEA (2) Pulmonary embolism He did have incidental bilateral pulmonary emboli discovered in December 2018 and he remains on anticoagulation Eliquis 5 mg bid. No bleeding events. Will continue
[2019-10-14 14:31] LABS: Add Manual Diff / Slide Review NO; Basophils Absolute Auto 0 /uL (0-100); Basophils Percent Auto 0.4 % (0-2); Eosinophils Absolute Auto 0 /uL (0-450); Eosinophils Percent Auto 0.4 % (2-4); Hematocrit 38.8 % (41-53); Hemoglobin 12.7 g/dL (13.5-17.5); Lymphocytes Absolute Auto 600 /uL (1100-4500); Mean Corpuscular HGB Conc 32.8 % (30-36); Mean Corpuscular Hemoglobin 28.5 PG (26-34); Mean Corpuscular Volume 87.1 fL (80-100); Monocytes Absolute Auto 700 /uL (0-900); Monocytes Percent Auto 6.9 % (3-14); Neutrophils Absolute Auto 9000 /uL (1500-7000); Neutrophils Percent Auto 86.3 % (50-75); Platelet Count 243 X10^3/uL (150-400); Red Blood Cell Count 4.46 X10^6/uL (4.5-5.9); Red Cell Distribution Width 14.9 % (11.6-14.8); White Blood Cell Count 10.5 X10^3/uL (4.5-11.0)
[2019-10-14 14:53] LABS: Alanine Aminotransferase 16 IU/L (<50); Albumin 3.8 g/dL (3.5-5.0); Albumin Globulin Ratio 1.1 (1.0-2.8); Alkaline Phosphatase 113 U/L (38-126); Aspartate Aminotransferase 19 IU/L (17-59); BUN Creatinine Ratio 14.3 (6-22); Bilirubin Total 0.7 mg/dL (0.2-1.3); Blood Urea Nitrogen 9 mg/dL (9-20); Carbon Dioxide 23 mmol/L (22-32); Chloride 104 mmol/L (98-107); Estimated Glomerular Filt Rate > 60.0 mL/min (>60); Globulin 3.4 g/dL (1.7-4.1); Glucose 108 mg/dL (70-100); HEMOLYSIS < 15 (0-50); Potassium 4.2 mmol/L (3.4-5.1); Sodium 136 mmol/L (137-145); Total Protein 7.2 g/dL (6.3-8.2)
[2019-10-14 15:21] VITALS: BP 111/75; PULSE 95; RESP 18; TEMP 36.8; O2SAT 95
--- NOTE | 2019-10-14 15:46 | P.PNONC_ITS ---
PN -Subjective Interval history: ID/CC: 58 year old male with metastatic colon cancer with liver metastasis, normal mismatch repair, wild type MARION and BRAF Oncology History: 58-year-old man who presented initially with blood in the stool, abdominal pain and weight loss. He had a CT scan that showed some thickening of the colon at the rectosigmoid junction. There was also evidence of multiple liver metastasis. His CEA was markedly elevated at 1652. He was seen by Dr. Deleon and had a colonoscopy performed in 10/10/2018. He was found to have a mass at 20 cm, unable to transit. Biopsy showed serrated adenoma but no evidence of malignancy. Patient underwent repeat colonoscopy with sedation on 10/24/2018. At this time, the scope was able to transit through a circumferential malignant mass at around 20-25 cm. The surgical pathology showed invasive well differentiated colon adenocarcinoma, MSI by IHC showed normal expression of all tested mismatch repair proteins. Molecular tests showed the cance cells were negative for major KRAS mutations by PCR, and negative for major NRAS mutations by PCR. He then received FOLFIRI and Erbitux for 8 cycles with a dose reduction in irinotecan starting in October 2018, followed by maintenance therapy with 5 FU leucovorin and Erbitux beginning in March 2019 until late 2018. Starting from 07/09/2019, he was started on single agent maintenance with Erbitux. In 09/2019, he developed intractable nausea vomiting abdominal cramping pain. He was evaluated at the emergency room of [facility] CT of the abdomen pelvis on 09/08/2019 showed distal sigmoid colonic mass has decreased in size from the index examination of 09/30/2018. However it resulted in luminal narrowing and upstream colonic dilation, suggestive of at least partial colonic obstruction. Multiple hepatic metastasis have significantly improved from the prior examination. Small left adrenal nodule appeared slightly decreased in size. Indeterminate lingular nodule was noted. Fusiform aneurysms of the abdominal aorta (3.3 cm), bilateral common iliac arteries (right 2.6 cm, left 2.4 cm), bilateral inter low iliac arteries (right 2.7 cm, left 3.2 cm), and proximal left external iliac artery (2.0 cm). Dr. Durham took the patient to the operating room and performed an exploratory laparotomy with left lower quadrant loop diverting colostomy on 09/09/2019. Interval history: Today, patient presents for scheduled follow-up accompanied by his . Patient is complaining right upper quadrant abdominal pain which is mild. However when he takes a deep breath, it feels like shooting pain. He denies any diarrhea or constipation. No blood in the stool and no blood in the urine. He denies any chest pain or shortness of breath. Otherwise patient said that he has been doing well. Summary of Therapies: 1. FOLFIRI and Erbitux for 8 cycles with a dose reduction in irinotecan starting in October 2018 2. Maintenance therapy with 5 FU leucovorin and Erbitux beginning in March 2019 3. Single agent maintenance with Erbitux started 07/09/2019 4. LLQ loop diverting colostomy on 09/09/2019 for bowel obstruction. - Patient Self-Reported Symptoms SR Constitution: Fatigue/Malaise SR Gastrointestinal issues: Abdominal pain SR Musculoskeletal issues: Muscle pain or cramps - Additional ROS All systems PM: reviewed and no additional remarkable complaints except as stated (those mentioned in HPI, Interval History and SR above.) Home Medications and Allergies Home Medications Medication Instructions Recorded Confirmed Type docusate calcium [Stool Softener] 240 mg DAILY 10/17/18 09/19/19 History ergocalciferol (vitamin D2) 50,000 unit PO QWEEK 10/17/18 09/19/19 History [Vitamin D2] oxycodone 10 mg PO Q4-6H PRN 10/17/18 09/19/19 History lorazepam [Ativan] 0.5 mg PO BID-TID PRN #30 tab 11/15/18 09/19/19 Rx hyoscyamine sulfate 0.25 mg PO QID PRN #100 tab 12/05/18 09/19/19 Rx apixaban [Eliquis] See Rx Instructions .ROUTE 01/04/19 09/19/19 Rx .COMPLEX #74 each dexamethasone 1 mg PO DAILY 30 Days #30 tab 04/30/19 09/19/19 Rx oxycodone 5 mg PO Q4H PRN #180 tab 07/09/19 09/19/19 Rx apixaban [Eliquis] 5 mg PO BID #60 tab 07/18/19 09/19/19 Rx fluorouracil See Rx Instructions .ROUTE 10/14/19 Rx .COMPLEX #1 device Allergies Allergy/AdvReac Type Severity Reaction Status Date / Time No Known Drug Allergies Allergy Verified 11/15/18 15:27 Exam Vital signs: Last Vital Signs Temp 98.3 F 10/14/19 15:21 Pulse 95 H 10/14/19 15:21 Resp 18 10/14/19 15:21 BP 111/75 10/14/19 15:21 Pulse Ox 95 10/14/19 15:21 Narrative: ECOG 1 Gen: WDWN, overweight, NAD, pleasant and cooperative. HEENT: NCAT, EOMI, PERRLA, anicteric sclera. Extremities: No LE pitting edema. Neurological: AOx3, CN II-XII grossly intact. No focal motor or sensory deficit. Psychiatric: Normal affect, no depression, slightly anxious. Results - Labs Laboratory Last Values WBC 10.5 X10^3/uL (4.5-11.0) 10/14/19 14:15 RBC 4.46 X10^6/uL (4.5-5.9) L 10/14/19 14:15 Hgb 12.7 g/dL (13.5-17.5) L 10/14/19 14:15 Hct 38.8 % (41-53) L 10/14/19 14:15 MCV 87.1 fL (80-100) 10/14/19 14:15 MCH 28.5 PG (26-34) 10/14/19 14:15 MCHC 32.8 % (30-36) 10/14/19 14:15 RDW 14.9 % (11.6-14.8) H 10/14/19 14:15 Plt Count 243 X10^3/uL (150-400) 10/14/19 14:15 Neut % (Auto) 86.3 % (50-75) H 10/14/19 14:15 Lymph % (Auto) 6.0 % (25-40) L 10/14/19 14:15 Dare % (Auto) 6.9 % (3-14) 10/14/19 14:15 Eos % (Auto) 0.4 % (2-4) L 10/14/19 14:15 Baso % (Auto) 0.4 % (0-2) 10/14/19 14:15 Neut # (Auto) 9000 /uL (4991-2839) H 10/14/19 14:15 Lymph # (Auto) 600 /uL (9046-5564) L 10/14/19 14:15 Dare # (Auto) 700 /uL (0-900) 10/14/19 14:15 Eos # (Auto) 0 /uL (0-450) 10/14/19 14:15 Baso # (Auto) 0 /uL (0-100) 10/14/19 14:15 RBC Morphology See below 02/19/19 09:15 Hypochromasia 1+ H 02/05/19 08:59 Poikilocytosis 2+ H 02/05/19 08:59 Anisocytosis 1+ H 02/19/19 09:15 Macrocytosis 1+ H 02/05/19 08:59 Rouleaux 1+ H 02/19/19 09:15 Sodium 136 mmol/L (137-145) L 10/14/19 14:15 Potassium 4.2 mmol/L (3.4-5.1) 10/14/19 14:15 Chloride 104 mmol/L (98-107) 10/14/19 14:15 Carbon Dioxide 23 mmol/L (22-32) 10/14/19 14:15 BUN 9 mg/dL (9-20) 10/14/19 14:15 Creatinine 0.63 mg/dL (0.66-1.25) L 10/14/19 14:15 Estimated GFR > 60.0 mL/min (>60) 10/14/19 14:15 BUN/Creatinine Ratio 14.3 (6-22) 10/14/19 14:15 Glucose 108 mg/dL (70-100) H 10/14/19 14:15 Calcium 9.0 mg/dL (8.4-10.2) 10/14/19 14:15 Magnesium 1.9 mg/dL (1.6-2.3) 09/03/19 09:30 Total Bilirubin 0.7 mg/dL (0.2-1.3) 10/14/19 14:15 AST 19 IU/L (17-59) 10/14/19 14:15 ALT 16 IU/L (<50) 10/14/19 14:15 Alkaline Phosphatase 113 U/L (38-126) 10/14/19 14:15 Total Protein 7.2 g/dL (6.3-8.2) 10/14/19 14:15 Albumin 3.8 g/dL (3.5-5.0) 10/14/19 14:15 Globulin 3.4 g/dL (1.7-4.1) 10/14/19 14:15 Albumin/Globulin Ratio 1.1 (1.0-2.8) 10/14/19 14:15 Carcinoembryonic Ag 149.0 ng/mL (0.1-3.0) H 10/14/19 14:15 Assessment and Plan (1) Colon cancer Overview: 58-year-old man with a rectosigmoid mass and liver metastasis. Biopsy showed invasive well-differentiated adenocarcinoma. Mismatch repair proteins were normal. MARION and BRAF mutations are normal. He has completed 8 cycles of FOLFIRI with Erbitux with a decrease in the irinotecan dose. He is now on maintenance therapy with Erbitux. In 09/2019, he underwent urgent diverting colostomy for bowel obstruction. Assessment: Today I reviewed the lab tests with the patient. Patient has a significantly elevated CEA level which is almost 6-7 times higher than previous, from 25.4- 149. Clinically patient is complaining worsening right upper quadrant abdominal pain. I talked with the patient that it is concerning for progression/metastasis. I will obtain a CT of the chest abdomen and pelvis to further delineate. In addition I talked with the patient that I would recommend that we resume the chemotherapy with FOLFIRI and Avastin. Patient voiced understanding. I did discuss with the patient about the potential side effects of the chemotherapy. Patient has been exposed to FOLFIRI before. He and his were fully aware of the potential side effects. I talked with them about the Avastin. I explained to them that Avastin has been associated with but not limited to complications of hypertension, proteinuria, bleeding, venous throm boembolism, and bowel perforation. Patient voiced understanding. Plan: FOLFIRI and Avastin to be started on 10/22/2019, labs per protocol. (2) Pulmonary embolism He did have incidental bilateral pulmonary emboli discovered in December 2018 and he remains on anticoagulation Eliquis 5 mg bid. No bleeding events. Will continue
[2019-10-22 08:41] LABS: Add Manual Diff / Slide Review NO; Basophils Absolute Auto 100 /uL (0-100); Basophils Percent Auto 0.8 % (0-2); Eosinophils Absolute Auto 600 /uL (0-450); Eosinophils Percent Auto 8.4 % (2-4); Hematocrit 36.8 % (41-53); Hemoglobin 12.5 g/dL (13.5-17.5); Lymphocytes Absolute Auto 1200 /uL (1100-4500); Lymphocytes Percent Auto 15.4 % (25-40); Mean Corpuscular Hemoglobin 29.4 PG (26-34); Mean Corpuscular Volume 86.7 fL (80-100); Monocytes Absolute Auto 1000 /uL (0-900); Monocytes Percent Auto 12.8 % (3-14); Neutrophils Absolute Auto 4700 /uL (1500-7000); Neutrophils Percent Auto 62.6 % (50-75); Platelet Count 447 X10^3/uL (150-400); Red Blood Cell Count 4.24 X10^6/uL (4.5-5.9); Red Cell Distribution Width 14.8 % (11.6-14.8); White Blood Cell Count 7.6 X10^3/uL (4.5-11.0)
--- NOTE | 2019-10-22 08:48 | P.PNONC_ITS ---
PN -Subjective Interval history: ID/CC: 58 year old male with metastatic colon cancer with liver metastasis, normal mismatch repair, wild type MARION and BRAF Oncology History: 58-year-old man who presented initially with blood in the stool, abdominal pain and weight loss. He had a CT scan that showed some thickening of the colon at the rectosigmoid junction. There was also evidence of multiple liver metastasis. His CEA was markedly elevated at 1652. He was seen by Dr. Deleon and had a colonoscopy performed in 10/10/2018. He was found to have a mass at 20 cm, unable to transit. Biopsy showed serrated adenoma but no evidence of malignancy. Patient underwent repeat colonoscopy with sedation on 10/24/2018. At this time, the scope was able to transit through a circumferential malignant mass at around 20-25 cm. The surgical pathology showed invasive well differentiated colon adenocarcinoma, MSI by IHC showed normal expression of all tested mismatch repair proteins. Molecular tests showed the cance cells were negative for major KRAS mutations by PCR, and negative for major NRAS mutations by PCR. He then received FOLFIRI and Erbitux for 8 cycles with a dose reduction in irinotecan starting in October 2018, followed by maintenance therapy with 5 FU leucovorin and Erbitux beginning in March 2019 until late 2018. Starting from 07/09/2019, he was started on single agent maintenance with Erbitux. In 09/2019, he developed intractable nausea vomiting abdominal cramping pain. He was evaluated at the emergency room of [facility] CT of the abdomen pelvis on 09/08/2019 showed distal sigmoid colonic mass has decreased in size from the index examination of 09/30/2018. However it resulted in luminal narrowing and upstream colonic dilation, suggestive of at least partial colonic obstruction. Multiple hepatic metastasis have significantly improved from the prior examination. Small left adrenal nodule appeared slightly decreased in size. Indeterminate lingular nodule was noted. Fusiform aneurysms of the abdominal aorta (3.3 cm), bilateral common iliac arteries (right 2.6 cm, left 2.4 cm), bilateral inter low iliac arteries (right 2.7 cm, left 3.2 cm), and proximal left external iliac artery (2.0 cm). Dr. Durham took the patient to the operating room and performed an exploratory laparotomy with left lower quadrant loop diverting colostomy on 09/09/2019. Interval history: Patient presents here today for initiation of palliative chemotherapy with FOLFIRI/Avastin. Patient overall has been doing well since his previous visit good this morning especially he said was quite good for him. He denies any fever or chills. No nausea no vomiting. He does have abdominal pain especially the right upper quadrant. Patient has a diverting colostomy present on the left lower abdomen wall. No other new events. Since his previous visit, patient underwent CT scan of the chest abdomen pelvis. Showed progression of the liver metastasis. In addition it showed presence of thickening of the sigmoid rectal junction. Summary of Therapies: 1. FOLFIRI and Erbitux for 8 cycles with a dose reduction in irinotecan starting in October 2018 2. Maintenance therapy with 5 FU leucovorin and Erbitux beginning in March 2019 3. Single agent maintenance with Erbitux started 07/09/2019 4. LLQ loop diverting colostomy on 09/09/2019 for bowel obstruction. - Patient Self-Reported Symptoms SR Constitution: Fatigue/Malaise SR Gastrointestinal issues: Abdominal pain SR Musculoskeletal issues: Muscle pain or cramps - Additional ROS All systems PM: reviewed and no additional remarkable complaints except as stated (those mentioned in HPI, Interval History and SR above.) Home Medications and Allergies Home Medications Medication Instructions Recorded Confirmed Type docusate calcium [Stool Softener] 240 mg DAILY 10/17/18 09/19/19 History ergocalciferol (vitamin D2) 50,000 unit PO QWEEK 10/17/18 09/19/19 History [Vitamin D2] oxycodone 10 mg PO Q4-6H PRN 10/17/18 09/19/19 History lorazepam [Ativan] 0.5 mg PO BID-TID PRN #30 tab 11/15/18 09/19/19 Rx hyoscyamine sulfate 0.25 mg PO QID PRN #100 tab 12/05/18 09/19/19 Rx apixaban [Eliquis] See Rx Instructions .ROUTE 01/04/19 09/19/19 Rx .COMPLEX #74 each dexamethasone 1 mg PO DAILY 30 Days #30 tab 04/30/19 09/19/19 Rx oxycodone 5 mg PO Q4H PRN #180 tab 07/09/19 09/19/19 Rx apixaban [Eliquis] 5 mg PO BID #60 tab 01/16/20 03/19/20 Rx fluorouracil See Rx Instructions .ROUTE 10/14/19 Rx .COMPLEX #1 device fluorouracil See Rx Instructions .ROUTE 10/22/19 Rx .COMPLEX #1 device Allergies Allergy/AdvReac Type Severity Reaction Status Date / Time No Known Drug Allergies Allergy Verified 11/15/18 15:27 Exam Narrative: ECOG 1 Gen: WDWN, overweight, NAD, pleasant and cooperative. HEENT: NCAT, EOMI, PERRLA, anicteric sclera. Extremities: No LE pitting edema. Neurological: AOx3, CN II-XII grossly intact. No focal motor or sensory deficit. Psychiatric: Normal affect, no depression, slightly anxious. Results - Labs Laboratory Last Values WBC 7.6 X10^3/uL (4.5-11.0) 10/22/19 08:30 RBC 4.24 X10^6/uL (4.5-5.9) L 10/22/19 08:30 Hgb 12.5 g/dL (13.5-17.5) L 10/22/19 08:30 Hct 36.8 % (41-53) L 10/22/19 08:30 MCV 86.7 fL (80-100) 10/22/19 08:30 MCH 29.4 PG (26-34) 10/22/19 08:30 MCHC 34.0 % (30-36) 10/22/19 08:30 RDW 14.8 % (11.6-14.8) 10/22/19 08:30 Plt Count 447 X10^3/uL (150-400) H 10/22/19 08:30 Neut % (Auto) 62.6 % (50-75) 10/22/19 08:30 Lymph % (Auto) 15.4 % (25-40) L 10/22/19 08:30 Beckham % (Auto) 12.8 % (3-14) 10/22/19 08:30 Eos % (Auto) 8.4 % (2-4) H 10/22/19 08:30 Baso % (Auto) 0.8 % (0-2) 10/22/19 08:30 Neut # (Auto) 4700 /uL (9564-9646) 10/22/19 08:30 Lymph # (Auto) 1200 /uL (4294-8090) 10/22/19 08:30 Beckham # (Auto) 1000 /uL (0-900) H 10/22/19 08:30 Eos # (Auto) 600 /uL (0-450) H 10/22/19 08:30 Baso # (Auto) 100 /uL (0-100) 10/22/19 08:30 RBC Morphology See below 02/19/19 09:15 Hypochromasia 1+ H 02/05/19 08:59 Poikilocytosis 2+ H 02/05/19 08:59 Anisocytosis 1+ H 02/19/19 09:15 Macrocytosis 1+ H 02/05/19 08:59 Rouleaux 1+ H 02/19/19 09:15 Sodium 136 mmol/L (137-145) L 10/14/19 14:15 Potassium 4.2 mmol/L (3.4-5.1) 10/14/19 14:15 Chloride 104 mmol/L (98-107) 10/14/19 14:15 Carbon Dioxide 23 mmol/L (22-32) 10/14/19 14:15 BUN 9 mg/dL (9-20) 10/14/19 14:15 Creatinine 0.63 mg/dL (0.66-1.25) L 10/14/19 14:15 Estimated GFR > 60.0 mL/min (>60) 10/14/19 14:15 BUN/Creatinine Ratio 14.3 (6-22) 10/14/19 14:15 Glucose 108 mg/dL (70-100) H 10/14/19 14:15 Calcium 9.0 mg/dL (8.4-10.2) 10/14/19 14:15 Magnesium 1.9 mg/dL (1.6-2.3) 09/03/19 09:30 Total Bilirubin 0.7 mg/dL (0.2-1.3) 10/14/19 14:15 AST 19 IU/L (17-59) 10/14/19 14:15 ALT 16 IU/L (<50) 10/14/19 14:15 Alkaline Phosphatase 113 U/L (38-126) 10/14/19 14:15 Total Protein 7.2 g/dL (6.3-8.2) 10/14/19 14:15 Albumin 3.8 g/dL (3.5-5.0) 10/14/19 14:15 Globulin 3.4 g/dL (1.7-4.1) 10/14/19 14:15 Albumin/Globulin Ratio 1.1 (1.0-2.8) 10/14/19 14:15 Carcinoembryonic Ag 149.0 ng/mL (0.1-3.0) H 10/14/19 14:15 Assessment and Plan (1) Colon cancer Overview: 58-year-old man with a rectosigmoid mass and liver metastasis. Biopsy showed invasive well-differentiated adenocarcinoma. Mismatch repair proteins were normal. MARION and BRAF mutations are normal. He has completed 8 cycles of FOLFIRI with Erbitux with a decrease in the irinotecan dose. He is now on maintenance therapy with Erbitux. In 09/2019, he underwent urgent diverting colostomy for bowel obstruction. Assessment: Today I reviewed the CT scan of the chest abdomen pelvis with the patient. I showed the patient the images on the computer screen. I pointed out to the patient that there is evidence of progression of the hepatic metastasis. We also compared the images to the very first initial CT scans which actually is seems to have worse liver metastasis. I reviewed the lab results with the patient. CBC and CMP are appropriate. I also touched base with him again about the potential side effects of 5 FU, irinotecan and Avastin. Patient fully understood and is willing to proceed. Today patient was asking if it is possible for him to see Dr. Anthony Deleon at [facility] to discuss about the possibility of takedown surgery to remove the diverting colostomy for quality of life purpose. I talked with him that I will have him see Dr. Anthony Deleon for detailed discussion. Patient voiced understanding. Plan: Ok to proceed to FOLFIRI and Avastin Referral to Lynne Martínez for discussion of take-down surgery RTC in 2 weeks for next cycle of chemotherapy, labs per protocol (2) Pulmonary embolism He did have incidental bilateral pulmonary emboli discovered in December 2018 and he remains on anticoagulation Eliquis 5 mg bid. No bleeding events. Will continue (3) Colostomy in place Standard colostomy care. (4) Port-A-Cath in place Flush every 4-6 weeks
[2019-10-22 09:00] LABS: Alanine Aminotransferase 18 IU/L (<50); Albumin 3.7 g/dL (3.5-5.0); Alkaline Phosphatase 110 U/L (38-126); Aspartate Aminotransferase 24 IU/L (17-59); BUN Creatinine Ratio 12.1 (6-22); Bilirubin Total 0.3 mg/dL (0.2-1.3); Blood Urea Nitrogen 8 mg/dL (9-20); Carbon Dioxide 27 mmol/L (22-32); Chloride 105 mmol/L (98-107); Estimated Glomerular Filt Rate > 60.0 mL/min (>60); Globulin 3.6 g/dL (1.7-4.1); Glucose 110 mg/dL (70-100); HEMOLYSIS < 15 (0-50); Potassium 3.9 mmol/L (3.4-5.1); Sodium 139 mmol/L (137-145); Total Protein 7.3 g/dL (6.3-8.2)
[2019-10-22] MEDS: SODIUM CHLORIDE 0.9% 100 ML 21 ML IV (09:58)
[2019-10-22] MEDS: diphenhydrAMINE 25 MG TABLET PO (10:09)
[2019-10-22 10:10] VITALS: BP 128/81; PULSE 84; RESP 16; TEMP 36.8; O2SAT 95
[2019-10-22] MEDS: ONDANSETRON 16 MG in SODIUM CHLORIDE 0.9% 50 ML 232 ML IV (10:26)
[2019-10-22] MEDS: BEVACIZUMAB IV (10:58)
[2019-10-22] MEDS: SODIUM CHLORIDE 0.9% IV (10:58)
[2019-10-22] MEDS: DEXTROSE 5% IV ×2 (13:05→13:18)
[2019-10-22] MEDS: IRINOTECAN IV (13:05)
[2019-10-22] MEDS: LEUCOVORIN IV (13:18)
[2019-10-22 15:49] VITALS: BP 131/87; PULSE 82; RESP 16; TEMP 36.7; O2SAT 93
[2019-10-22] MEDS: ATROPINE 0.4 MG/ML VIAL 0.25 MG SUBCUT (15:57)
--- NOTE | 2019-10-22 16:29 | PC.NURSE ---
PUMP CONNECT Verified dosage and rate with RAY Oh. Positive blood return, connections secured with tape. Confirmed pump was running and all clamps open. Patient instructed to return to the clinic on at 1430 for disconnect.
[2019-10-24 15:33] VITALS: BP 133/91; PULSE 81; RESP 16; TEMP 36.6; O2SAT 94
--- NOTE | 2019-10-24 15:34 | PC.NURSE ---
pump disconnect. pt reports nausea in past 2 days. using zofran q8hr. states is drinking 2 liters daily.
--- NOTE | 2019-10-24 15:40 | PC.NURSE ---
Pt seen in clinic today for pump d/c. Pt c/o of nausea and just not feeling well. Reports eating and drinking w/o difficulty. Pt declined IV fluids and Zofran. Pt reports taking PO zofran that works pretty well. Pt requesting that Dex 1mg PO QD be increased to 2mg, pt reports it really making a difference during previous treatments. Per Dr. Trinidad, okay to increase dex PO to 2mg QD, pt aware states okay, I'll start that tomorrow.
--- NOTE | 2019-10-24 16:22 | PC.NURSE ---
CHEMO TEACHING: Chemotherapy Education: Pt provided written information on all topics discussed. Written materials printed from [email or web address] Pt was given an overview of cancer and mechanism of action of cancer cells, that cancer is caused by cells that are dividing rapidly, and out of control. Traditional chemotherapy works by targeting the fast dividing cells and killing them. Chemotherapy affecting healthy cells dividing quickly causes many of the side effects (hair follicles, bone marrow, mucus membranes). Overview of blood cell functions of white cells to fight infection, red cells to carry oxygen, and platelets to stop bleeding was discussed, and that when bone marrow is affected by chemo, there is a decrease in production of these cells. Home care of the patient following chemotherapy was discussed. Body fluids will be contaminated for 48 hours following treatment, and any body fluids handled by caregivers should be handled wearing gloves, surfaces need to be cleaned with soap and water, any soiled linens or clothing need to be washed separately in hot water, toilet lid should be closed when flushing, person cleaning the toilet should wear gloves. How chemotherapy is administered by the RN?s in the clinic, that orders are double checked by pharmacy and checked again by two RN?s prior to administration. Nurses wear protective gear to prevent exposure to them of the chemotherapy agents which can also cause cancer. Cancer center information discussed and written hand out provided listing on-call oncologist available weekends and after hours triage R.N. hours and infusion room guide. New patient folder given to pt, which includes clinic names, phone numbers, clinic information, calendar, cancer glossary, and list of resources. Handout on advanced directives Common side effects of chemotherapy were discussed with self care tips for prevention of complications. Information also provided in writing. These included: Low blood counts (anemia, thrombocytopenia, neutropenia) Hair loss (alopecia) Nausea and vomiting Decreased appetite Loss of fertility Diarrhea Mouth sores Constipation Peripheral neuropathy Chemo brain/cognitive changes Fatigue Instructions on when to call your healthcare team or on-call physician immediately: Fever of 100.4 or higher, chills, any signs of infection Shortness of breath, wheezing, difficulty breathing, closing of throat, swelling of face, hives (signs of possible allergic reaction) Chest pain, fast heart beat or feelings of a different heart rhythm Swelling of an extremity with or without pain signs of stroke Instructions on when to call your healthcare team within the next 24 hours Nausea that interferes with ability to eat and unrelieved with prescribed medication Diarrhea (4-6 episodes in 24 hour period). Unusual bleeding or bruising Black or tarry stools, or blood in your stools Blood in the urine pain or burning with urination Extreme fatigue (unable to perform self-care activities) Mouth sores or sore areas in your mouth Bad headache Dizziness or lightheadedness Large weight gain over a short period of time General self-care tips while undergoing treatment discussed were as follows. Written materials were provided covering in detail and additional self care tips. Drink at least 2-3 quarts (8-10 glasses) of no-caffeinated beverages daily unless you are instructed otherwise and empty your bladder frequently Report any concerning symptoms to your healthcare team Avoid crowds and sick people, wash your hands frequently Use a soft bristled toothbrush, rinse three times a day with 1 tsp baking soda or 1 tsp salt mixed with warm water Avoid any mouthwashes or oral and skin products containing alcohol or fragrances Use electric razors to avoid cutting yourself Avoid contact sports or activities that could cause head injury or bleeding Avoid sun exposure, wear SPF 15 or higher, wear protective clothing Get plenty of rest, meter your activities Maintain good nutrition Avoid alcoholic beverages Attend your scheduled appointments and lab draws Treatment regimen reviewed and medications were discussed with attention to specific side effects and self care for the pt?s treatment regimen. Pt encouraged to keep a list of questions that may arise after this teaching session and bring back to next clinic visit to address. All pt's questions answered at this time. Pt verbalizes understanding of treatment plan.
[2019-10-29 13:40] LABS: Add Manual Diff / Slide Review NO; Basophils Absolute Auto 100 /uL (0-100); Basophils Percent Auto 0.6 % (0-2); Eosinophils Absolute Auto 100 /uL (0-450); Eosinophils Percent Auto 1.2 % (2-4); Hematocrit 40.4 % (41-53); Hemoglobin 13.5 g/dL (13.5-17.5); Lymphocytes Absolute Auto 600 /uL (1100-4500); Mean Corpuscular HGB Conc 33.5 % (30-36); Mean Corpuscular Hemoglobin 28.9 PG (26-34); Mean Corpuscular Volume 86.4 fL (80-100); Monocytes Absolute Auto 500 /uL (0-900); Neutrophils Absolute Auto 6700 /uL (1500-7000); Neutrophils Percent Auto 84.2 % (50-75); Platelet Count 469 X10^3/uL (150-400); Red Blood Cell Count 4.67 X10^6/uL (4.5-5.9); Red Cell Distribution Width 15.2 % (11.6-14.8); White Blood Cell Count 7.9 X10^3/uL (4.5-11.0)
[2019-10-29 13:48] LABS: Alanine Aminotransferase 25 IU/L (<50); Albumin 4.1 g/dL (3.5-5.0); Albumin Globulin Ratio 1.1 (1.0-2.8); Alkaline Phosphatase 92 U/L (38-126); Aspartate Aminotransferase 24 IU/L (17-59); BUN Creatinine Ratio 19.1 (6-22); Bilirubin Total 0.3 mg/dL (0.2-1.3); Blood Urea Nitrogen 13 mg/dL (9-20); Calcium 9.1 mg/dL (8.4-10.2); Carbon Dioxide 25 mmol/L (22-32); Chloride 105 mmol/L (98-107); Estimated Glomerular Filt Rate > 60.0 mL/min (>60); Globulin 3.6 g/dL (1.7-4.1); Glucose 114 mg/dL (70-100); HEMOLYSIS 20 (0-50); Potassium 4.2 mmol/L (3.4-5.1); Sodium 139 mmol/L (137-145); Total Protein 7.7 g/dL (6.3-8.2)
--- NOTE | 2019-10-29 13:58 | PC.NURSE ---
Pt reported to this nurse that he just wanted to last week when he was feeling unwell from chemo treatment. He voiced concern that he felt this way and that he and his were able to have a discussion about his treatment and remainder of his life. 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 This nurse listened to his concerns and gave comfort by confirming that he was supported by staff here at the clinic is all aspect of his care including emotional support.
[2019-11-05 08:48] VITALS: BP 117/90; PULSE 74; RESP 16; TEMP 36.4; O2SAT 93
--- NOTE | 2019-11-05 08:51 | ONC.PN ---
PN -Subjective Interval history: ID/CC: 58 year old male with metastatic colon cancer with liver metastasis, normal mismatch repair, wild type MARION and BRAF Oncology History: 58-year-old man who presented initially with blood in the stool, abdominal pain and weight loss. He had a CT scan that showed some thickening of the colon at the rectosigmoid junction. There was also evidence of multiple liver metastasis. His CEA was markedly elevated at 1652. He was seen by Dr. Deleon and had a colonoscopy performed in 10/10/2018. He was found to have a mass at 20 cm, unable to transit. Biopsy showed serrated adenoma but no evidence of malignancy. Patient underwent repeat colonoscopy with sedation on 10/24/2018. At this time, the scope was able to transit through a circumferential malignant mass at around 20-25 cm. The surgical pathology showed invasive well differentiated colon adenocarcinoma, MSI by IHC showed normal expression of all tested mismatch repair proteins. Molecular tests showed the cance cells were negative for major KRAS mutations by PCR, and negative for major NRAS mutations by PCR. He then received FOLFIRI and Erbitux for 8 cycles with a dose reduction in irinotecan starting in October 2018, followed by maintenance therapy with 5 FU leucovorin and Erbitux beginning in March 2019 until late 2018. Starting from 07/09/2019, he was started on single agent maintenance with Erbitux. In 09/2019, he developed intractable nausea vomiting abdominal cramping pain. He was evaluated at the emergency room of [facility] CT of the abdomen pelvis on 09/08/2019 showed distal sigmoid colonic mass has decreased in size from the index examination of 09/30/2018. However it resulted in luminal narrowing and upstream colonic dilation, suggestive of at least partial colonic obstruction. Multiple hepatic metastasis have significantly improved from the prior examination. Small left adrenal nodule appeared slightly decreased in size. Indeterminate lingular nodule was noted. Fusiform aneurysms of the abdominal aorta (3.3 cm), bilateral common iliac arteries (right 2.6 cm, left 2.4 cm), bilateral inter low iliac arteries (right 2.7 cm, left 3.2 cm), and proximal left external iliac artery (2.0 cm). Dr. Durham took the patient to the operating room and performed an exploratory laparotomy with left lower quadrant loop diverting colostomy on 09/09/2019. CT scan of the chest abdomen pelvis. Showed progression of the liver metastasis. In addition it showed presence of thickening of the sigmoid rectal junction. Interval history: On 10/22/2019, patient resumed chemotherapy with FOLFIRI/Avastin. Patient said that the major thing that has happened is the nausea. It showed in the afternoon on the day of the chemotherapy with associated stomach cramps. Patient was given 1 injection of after being which he said helped quite a bit. Two days later, when the continues infusion was disconnected, patient also developed lots of nausea. Patient took dexamethasone 2 mg which helped quite a bit. In addition patient also took Ativan before going to bed which he said is also quite helpful. Other than the nausea patient said that he has felt quite good. He said he has basically normal energy level. Patient has very mild diarrhea only 1 episode. Patient denies any fever or chills. He denies any chest pain or shortness of breath. Patient continues to have mild upper quadrant abdominal pain, but he said it is not as bad or drastic as just 3 weeks ago. Patient said that the left port probably got bruised and with some sores. But no erythema or swelling. Summary of Therapies: 1. FOLFIRI and Erbitux for 8 cycles with a dose reduction in irinotecan starting in October 2018 2. Maintenance therapy with 5 FU leucovorin and Erbitux beginning in March 2019 3. Single agent maintenance with Erbitux started 07/09/2019 4. LLQ loop diverting colostomy on 09/09/2019 for bowel obstruction. 5. FOLFIRI and Avastin 10/22/2019 - - Patient Self-Reported Symptoms SR Constitution: Fatigue/Malaise SR Cardiovascular issues: Shortness of breath with activity or lying flat SR Gastrointestinal issues: Abdominal pain SR Musculoskeletal issues: Muscle pain or cramps - Additional ROS All systems PM: reviewed and no additional remarkable complaints except as stated (Those mentioned in HIstory of Present Illness, Interval History and Patient Self-Reported Symptoms.) Home Medications and Allergies Home Medications Medication Instructions Recorded Confirmed Type docusate calcium [Stool Softener] 240 mg DAILY 10/17/18 11/05/19 History ergocalciferol (vitamin D2) 50,000 unit PO QWEEK 10/17/18 11/05/19 History [Vitamin D2] oxycodone 10 mg PO Q4-6H PRN 10/17/18 11/05/19 History lorazepam [Ativan] 0.5 mg PO BID-TID PRN #30 tab 11/15/18 11/05/19 Rx hyoscyamine sulfate 0.25 mg PO QID PRN #100 tab 12/05/18 11/05/19 Rx apixaban [Eliquis] See Rx Instructions .ROUTE 01/04/19 11/05/19 Rx .COMPLEX #74 each dexamethasone 1 mg PO DAILY 30 Days #30 tab 04/30/19 11/05/19 Rx oxycodone 5 mg PO Q4H PRN #180 tab 07/09/19 11/05/19 Rx apixaban [Eliquis] 5 mg PO BID #60 tab 07/18/19 11/05/19 Rx fluorouracil See Rx Instructions .ROUTE 10/14/19 11/05/19 Rx .COMPLEX #1 device fluorouracil See Rx Instructions .ROUTE 10/22/19 11/05/19 Rx .COMPLEX #1 device fluorouracil See Rx Instructions .ROUTE 11/05/19 Rx .COMPLEX #1 device Allergies Allergy/AdvReac Type Severity Reaction Status Date / Time No Known Drug Allergies Allergy Verified 11/15/18 15:27 Exam Vital signs: Vital Signs Temp Pulse Resp BP Pulse Ox 11/05/19 08:48 97.6 F 74 16 117/90 93 Intake and Output 11/04/19 11/05/19 11/05/19 23:59 07:59 15:59 Other: Weight 79.4 kg Patient Weight 11/05/19 23:59 Weight 79.4 kg Narrative: ECOG 1 Vitals above reviewed Constitutional: WDWN, well nourished, and well groomed. NAD. Pleasant and cooperative. HEENT: NCAT, EOMI, PERRLA. Anicteric sclera. Neck: Supple and symmetrical, no palpable masses. No palpable thyromegaly. Respiratory: No use of accessory muscles. CTAB, no wheezes. Cardiovascular: RRR, S1 and S2 normal, no M/G/R. No edema of lower extremities. Abdomen: Soft, liver is palpable about 2-3 cm below the right costal margin with mild tenderness. Left colostomy noted. Lymphatic: no palpable palpable lymph nodes in the neck, axillae Musculoskeletal: normal gait and station Skin: No rashes, lesions, or ulcers. No induration, or subcutaneous nodules. Neurological: CN II-XII grossly intact. No focal motor or sensory deficit. Psychiatric: Normal judgment and insight. AOx3. Normal memory (recent and remote). Normal mood and affect. Results - Labs Laboratory Last Values WBC 7.9 X10^3/uL (4.5-11.0) 11/05/19 09:30 RBC 4.48 X10^6/uL (4.5-5.9) L 11/05/19 09:30 Hgb 12.9 g/dL (13.5-17.5) L 11/05/19 09:30 Hct 38.5 % (41-53) L 11/05/19 09:30 MCV 85.9 fL (80-100) 11/05/19 09:30 MCH 28.9 PG (26-34) 11/05/19 09:30 MCHC 33.6 % (30-36) 11/05/19 09:30 RDW 15.4 % (11.6-14.8) H 11/05/19 09:30 Plt Count 302 X10^3/uL (150-400) 11/05/19 09:30 Neut % (Auto) 62.1 % (50-75) 11/05/19 09:30 Lymph % (Auto) 20.3 % (25-40) L 11/05/19 09:30 Leake % (Auto) 13.7 % (3-14) 11/05/19 09:30 Eos % (Auto) 3.0 % (2-4) 11/05/19 09:30 Baso % (Auto) 0.9 % (0-2) 11/05/19 09:30 Neut # (Auto) 4900 /uL (3334-1313) 11/05/19 09:30 Lymph # (Auto) 1600 /uL (7856-2995) 11/05/19 09:30 Leake # (Auto) 1100 /uL (0-900) H 11/05/19 09:30 Eos # (Auto) 200 /uL (0-450) 11/05/19 09:30 Baso # (Auto) 100 /uL (0-100) 11/05/19 09:30 RBC Morphology See below 02/19/19 09:15 Hypochromasia 1+ H 02/05/19 08:59 Poikilocytosis 2+ H 02/05/19 08:59 Anisocytosis 1+ H 02/19/19 09:15 Macrocytosis 1+ H 02/05/19 08:59 Rouleaux 1+ H 02/19/19 09:15 Sodium 140 mmol/L (137-145) 11/05/19 09:30 Potassium 3.7 mmol/L (3.4-5.1) 11/05/19 09:30 Chloride 106 mmol/L (98-107) 11/05/19 09:30 Carbon Dioxide 29 mmol/L (22-32) 11/05/19 09:30 BUN 8 mg/dL (9-20) L 11/05/19 09:30 Creatinine 0.69 mg/dL (0.66-1.25) 11/05/19 09:30 Estimated GFR > 60.0 mL/min (>60) 11/05/19 09:30 BUN/Creatinine Ratio 11.6 (6-22) 11/05/19 09:30 Glucose 102 mg/dL (70-100) H 11/05/19 09:30 Calcium 9.1 mg/dL (8.4-10.2) 11/05/19 09:30 Magnesium 1.9 mg/dL (1.6-2.3) 09/03/19 09:30 Total Bilirubin 0.3 mg/dL (0.2-1.3) 11/05/19 09:30 AST 23 IU/L (17-59) 11/05/19 09:30 ALT 26 IU/L (<50) 11/05/19 09:30 Alkaline Phosphatase 91 U/L (38-126) 11/05/19 09:30 Total Protein 7.4 g/dL (6.3-8.2) 11/05/19 09:30 Albumin 4.0 g/dL (3.5-5.0) 11/05/19 09:30 Globulin 3.4 g/dL (1.7-4.1) 11/05/19 09:30 Albumin/Globulin Ratio 1.2 (1.0-2.8) 11/05/19 09:30 Carcinoembryonic Ag 286.0 ng/mL (0.1-3.0) H 11/05/19 09:28 Assessment and Plan (1) Colon cancer Overview: 58-year-old man with a rectosigmoid mass and liver metastasis. Biopsy showed invasive well-differentiated adenocarcinoma. Mismatch repair proteins were normal. MARION and BRAF mutations are normal. He has completed 8 cycles of FOLFIRI with Erbitux with a decrease in the irinotecan dose. He is now on maintenance therapy with Erbitux. In 09/2019, he underwent urgent diverting colostomy for bowel obstruction. Assessment: Patient was found to have significantly elevated CEA level 10/14/2019. Follow-up CT scan 10/16/2019 showed disease progression as evidenced by interval increase in the numerous hypodense hepatic metastasis and shoddy retrocrural and para-aortic lymph nodes and abnormal thickening of the rectosigmoid junction. After discussion with the patient, we decided to resume chemotherapy with FOLFIRI/Avastin. Patient received his first cycle on 10/22/2019. Patient tolerated the first round of the chemotherapy extremely well. Talked with the patient I will proceed with scheduled chemotherapy today. Plan: Ok to proceed to FOLFIRI and Avastin Pending visit with Lynne Matrínez for discussion of take-down surgery RTC in 2 weeks for next cycle of chemotherapy, labs per protocol (2) Pulmonary embolism He did have incidental bilateral pulmonary emboli discovered in December 2018 and he remains on anticoagulation Eliquis 5 mg bid. No bleeding events. Will continue (3) Colostomy in place Standard colostomy care. (4) Port-A-Cath in place Flush every 4-6 weeks
[2019-11-05 09:36] LABS: Add Manual Diff / Slide Review NO; Basophils Absolute Auto 100 /uL (0-100); Basophils Percent Auto 0.9 % (0-2); Eosinophils Absolute Auto 200 /uL (0-450); Hematocrit 38.5 % (41-53); Hemoglobin 12.9 g/dL (13.5-17.5); Lymphocytes Absolute Auto 1600 /uL (1100-4500); Lymphocytes Percent Auto 20.3 % (25-40); Mean Corpuscular HGB Conc 33.6 % (30-36); Mean Corpuscular Hemoglobin 28.9 PG (26-34); Mean Corpuscular Volume 85.9 fL (80-100); Monocytes Absolute Auto 1100 /uL (0-900); Monocytes Percent Auto 13.7 % (3-14); Neutrophils Absolute Auto 4900 /uL (1500-7000); Neutrophils Percent Auto 62.1 % (50-75); Platelet Count 302 X10^3/uL (150-400); Red Blood Cell Count 4.48 X10^6/uL (4.5-5.9); Red Cell Distribution Width 15.4 % (11.6-14.8); White Blood Cell Count 7.9 X10^3/uL (4.5-11.0)
[2019-11-05 09:56] LABS: Alanine Aminotransferase 26 IU/L (<50); Albumin Globulin Ratio 1.2 (1.0-2.8); Alkaline Phosphatase 91 U/L (38-126); Aspartate Aminotransferase 23 IU/L (17-59); BUN Creatinine Ratio 11.6 (6-22); Bilirubin Total 0.3 mg/dL (0.2-1.3); Blood Urea Nitrogen 8 mg/dL (9-20); Calcium 9.1 mg/dL (8.4-10.2); Carbon Dioxide 29 mmol/L (22-32); Chloride 106 mmol/L (98-107); Estimated Glomerular Filt Rate > 60.0 mL/min (>60); Globulin 3.4 g/dL (1.7-4.1); Glucose 102 mg/dL (70-100); HEMOLYSIS < 15 (0-50); Potassium 3.7 mmol/L (3.4-5.1); Sodium 140 mmol/L (137-145); Total Protein 7.4 g/dL (6.3-8.2)
[2019-11-05] MEDS: ACETAMINOPHEN 325 MG TABLET 650 MG PO (10:27)
[2019-11-05] MEDS: diphenhydrAMINE 25 MG TABLET PO (10:28)
[2019-11-05] MEDS: ONDANSETRON 16 MG in SODIUM CHLORIDE 0.9% 50 ML 232 ML IV (11:13)
[2019-11-05] MEDS: SODIUM CHLORIDE 0.9% IV (11:50)
[2019-11-05] MEDS: SODIUM CHLORIDE 0.9% 100 ML 21 ML IV (11:50)
[2019-11-05] MEDS: BEVACIZUMAB IV (11:50)
[2019-11-05] MEDS: LEUCOVORIN IV (13:19)
[2019-11-05] MEDS: IRINOTECAN IV (13:19)
[2019-11-05] MEDS: DEXTROSE 5% IV ×2 (13:19)
[2019-11-05] MEDS: ATROPINE 0.4 MG/ML VIAL 0.25 MG SUBCUT (15:54)
--- NOTE | 2019-11-05 17:10 | PC.NURSE ---
CADD PUMP CHECKED WITH SECOND NURSE, PUMP LINE ATTACHED TO PORT LINE USING EQUASHIELD ATTACHED TO LUERLOCK, CLAMPS OPEN, GOOD BLOOD RETURN, PUMP INDICATES THAT IT IS RUNNING, PATIENT HAS HIS [employer] TENDER FOR THE PUMP AND KNOWS TO RETURN AROUND 3PM ON MONDAY.
[2019-11-07 15:15] VITALS: BP 121/85; PULSE 90; RESP 18; TEMP 36.5; O2SAT 96
--- NOTE | 2019-11-07 15:29 | PC.NURSE ---
Pt has very sensitive/painful port site. Dried blood noted at site of insertion. Lightly wiping with gauze not tolerable to patient.
--- NOTE | 2019-11-07 15:32 | PC.NURSE ---
PUMP DISCONNECT Confirmed infusion was complete. VSS. Patient reported that he was feeling okay. Port site was very sensitive/painful when needle was deaccessed. Small amount of dried blood noted at site. Pt was not able to tolerate cleaning.
--- NOTE | 2019-11-12 11:23 | ONC.MSW ---
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 Consent for GREY placed in scanning folder. Pt will pick-up later today.
[2019-11-12 13:28] LABS: Add Manual Diff / Slide Review NO; Basophils Absolute Auto 100 /uL (0-100); Basophils Percent Auto 0.8 % (0-2); Eosinophils Absolute Auto 300 /uL (0-450); Hemoglobin 13.5 g/dL (13.5-17.5); Lymphocytes Absolute Auto 2000 /uL (1100-4500); Lymphocytes Percent Auto 28.9 % (25-40); Mean Corpuscular HGB Conc 32.9 % (30-36); Mean Corpuscular Hemoglobin 28.4 PG (26-34); Mean Corpuscular Volume 86.3 fL (80-100); Monocytes Absolute Auto 800 /uL (0-900); Monocytes Percent Auto 11.2 % (3-14); Neutrophils Absolute Auto 3800 /uL (1500-7000); Neutrophils Percent Auto 55.1 % (50-75); Platelet Count 274 X10^3/uL (150-400); Red Blood Cell Count 4.75 X10^6/uL (4.5-5.9); White Blood Cell Count 6.8 X10^3/uL (4.5-11.0)
[2019-11-12 13:40] LABS: Alanine Aminotransferase 24 IU/L (<50); Albumin 4.1 g/dL (3.5-5.0); Albumin Globulin Ratio 1.2 (1.0-2.8); Alkaline Phosphatase 68 U/L (38-126); Aspartate Aminotransferase 25 IU/L (17-59); BUN Creatinine Ratio 10.4 (6-22); Bilirubin Total 0.4 mg/dL (0.2-1.3); Blood Urea Nitrogen 7 mg/dL (9-20); Calcium 9.4 mg/dL (8.4-10.2); Carbon Dioxide 26 mmol/L (22-32); Chloride 105 mmol/L (98-107); Estimated Glomerular Filt Rate > 60.0 mL/min (>60); Globulin 3.5 g/dL (1.7-4.1); Glucose 102 mg/dL (70-100); HEMOLYSIS < 15 (0-50); Potassium 3.3 mmol/L (3.4-5.1); Sodium 140 mmol/L (137-145); Total Protein 7.6 g/dL (6.3-8.2)
[2019-11-19 08:58] VITALS: BP 132/80; PULSE 70; RESP 18; TEMP 36.8; O2SAT 97
--- NOTE | 2019-11-19 09:01 | ONC.PN ---
PN -Subjective Interval history: ID/CC: 58 year old male with metastatic colon cancer with liver metastasis, normal mismatch repair (MMR), wild type MARION and BRAF History of Present Illness: 58-year-old man presented initially with blood in the stool, abdominal pain and weight loss. CT scan showed some thickening of the colon at the rectosigmoid junction as well as multiple liver metastasis. His CEA was 1652. He was seen by Dr. Deleon and had a colonoscopy performed in 10/10/2018. He was found to have a mass at 20 cm, unable to transit. Biopsy showed serrated adenoma but no evidence of malignancy. Patient underwent repeat colonoscopy with sedation on 10/24/2018. At this time, the scope was able to transit through a circumferential malignant mass at around 20-25 cm. The surgical pathology showed invasive well differentiated colon adenocarcinoma, MMR intact (IHC), wild type KRAS and wild type NRAS, and wild type BRAF. He then received FOLFIRI and Erbitux for 8 cycles with dose reduction in irinotecan starting in October 2018, followed by maintenance therapy with 5 FU leucovorin and Erbitux beginning in March 2019 until late 2018. Starting from 07/09/2019, he was started on single agent maintenance with Erbitux. In 09/2019, he developed intractable nausea, vomiting abdominal cramping pain. He was evaluated at the emergency room of [facility]. CT of the abdomen pelvis on 09/08/2019 showed distal sigmoid colonic mass decreased in size from the index examination of 09/30/2018. However it resulted in luminal narrowing and upstream colonic dilation, suggestive of at least partial colonic obstruction. Multiple hepatic metastasis have significantly improved from the prior examination. Small left adrenal nodule appeared slightly decreased in size. Indeterminate lingular nodule was noted. Fusiform aneurysms of the abdominal aorta (3.3 cm), bilateral common iliac arteries (right 2.6 cm, left 2.4 cm), bilateral inter low iliac arteries (right 2.7 cm, left 3.2 cm), and proximal left external iliac artery (2.0 cm). Dr. Durham took the patient to the operating room and performed an exploratory laparotomy with left lower quadrant loop diverting colostomy on 09/09/2019. Due to CEA increased from 25.4 on 09/03/2019 to 149 on 10/14/2019, he underwent CT scan of the chest abdomen pelvis on 10/16/2019 that showed progression of the liver metastasis. In addition it showed presence of thickening of the sigmoid rectal junction. On 10/22/2019, patient resumed chemotherapy with FOLFIRI/Avastin. Interval history: Patient presents here today for cycle 3 for FOLFIRI/Avastin. Patient said that for the past 1 cycle, he has felt great. Patient said he does not have any fever or chills. He does not have any nausea or vomiting and currently does not have any pain problems. He admitted that he is now using fentanyl patch 50 mcg every 3 days. No other new events. Summary of Therapies: 1. FOLFIRI and Erbitux for 8 cycles with a dose reduction in irinotecan starting in October 2018 2. Maintenance therapy with 5 FU leucovorin and Erbitux beginning in March 2019 3. Single agent maintenance with Erbitux started 07/09/2019 4. LLQ loop diverting colostomy on 09/09/2019 for bowel obstruction. 5. FOLFIRI and Avastin 10/22/2019 - - Patient Self-Reported Symptoms SR Constitution: Fatigue/Malaise SR Cardiovascular issues: Shortness of breath with activity or lying flat SR Gastrointestinal issues: Abdominal pain SR Musculoskeletal issues: Muscle pain or cramps - Additional ROS All systems PM: reviewed and no additional remarkable complaints except as stated Home Medications and Allergies Home Medications Medication Instructions Recorded Confirmed Type docusate calcium [Stool Softener] 240 mg DAILY 10/17/18 11/19/19 History ergocalciferol (vitamin D2) 50,000 unit PO QWEEK 10/17/18 11/19/19 History [Vitamin D2] oxycodone 10 mg PO Q4-6H PRN 10/17/18 11/19/19 History lorazepam [Ativan] 0.5 mg PO BID-TID PRN #30 tab 11/15/18 11/19/19 Rx hyoscyamine sulfate 0.25 mg PO QID PRN #100 tab 12/05/18 11/19/19 Rx apixaban [Eliquis] See Rx Instructions .ROUTE 01/04/19 11/05/19 Rx .COMPLEX #74 each dexamethasone 1 mg PO DAILY 30 Days #30 tab 04/30/19 11/05/19 Rx oxycodone 5 mg PO Q4H PRN #180 tab 07/09/19 11/19/19 Rx apixaban [Eliquis] 5 mg PO BID #60 tab 07/18/19 11/05/19 Rx fluorouracil See Rx Instructions .ROUTE 10/14/19 11/05/19 Rx .COMPLEX #1 device fluorouracil See Rx Instructions .ROUTE 10/22/19 11/05/19 Rx .COMPLEX #1 device fluorouracil See Rx Instructions .ROUTE 11/05/19 Rx .COMPLEX #1 device fentanyl 1 patch TRANSDERMAL Q72H 11/19/19 11/19/19 History Allergies Allergy/AdvReac Type Severity Reaction Status Date / Time No Known Drug Allergies Allergy Verified 11/15/18 15:27 Exam Vital signs: Vital Signs Temp Pulse Resp BP Pulse Ox 11/19/19 08:58 98.2 F 70 18 132/80 97 Intake and Output 11/18/19 11/19/19 11/19/19 23:59 07:59 15:59 Other: Weight 80.5 kg Patient Weight 11/19/19 23:59 Weight 80.5 kg Narrative: ECOG 1 Vitals above reviewed Constitutional: WDWN, well nourished, and well groomed. NAD. Pleasant and cooperative. HEENT: NCAT, EOMI, PERRLA. Anicteric sclera. Neck: Supple and symmetrical, no palpable masses. No palpable thyromegaly. Respiratory: No use of accessory muscles. CTAB, no wheezes. Cardiovascular: RRR, S1 and S2 normal, no M/G/R. No edema of lower extremities. Abdomen: Soft, liver is palpable about 2-3 cm below the right costal margin with mild tenderness. Left colostomy noted. Lymphatic: no palpable palpable lymph nodes in the neck, axillae Musculoskeletal: normal gait and station Skin: No rashes, lesions, or ulcers. No induration, or subcutaneous nodules. Neurological: CN II-XII grossly intact. No focal motor or sensory deficit. Psychiatric: Normal judgment and insight. AOx3. Normal memory (recent and remote). Normal mood and affect. Results - Labs Laboratory Last Values WBC 7.3 X10^3/uL (4.5-11.0) 11/19/19 08:50 RBC 4.32 X10^6/uL (4.5-5.9) L 11/19/19 08:50 Hgb 12.9 g/dL (13.5-17.5) L 11/19/19 08:50 Hct 37.3 % (41-53) L 11/19/19 08:50 MCV 86.2 fL (80-100) 11/19/19 08:50 MCH 29.8 PG (26-34) 11/19/19 08:50 MCHC 34.5 % (30-36) 11/19/19 08:50 RDW 16.3 % (11.6-14.8) H 11/19/19 08:50 Plt Count 222 X10^3/uL (150-400) 11/19/19 08:50 Neut % (Auto) 60.8 % (50-75) 11/19/19 08:50 Lymph % (Auto) 22.8 % (25-40) L 11/19/19 08:50 [place] % (Auto) 12.4 % (3-14) 11/19/19 08:50 Eos % (Auto) 3.3 % (2-4) 11/19/19 08:50 Baso % (Auto) 0.7 % (0-2) 11/19/19 08:50 Neut # (Auto) 4400 /uL (0503-6154) 11/19/19 08:50 Lymph # (Auto) 1700 /uL (7340-5555) 11/19/19 08:50 [place] # (Auto) 900 /uL (0-900) 11/19/19 08:50 Eos # (Auto) 200 /uL (0-450) 11/19/19 08:50 Baso # (Auto) 100 /uL (0-100) 11/19/19 08:50 RBC Morphology See below 02/19/19 09:15 Hypochromasia 1+ H 02/05/19 08:59 Poikilocytosis 2+ H 02/05/19 08:59 Anisocytosis 1+ H 02/19/19 09:15 Macrocytosis 1+ H 02/05/19 08:59 Rouleaux 1+ H 02/19/19 09:15 Sodium 141 mmol/L (137-145) 11/19/19 08:50 Potassium 3.9 mmol/L (3.4-5.1) 11/19/19 08:50 Chloride 109 mmol/L (98-107) H 11/19/19 08:50 Carbon Dioxide 24 mmol/L (22-32) 11/19/19 08:50 BUN 12 mg/dL (9-20) 11/19/19 08:50 Creatinine 0.67 mg/dL (0.66-1.25) 11/19/19 08:50 Estimated GFR > 60.0 mL/min (>60) 11/19/19 08:50 BUN/Creatinine Ratio 17.9 (6-22) 11/19/19 08:50 Glucose 96 mg/dL (70-100) 11/19/19 08:50 Calcium 8.6 mg/dL (8.4-10.2) 11/19/19 08:50 Magnesium 1.9 mg/dL (1.6-2.3) 09/03/19 09:30 Total Bilirubin 0.4 mg/dL (0.2-1.3) 11/19/19 08:50 AST 23 IU/L (17-59) 11/19/19 08:50 ALT 21 IU/L (<50) 11/19/19 08:50 Alkaline Phosphatase 73 U/L (38-126) 11/19/19 08:50 Total Protein 7.2 g/dL (6.3-8.2) 11/19/19 08:50 Albumin 3.8 g/dL (3.5-5.0) 11/19/19 08:50 Globulin 3.4 g/dL (1.7-4.1) 11/19/19 08:50 Albumin/Globulin Ratio 1.1 (1.0-2.8) 11/19/19 08:50 Carcinoembryonic Ag 282.0 ng/mL (0.1-3.0) H 11/19/19 08:50 Assessment and Plan (1) Colon cancer Overview: 58-year-old man with a rectosigmoid mass and liver metastasis. Biopsy showed invasive well-differentiated adenocarcinoma. Mismatch repair proteins were normal. MARION and BRAF mutations are normal. He has completed 8 cycles of FOLFIRI with Erbitux with a decrease in the irinotecan dose. He is now on maintenance therapy with Erbitux. In 09/2019, he underwent urgent diverting colostomy for bowel obstruction. significantly elevated CEA level 10/14/2019. Follow-up CT scan 10/16/2019 showed disease progression as evidenced by interval increase in the numerous hypodense hepatic metastasis and shoddy retrocrural and para-aortic lymph nodes and abnormal thickening of the rectosigmoid junction. After discussion with the patient, we decided to resume chemotherapy with FOLFIRI/Avastin. Patient received his first cycle on 10/22/2019. Assessment: Patient clinically has been feeling well. Patient has just completed 2 cycles of FOLFIRI/Avastin. I talked with him about the tumor marker. After 1 cycle, it continued to increase. I tried to explain that the response may probably take some time before it showed some decreasing trend of the CEA. Patient agreed and we will continue current treatment for another 2-3 cycles before restaging with CT of the chest abdomen pelvis. Plan: Ok to proceed to cycle 3# FOLFIRI and Avastin Pending visit with Lynne Martínez for discussion of take-down surgery RTC in 2 weeks for next cycle of chemotherapy, labs per protocol (2) Pulmonary embolism He did have incidental bilateral pulmonary emboli discovered in December 2018 and he remains on anticoagulation Eliquis 5 mg bid. No bleeding events. Will continue (3) Colostomy in place Standard colostomy care. (4) Port-A-Cath in place Flush every 4-6 weeks
[2019-11-19 09:02] LABS: Add Manual Diff / Slide Review NO; Basophils Absolute Auto 100 /uL (0-100); Basophils Percent Auto 0.7 % (0-2); Eosinophils Absolute Auto 200 /uL (0-450); Eosinophils Percent Auto 3.3 % (2-4); Hematocrit 37.3 % (41-53); Hemoglobin 12.9 g/dL (13.5-17.5); Lymphocytes Absolute Auto 1700 /uL (1100-4500); Lymphocytes Percent Auto 22.8 % (25-40); Mean Corpuscular HGB Conc 34.5 % (30-36); Mean Corpuscular Hemoglobin 29.8 PG (26-34); Mean Corpuscular Volume 86.2 fL (80-100); Monocytes Absolute Auto 900 /uL (0-900); Monocytes Percent Auto 12.4 % (3-14); Neutrophils Absolute Auto 4400 /uL (1500-7000); Neutrophils Percent Auto 60.8 % (50-75); Platelet Count 222 X10^3/uL (150-400); Red Blood Cell Count 4.32 X10^6/uL (4.5-5.9); Red Cell Distribution Width 16.3 % (11.6-14.8); White Blood Cell Count 7.3 X10^3/uL (4.5-11.0)
[2019-11-19 09:16] LABS: Alanine Aminotransferase 21 IU/L (<50); Albumin 3.8 g/dL (3.5-5.0); Albumin Globulin Ratio 1.1 (1.0-2.8); Alkaline Phosphatase 73 U/L (38-126); BUN Creatinine Ratio 17.9 (6-22); Bilirubin Total 0.4 mg/dL (0.2-1.3); Blood Urea Nitrogen 12 mg/dL (9-20); Calcium 8.6 mg/dL (8.4-10.2); Carbon Dioxide 24 mmol/L (22-32); Chloride 109 mmol/L (98-107); Estimated Glomerular Filt Rate > 60.0 mL/min (>60); Globulin 3.4 g/dL (1.7-4.1); Glucose 96 mg/dL (70-100); Sodium 141 mmol/L (137-145); Total Protein 7.2 g/dL (6.3-8.2)
[2019-11-19 09:21] LABS: Aspartate Aminotransferase 23 IU/L (17-59); HEMOLYSIS 65 (0-50); Potassium 3.9 mmol/L (3.4-5.1)
[2019-11-19] MEDS: SODIUM CHLORIDE 0.9% 100 ML 21 ML IV (09:41)
[2019-11-19] MEDS: ACETAMINOPHEN 325 MG TABLET 650 MG PO (09:42)
[2019-11-19] MEDS: diphenhydrAMINE 25 MG TABLET PO (09:42)
[2019-11-19] MEDS: ONDANSETRON 16 MG in SODIUM CHLORIDE 0.9% 50 ML 232 ML IV (09:56)
[2019-11-19] MEDS: BEVACIZUMAB IV (10:29)
[2019-11-19] MEDS: SODIUM CHLORIDE 0.9% IV (10:29)
[2019-11-19] MEDS: IRINOTECAN IV (11:17)
[2019-11-19] MEDS: LEUCOVORIN IV (11:17)
[2019-11-19] MEDS: DEXTROSE 5% IV ×2 (11:17)
[2019-11-19] MEDS: ATROPINE 0.4 MG/ML VIAL 0.25 MG SUBCUT (13:38)
--- NOTE | 2019-11-19 14:39 | PC.NURSE ---
Patient home today with 5FU pump infusing per orders. Pump settings and medication verified by this RN and Shayla Mathis RN. Patient tolerated infusions today well. Some abdominal cramping complaints and patient symptoms relieved with SQ atropine injection.
--- NOTE | 2019-11-19 15:03 | PC.NURSE ---
RX for lido cream called into [email or web address] [place].
[2019-12-03 09:07] LABS: Add Manual Diff / Slide Review NO; Basophils Absolute Auto 100 /uL (0-100); Basophils Percent Auto 0.8 % (0-2); Eosinophils Absolute Auto 200 /uL (0-450); Eosinophils Percent Auto 2.7 % (2-4); Hematocrit 40.9 % (41-53); Hemoglobin 14.1 g/dL (13.5-17.5); Lymphocytes Absolute Auto 1800 /uL (1100-4500); Lymphocytes Percent Auto 25.1 % (25-40); Mean Corpuscular HGB Conc 34.5 % (30-36); Mean Corpuscular Hemoglobin 29.5 PG (26-34); Mean Corpuscular Volume 85.5 fL (80-100); Monocytes Absolute Auto 900 /uL (0-900); Neutrophils Absolute Auto 4400 /uL (1500-7000); Neutrophils Percent Auto 59.4 % (50-75); Platelet Count 221 X10^3/uL (150-400); Red Blood Cell Count 4.78 X10^6/uL (4.5-5.9); Red Cell Distribution Width 16.7 % (11.6-14.8); White Blood Cell Count 7.4 X10^3/uL (4.5-11.0)
[2019-12-03 09:20] LABS: Alanine Aminotransferase 24 IU/L (<50); Albumin 4.2 g/dL (3.5-5.0); Albumin Globulin Ratio 1.2 (1.0-2.8); Alkaline Phosphatase 68 U/L (38-126); Aspartate Aminotransferase 23 IU/L (17-59); BUN Creatinine Ratio 16.2 (6-22); Bilirubin Total 0.6 mg/dL (0.2-1.3); Blood Urea Nitrogen 11 mg/dL (9-20); Calcium 9.2 mg/dL (8.4-10.2); Carbon Dioxide 26 mmol/L (22-32); Chloride 109 mmol/L (98-107); Estimated Glomerular Filt Rate > 60.0 mL/min (>60); Globulin 3.5 g/dL (1.7-4.1); Glucose 110 mg/dL (70-100); HEMOLYSIS 32 (0-50); Potassium 3.5 mmol/L (3.4-5.1); Sodium 142 mmol/L (137-145); Total Protein 7.7 g/dL (6.3-8.2)
[2019-12-03] MEDS: diphenhydrAMINE 25 MG TABLET PO (10:15)
[2019-12-03] MEDS: ACETAMINOPHEN 325 MG TABLET 650 MG PO (10:15)
[2019-12-03] MEDS: SODIUM CHLORIDE 0.9% 100 ML 21 ML IV (10:47)
[2019-12-03] MEDS: ONDANSETRON 16 MG in SODIUM CHLORIDE 0.9% 50 ML 232 ML IV (11:00)
[2019-12-03] MEDS: SODIUM CHLORIDE 0.9% IV (11:45)
[2019-12-03] MEDS: BEVACIZUMAB IV (11:45)
[2019-12-03] MEDS: LEUCOVORIN IV (12:39)
[2019-12-03] MEDS: DEXTROSE 5% IV ×2 (12:39→12:40)
[2019-12-03] MEDS: IRINOTECAN IV (12:40)
[2019-12-03] MEDS: ATROPINE 0.4 MG/ML VIAL 0.25 MG SUBCUT (14:33)
--- NOTE | 2019-12-03 15:57 | PC.NURSE ---
PUMP CONNECT- Had good blood return, checked dose with second nurse, JAKE, RN. Green light verified with patient. Pt to rtc for pump disconnect.
--- NOTE | 2019-12-05 16:15 | PC.NURSE ---
CADD PUMP DEACCESSED: PATIENT WAS EMOTIONALLY UPSET AND CRYING THUS BP HIGH, RN PROVIDED EMOTIONAL SUPPORT AND ENCOURAGED PATIENT TO CONTACT THERAPIST IN [place] HIS PALLIATIVE NURSE RECOMMENDED. 5FU CASETTE WAS EMPTY, OTHERWISE PATIENT DID NOT HAVE SOB OR PAIN.
[2019-12-05 16:17] VITALS: BP 159/99; PULSE 82; RESP 18; TEMP 36.8; O2SAT 94
[2019-12-16 08:58] LABS: Add Manual Diff / Slide Review NO; Basophils Absolute Auto 100 /uL (0-100); Basophils Percent Auto 0.9 % (0-2); Eosinophils Absolute Auto 200 /uL (0-450); Eosinophils Percent Auto 3.2 % (2-4); Hematocrit 40.6 % (41-53); Hemoglobin 13.8 g/dL (13.5-17.5); Lymphocytes Absolute Auto 1700 /uL (1100-4500); Lymphocytes Percent Auto 24.2 % (25-40); Mean Corpuscular HGB Conc 34.1 % (30-36); Mean Corpuscular Hemoglobin 29.5 PG (26-34); Mean Corpuscular Volume 86.5 fL (80-100); Monocytes Absolute Auto 1000 /uL (0-900); Neutrophils Absolute Auto 4200 /uL (1500-7000); Neutrophils Percent Auto 57.7 % (50-75); Platelet Count 223 X10^3/uL (150-400); Red Blood Cell Count 4.69 X10^6/uL (4.5-5.9); Red Cell Distribution Width 17.8 % (11.6-14.8); White Blood Cell Count 7.2 X10^3/uL (4.5-11.0)
[2019-12-16 09:06] LABS: Alanine Aminotransferase 28 IU/L (<50); Albumin 4.1 g/dL (3.5-5.0); Albumin Globulin Ratio 1.2 (1.0-2.8); Alkaline Phosphatase 72 U/L (38-126); Aspartate Aminotransferase 31 IU/L (17-59); BUN Creatinine Ratio 19.7 (6-22); Bilirubin Total 0.5 mg/dL (0.2-1.3); Blood Urea Nitrogen 15 mg/dL (9-20); Calcium 8.9 mg/dL (8.4-10.2); Carbon Dioxide 26 mmol/L (22-32); Chloride 107 mmol/L (98-107); Estimated Glomerular Filt Rate > 60.0 mL/min (>60); Globulin 3.3 g/dL (1.7-4.1); Glucose 85 mg/dL (70-100); HEMOLYSIS 61 (0-50); Potassium 3.8 mmol/L (3.4-5.1); Sodium 141 mmol/L (137-145); Total Protein 7.4 g/dL (6.3-8.2)
--- NOTE | 2019-12-16 09:19 | PC.NURSE ---
Patient here today stating that he needs a break from chemo infusion today. Patient anxious about pain medication. Patient states that he wants to go camping and rest, to take some rest.
--- NOTE | 2019-12-16 09:21 | ONC.PN ---
PN -Subjective Interval history: ID/CC: 58 year old male with metastatic colon cancer with liver metastasis, normal mismatch repair (MMR), wild type MARION and BRAF History of Present Illness: 58-year-old man presented initially with blood in the stool, abdominal pain and weight loss. CT scan showed some thickening of the colon at the rectosigmoid junction as well as multiple liver metastasis. His CEA was 1652. He was seen by Dr. Deleon and had a colonoscopy performed in 10/10/2018. He was found to have a mass at 20 cm, unable to transit. Biopsy showed serrated adenoma but no evidence of malignancy. Patient underwent repeat colonoscopy with sedation on 10/24/2018. At this time, the scope was able to transit through a circumferential malignant mass at around 20-25 cm. The surgical pathology showed invasive well differentiated colon adenocarcinoma, MMR intact (IHC), wild type KRAS and wild type NRAS, and wild type BRAF. He then received FOLFIRI and Erbitux for 8 cycles with dose reduction in irinotecan starting in October 2018, followed by maintenance therapy with 5 FU leucovorin and Erbitux beginning in March 2019 until late 2018. Starting from 07/09/2019, he was started on single agent maintenance with Erbitux. In 09/2019, he developed intractable nausea, vomiting abdominal cramping pain. He was evaluated at the emergency room of [facility]. CT of the abdomen pelvis on 09/08/2019 showed distal sigmoid colonic mass decreased in size from the index examination of 09/30/2018. However it resulted in luminal narrowing and upstream colonic dilation, suggestive of at least partial colonic obstruction. Multiple hepatic metastasis have significantly improved from the prior examination. Small left adrenal nodule appeared slightly decreased in size. Indeterminate lingular nodule was noted. Fusiform aneurysms of the abdominal aorta (3.3 cm), bilateral common iliac arteries (right 2.6 cm, left 2.4 cm), bilateral inter low iliac arteries (right 2.7 cm, left 3.2 cm), and proximal left external iliac artery (2.0 cm). Dr. Durham took the patient to the operating room and performed an exploratory laparotomy with left lower quadrant loop diverting colostomy on 09/09/2019. Due to CEA increased from 25.4 on 09/03/2019 to 149 on 10/14/2019, he underwent CT scan of the chest abdomen pelvis on 10/16/2019 that showed progression of the liver metastasis. In addition it showed presence of thickening of the sigmoid rectal junction. On 10/22/2019, patient resumed chemotherapy with FOLFIRI/Avastin. Interval history: Up until now, patient has received 3 full cycles of FOLFIRI/Avastin. Today patient said that he feels tired and would like to have a treatment break. Patient is also tapering the fentanyl patch at the same time. Patient has no pain according to himself. No fever no chills. No nausea no vomiting. No diarrhea and no constipation. Now he is using fentanyl patch 25 mcgs every 3 days. Summary of Therapies: 1. FOLFIRI and Erbitux for 8 cycles with a dose reduction in irinotecan starting in October 2018 2. Maintenance therapy with 5 FU leucovorin and Erbitux beginning in March 2019 3. Single agent maintenance with Erbitux started 07/09/2019 4. LLQ loop diverting colostomy on 09/09/2019 for bowel obstruction. 5. FOLFIRI and Avastin 10/22/2019 - - Patient Self-Reported Symptoms SR Constitution: Fatigue/Malaise SR Cardiovascular issues: Shortness of breath with activity or lying flat SR Gastrointestinal issues: Abdominal pain SR Musculoskeletal issues: Muscle pain or cramps - Additional ROS All systems PM: reviewed and no additional remarkable complaints except as stated Home Medications and Allergies Home Medications Medication Instructions Recorded Confirmed Type docusate calcium [Stool Softener] 240 mg DAILY 10/17/18 11/19/19 History ergocalciferol (vitamin D2) 50,000 unit PO QWEEK 10/17/18 11/19/19 History [Vitamin D2] oxycodone 10 mg PO Q4-6H PRN 10/17/18 11/19/19 History lorazepam [Ativan] 0.5 mg PO BID-TID PRN #30 tab 11/15/18 11/19/19 Rx hyoscyamine sulfate 0.25 mg PO QID PRN #100 tab 12/05/18 11/19/19 Rx apixaban [Eliquis] See Rx Instructions .ROUTE 01/04/19 11/05/19 Rx .COMPLEX #74 each dexamethasone 1 mg PO DAILY 30 Days #30 tab 04/30/19 11/05/19 Rx oxycodone 5 mg PO Q4H PRN #180 tab 07/09/19 11/19/19 Rx apixaban [Eliquis] 5 mg PO BID #60 tab 07/18/19 11/05/19 Rx fluorouracil See Rx Instructions .ROUTE 10/14/19 11/05/19 Rx .COMPLEX #1 device fluorouracil See Rx Instructions .ROUTE 10/22/19 11/05/19 Rx .COMPLEX #1 device fluorouracil See Rx Instructions .ROUTE 11/05/19 Rx .COMPLEX #1 device fentanyl 1 patch TRANSDERMAL Q72H 11/19/19 11/19/19 History fluorouracil See Rx Instructions .ROUTE 11/19/19 Rx .COMPLEX #1 device fluorouracil See Rx Instructions .ROUTE 11/19/19 Rx .COMPLEX #1 device Allergies Allergy/AdvReac Type Severity Reaction Status Date / Time No Known Drug Allergies Allergy Verified 11/15/18 15:27 Exam Vital signs: 12/16/19 18:39 Last Vital Signs Temp 98.0 F 12/16/19 09:22 Pulse 67 12/16/19 09:22 Resp 15 12/16/19 09:22 BP 149/86 H 12/16/19 09:22 Pulse Ox 95 12/16/19 09:22 Narrative: ECOG 1 Vitals above reviewed Constitutional: WDWN, well nourished, and well groomed. NAD. Pleasant and cooperative. HEENT: NCAT, EOMI, PERRLA. Anicteric sclera. Neck: Supple and symmetrical, no palpable masses. No palpable thyromegaly. Respiratory: No use of accessory muscles. CTAB, no wheezes. Cardiovascular: RRR, S1 and S2 normal, no M/G/R. No edema of lower extremities. Abdomen: Soft, liver is palpable about 2-3 cm below the right costal margin with mild tenderness. Left colostomy noted. Lymphatic: no palpable palpable lymph nodes in the neck, axillae Musculoskeletal: normal gait and station Skin: No rashes, lesions, or ulcers. No induration, or subcutaneous nodules. Neurological: CN II-XII grossly intact. No focal motor or sensory deficit. Psychiatric: Normal judgment and insight. AOx3. Normal memory (recent and remote). Normal mood and affect. Results - Labs Laboratory Last Values WBC 7.2 X10^3/uL (4.5-11.0) 12/16/19 08:45 RBC 4.69 X10^6/uL (4.5-5.9) 12/16/19 08:45 Hgb 13.8 g/dL (13.5-17.5) 12/16/19 08:45 Hct 40.6 % (41-53) L 12/16/19 08:45 MCV 86.5 fL (80-100) 12/16/19 08:45 MCH 29.5 PG (26-34) 12/16/19 08:45 MCHC 34.1 % (30-36) 12/16/19 08:45 RDW 17.8 % (11.6-14.8) H 12/16/19 08:45 Plt Count 223 X10^3/uL (150-400) 12/16/19 08:45 Neut % (Auto) 57.7 % (50-75) 12/16/19 08:45 Lymph % (Auto) 24.2 % (25-40) L 12/16/19 08:45 [place] % (Auto) 14.0 % (3-14) 12/16/19 08:45 Eos % (Auto) 3.2 % (2-4) 12/16/19 08:45 Baso % (Auto) 0.9 % (0-2) 12/16/19 08:45 Neut # (Auto) 4200 /uL (4835-2114) 12/16/19 08:45 Lymph # (Auto) 1700 /uL (7698-8723) 12/16/19 08:45 [place] # (Auto) 1000 /uL (0-900) H 12/16/19 08:45 Eos # (Auto) 200 /uL (0-450) 12/16/19 08:45 Baso # (Auto) 100 /uL (0-100) 12/16/19 08:45 RBC Morphology See below 02/19/19 09:15 Hypochromasia 1+ H 02/05/19 08:59 Poikilocytosis 2+ H 02/05/19 08:59 Anisocytosis 1+ H 02/19/19 09:15 Macrocytosis 1+ H 02/05/19 08:59 Rouleaux 1+ H 02/19/19 09:15 Sodium 141 mmol/L (137-145) 12/16/19 08:45 Potassium 3.8 mmol/L (3.4-5.1) 12/16/19 08:45 Chloride 107 mmol/L (98-107) 12/16/19 08:45 Carbon Dioxide 26 mmol/L (22-32) 12/16/19 08:45 BUN 15 mg/dL (9-20) 12/16/19 08:45 Creatinine 0.76 mg/dL (0.66-1.25) 12/16/19 08:45 Estimated GFR > 60.0 mL/min (>60) 12/16/19 08:45 BUN/Creatinine Ratio 19.7 (6-22) 12/16/19 08:45 Glucose 85 mg/dL (70-100) 12/16/19 08:45 Calcium 8.9 mg/dL (8.4-10.2) 12/16/19 08:45 Magnesium 1.9 mg/dL (1.6-2.3) 09/03/19 09:30 Total Bilirubin 0.5 mg/dL (0.2-1.3) 12/16/19 08:45 AST 31 IU/L (17-59) 12/16/19 08:45 ALT 28 IU/L (<50) 12/16/19 08:45 Alkaline Phosphatase 72 U/L (38-126) 12/16/19 08:45 Total Protein 7.4 g/dL (6.3-8.2) 12/16/19 08:45 Albumin 4.1 g/dL (3.5-5.0) 12/16/19 08:45 Globulin 3.3 g/dL (1.7-4.1) 12/16/19 08:45 Albumin/Globulin Ratio 1.2 (1.0-2.8) 12/16/19 08:45 Carcinoembryonic Ag 223.0 ng/mL (0.1-3.0) H 12/16/19 08:45 Assessment and Plan (1) Colon cancer Overview: 58-year-old man with a rectosigmoid mass and liver metastasis. Biopsy showed invasive well-differentiated adenocarcinoma. Mismatch repair proteins were normal. MARION and BRAF mutations are normal. He has completed 8 cycles of FOLFIRI with Erbitux with a decrease in the irinotecan dose. He is now on maintenance therapy with Erbitux. In 09/2019, he underwent urgent diverting colostomy for bowel obstruction. significantly elevated CEA level 10/14/2019. Follow-up CT scan 10/16/2019 showed disease progression as evidenced by interval increase in the numerous hypodense hepatic metastasis and shoddy retrocrural and para-aortic lymph nodes and abnormal thickening of the rectosigmoid junction. After discussion with the patient, we decided to resume chemotherapy with FOLFIRI/Avastin. Patient received his first cycle on 10/22/2019. Assessment: Patient has received 3 full cycles of FOLFIRI/Avastin. He is complaining significant fatigue. He would like to have a treatment break which I agreed. Plan: Defer the cycle 3# FOLFIRI and Avastin by 2 weeks (to 12/30/2019) Pending visit with Lynne Martínez for discussion of take-down surgery (2) Pulmonary embolism He did have incidental bilateral pulmonary emboli discovered in December 2018 and he remains on anticoagulation Eliquis 5 mg bid. No bleeding events. Will continue (3) Colostomy in place Standard colostomy care. (4) Port-A-Cath in place Flush every 4-6 weeks
[2019-12-16 09:22] VITALS: BP 149/86; PULSE 67; RESP 15; TEMP 36.7; O2SAT 95
--- NOTE | 2019-12-16 10:02 | ONC.MSW ---
Description: Resources Activity: [employer]TE[employer]GE[employer] completed a new Medical Marijuana Authorization form for pt and his designated provider. No further needs identified at this time.
--- NOTE | 2019-12-30 08:33 | ONC.PN ---
PN -Subjective Interval history: ID/CC: 59 year old male with metastatic colon cancer with liver metastasis, normal mismatch repair (MMR), wild type MARION and BRAF here for cycle 5 for FOLFIRI/Avastin. History of Present Illness: 59-year-old man presented initially with blood in the stool, abdominal pain and weight loss. CT scan showed some thickening of the colon at the rectosigmoid junction as well as multiple liver metastasis. His CEA was 1652. He was seen by Dr. Deleon and had a colonoscopy performed in 10/10/2018. He was found to have a mass at 20 cm, unable to transit. Biopsy showed serrated adenoma but no evidence of malignancy. Patient underwent repeat colonoscopy with sedation on 10/24/2018. At this time, the scope was able to transit through a circumferential malignant mass at around 20-25 cm. The surgical pathology showed invasive well differentiated colon adenocarcinoma, MMR intact (IHC), wild type KRAS and wild type NRAS, and wild type BRAF. He then received FOLFIRI and Erbitux for 8 cycles with dose reduction in irinotecan starting in October 2018, followed by maintenance therapy with 5 FU leucovorin and Erbitux beginning in March 2019 until late 2018. Starting from 07/09/2019, he was started on single agent maintenance with Erbitux. In 09/2019, he developed intractable nausea, vomiting abdominal cramping pain. He was evaluated at the emergency room of [facility]. CT of the abdomen pelvis on 09/08/2019 showed distal sigmoid colonic mass decreased in size from the index examination of 09/30/2018. However it resulted in luminal narrowing and upstream colonic dilation, suggestive of at least partial colonic obstruction. Multiple hepatic metastasis have significantly improved from the prior examination. Small left adrenal nodule appeared slightly decreased in size. Indeterminate lingular nodule was noted. Fusiform aneurysms of the abdominal aorta (3.3 cm), bilateral common iliac arteries (right 2.6 cm, left 2.4 cm), bilateral inter low iliac arteries (right 2.7 cm, left 3.2 cm), and proximal left external iliac artery (2.0 cm). Dr. Durham took the patient to the operating room and performed an exploratory laparotomy with left lower quadrant loop diverting colostomy on 09/09/2019. Due to CEA increased from 25.4 on 09/03/2019 to 149 on 10/14/2019, he underwent CT scan of the chest abdomen pelvis on 10/16/2019 that showed progression of the liver metastasis. In addition it showed presence of thickening of the sigmoid rectal junction. On 10/22/2019, patient resumed chemotherapy with FOLFIRI/Avastin. Interval history: Patient presents here today for cycle 5 chemotherapy with FOLFIRI/Avastin. The current cycle was delayed by 2 weeks because of significant fatigue. Patient said that after the 2 weeks break, he has felt a lot better. Patient denies any fever or chills. He denies any nausea or vomiting. He denies any abdominal pain, diarrhea or constipation. Patient said that during his previous chemotherapy while the patient was on the pump, he did experience nausea. He has been using Zofran and Ativan with good control. However the Ativan dosage might be a little bit too high, patient said that he was felt sedated. He said he is going to try have of the dosage of the Ativan. Summary of Therapies: 1. FOLFIRI and Erbitux for 8 cycles with a dose reduction in irinotecan starting in October 2018 2. Maintenance therapy with 5 FU leucovorin and Erbitux beginning in March 2019 3. Single agent maintenance with Erbitux started 07/09/2019 4. LLQ loop diverting colostomy on 09/09/2019 for bowel obstruction. 5. FOLFIRI and Avastin 10/22/2019 - - Patient Self-Reported Symptoms SR Constitution: Fatigue/Malaise SR Cardiovascular issues: Shortness of breath with activity or lying flat SR Gastrointestinal issues: Abdominal pain SR Musculoskeletal issues: Muscle pain or cramps - Additional ROS All systems PM: reviewed and no additional remarkable complaints except as stated Home Medications and Allergies Home Medications Medication Instructions Recorded Confirmed Type docusate calcium [Stool Softener] 240 mg DAILY 10/17/18 12/30/19 History ergocalciferol (vitamin D2) 50,000 unit PO QWEEK 10/17/18 12/30/19 History [Vitamin D2] oxycodone 10 mg PO Q4-6H PRN 10/17/18 12/30/19 History lorazepam [Ativan] 0.5 mg PO BID-TID PRN #30 tab 11/15/18 12/30/19 Rx hyoscyamine sulfate 0.25 mg PO QID PRN #100 tab 12/05/18 12/30/19 Rx apixaban [Eliquis] See Rx Instructions .ROUTE 01/04/19 12/30/19 Rx .COMPLEX #74 each dexamethasone 1 mg PO DAILY 30 Days #30 tab 04/30/19 12/30/19 Rx oxycodone 5 mg PO Q4H PRN #180 tab 07/09/19 12/30/19 Rx apixaban [Eliquis] 5 mg PO BID #60 tab 07/18/19 12/30/19 Rx fluorouracil See Rx Instructions .ROUTE 10/14/19 12/30/19 Rx .COMPLEX #1 device fluorouracil See Rx Instructions .ROUTE 10/22/19 12/30/19 Rx .COMPLEX #1 device fluorouracil See Rx Instructions .ROUTE 11/05/19 12/30/19 Rx .COMPLEX #1 device fentanyl 1 patch TRANSDERMAL Q72H 11/19/19 12/30/19 History fluorouracil See Rx Instructions .ROUTE 11/19/19 12/30/19 Rx .COMPLEX #1 device fluorouracil See Rx Instructions .ROUTE 11/19/19 12/30/19 Rx .COMPLEX #1 device fluorouracil See Rx Instructions .ROUTE 12/30/19 Rx .COMPLEX #1 device prochlorperazine maleate 10 mg PO Q6H PRN #60 tab 12/30/19 12/30/19 Rx [Compazine] Allergies Allergy/AdvReac Type Severity Reaction Status Date / Time No Known Drug Allergies Allergy Verified 11/15/18 15:27 Exam Vital signs: 12/30/19 08:47 Last Vital Signs Temp 97.5 F L 12/30/19 08:43 Pulse 92 H 12/30/19 08:43 Resp 16 12/30/19 08:43 BP 149/97 H 12/30/19 08:43 Pulse Ox 95 12/30/19 08:43 Narrative: ECOG 1 Vitals above reviewed Constitutional: WDWN, well nourished, and well groomed. NAD. Pleasant and cooperative. HEENT: NCAT, EOMI, PERRLA. Anicteric sclera. Neck: Supple and symmetrical, no palpable masses. No palpable thyromegaly. Respiratory: No use of accessory muscles. CTAB, no wheezes. Cardiovascular: RRR, S1 and S2 normal, no M/G/R. No edema of lower extremities. Abdomen: Soft, liver is palpable about 2-3 cm below the right costal margin with mild tenderness. Left colostomy noted. Lymphatic: no palpable palpable lymph nodes in the neck, axillae Musculoskeletal: normal gait and station Skin: No rashes, lesions, or ulcers. No induration, or subcutaneous nodules. Neurological: CN II-XII grossly intact. No focal motor or sensory deficit. Psychiatric: Normal judgment and insight. AOx3. Normal memory (recent and remote). Normal mood and affect. Results - Labs Laboratory Last Values WBC 9.0 X10^3/uL (4.5-11.0) 12/30/19 09:00 RBC 4.93 X10^6/uL (4.5-5.9) 12/30/19 09:00 Hgb 14.5 g/dL (13.5-17.5) 12/30/19 09:00 Hct 42.8 % (41-53) 12/30/19 09:00 MCV 86.8 fL (80-100) 12/30/19 09:00 MCH 29.4 PG (26-34) 12/30/19 09:00 MCHC 33.9 % (30-36) 12/30/19 09:00 RDW 17.9 % (11.6-14.8) H 12/30/19 09:00 Plt Count 224 X10^3/uL (150-400) 12/30/19 09:00 Neut % (Auto) 63.4 % (50-75) 12/30/19 09:00 Lymph % (Auto) 21.8 % (25-40) L 12/30/19 09:00 [place] % (Auto) 11.1 % (3-14) 12/30/19 09:00 Eos % (Auto) 3.0 % (2-4) 12/30/19 09:00 Baso % (Auto) 0.7 % (0-2) 12/30/19 09:00 Neut # (Auto) 5700 /uL (3978-6536) 12/30/19 09:00 Lymph # (Auto) 2000 /uL (7569-7988) 12/30/19 09:00 [place] # (Auto) 1000 /uL (0-900) H 12/30/19 09:00 Eos # (Auto) 300 /uL (0-450) 12/30/19 09:00 Baso # (Auto) 100 /uL (0-100) 12/30/19 09:00 RBC Morphology See below 02/19/19 09:15 Hypochromasia 1+ H 02/05/19 08:59 Poikilocytosis 2+ H 02/05/19 08:59 Anisocytosis 1+ H 02/19/19 09:15 Macrocytosis 1+ H 02/05/19 08:59 Rouleaux 1+ H 02/19/19 09:15 Sodium 139 mmol/L (137-145) 12/30/19 08:10 Potassium 4.2 mmol/L (3.4-5.1) 12/30/19 08:10 Chloride 109 mmol/L (98-107) H 12/30/19 08:10 Carbon Dioxide 24 mmol/L (22-32) 12/30/19 08:10 BUN 13 mg/dL (9-20) 12/30/19 08:10 Creatinine 0.59 mg/dL (0.66-1.25) L 12/30/19 08:10 Estimated GFR > 60.0 mL/min (>60) 12/30/19 08:10 BUN/Creatinine Ratio 22.0 (6-22) 12/30/19 08:10 Glucose 92 mg/dL (70-100) 12/30/19 08:10 Calcium 8.8 mg/dL (8.4-10.2) 12/30/19 08:10 Magnesium 1.9 mg/dL (1.6-2.3) 09/03/19 09:30 Total Bilirubin 0.7 mg/dL (0.2-1.3) 12/30/19 08:10 AST 31 IU/L (17-59) 12/30/19 08:10 ALT 21 IU/L (<50) 12/30/19 08:10 Alkaline Phosphatase 57 U/L (38-126) 12/30/19 08:10 Total Protein 7.6 g/dL (6.3-8.2) 12/30/19 08:10 Albumin 4.1 g/dL (3.5-5.0) 12/30/19 08:10 Globulin 3.5 g/dL (1.7-4.1) 12/30/19 08:10 Albumin/Globulin Ratio 1.2 (1.0-2.8) 12/30/19 08:10 Carcinoembryonic Ag 200.0 ng/mL (0.1-3.0) H 12/30/19 08:10 Assessment and Plan (1) Colon cancer Overview: 59-year-old man with a rectosigmoid mass and liver metastasis. Biopsy showed invasive well-differentiated adenocarcinoma. Mismatch repair proteins were normal. MARION and BRAF mutations are normal. He has completed 8 cycles of FOLFIRI with Erbitux with a decrease in the irinotecan dose. He is now on maintenance therapy with Erbitux. In 09/2019, he underwent urgent diverting colostomy for bowel obstruction. significantly elevated CEA level 10/14/2019. Follow-up CT scan 10/16/2019 showed disease progression as evidenced by interval increase in the numerous hypodense hepatic metastasis and shoddy retrocrural and para-aortic lymph nodes and abnormal thickening of the rectosigmoid junction. After discussion with the patient, we decided to resume chemotherapy with FOLFIRI/Avastin. Patient received his first cycle on 10/22/2019. Assessment: Patient has received 4 full cycles of FOLFIRI/Avastin. Today I discussed with the patient about the balance between the continued active chemotherapy and the potential significant decline of quality of time with manifestations of fatigue, nausea, and vomiting. I recommended that we can try to do the chemotherapy every 3 weeks and with close monitoring. Patient voiced understanding and agreement. As far as the nausea is concerned, I also recommended adding Compazine 10 mg every 6 hours on as-needed basis. Plan: Ok to proceed to cycle 5# FOLFIRI and Avastin today Pending visit with Lynne Martínez for discussion of take-down surgery Compazine 10 mg q6h prn n/v. 60# written RTC in 3 weeks for cycle 6#, Labs per protocol (2) Pulmonary embolism He did have incidental bilateral pulmonary emboli discovered in December 2018 and he remains on anticoagulation Eliquis 5 mg bid. No bleeding events. Will continue (3) Colostomy in place Standard colostomy care. (4) Port-A-Cath in place Flush every 4-6 weeks
[2019-12-30 08:43] VITALS: BP 149/97; PULSE 92; RESP 16; TEMP 36.4; O2SAT 95
[2019-12-30 09:19] LABS: Alanine Aminotransferase 21 IU/L (<50); Albumin 4.1 g/dL (3.5-5.0); Albumin Globulin Ratio 1.2 (1.0-2.8); Alkaline Phosphatase 57 U/L (38-126); Aspartate Aminotransferase 31 IU/L (17-59); Bilirubin Total 0.7 mg/dL (0.2-1.3); Blood Urea Nitrogen 13 mg/dL (9-20); Calcium 8.8 mg/dL (8.4-10.2); Carbon Dioxide 24 mmol/L (22-32); Chloride 109 mmol/L (98-107); Estimated Glomerular Filt Rate > 60.0 mL/min (>60); Globulin 3.5 g/dL (1.7-4.1); Glucose 92 mg/dL (70-100); Potassium 4.2 mmol/L (3.4-5.1); Sodium 139 mmol/L (137-145); Total Protein 7.6 g/dL (6.3-8.2)
[2019-12-30 09:20] LABS: HEMOLYSIS 124 (0-50)
[2019-12-30 09:56] LABS: Add Manual Diff / Slide Review NO; Basophils Absolute Auto 100 /uL (0-100); Basophils Percent Auto 0.7 % (0-2); Eosinophils Absolute Auto 300 /uL (0-450); Hematocrit 42.8 % (41-53); Hemoglobin 14.5 g/dL (13.5-17.5); Lymphocytes Absolute Auto 2000 /uL (1100-4500); Lymphocytes Percent Auto 21.8 % (25-40); Mean Corpuscular HGB Conc 33.9 % (30-36); Mean Corpuscular Hemoglobin 29.4 PG (26-34); Mean Corpuscular Volume 86.8 fL (80-100); Monocytes Absolute Auto 1000 /uL (0-900); Monocytes Percent Auto 11.1 % (3-14); Neutrophils Absolute Auto 5700 /uL (1500-7000); Neutrophils Percent Auto 63.4 % (50-75); Platelet Count 224 X10^3/uL (150-400); Red Blood Cell Count 4.93 X10^6/uL (4.5-5.9); Red Cell Distribution Width 17.9 % (11.6-14.8)
[2019-12-30] MEDS: diphenhydrAMINE 25 MG TABLET PO (10:05)
[2019-12-30] MEDS: ACETAMINOPHEN 325 MG TABLET 650 MG PO (10:05)
[2019-12-30] MEDS: ONDANSETRON 16 MG in SODIUM CHLORIDE 0.9% 50 ML 232 ML IV (10:28)
[2019-12-30] MEDS: SODIUM CHLORIDE 0.9% IV (10:54)
[2019-12-30] MEDS: BEVACIZUMAB IV (10:54)
[2019-12-30] MEDS: SODIUM CHLORIDE 0.9% 100 ML 21 ML IV (11:03)
[2019-12-30] MEDS: LEUCOVORIN IV (11:46)
[2019-12-30] MEDS: IRINOTECAN IV (11:46)
[2019-12-30] MEDS: DEXTROSE 5% IV ×2 (11:46)
[2019-12-30] MEDS: ATROPINE 0.4 MG/ML VIAL 0.25 MG SUBCUT (13:19)
--- NOTE | 2019-12-30 15:18 | PC.NURSE ---
Patient tolerated treatment today well. Patient home with 5FU pump via orders. Pump verified by this RN and Latisha Brown RN prior to patient departure.
[2020-01-01 13:10] VITALS: BP 128/70; PULSE 78; RESP 18; O2SAT 98
[2020-01-13 13:49] LABS: Add Manual Diff / Slide Review NO; Basophils Absolute Auto 0 /uL (0-100); Basophils Percent Auto 0.5 % (0-2); Eosinophils Absolute Auto 100 /uL (0-450); Hematocrit 42.2 % (41-53); Hemoglobin 14.1 g/dL (13.5-17.5); Lymphocytes Absolute Auto 600 /uL (1100-4500); Lymphocytes Percent Auto 9.1 % (25-40); Mean Corpuscular HGB Conc 33.5 % (30-36); Mean Corpuscular Hemoglobin 29.1 PG (26-34); Mean Corpuscular Volume 86.9 fL (80-100); Monocytes Absolute Auto 600 /uL (0-900); Monocytes Percent Auto 9.2 % (3-14); Neutrophils Absolute Auto 5600 /uL (1500-7000); Neutrophils Percent Auto 80.2 % (50-75); Platelet Count 184 X10^3/uL (150-400); Red Blood Cell Count 4.86 X10^6/uL (4.5-5.9); Red Cell Distribution Width 18.4 % (11.6-14.8)
[2020-01-13 14:01] LABS: Alanine Aminotransferase 20 IU/L (<50); Albumin 4.2 g/dL (3.5-5.0); Albumin Globulin Ratio 1.2 (1.0-2.8); Alkaline Phosphatase 80 U/L (38-126); Aspartate Aminotransferase 22 IU/L (17-59); BUN Creatinine Ratio 11.8 (6-22); Bilirubin Total 0.6 mg/dL (0.2-1.3); Blood Urea Nitrogen 8 mg/dL (9-20); Calcium 9.2 mg/dL (8.4-10.2); Carbon Dioxide 25 mmol/L (22-32); Chloride 109 mmol/L (98-107); Estimated Glomerular Filt Rate > 60.0 mL/min (>60); Globulin 3.4 g/dL (1.7-4.1); Glucose 100 mg/dL (70-100); HEMOLYSIS 18 (0-50); Potassium 3.8 mmol/L (3.4-5.1); Sodium 139 mmol/L (137-145); Total Protein 7.6 g/dL (6.3-8.2)
[2020-01-20 08:26] LABS: Add Manual Diff / Slide Review NO; Basophils Absolute Auto 100 /uL (0-100); Basophils Percent Auto 1.1 % (0-2); Eosinophils Absolute Auto 200 /uL (0-450); Eosinophils Percent Auto 3.8 % (2-4); Hematocrit 42.2 % (41-53); Hemoglobin 14.1 g/dL (13.5-17.5); Lymphocytes Absolute Auto 1400 /uL (1100-4500); Lymphocytes Percent Auto 25.2 % (25-40); Mean Corpuscular HGB Conc 33.4 % (30-36); Mean Corpuscular Hemoglobin 29.1 PG (26-34); Mean Corpuscular Volume 87.2 fL (80-100); Monocytes Absolute Auto 800 /uL (0-900); Monocytes Percent Auto 13.3 % (3-14); Neutrophils Absolute Auto 3200 /uL (1500-7000); Neutrophils Percent Auto 56.6 % (50-75); Platelet Count 219 X10^3/uL (150-400); Red Blood Cell Count 4.84 X10^6/uL (4.5-5.9); White Blood Cell Count 5.7 X10^3/uL (4.5-11.0)
--- NOTE | 2020-01-20 08:34 | P.PNONC_ITS ---
PN -Subjective Interval history: ID/CC: 59 year old male with metastatic colon cancer with liver metastasis, normal mismatch repair (MMR), wild type MARION and BRAF here for cycle 6 for FOLFIRI/Avastin. History of Present Illness: 59-year-old man presented initially with blood in the stool, abdominal pain and weight loss. CT scan showed some thickening of the colon at the rectosigmoid junction as well as multiple liver metastasis. His CEA was 1652. He was seen by Dr. Deleon and had a colonoscopy performed in 10/10/2018. He was found to have a mass at 20 cm, unable to transit. Biopsy showed serrated adenoma but no evidence of malignancy. Patient underwent repeat colonoscopy with sedation on 10/24/2018. At this time, the scope was able to transit through a circumferential malignant mass at around 20-25 cm. The surgical pathology showed invasive well differentiated colon adenocarcinoma, MMR intact (IHC), wild type KRAS and wild type NRAS, and wild type BRAF. He then received FOLFIRI and Erbitux for 8 cycles with dose reduction in irinotecan starting in October 2018, followed by maintenance therapy with 5 FU leucovorin and Erbitux beginning in March 2019 until late 2018. Starting from 07/09/2019, he was started on single agent maintenance with Erbitux. In 09/2019, he developed intractable nausea, vomiting abdominal cramping pain. He was evaluated at the emergency room of [facility]. CT of the abdomen pelvis on 09/08/2019 showed distal sigmoid colonic mass decreased in size from the index examination of 09/30/2018. However it resulted in luminal narrowing and upstream colonic dilation, suggestive of at least partial colonic obstruction. Multiple hepatic metastasis have significantly improved from the prior examination. Small left adrenal nodule appeared slightly decreased in size. Indeterminate lingular nodule was noted. Fusiform aneurysms of the abdominal aorta (3.3 cm), bilateral common iliac arteries (right 2.6 cm, left 2.4 cm), bilateral inter low iliac arteries (right 2.7 cm, left 3.2 cm), and proximal left external iliac artery (2.0 cm). Dr. Durham took the patient to the operating room and performed an exploratory laparotomy with left lower quadrant loop diverting colostomy on 09/09/2019. Due to CEA increased from 25.4 on 09/03/2019 to 149 on 10/14/2019, he underwent CT scan of the chest abdomen pelvis on 10/16/2019 that showed progression of the liver metastasis. In addition it showed presence of thickening of the sigmoid rectal junction. On 10/22/2019, patient resumed chemotherapy with FOLFIRI/Avastin. Interval history: Patient presents here today for cycle 6 chemotherapy with FOLFIRI/Avastin. He is now getting chemotherapy once every 3 weeks. Marvel came in today accompanied by his daughter Sridevi. Marvel said that he has stopped fentanyl patch for the past 1 month. He said his mind is more clear and he has only minimal lower back pain after mowing his lawn. He denies any shortness of breath or chest pain. He denies any abdominal pain, diarrhea or constipation. Patient does report some stomach cramps when defecating. He also reports some blood mixed with mucus at the anus. He said the extra week of break is very helpful for him to recuperate from the chemotherapy. Summary of Therapies: 1. FOLFIRI and Erbitux for 8 cycles with a dose reduction in irinotecan starting in October 2018 2. Maintenance therapy with 5 FU leucovorin and Erbitux beginning in March 2019 3. Single agent maintenance with Erbitux started 07/09/2019 4. LLQ loop diverting colostomy on 09/09/2019 for bowel obstruction. 5. FOLFIRI and Avastin 10/22/2019 - - Patient Self-Reported Symptoms SR Constitution: Fatigue/Malaise SR Cardiovascular issues: Shortness of breath with activity or lying flat SR Gastrointestinal issues: Abdominal pain SR Musculoskeletal issues: Muscle pain or cramps - Additional ROS All systems PM: reviewed and no additional remarkable complaints except as stated Home Medications and Allergies Home Medications Medication Instructions Recorded Confirmed Type docusate calcium [Stool Softener] 240 mg DAILY 10/17/18 12/30/19 History ergocalciferol (vitamin D2) 50,000 unit PO QWEEK 10/17/18 12/30/19 History [Vitamin D2] oxycodone 10 mg PO Q4-6H PRN 10/17/18 12/30/19 History lorazepam [Ativan] 0.5 mg PO BID-TID PRN #30 tab 11/15/18 12/30/19 Rx hyoscyamine sulfate 0.25 mg PO QID PRN #100 tab 12/05/18 12/30/19 Rx apixaban [Eliquis] See Rx Instructions .ROUTE 01/04/19 12/30/19 Rx .COMPLEX #74 each dexamethasone 1 mg PO DAILY 30 Days #30 tab 04/30/19 12/30/19 Rx oxycodone 5 mg PO Q4H PRN #180 tab 07/09/19 12/30/19 Rx apixaban [Eliquis] 5 mg PO BID #60 tab 07/18/19 12/30/19 Rx fluorouracil See Rx Instructions .ROUTE 10/14/19 12/30/19 Rx .COMPLEX #1 device fluorouracil See Rx Instructions .ROUTE 10/22/19 12/30/19 Rx .COMPLEX #1 device fluorouracil See Rx Instructions .ROUTE 11/05/19 12/30/19 Rx .COMPLEX #1 device fluorouracil See Rx Instructions .ROUTE 11/19/19 12/30/19 Rx .COMPLEX #1 device fluorouracil See Rx Instructions .ROUTE 11/19/19 12/30/19 Rx .COMPLEX #1 device fluorouracil See Rx Instructions .ROUTE 12/30/19 Rx .COMPLEX #1 device prochlorperazine maleate 10 mg PO Q6H PRN #60 tab 12/30/19 12/30/19 Rx [Compazine] fluorouracil See Rx Instructions .ROUTE 01/20/20 Rx .COMPLEX #1 device Allergies Allergy/AdvReac Type Severity Reaction Status Date / Time No Known Drug Allergies Allergy Verified 11/15/18 15:27 Exam Vital signs: 01/20/20 08:52 Last Vital Signs Temp 97.8 F 01/20/20 08:36 Pulse 73 01/20/20 08:36 Resp 16 01/20/20 08:36 BP 150/86 H 01/20/20 08:36 Pulse Ox 97 01/20/20 08:36 Narrative: ECOG 1 Vitals above reviewed Constitutional: WDWN, well nourished, and well groomed. NAD. Pleasant and cooperative. HEENT: NCAT, EOMI, PERRLA. Anicteric sclera. Neck: Supple and symmetrical, no palpable masses. No palpable thyromegaly. Respiratory: No use of accessory muscles. CTAB, no wheezes. Cardiovascular: RRR, S1 and S2 normal, no M/G/R. No edema of lower extremities. Abdomen: Soft, liver is not palpable. Left colostomy noted. Lymphatic: no palpable palpable lymph nodes in the neck, axillae Musculoskeletal: normal gait and station Skin: No rashes, lesions, or ulcers. No induration, or subcutaneous nodules. Neurological: CN II-XII grossly intact. No focal motor or sensory deficit. Psychiatric: Normal judgment and insight. AOx3. Normal memory (recent and remote). Normal mood and affect. Results - Labs Laboratory Last Values WBC 5.7 X10^3/uL (4.5-11.0) 01/20/20 08:19 RBC 4.84 X10^6/uL (4.5-5.9) 01/20/20 08:19 Hgb 14.1 g/dL (13.5-17.5) 01/20/20 08:19 Hct 42.2 % (41-53) 01/20/20 08:19 MCV 87.2 fL (80-100) 01/20/20 08:19 MCH 29.1 PG (26-34) 01/20/20 08:19 MCHC 33.4 % (30-36) 01/20/20 08:19 RDW 19.0 % (11.6-14.8) H 01/20/20 08:19 Plt Count 219 X10^3/uL (150-400) 01/20/20 08:19 Neut % (Auto) 56.6 % (50-75) 01/20/20 08:19 Lymph % (Auto) 25.2 % (25-40) 01/20/20 08:19 [place] % (Auto) 13.3 % (3-14) 01/20/20 08:19 Eos % (Auto) 3.8 % (2-4) 01/20/20 08:19 Baso % (Auto) 1.1 % (0-2) 01/20/20 08:19 Neut # (Auto) 3200 /uL (4823-5183) 01/20/20 08:19 Lymph # (Auto) 1400 /uL (1440-6897) 01/20/20 08:19 [place] # (Auto) 800 /uL (0-900) 01/20/20 08:19 Eos # (Auto) 200 /uL (0-450) 01/20/20 08:19 Baso # (Auto) 100 /uL (0-100) 01/20/20 08:19 RBC Morphology See below 08/20/19 09:15 Hypochromasia 1+ H 02/05/19 08:59 Poikilocytosis 2+ H 02/05/19 08:59 Anisocytosis 1+ H 02/19/19 09:15 Macrocytosis 1+ H 02/05/19 08:59 Rouleaux 1+ H 02/19/19 09:15 Sodium 140 mmol/L (137-145) 01/20/20 08:19 Potassium 4.3 mmol/L (3.4-5.1) 01/20/20 08:19 Chloride 109 mmol/L (98-107) H 01/20/20 08:19 Carbon Dioxide 27 mmol/L (22-32) 01/20/20 08:19 BUN 10 mg/dL (9-20) 01/20/20 08:19 Creatinine 0.64 mg/dL (0.66-1.25) L 01/20/20 08:19 Estimated GFR > 60.0 mL/min (>60) 01/20/20 08:19 BUN/Creatinine Ratio 15.6 (6-22) 01/20/20 08:19 Glucose 116 mg/dL (70-100) H 01/20/20 08:19 Calcium 8.8 mg/dL (8.4-10.2) 01/20/20 08:19 Magnesium 1.9 mg/dL (1.6-2.3) 09/03/19 09:30 Total Bilirubin 0.5 mg/dL (0.2-1.3) 01/20/20 08:19 AST 22 IU/L (17-59) 01/20/20 08:19 ALT 18 IU/L (<50) 01/20/20 08:19 Alkaline Phosphatase 67 U/L (38-126) 01/20/20 08:19 Total Protein 7.1 g/dL (6.3-8.2) 01/20/20 08:19 Albumin 4.0 g/dL (3.5-5.0) 01/20/20 08:19 Globulin 3.1 g/dL (1.7-4.1) 01/20/20 08:19 Albumin/Globulin Ratio 1.3 (1.0-2.8) 01/20/20 08:19 Carcinoembryonic Ag 170.0 ng/mL (0.1-3.0) H 01/20/20 08:19 Assessment and Plan (1) Colon cancer Overview: 59-year-old man with a rectosigmoid mass and liver metastasis. Biopsy showed invasive well-differentiated adenocarcinoma. Mismatch repair proteins were normal. MARION and BRAF mutations are normal. He has completed 8 cycles of FOLFIRI with Erbitux with a decrease in the irinotecan dose. He is now on maintenance therapy with Erbitux. In 09/2019, he underwent urgent diverting colostomy for bowel obstruction. significantly elevated CEA level 10/14/2019. Follow-up CT scan 10/16/2019 showed disease progression as evidenced by interval increase in the numerous hypodense hepatic metastasis and shoddy retrocrural and para-aortic lymph nodes and abnormal thickening of the rectosigmoid junction. After discussion with the patient, we decided to resume chemotherapy with FOLFIRI/Avastin. Patient received his first cycle on 10/22/2019. Assessment: Patient has received 5 full cycles of FOLFIRI/Avastin. Now, he is getting chemotherapy once every 3 weeks. Patient said that with 3-week break, he feels a lot better. I reviewed the lab results with the patient. CBCs and CMPs are unremarkable. His CEA level also has shown a downward trend. Clinically patient feels better. I talked with him that I will continue current treatment. As far as the takedown surgery is concerned, patient today said that he probably would not move forward. He is worried about the surgical complications. In addition, patient has stage IV colon cancer, the surgery is only for symptomatic or quality of time issues. Patient voiced understanding. Plan: Ok to proceed to cycle 6# FOLFIRI and Avastin today RTC in 3 weeks for cycle 7#, Labs per protocol (2) Pulmonary embolism He did have incidental bilateral pulmonary emboli discovered in December 2018 and he remains on anticoagulation Eliquis 5 mg bid. No bleeding events. Will continue (3) Colostomy in place Standard colostomy care. (4) Port-A-Cath in place Flush every 4-6 weeks
[2020-01-20 08:36] VITALS: BP 150/86; PULSE 73; RESP 16; TEMP 36.6; O2SAT 97
[2020-01-20 08:37] LABS: Alanine Aminotransferase 18 IU/L (<50); Albumin Globulin Ratio 1.3 (1.0-2.8); Alkaline Phosphatase 67 U/L (38-126); Aspartate Aminotransferase 22 IU/L (17-59); BUN Creatinine Ratio 15.6 (6-22); Bilirubin Total 0.5 mg/dL (0.2-1.3); Blood Urea Nitrogen 10 mg/dL (9-20); Calcium 8.8 mg/dL (8.4-10.2); Carbon Dioxide 27 mmol/L (22-32); Chloride 109 mmol/L (98-107); Estimated Glomerular Filt Rate > 60.0 mL/min (>60); Globulin 3.1 g/dL (1.7-4.1); Glucose 116 mg/dL (70-100); Potassium 4.3 mmol/L (3.4-5.1); Sodium 140 mmol/L (137-145); Total Protein 7.1 g/dL (6.3-8.2)
[2020-01-20 08:38] LABS: HEMOLYSIS 56 (0-50)
[2020-01-20] MEDS: ACETAMINOPHEN 325 MG TABLET 650 MG PO (09:18)
[2020-01-20] MEDS: diphenhydrAMINE 25 MG TABLET PO (09:19)
[2020-01-20] MEDS: SODIUM CHLORIDE 0.9% 100 ML 21 ML IV (09:24)
[2020-01-20] MEDS: ONDANSETRON 16 MG in SODIUM CHLORIDE 0.9% 50 ML 232 ML IV (09:45)
[2020-01-20] MEDS: BEVACIZUMAB IV (10:18)
[2020-01-20] MEDS: SODIUM CHLORIDE 0.9% IV (10:18)
[2020-01-20] MEDS: DEXTROSE 5% IV ×2 (11:12)
[2020-01-20] MEDS: LEUCOVORIN IV (11:12)
[2020-01-20] MEDS: IRINOTECAN IV (11:12)
[2020-01-20] MEDS: ATROPINE 0.4 MG/ML VIAL 0.25 MG SUBCUT (12:24)
[2020-01-20] MEDS: FLUOROURACIL IV (13:35)
[2020-01-20] MEDS: ISOOSMOTIC VEHICLE IV (13:35)
--- NOTE | 2020-01-20 14:41 | PC.NURSE ---
PUMP CONNECT Verified dose/rate with second nurse (AltheaRN). Clave and occlusive dressing in place, positive blood return, pump connected per protocol. Confirmed pump was on and running with patient. Patient stated he would return to clinic Monday at ~1230 for disconnect.
--- NOTE | 2020-01-27 17:23 | PC.NURSE ---
Pt came into clinic after CT scan to say hi to staff. Discussed need for post chemo lab draw, pt declined lab draw states I don't want to do it today. Educated pt on importance of ;abs, pt declined. PT speech clear, appeared in good spirits, RR unlabored, no acute distress noted. Pt reports feeling good. Expresses eagerness to go camping this weekend. Pt left clinic, gait steady.
[2020-02-10 08:56] LABS: Add Manual Diff / Slide Review NO; Basophils Absolute Auto 100 /uL (0-100); Eosinophils Absolute Auto 300 /uL (0-450); Eosinophils Percent Auto 4.7 % (2-4); Hemoglobin 14.3 g/dL (13.5-17.5); Lymphocytes Absolute Auto 1500 /uL (1100-4500); Lymphocytes Percent Auto 28.6 % (25-40); Mean Corpuscular HGB Conc 33.3 % (30-36); Mean Corpuscular Hemoglobin 29.3 PG (26-34); Monocytes Absolute Auto 900 /uL (0-900); Monocytes Percent Auto 16.5 % (3-14); Neutrophils Absolute Auto 2600 /uL (1500-7000); Neutrophils Percent Auto 49.2 % (50-75); Platelet Count 230 X10^3/uL (150-400); Red Blood Cell Count 4.88 X10^6/uL (4.5-5.9); Red Cell Distribution Width 19.5 % (11.6-14.8); White Blood Cell Count 5.4 X10^3/uL (4.5-11.0)
[2020-02-10 09:08] LABS: Alanine Aminotransferase 21 IU/L (<50); Albumin 4.3 g/dL (3.5-5.0); Albumin Globulin Ratio 1.2 (1.0-2.8); Alkaline Phosphatase 58 U/L (38-126); Aspartate Aminotransferase 30 IU/L (17-59); BUN Creatinine Ratio 17.6 (6-22); Bilirubin Total 0.6 mg/dL (0.2-1.3); Blood Urea Nitrogen 12 mg/dL (9-20); Calcium 9.3 mg/dL (8.4-10.2); Carbon Dioxide 27 mmol/L (22-32); Chloride 107 mmol/L (98-107); Estimated Glomerular Filt Rate > 60.0 mL/min (>60); Globulin 3.6 g/dL (1.7-4.1); Glucose 92 mg/dL (70-100); Potassium 4.3 mmol/L (3.4-5.1); Sodium 141 mmol/L (137-145); Total Protein 7.9 g/dL (6.3-8.2)
[2020-02-10 09:10] LABS: HEMOLYSIS 111 (0-50)
--- NOTE | 2020-02-10 09:11 | P.PNONC_ITS ---
PN -Subjective Interval history: ID/CC: 59 year old male with metastatic colon cancer with liver metastasis, normal mismatch repair (MMR), wild type MARION and BRAF here for cycle 6 for FOLFIRI/Avastin. History of Present Illness: 59-year-old man presented initially with blood in the stool, abdominal pain and weight loss. CT scan showed some thickening of the colon at the rectosigmoid junction as well as multiple liver metastasis. His CEA was 1652. He was seen by Dr. Deleon and had a colonoscopy performed in 10/10/2018. He was found to have a mass at 20 cm, unable to transit. Biopsy showed serrated adenoma but no evidence of malignancy. Patient underwent repeat colonoscopy with sedation on 10/24/2018. At this time, the scope was able to transit through a circumferential malignant mass at around 20-25 cm. The surgical pathology showed invasive well differentiated colon adenocarcinoma, MMR intact (IHC), wild type KRAS and wild type NRAS, and wild type BRAF. He then received FOLFIRI and Erbitux for 8 cycles with dose reduction in irinotecan starting in October 2018, followed by maintenance therapy with 5 FU leucovorin and Erbitux beginning in March 2019 until late 2018. Starting from 07/09/2019, he was started on single agent maintenance with Erbitux. In 09/2019, he developed intractable nausea, vomiting abdominal cramping pain. He was evaluated at the emergency room of [facility]. CT of the abdomen pelvis on 09/08/2019 showed distal sigmoid colonic mass decreased in size from the index examination of 09/30/2018. However it resulted in luminal narrowing and upstream colonic dilation, suggestive of at least partial colonic obstruction. Multiple hepatic metastasis have significantly improved from the prior examination. Small left adrenal nodule appeared slightly decreased in size. Indeterminate lingular nodule was noted. Fusiform aneurysms of the abdominal aorta (3.3 cm), bilateral common iliac arteries (right 2.6 cm, left 2.4 cm), bilateral inter low iliac arteries (right 2.7 cm, left 3.2 cm), and proximal left external iliac artery (2.0 cm). Dr. Durham took the patient to the operating room and performed an exploratory laparotomy with left lower quadrant loop diverting colostomy on 09/09/2019. Due to CEA increased from 25.4 on 09/03/2019 to 149 on 10/14/2019, he underwent CT scan of the chest abdomen pelvis on 10/16/2019 that showed progression of the liver metastasis. In addition it showed presence of thickening of the sigmoid rectal junction. On 10/22/2019, patient resumed chemotherapy with FOLFIRI/Avastin. Interval history: Patient presents here today for cycle 7 chemotherapy with FOLFIRI/Avastin. He is now getting chemotherapy once every 3 weeks. Marvel came in today by himself. He said that for the past 3 week, he just felt better for the last 3 days or so. He is considering skipping today's chemotherapy and would like to spend time camping with his family. Since his previous visit, he was also seen by a vascular surgeon at [facility]. Possible surgery was discussed with the patient about his internal iliac artery aneurysm. Summary of Therapies: 1. FOLFIRI and Erbitux for 8 cycles with a dose reduction in irinotecan starting in October 2018 2. Maintenance therapy with 5 FU leucovorin and Erbitux beginning in March 2019 3. Single agent maintenance with Erbitux started 07/09/2019 4. LLQ loop diverting colostomy on 09/09/2019 for bowel obstruction. 5. FOLFIRI and Avastin 10/22/2019 - - Patient Self-Reported Symptoms SR Constitution: Fatigue/Malaise SR Cardiovascular issues: Shortness of breath with activity or lying flat SR Gastrointestinal issues: Abdominal pain SR Musculoskeletal issues: Muscle pain or cramps - Additional ROS All systems PM: reviewed and no additional remarkable complaints except as stated Home Medications and Allergies Home Medications Medication Instructions Recorded Confirmed Type docusate calcium [Stool Softener] 240 mg DAILY 10/17/18 02/10/20 History ergocalciferol (vitamin D2) 50,000 unit PO QWEEK 10/17/18 02/10/20 History [Vitamin D2] oxycodone 10 mg PO Q4-6H PRN 10/17/18 02/10/20 History lorazepam [Ativan] 0.5 mg PO BID-TID PRN #30 tab 11/15/18 02/10/20 Rx hyoscyamine sulfate 0.25 mg PO QID PRN #100 tab 12/05/18 02/10/20 Rx apixaban [Eliquis] See Rx Instructions .ROUTE 01/04/19 02/10/20 Rx .COMPLEX #74 each dexamethasone 1 mg PO DAILY 30 Days #30 tab 04/30/19 02/10/20 Rx oxycodone 5 mg PO Q4H PRN #180 tab 07/09/19 02/10/20 Rx apixaban [Eliquis] 5 mg PO BID #60 tab 07/18/19 02/10/20 Rx fluorouracil See Rx Instructions .ROUTE 10/14/19 02/10/20 Rx .COMPLEX #1 device fluorouracil See Rx Instructions .ROUTE 10/22/19 02/10/20 Rx .COMPLEX #1 device fluorouracil See Rx Instructions .ROUTE 11/05/19 02/10/20 Rx .COMPLEX #1 device fluorouracil See Rx Instructions .ROUTE 11/19/19 02/10/20 Rx .COMPLEX #1 device fluorouracil See Rx Instructions .ROUTE 11/19/19 02/10/20 Rx .COMPLEX #1 device fluorouracil See Rx Instructions .ROUTE 12/30/19 02/10/20 Rx .COMPLEX #1 device prochlorperazine maleate 10 mg PO Q6H PRN #60 tab 12/30/19 02/10/20 Rx [Compazine] fluorouracil See Rx Instructions .ROUTE 01/20/20 02/10/20 Rx .COMPLEX #1 device Allergies Allergy/AdvReac Type Severity Reaction Status Date / Time No Known Drug Allergies Allergy Verified 11/15/18 15:27 Exam Vital signs: 02/10/20 23:27 Last Vital Signs Temp 97.9 F 02/10/20 09:16 Pulse 73 02/10/20 09:16 Resp 16 02/10/20 09:16 BP 146/98 H 02/10/20 09:16 Pulse Ox 98 02/10/20 09:16 Narrative: ECOG 1 Vitals above reviewed Constitutional: WDWN, well nourished, and well groomed. NAD. Pleasant and cooperative. HEENT: NCAT, EOMI, PERRLA. Anicteric sclera. Neck: Supple and symmetrical, no palpable masses. No palpable thyromegaly. Respiratory: No use of accessory muscles. CTAB, no wheezes. Cardiovascular: RRR, S1 and S2 normal, no M/G/R. No edema of lower extremities. Abdomen: Soft, liver is not palpable. Left colostomy noted. Lymphatic: no palpable palpable lymph nodes in the neck, axillae Musculoskeletal: normal gait and station Skin: No rashes, lesions, or ulcers. No induration, or subcutaneous nodules. Neurological: CN II-XII grossly intact. No focal motor or sensory deficit. Psychiatric: Normal judgment and insight. AOx3. Normal memory (recent and remote). Normal mood and affect. Results - Labs Laboratory Last Values WBC 5.4 X10^3/uL (4.5-11.0) 02/10/20 08:50 RBC 4.88 X10^6/uL (4.5-5.9) 02/10/20 08:50 Hgb 14.3 g/dL (13.5-17.5) 02/10/20 08:50 Hct 43.0 % (41-53) 02/10/20 08:50 MCV 88.0 fL (80-100) 02/10/20 08:50 MCH 29.3 PG (26-34) 02/10/20 08:50 MCHC 33.3 % (30-36) 02/10/20 08:50 RDW 19.5 % (11.6-14.8) H 02/10/20 08:50 Plt Count 230 X10^3/uL (150-400) 02/10/20 08:50 Neut % (Auto) 49.2 % (50-75) L 02/10/20 08:50 Lymph % (Auto) 28.6 % (25-40) 02/10/20 08:50 [place] % (Auto) 16.5 % (3-14) H 02/10/20 08:50 Eos % (Auto) 4.7 % (2-4) H 02/10/20 08:50 Baso % (Auto) 1.0 % (0-2) 02/10/20 08:50 Neut # (Auto) 2600 /uL (5203-5506) 02/10/20 08:50 Lymph # (Auto) 1500 /uL (2458-7492) 02/10/20 08:50 [place] # (Auto) 900 /uL (0-900) 02/10/20 08:50 Eos # (Auto) 300 /uL (0-450) 02/10/20 08:50 Baso # (Auto) 100 /uL (0-100) 02/10/20 08:50 RBC Morphology See below 02/19/19 09:15 Hypochromasia 1+ H 02/05/19 08:59 Poikilocytosis 2+ H 02/05/19 08:59 Anisocytosis 1+ H 02/19/19 09:15 Macrocytosis 1+ H 02/05/19 08:59 Rouleaux 1+ H 02/19/19 09:15 Sodium 141 mmol/L (137-145) 02/10/20 08:50 Potassium 4.3 mmol/L (3.4-5.1) 02/10/20 08:50 Chloride 107 mmol/L (98-107) 02/10/20 08:50 Carbon Dioxide 27 mmol/L (22-32) 02/10/20 08:50 BUN 12 mg/dL (9-20) 02/10/20 08:50 Creatinine 0.68 mg/dL (0.66-1.25) 02/10/20 08:50 Estimated GFR > 60.0 mL/min (>60) 02/10/20 08:50 BUN/Creatinine Ratio 17.6 (6-22) 02/10/20 08:50 Glucose 92 mg/dL (70-100) 02/10/20 08:50 Calcium 9.3 mg/dL (8.4-10.2) 02/10/20 08:50 Magnesium 1.9 mg/dL (1.6-2.3) 09/03/19 09:30 Total Bilirubin 0.6 mg/dL (0.2-1.3) 02/10/20 08:50 AST 30 IU/L (17-59) 02/10/20 08:50 ALT 21 IU/L (<50) 02/10/20 08:50 Alkaline Phosphatase 58 U/L (38-126) 02/10/20 08:50 Total Protein 7.9 g/dL (6.3-8.2) 02/10/20 08:50 Albumin 4.3 g/dL (3.5-5.0) 02/10/20 08:50 Globulin 3.6 g/dL (1.7-4.1) 02/10/20 08:50 Albumin/Globulin Ratio 1.2 (1.0-2.8) 02/10/20 08:50 Carcinoembryonic Ag 185.0 ng/mL (0.1-3.0) H 02/10/20 08:50 Assessment and Plan (1) Colon cancer Overview: 59-year-old man with a rectosigmoid mass and liver metastasis. Biopsy showed invasive well-differentiated adenocarcinoma. Mismatch repair proteins were norm al. MARION and BRAF mutations are normal. He has completed 8 cycles of FOLFIRI with Erbitux with a decrease in the irinotecan dose. He is now on maintenance therapy with Erbitux. In 09/2019, he underwent urgent diverting colostomy for bowel obstruction. significantly elevated CEA level 10/14/2019. Follow-up CT scan 10/16/2019 showed disease progression as evidenced by interval increase in the numerous hypodense hepatic metastasis and shoddy retrocrural and para-aortic lymph nodes and abnormal thickening of the rectosigmoid junction. After discussion with the patient, we decided to resume chemotherapy with FOLFIRI/Avastin. Patient received his first cycle on 10/22/2019. Up until now, he has had 6 cycles. Assessment: We had a long discussion today with the patient. Patient is here for cycle 7 chemotherapy with FOLFIRI and Avastin. Since his previous visit, patient was evaluated by a thoracic surgeon vascular surgeon at the [facility]. Marvel was uncertain regarding the risk and benefit of the vascular intervention at this point. I talked with him that I had talked with surgeon regarding the management of the internal iliac artery aneurysm. The surgeon's concern is about the prognosis of Marvel's metastatic colon cancer. I have conveyed the information that the colon cancer currently is being treated with chemotherapy and seems to be responding well quite well. The surgeon probably will move forward with minimally invasive procedures., Today patient was expressing his opinion regarding the treatment of his colon cancer. Patient said that he put the quality of his time and also the time with his family extremely important. He said that he is going to think about skipping the current cycle and continue following up on the tumor markers and decide about when we should resume the treatment. I think it is a reasonable option. At present patient said that he only had 2-3 days of good time with every 3-week cycle. He would like to have a little bit longer time with his family. I talked with him that I will monitor the tumor markers every 3 weeks and decide about the treatment. I also talked with the patient that it is actually established strategy employed by clinical trials [employer]. Marvel is also thinking about getting another second opinion from a different vascular surgeon. I talked with him that I agree with the his decision and I am more than happy to help out. Plan: Delay cycle 7# by 3 weeks, Labs per protocol Follow up with vascular surgeon (2) Pulmonary embolism He did have incidental bilateral pulmonary emboli discovered in December 2018 and he remains on anticoagulation Eliquis 5 mg bid. No bleeding events. Will continue (3) Colostomy in place Standard colostomy care. (4) Port-A-Cath in place Flush every 4-6 weeks
[2020-02-10 09:16] VITALS: BP 146/98; PULSE 73; RESP 16; TEMP 36.6; O2SAT 98
--- NOTE | 2020-02-26 14:48 | ONC.SCHED ---
Name and location of the vascular surgeon pt. is seeing is Dr. Wilburn, at [facility]
[2020-03-02 08:54] LABS: Add Manual Diff / Slide Review NO; Basophils Absolute Auto 100 /uL (0-100); Basophils Percent Auto 0.9 % (0-2); Eosinophils Absolute Auto 400 /uL (0-450); Eosinophils Percent Auto 4.4 % (2-4); Hematocrit 44.3 % (41-53); Hemoglobin 14.6 g/dL (13.5-17.5); Lymphocytes Absolute Auto 2100 /uL (1100-4500); Lymphocytes Percent Auto 25.7 % (25-40); Mean Corpuscular Hemoglobin 29.2 PG (26-34); Mean Corpuscular Volume 88.5 fL (80-100); Monocytes Absolute Auto 1000 /uL (0-900); Monocytes Percent Auto 12.1 % (3-14); Neutrophils Absolute Auto 4600 /uL (1500-7000); Neutrophils Percent Auto 56.9 % (50-75); Platelet Count 249 X10^3/uL (150-400); Red Blood Cell Count 5.01 X10^6/uL (4.5-5.9); White Blood Cell Count 8.1 X10^3/uL (4.5-11.0)
[2020-03-02 09:06] LABS: Alanine Aminotransferase 22 IU/L (<50); Albumin 4.1 g/dL (3.5-5.0); Albumin Globulin Ratio 1.1 (1.0-2.8); Alkaline Phosphatase 89 U/L (38-126); Aspartate Aminotransferase 26 IU/L (17-59); BUN Creatinine Ratio 17.1 (6-22); Bilirubin Total 0.5 mg/dL (0.2-1.3); Blood Urea Nitrogen 12 mg/dL (9-20); Calcium 9.2 mg/dL (8.4-10.2); Carbon Dioxide 25 mmol/L (22-32); Chloride 109 mmol/L (98-107); Estimated Glomerular Filt Rate > 60.0 mL/min (>60); Globulin 3.7 g/dL (1.7-4.1); Glucose 95 mg/dL (70-100); HEMOLYSIS 23 (0-50); Potassium 3.7 mmol/L (3.4-5.1); Sodium 140 mmol/L (137-145); Total Protein 7.8 g/dL (6.3-8.2)
[2020-03-02 09:18] VITALS: BP 135/85; PULSE 67; RESP 18; TEMP 36.8; O2SAT 97
--- NOTE | 2020-03-02 09:27 | P.PNONC_ITS ---
PN -Subjective Interval history: ID/CC: 59 year old male with metastatic colon cancer with liver metastasis, pMMR, wtRAS/BRAF now on treatment with FOLFIRI/Avastin. History of Present Illness: 59-year-old man presented initially with blood in the stool, abdominal pain and weight loss. CT scan showed some thickening of the colon at the rectosigmoid junction as well as multiple liver metastasis. His CEA was 1652. He was seen by Dr. Deleon and had a colonoscopy performed in 10/10/2018. He was found to have a mass at 20 cm, unable to transit. Biopsy showed serrated adenoma but no evidence of malignancy. Patient underwent repeat colonoscopy with sedation on 10/24/2018. At this time, the scope was able to transit through a circumferential malignant mass at around 20-25 cm. The surgical pathology showed invasive well differentiated colon adenocarcinoma, MMR intact (IHC), wild type KRAS and wild type NRAS, and wild type BRAF. He then received FOLFIRI and Erbitux for 8 cycles with dose reduction in irinotecan starting in October 2018, followed by maintenance therapy with 5 FU leucovorin and Erbitux beginning in March 2019 until late 2018. Starting from 07/09/2019, he was started on single agent maintenance with Erbitux. In 09/2019, he developed intractable nausea, vomiting abdominal cramping pain. He was evaluated at the emergency room of [facility]. CT of the abdomen pelvis on 09/08/2019 showed distal sigmoid colonic mass decreased in size from the index examination of 09/30/2018. However it resulted in luminal narrowing and upstream colonic dilation, suggestive of at least partial colonic obstruction. Multiple hepatic metastasis have significantly improved from the prior examination. Small left adrenal nodule appeared slightly decreased in size. Indeterminate lingular nodule was noted. Fusiform aneurysms of the abdominal aorta (3.3 cm), bilateral common iliac arteries (right 2.6 cm, left 2.4 cm), bilateral internal iliac arteries (right 2.7 cm, left 3.2 cm), and proximal left external iliac artery (2.0 cm). Dr. Durham took the patient to the operating room and performed an exploratory laparotomy with left lower quadrant loop diverting colostomy on 09/09/2019. Due to CEA increased from 25.4 on 09/03/2019 to 149 on 10/14/2019, he underwent CT scan of the chest abdomen pelvis on 10/16/2019 that showed progression of the liver metastasis. In addition it showed presence of thickening of the sigmoid rectal junction. On 10/22/2019, patient resumed chemotherapy with FOLFIRI/Avastin. On 01/27/2020 CT scan CAP W/contrast showed mild but definite interval improvement in size of multiple hepatic mass lesions previously documented, mild aneurysmal dilatation of the mid to distal 3rd of the abdominal aorta, with aneurysmal dilatation of the common iliac arteries bilaterally and also of the internal iliac arteries bilaterally which measure up to 3.1 cm each. Vascular surgical consultation likely is warranted specifically with attention to the internal iliac artery caliber which are unusually prominent in this patient. He was evaluated by vascular surgeon Dr. Rajesh Burgess at [facility]. As far as the bilateral internal iliac artery aneurysms are concerned, the are above 3 cm on the left and 2.8 cm on the right. Per Dr. Burgess, in an otherwise healthy patient, he would without doubt treated at least the left internal iliac artery aneurysm. Patient is undecided regarding the surgery repair of the aneurysms. Interval history: He had chemotherapy C6# on 01/20/2020 last time. Per patient request, we deferred C7#. Today, he came in for scheduled follow up visit. Since his previous visit, he went out camping. He had experienced about 2 days of right upper abdominal pain which he attributed to large meals including hamburgers and spicy food. Now, the abdominal pain has already dissipated. Patient said he feels great. He has good energy and good appetite. No shortness breath, no chest pain, and no abdominal pain. No diarrhea and no constipation. Patient has not made up his mind about proceeding with the surgery. Patient is still interested in second opinion. Summary of Therapies: 1. FOLFIRI and Erbitux for 8 cycles with a dose reduction in irinotecan starting in October 2018 2. Maintenance therapy with 5 FU leucovorin and Erbitux beginning in March 2019 3. Single agent maintenance with Erbitux started 07/09/2019 4. LLQ loop diverting colostomy on 09/09/2019 for bowel obstruction. 5. FOLFIRI and Avastin 10/22/2019 - - Patient Self-Reported Symptoms SR Constitution: Fatigue/Malaise SR Cardiovascular issues: Shortness of breath with activity or lying flat SR Gastrointestinal issues: Abdominal pain SR Musculoskeletal issues: Muscle pain or cramps - Additional ROS All systems PM: reviewed and no additional remarkable complaints except as stated Home Medications and Allergies Home Medications Medication Instructions Recorded Confirmed Type docusate calcium [Stool Softener] 240 mg DAILY 10/17/18 02/10/20 History ergocalciferol (vitamin D2) 50,000 unit PO QWEEK 10/17/18 02/10/20 History [Vitamin D2] oxycodone 10 mg PO Q4-6H PRN 10/17/18 02/10/20 History lorazepam [Ativan] 0.5 mg PO BID-TID PRN #30 tab 11/15/18 02/10/20 Rx hyoscyamine sulfate 0.25 mg PO QID PRN #100 tab 12/05/18 02/10/20 Rx apixaban [Eliquis] See Rx Instructions .ROUTE 01/04/19 02/10/20 Rx .COMPLEX #74 each dexamethasone 1 mg PO DAILY 30 Days #30 tab 04/30/19 02/10/20 Rx oxycodone 5 mg PO Q4H PRN #180 tab 07/09/19 02/10/20 Rx apixaban [Eliquis] 5 mg PO BID #60 tab 07/18/19 02/10/20 Rx fluorouracil See Rx Instructions .ROUTE 10/14/19 02/10/20 Rx .COMPLEX #1 device fluorouracil See Rx Instructions .ROUTE 10/22/19 02/10/20 Rx .COMPLEX #1 device fluorouracil See Rx Instructions .ROUTE 11/05/19 02/10/20 Rx .COMPLEX #1 device fluorouracil See Rx Instructions .ROUTE 11/19/19 02/10/20 Rx .COMPLEX #1 device fluorouracil See Rx Instructions .ROUTE 11/19/19 02/10/20 Rx .COMPLEX #1 device fluorouracil See Rx Instructions .ROUTE 12/30/19 02/10/20 Rx .COMPLEX #1 device prochlorperazine maleate 10 mg PO Q6H PRN #60 tab 12/30/19 02/10/20 Rx [Compazine] fluorouracil See Rx Instructions .ROUTE 01/20/20 02/10/20 Rx .COMPLEX #1 device fluorouracil See Rx Instructions .ROUTE 03/02/20 Rx .COMPLEX #1 device Allergies Allergy/AdvReac Type Severity Reaction Status Date / Time No Known Drug Allergies Allergy Verified 11/15/18 15:27 Exam Vital signs: Last Vital Signs Temp 98.2 F 03/02/20 09:18 Pulse 67 03/02/20 09:18 Resp 18 03/02/20 09:18 BP 135/85 03/02/20 09:18 Pulse Ox 97 03/02/20 09:18 Narrative: ECOG 1 Vitals above reviewed Constitutional: WDWN, well nourished, and well groomed. NAD. Pleasant and cooperative. HEENT: NCAT, EOMI, PERRLA. Anicteric sclera. Neck: Supple and symmetrical, no palpable masses. No palpable thyromegaly. Respiratory: No use of accessory muscles. CTAB, no wheezes. Cardiovascular: RRR, S1 and S2 normal, no M/G/R. No edema of lower extremities. Abdomen: Soft, liver is not palpable. Left colostomy noted. Lymphatic: no palpable palpable lymph nodes in the neck, axillae Musculoskeletal: normal gait and station Skin: No rashes, lesions, or ulcers. No induration, or subcutaneous nodules. Neurological: CN II-XII grossly intact. No focal motor or sensory deficit. Psychiatric: Normal judgment and insight. AOx3. Normal memory (recent and remote). Normal mood and affect. Results - Labs Laboratory Last Values WBC 8.1 X10^3/uL (4.5-11.0) 03/02/20 08:45 RBC 5.01 X10^6/uL (4.5-5.9) 03/02/20 08:45 Hgb 14.6 g/dL (13.5-17.5) 03/02/20 08:45 Hct 44.3 % (41-53) 03/02/20 08:45 MCV 88.5 fL (80-100) 03/02/20 08:45 MCH 29.2 PG (26-34) 03/02/20 08:45 MCHC 33.0 % (30-36) 03/02/20 08:45 RDW 18.0 % (11.6-14.8) H 03/02/20 08:45 Plt Count 249 X10^3/uL (150-400) 03/02/20 08:45 Neut % (Auto) 56.9 % (50-75) 03/02/20 08:45 Lymph % (Auto) 25.7 % (25-40) 03/02/20 08:45 [place] % (Auto) 12.1 % (3-14) 03/02/20 08:45 Eos % (Auto) 4.4 % (2-4) H 03/02/20 08:45 Baso % (Auto) 0.9 % (0-2) 03/02/20 08:45 Neut # (Auto) 4600 /uL (8945-4156) 03/02/20 08:45 Lymph # (Auto) 2100 /uL (1399-7161) 03/02/20 08:45 [place] # (Auto) 1000 /uL (0-900) H 03/02/20 08:45 Eos # (Auto) 400 /uL (0-450) 03/02/20 08:45 Baso # (Auto) 100 /uL (0-100) 03/02/20 08:45 RBC Morphology See below 02/19/19 09:15 Hypochromasia 1+ H 02/05/19 08:59 Poikilocytosis 2+ H 02/05/19 08:59 Anisocytosis 1+ H 02/19/19 09:15 Macrocytosis 1+ H 02/05/19 08:59 Rouleaux 1+ H 02/19/19 09:15 Sodium 140 mmol/L (137-145) 03/02/20 08:45 Potassium 3.7 mmol/L (3.4-5.1) 03/02/20 08:45 Chloride 109 mmol/L (98-107) H 03/02/20 08:45 Carbon Dioxide 25 mmol/L (22-32) 03/02/20 08:45 BUN 12 mg/dL (9-20) 03/02/20 08:45 Creatinine 0.70 mg/dL (0.66-1.25) 03/02/20 08:45 Estimated GFR > 60.0 mL/min (>60) 03/02/20 08:45 BUN/Creatinine Ratio 17.1 (6-22) 03/02/20 08:45 Glucose 95 mg/dL (70-100) 03/02/20 08:45 Calcium 9.2 mg/dL (8.4-10.2) 03/02/20 08:45 Magnesium 1.9 mg/dL (1.6-2.3) 09/03/19 09:30 Total Bilirubin 0.5 mg/dL (0.2-1.3) 03/02/20 08:45 AST 26 IU/L (17-59) 03/02/20 08:45 ALT 22 IU/L (<50) 03/02/20 08:45 Alkaline Phosphatase 89 U/L (38-126) 03/02/20 08:45 Total Protein 7.8 g/dL (6.3-8.2) 03/02/20 08:45 Albumin 4.1 g/dL (3.5-5.0) 03/02/20 08:45 Globulin 3.7 g/dL (1.7-4.1) 03/02/20 08:45 Albumin/Globulin Ratio 1.1 (1.0-2.8) 03/02/20 08:45 Carcinoembryonic Ag 185.0 ng/mL (0.1-3.0) H 02/10/20 08:50 Assessment and Plan (1) Colon cancer Overview: 59-year-old man with a rectosigmoid mass and liver metastasis. Biopsy showed invasive well-differentiated adenocarcinoma. Mismatch repair proteins were normal. MARION and BRAF mutations are normal. He has completed 8 cycles of FOLFIRI with Erbitux with a decrease in the irinotecan dose. He then was on maintenance therapy with Erbitux. In 09/2019, he underwent urgent diverting colostomy for bowel obstruction. Dur to significantly elevated CEA level 10/14/2019, follow-up CT scan 10/16/2019 showed disease progression as evidenced by interval increase in the numerous hypodense hepatic metastasis and shoddy retrocrural and para-aortic lymph nodes and abnormal thickening of the rectosigmoid junction. After discussion with the patient, we decided to resume chemotherapy with FOLFIRI/Avastin. Patient received his first cycle on 10/22/2019. Up until now, he has had 6 cycles. On 01/27/2020 CT scan CAP w/contrast showed mild but definite interval improvement in size of multiple hepatic mass lesions, mild aneurysmal dilatation of the mid to distal 3rd of the abdominal aorta, with aneurysmal dilatation of the common iliac arteries bilaterally and also of the internal iliac arteries bilaterally which measure up to 3.[address] Rajesh Burgess at [facility] evaluated [facility] patient regarding bilateral internal iliac artery aneurysms. Surgical repair has been discussed with the patient but the patient has not decided if he would like to proceed with any surgical interventions at this moment. Assessment: Today, Marvel again was asking if it is possible to skip the chemotherapy. He said he put his quality of time and time with family at the very first priority. At present, he is asymptomatic and he has good quality of time. I talked with him that I would agree with him. I talked with him that if there are any new signs or symptoms or the tumor markers are increasing quickly, I would recommend that we resume the treatment. I recommended we monitor the tumor marker as well as clinical symptoms about once every 3 weeks. As far as the internal iliac aneurysm surgery is concerned, patient said that he will find out the name of the surgeon at the [facility] and will then ask us to do a referral. I agreed. Plan: Continue to hold cycle 7# RTC in 3 weeks, Labs per protocol (2) Pulmonary embolism He did have incidental bilateral pulmonary emboli discovered in December 2018 and he remains on anticoagulation Eliquis 5 mg bid. No bleeding events. Will continue (3) Colostomy in place Standard colostomy care. (4) Port-A-Cath in place Flush every 4-6 weeks
--- NOTE | 2020-03-02 15:43 | PC.NURSE ---
CEA 294; pt called and notified of results and that Dr. Trinidad has seen and is ok seeing pt in 3 weeks.
[2020-03-23 09:04] LABS: Add Manual Diff / Slide Review NO; Basophils Absolute Auto 100 /uL (0-100); Basophils Percent Auto 0.8 % (0-2); Eosinophils Absolute Auto 400 /uL (0-450); Eosinophils Percent Auto 4.2 % (2-4); Hematocrit 42.3 % (41-53); Hemoglobin 14.2 g/dL (13.5-17.5); Lymphocytes Absolute Auto 1700 /uL (1100-4500); Lymphocytes Percent Auto 16.6 % (25-40); Mean Corpuscular HGB Conc 33.6 % (30-36); Mean Corpuscular Hemoglobin 29.8 PG (26-34); Mean Corpuscular Volume 88.8 fL (80-100); Monocytes Absolute Auto 1400 /uL (0-900); Monocytes Percent Auto 12.9 % (3-14); Neutrophils Absolute Auto 6900 /uL (1500-7000); Neutrophils Percent Auto 65.5 % (50-75); Platelet Count 199 X10^3/uL (150-400); Red Blood Cell Count 4.77 X10^6/uL (4.5-5.9); Red Cell Distribution Width 16.4 % (11.6-14.8); White Blood Cell Count 10.5 X10^3/uL (4.5-11.0)
[2020-03-23 09:16] LABS: Alanine Aminotransferase 27 IU/L (<50); Albumin Globulin Ratio 1.1 (1.0-2.8); Alkaline Phosphatase 117 U/L (38-126); Aspartate Aminotransferase 38 IU/L (17-59); BUN Creatinine Ratio 19.7 (6-22); Bilirubin Total 0.4 mg/dL (0.2-1.3); Blood Urea Nitrogen 12 mg/dL (9-20); Calcium 8.9 mg/dL (8.4-10.2); Carbon Dioxide 28 mmol/L (22-32); Chloride 105 mmol/L (98-107); Estimated Glomerular Filt Rate > 60.0 mL/min (>60); Globulin 3.6 g/dL (1.7-4.1); Glucose 84 mg/dL (70-100); Potassium 3.9 mmol/L (3.4-5.1); Sodium 140 mmol/L (137-145); Total Protein 7.6 g/dL (6.3-8.2)
[2020-03-23 09:19] VITALS: BP 151/95; PULSE 63; RESP 17; TEMP 36.6; O2SAT 96
[2020-03-23] MEDS: diphenhydrAMINE 25 MG TABLET PO (09:49)
[2020-03-23] MEDS: ONDANSETRON 16 MG in SODIUM CHLORIDE 0.9% 50 ML 232 ML IV (10:28)
[2020-03-23 10:35] LABS: HEMOLYSIS 48 (0-50)
[2020-03-23] MEDS: SODIUM CHLORIDE 0.9% 100 ML 21 ML IV (10:36)
--- NOTE | 2020-03-23 11:41 | ONC.PN ---
PN -Subjective Interval history: ID/CC: 59 year old male with metastatic colon cancer with liver metastasis, pMMR, wtRAS/BRAF now on treatment with FOLFIRI/Avastin. History of Present Illness: 59-year-old man presented initially with blood in the stool, abdominal pain and weight loss. CT scan showed some thickening of the colon at the rectosigmoid junction as well as multiple liver metastasis. His CEA was 1652. He was seen by Dr. Deleon and had a colonoscopy performed in 10/10/2018. He was found to have a mass at 20 cm, unable to transit. Biopsy showed serrated adenoma but no evidence of malignancy. Patient underwent repeat colonoscopy with sedation on 10/24/2018. At this time, the scope was able to transit through a circumferential malignant mass at around 20-25 cm. The surgical pathology showed invasive well differentiated colon adenocarcinoma, MMR intact (IHC), wild type KRAS and wild type NRAS, and wild type BRAF. He then received FOLFIRI and Erbitux for 8 cycles with dose reduction in irinotecan starting in October 2018, followed by maintenance therapy with 5 FU leucovorin and Erbitux beginning in March 2019 until late 2018. Starting from 07/09/2019, he was started on single agent maintenance with Erbitux. In 09/2019, he developed intractable nausea, vomiting abdominal cramping pain. He was evaluated at the emergency room of [facility]. CT of the abdomen pelvis on 09/08/2019 showed distal sigmoid colonic mass decreased in size from the index examination of 09/30/2018. However it resulted in luminal narrowing and upstream colonic dilation, suggestive of at least partial colonic obstruction. Multiple hepatic metastasis have significantly improved from the prior examination. Small left adrenal nodule appeared slightly decreased in size. Indeterminate lingular nodule was noted. Fusiform aneurysms of the abdominal aorta (3.3 cm), bilateral common iliac arteries (right 2.6 cm, left 2.4 cm), bilateral internal iliac arteries (right 2.7 cm, left 3.2 cm), and proximal left external iliac artery (2.0 cm). Dr. Durham took the patient to the operating room and performed an exploratory laparotomy with left lower quadrant loop diverting colostomy on 09/09/2019. Due to CEA increased from 25.4 on 09/03/2019 to 149 on 10/14/2019, he underwent CT scan of the chest abdomen pelvis on 10/16/2019 that showed progression of the liver metastasis. In addition it showed presence of thickening of the sigmoid rectal junction. On 10/22/2019, patient resumed chemotherapy with FOLFIRI/Avastin. On 01/27/2020 CT scan CAP W/contrast showed mild but definite interval improvement in size of multiple hepatic mass lesions previously documented, mild aneurysmal dilatation of the mid to distal 3rd of the abdominal aorta, with aneurysmal dilatation of the common iliac arteries bilaterally and also of the internal iliac arteries bilaterally which measure up to 3.1 cm each. Vascular surgical consultation likely is warranted specifically with attention to the internal iliac artery caliber which are unusually prominent in this patient. He was evaluated by vascular surgeon Dr. Rajesh Burgess at [facility]. As far as the bilateral internal iliac artery aneurysms are concerned, the are above 3 cm on the left and 2.8 cm on the right. Per Dr. Burgess, in an otherwise healthy patient, he would without doubt treated at least the left internal iliac artery aneurysm. Patient is undecided regarding the surgery repair of the aneurysms. Interval history: He had chemotherapy C6# on 01/20/2020 last time. Per patient request, we deferred C7#. Today, he came in for scheduled follow up visit. He is now complaining more prominent right upper quadrant pain. No fever, and no chills. Since his previous visit, he had spent time with his family camping, Summary of Therapies: 1. FOLFIRI and Erbitux for 8 cycles with a dose reduction in irinotecan starting in October 2018 2. Maintenance therapy with 5 FU leucovorin and Erbitux beginning in March 2019 3. Single agent maintenance with Erbitux started 07/09/2019 4. LLQ loop diverting colostomy on 09/09/2019 for bowel obstruction. 5. FOLFIRI and Avastin 10/22/2019 - - Patient Self-Reported Symptoms SR Constitution: Fatigue/Malaise SR Cardiovascular issues: Shortness of breath with activity or lying flat SR Gastrointestinal issues: Abdominal pain SR Musculoskeletal issues: Muscle pain or cramps - Additional ROS All systems PM: reviewed and no additional remarkable complaints except as stated Home Medications and Allergies Home Medications Medication Instructions Recorded Confirmed Type docusate calcium [Stool Softener] 240 mg DAILY 10/17/18 02/10/20 History ergocalciferol (vitamin D2) 50,000 unit PO QWEEK 10/17/18 02/10/20 History [Vitamin D2] oxycodone 10 mg PO Q4-6H PRN 10/17/18 02/10/20 History lorazepam [Ativan] 0.5 mg PO BID-TID PRN #30 tab 11/15/18 02/10/20 Rx hyoscyamine sulfate 0.25 mg PO QID PRN #100 tab 12/05/18 02/10/20 Rx apixaban [Eliquis] See Rx Instructions .ROUTE 01/04/19 02/10/20 Rx .COMPLEX #74 each dexamethasone 1 mg PO DAILY 30 Days #30 tab 04/30/19 02/10/20 Rx oxycodone 5 mg PO Q4H PRN #180 tab 07/09/19 02/10/20 Rx apixaban [Eliquis] 5 mg PO BID #60 tab 07/18/19 02/10/20 Rx fluorouracil See Rx Instructions .ROUTE 10/14/19 02/10/20 Rx .COMPLEX #1 device fluorouracil See Rx Instructions .ROUTE 10/22/19 02/10/20 Rx .COMPLEX #1 device fluorouracil See Rx Instructions .ROUTE 11/05/19 02/10/20 Rx .COMPLEX #1 device fluorouracil See Rx Instructions .ROUTE 11/19/19 02/10/20 Rx .COMPLEX #1 device fluorouracil See Rx Instructions .ROUTE 11/19/19 02/10/20 Rx .COMPLEX #1 device fluorouracil See Rx Instructions .ROUTE 12/30/19 02/10/20 Rx .COMPLEX #1 device prochlorperazine maleate 10 mg PO Q6H PRN #60 tab 12/30/19 02/10/20 Rx [Compazine] fluorouracil See Rx Instructions .ROUTE 01/20/20 02/10/20 Rx .COMPLEX #1 device fluorouracil See Rx Instructions .ROUTE 03/02/20 Rx .COMPLEX #1 device Allergies Allergy/AdvReac Type Severity Reaction Status Date / Time No Known Drug Allergies Allergy Verified 11/15/18 15:27 Exam Vital signs: Vital Signs Temp Pulse Resp BP Pulse Ox 03/23/20 09:19 97.8 F 63 17 151/95 H 96 Intake and Output 03/22/20 03/23/20 03/23/20 23:59 07:59 15:59 Intake Total 111 / 111 Balance 111 / 111 Intake: IV Ondansetron 16 mg In Sodium 58 / 58 Chloride 0.9% 50 ml @ 232 mls/ hr IV PRECHEM MAK Rx#:[id number] dexAMETHasone 12 mg In Sodium 53 / 53 Chloride 0.9% 50 ml @ 212 mls/ hr IV PRECHEM MAK Rx#:[id number] Narrative: ECOG 1 Vitals above reviewed Constitutional: WDWN, well nourished, and well groomed. NAD. Pleasant and cooperative. HEENT: NCAT, EOMI, PERRLA. Anicteric sclera. Neck: Supple and symmetrical, no palpable masses. No palpable thyromegaly. Respiratory: No use of accessory muscles. CTAB, no wheezes. Cardiovascular: RRR, S1 and S2 normal, no M/G/R. No edema of lower extremities. Abdomen: Soft, liver is not palpable. Left colostomy noted. Lymphatic: no palpable palpable lymph nodes in the neck, axillae Musculoskeletal: normal gait and station Skin: No rashes, lesions, or ulcers. No induration, or subcutaneous nodules. Neurological: CN II-XII grossly intact. No focal motor or sensory deficit. Psychiatric: Normal judgment and insight. AOx3. Normal memory (recent and remote). Normal mood and affect. Results - Labs Laboratory Last Values WBC 10.5 X10^3/uL (4.5-11.0) 03/23/20 08:45 RBC 4.77 X10^6/uL (4.5-5.9) 03/23/20 08:45 Hgb 14.2 g/dL (13.5-17.5) 03/23/20 08:45 Hct 42.3 % (41-53) 03/23/20 08:45 MCV 88.8 fL (80-100) 03/23/20 08:45 MCH 29.8 PG (26-34) 03/23/20 08:45 MCHC 33.6 % (30-36) 03/23/20 08:45 RDW 16.4 % (11.6-14.8) H 03/23/20 08:45 Plt Count 199 X10^3/uL (150-400) 03/23/20 08:45 Neut % (Auto) 65.5 % (50-75) 03/23/20 08:45 Lymph % (Auto) 16.6 % (25-40) L 03/23/20 08:45 [place] % (Auto) 12.9 % (3-14) 03/23/20 08:45 Eos % (Auto) 4.2 % (2-4) H 03/23/20 08:45 Baso % (Auto) 0.8 % (0-2) 03/23/20 08:45 Neut # (Auto) 6900 /uL (6091-5649) 03/23/20 08:45 Lymph # (Auto) 1700 /uL (3430-9823) 03/23/20 08:45 [place] # (Auto) 1400 /uL (0-900) H 03/23/20 08:45 Eos # (Auto) 400 /uL (0-450) 03/23/20 08:45 Baso # (Auto) 100 /uL (0-100) 03/23/20 08:45 RBC Morphology See below 02/19/19 09:15 Hypochromasia 1+ H 02/05/19 08:59 Poikilocytosis 2+ H 02/05/19 08:59 Anisocytosis 1+ H 02/19/19 09:15 Macrocytosis 1+ H 02/05/19 08:59 Rouleaux 1+ H 02/19/19 09:15 Sodium 140 mmol/L (137-145) 03/23/20 08:45 Potassium 3.9 mmol/L (3.4-5.1) 03/23/20 08:45 Chloride 105 mmol/L (98-107) 03/23/20 08:45 Carbon Dioxide 28 mmol/L (22-32) 03/23/20 08:45 BUN 12 mg/dL (9-20) 03/23/20 08:45 Creatinine 0.61 mg/dL (0.66-1.25) L 03/23/20 08:45 Estimated GFR > 60.0 mL/min (>60) 03/23/20 08:45 BUN/Creatinine Ratio 19.7 (6-22) 03/23/20 08:45 Glucose 84 mg/dL (70-100) 03/23/20 08:45 Calcium 8.9 mg/dL (8.4-10.2) 03/23/20 08:45 Magnesium 1.9 mg/dL (1.6-2.3) 09/03/19 09:30 Total Bilirubin 0.4 mg/dL (0.2-1.3) 03/23/20 08:45 AST 38 IU/L (17-59) 03/23/20 08:45 ALT 27 IU/L (<50) 03/23/20 08:45 Alkaline Phosphatase 117 U/L (38-126) 03/23/20 08:45 Total Protein 7.6 g/dL (6.3-8.2) 03/23/20 08:45 Albumin 4.0 g/dL (3.5-5.0) 03/23/20 08:45 Globulin 3.6 g/dL (1.7-4.1) 03/23/20 08:45 Albumin/Globulin Ratio 1.1 (1.0-2.8) 03/23/20 08:45 Carcinoembryonic Ag 820.0 ng/mL (0.1-3.0) H 03/23/20 08:45 Assessment and Plan (1) Colon cancer Overview: 59-year-old man with a rectosigmoid mass and liver metastasis. Biopsy showed invasive well-differentiated adenocarcinoma. Mismatch repair proteins were normal. MARION and BRAF mutations are normal. He has completed 8 cycles of FOLFIRI with Erbitux with a decrease in the irinotecan dose. He then was on maintenance therapy with Erbitux. In 09/2019, he underwent urgent diverting colostomy for bowel obstruction. Dur to significantly elevated CEA level 10/14/2019, follow-up CT scan 10/16/2019 showed disease progression as evidenced by interval increase in the numerous hypodense hepatic metastasis and shoddy retrocrural and para-aortic lymph nodes and abnormal thickening of the rectosigmoid junction. After discussion with the patient, we decided to resume chemotherapy with FOLFIRI/Avastin. Patient received his first cycle on 10/22/2019. Up until now, he has had 6 cycles. On 01/27/2020 CT scan CAP w/contrast showed mild but definite interval improvement in size of multiple hepatic mass lesions, mild aneurysmal dilatation of the mid to distal 3rd of the abdominal aorta, with aneurysmal dilatation of the common iliac arteries bilaterally and also of the internal iliac arteries bilaterally which measure up to 3.[address] Rajesh Burgess at [facility] evaluated [facility] patient regarding bilateral internal iliac artery aneurysms. Surgical repair has been discussed with the patient but the patient has not decided if he would like to proceed with any surgical interventions at this moment. Assessment: He is now experiencing more right upper abdominal pain. His CEA also has increased dramatically. It indicates disease progression. CBC and CMP from today are unremarkable. I will proceed with scheduled chemotherapy. Plan: Ok to proceed to cycle 7# RTC in 3 weeks, Labs per protocol (2) Pulmonary embolism He had incidental bilateral pulmonary emboli discovered in December 2018 and he remains on anticoagulation Eliquis 5 mg bid. No bleeding events. Will continue (3) Colostomy in place Standard colostomy care. (4) Port-A-Cath in place Flush every 4-6 weeks
[2020-03-23] MEDS: BEVACIZUMAB IV (12:02)
[2020-03-23] MEDS: SODIUM CHLORIDE 0.9% IV (12:02)
[2020-03-23] MEDS: DEXTROSE 5% IV ×2 (12:48)
[2020-03-23] MEDS: IRINOTECAN IV (12:48)
[2020-03-23] MEDS: LEUCOVORIN IV (12:48)
[2020-03-23] MEDS: ATROPINE 0.4 MG/ML VIAL 0.25 MG SUBCUT (14:39)
--- NOTE | 2020-03-23 15:26 | PC.NURSE ---
Pump Patietn tolerated chemo today. One atropine given for stomach cramping. Patient home with pump today per orders. Patient will return Monday at 1330 for pump disconnect.
--- NOTE | 2020-03-25 13:31 | ONC.MSW ---
Description: T/C Activity: Left message for pt returning his call about social security questions. Requested return call.
[2020-03-25 14:11] VITALS: BP 136/92; PULSE 68; RESP 16; TEMP 36.7; O2SAT 94
--- NOTE | 2020-03-25 14:11 | PC.NURSE ---
NAUSEA/VOMITING/PUMP DISCONNECT Patient here for pump disconnect today. Patient complaining of severe nausea and vomiting since monday evening. Patient very tired, complaining of no energy. Discussed with patient benefits of having bolus of NS. Patient hesitant than agreed to have 500ml bolus today. Will continue to monitor.
[2020-03-25] MEDS: SODIUM CHLORIDE 0.9% 500 ML 1000 ML IV (14:33)
[2020-04-01 11:16] LABS: Add Manual Diff / Slide Review NO; Basophils Absolute Auto 0 /uL (0-100); Basophils Percent Auto 0.6 % (0-2); Eosinophils Absolute Auto 200 /uL (0-450); Eosinophils Percent Auto 3.4 % (2-4); Hematocrit 43.9 % (41-53); Hemoglobin 14.5 g/dL (13.5-17.5); Lymphocytes Absolute Auto 1600 /uL (1100-4500); Lymphocytes Percent Auto 24.8 % (25-40); Mean Corpuscular Hemoglobin 29.4 PG (26-34); Mean Corpuscular Volume 88.9 fL (80-100); Monocytes Absolute Auto 700 /uL (0-900); Monocytes Percent Auto 10.6 % (3-14); Neutrophils Absolute Auto 3900 /uL (1500-7000); Neutrophils Percent Auto 60.6 % (50-75); Platelet Count 285 X10^3/uL (150-400); Red Blood Cell Count 4.94 X10^6/uL (4.5-5.9); Red Cell Distribution Width 16.3 % (11.6-14.8); White Blood Cell Count 6.4 X10^3/uL (4.5-11.0)
[2020-04-01 11:27] LABS: Alanine Aminotransferase 36 IU/L (<50); Albumin 4.3 g/dL (3.5-5.0); Albumin Globulin Ratio 1.2 (1.0-2.8); Alkaline Phosphatase 118 U/L (38-126); Aspartate Aminotransferase 40 IU/L (17-59); BUN Creatinine Ratio 17.9 (6-22); Bilirubin Total 0.5 mg/dL (0.2-1.3); Blood Urea Nitrogen 14 mg/dL (9-20); Calcium 9.2 mg/dL (8.4-10.2); Carbon Dioxide 28 mmol/L (22-32); Chloride 106 mmol/L (98-107); Estimated Glomerular Filt Rate > 60.0 mL/min (>60); Globulin 3.6 g/dL (1.7-4.1); Glucose 85 mg/dL (70-100); Potassium 3.7 mmol/L (3.4-5.1); Sodium 142 mmol/L (137-145); Total Protein 7.9 g/dL (6.3-8.2)
[2020-04-01 11:28] LABS: HEMOLYSIS 51 (0-50)
[2020-04-13 09:00] VITALS: BP 135/99; PULSE 102; RESP 18; TEMP 35.9; O2SAT 96
[2020-04-13 09:10] LABS: Add Manual Diff / Slide Review NO; Basophils Absolute Auto 100 /uL (0-100); Basophils Percent Auto 0.9 % (0-2); Eosinophils Absolute Auto 200 /uL (0-450); Eosinophils Percent Auto 3.2 % (2-4); Hematocrit 44.2 % (41-53); Hemoglobin 15.2 g/dL (13.5-17.5); Lymphocytes Absolute Auto 1300 /uL (1100-4500); Lymphocytes Percent Auto 22.6 % (25-40); Mean Corpuscular HGB Conc 34.3 % (30-36); Mean Corpuscular Volume 87.4 fL (80-100); Monocytes Absolute Auto 1100 /uL (0-900); Monocytes Percent Auto 19.3 % (3-14); Neutrophils Absolute Auto 3100 /uL (1500-7000); Platelet Count 222 X10^3/uL (150-400); Red Blood Cell Count 5.06 X10^6/uL (4.5-5.9); Red Cell Distribution Width 15.6 % (11.6-14.8); White Blood Cell Count 5.7 X10^3/uL (4.5-11.0)
[2020-04-13 09:23] LABS: Alanine Aminotransferase 24 IU/L (<50); Albumin 4.2 g/dL (3.5-5.0); Albumin Globulin Ratio 1.1 (1.0-2.8); Alkaline Phosphatase 150 U/L (38-126); Aspartate Aminotransferase 32 IU/L (17-59); BUN Creatinine Ratio 13.8 (6-22); Bilirubin Total 0.6 mg/dL (0.2-1.3); Blood Urea Nitrogen 12 mg/dL (9-20); Calcium 8.9 mg/dL (8.4-10.2); Carbon Dioxide 29 mmol/L (22-32); Chloride 104 mmol/L (98-107); Estimated Glomerular Filt Rate > 60.0 mL/min (>60); Globulin 3.7 g/dL (1.7-4.1); Glucose 144 mg/dL (70-100); HEMOLYSIS < 15 (0-50); Potassium 4.1 mmol/L (3.4-5.1); Sodium 140 mmol/L (137-145); Total Protein 7.9 g/dL (6.3-8.2)
--- NOTE | 2020-04-13 09:47 | ONC.PN ---
PN -Subjective Interval history: ID/CC: 59 year old male with metastatic colon cancer with liver metastasis, pMMR, wtRAS/BRAF now on treatment with FOLFIRI/Avastin. History of Present Illness: 59-year-old man presented initially with blood in the stool, abdominal pain and weight loss. CT scan showed some thickening of the colon at the rectosigmoid junction as well as multiple liver metastasis. His CEA was 1652. He was seen by Dr. Deleon and had a colonoscopy performed in 10/10/2018. He was found to have a mass at 20 cm, unable to transit. Biopsy showed serrated adenoma but no evidence of malignancy. Patient underwent repeat colonoscopy with sedation on 10/24/2018. At this time, the scope was able to transit through a circumferential malignant mass at around 20-25 cm. The surgical pathology showed invasive well differentiated colon adenocarcinoma, MMR intact (IHC), wild type KRAS and wild type NRAS, and wild type BRAF. He then received FOLFIRI and Erbitux for 8 cycles with dose reduction in irinotecan starting in October 2018, followed by maintenance therapy with 5 FU leucovorin and Erbitux beginning in March 2019 until late 2018. Starting from 07/09/2019, he was started on single agent maintenance with Erbitux. In 09/2019, he developed intractable nausea, vomiting abdominal cramping pain. He was evaluated at the emergency room of [facility]. CT of the abdomen pelvis on 09/08/2019 showed distal sigmoid colonic mass decreased in size from the index examination of 09/30/2018. However it resulted in luminal narrowing and upstream colonic dilation, suggestive of at least partial colonic obstruction. Multiple hepatic metastasis have significantly improved from the prior examination. Small left adrenal nodule appeared slightly decreased in size. Indeterminate lingular nodule was noted. Fusiform aneurysms of the abdominal aorta (3.3 cm), bilateral common iliac arteries (right 2.6 cm, left 2.4 cm), bilateral internal iliac arteries (right 2.7 cm, left 3.2 cm), and proximal left external iliac artery (2.0 cm). Dr. Durham took the patient to the operating room and performed an exploratory laparotomy with left lower quadrant loop diverting colostomy on 09/09/2019. Due to CEA increased from 25.4 on 09/03/2019 to 149 on 10/14/2019, he underwent CT scan of the chest abdomen pelvis on 10/16/2019 that showed progression of the liver metastasis. In addition it showed presence of thickening of the sigmoid rectal junction. On 10/22/2019, patient resumed chemotherapy with FOLFIRI/Avastin. On 01/27/2020 CT scan CAP W/contrast showed mild but definite interval improvement in size of multiple hepatic mass lesions previously documented, mild aneurysmal dilatation of the mid to distal 3rd of the abdominal aorta, with aneurysmal dilatation of the common iliac arteries bilaterally and also of the internal iliac arteries bilaterally which measure up to 3.1 cm each. Vascular surgical consultation likely is warranted specifically with attention to the internal iliac artery caliber which are unusually prominent in this patient. He was evaluated by vascular surgeon Dr. Rajesh Burgess at [facility]. As far as the bilateral internal iliac artery aneurysms are concerned, they are above 3 cm on the left and 2.8 cm on the right. Per Dr. Burgess, in an otherwise healthy patient, he would without doubt treated at least the left internal iliac artery aneurysm. Patient is undecided regarding the surgery repair of the aneurysms. Interval history: He had chemotherapy C6# on 01/20/2020 last time. Per patient request, we deferred C7# to 03/23/2020. Patient is complaining right upper quadrant abdominal weakness and pain. Patient has decreased appetite and decreased energy level. No fever no chills. No shortness breath no chest pain. He does not have any diarrhea or constipation. He presents here today to proceed with cycle 8 chemotherapy. On 04/01/2020, patient underwent CT chest abdomen pelvis. It showed disease progression especially liver metastasis. Summary of Therapies: 1. FOLFIRI and Erbitux for 8 cycles with a dose reduction in irinotecan starting in October 2018 2. Maintenance therapy with 5 FU leucovorin and Erbitux beginning in March 2019 3. Single agent maintenance with Erbitux started 07/09/2019 4. LLQ loop diverting colostomy on 09/09/2019 for bowel obstruction. 5. FOLFIRI and Avastin 10/22/2019 - - Patient Self-Reported Symptoms SR Constitution: Fatigue/Malaise SR Cardiovascular issues: Shortness of breath with activity or lying flat SR Gastrointestinal issues: Abdominal pain SR Musculoskeletal issues: Muscle pain or cramps - Additional ROS All systems PM: reviewed and no additional remarkable complaints except as stated Home Medications and Allergies Home Medications Medication Instructions Recorded Confirmed Type docusate calcium [Stool Softener] 240 mg DAILY 10/17/18 04/13/20 History ergocalciferol (vitamin D2) 50,000 unit PO QWEEK 10/17/18 04/13/20 History [Vitamin D2] oxycodone 10 mg PO Q4-6H PRN 10/17/18 04/13/20 History lorazepam [Ativan] 0.5 mg PO BID-TID PRN #30 tab 11/15/18 04/13/20 Rx hyoscyamine sulfate 0.25 mg PO QID PRN #100 tab 12/05/18 04/13/20 Rx apixaban [Eliquis] See Rx Instructions .ROUTE 01/04/19 04/13/20 Rx .COMPLEX #74 each dexamethasone 1 mg PO DAILY 30 Days #30 tab 04/30/19 04/13/20 Rx oxycodone 5 mg PO Q4H PRN #180 tab 07/09/19 04/13/20 Rx apixaban [Eliquis] 5 mg PO BID #60 tab 07/18/19 04/13/20 Rx fluorouracil See Rx Instructions .ROUTE 10/14/19 04/13/20 Rx .COMPLEX #1 device fluorouracil See Rx Instructions .ROUTE 10/22/19 04/13/20 Rx .COMPLEX #1 device fluorouracil See Rx Instructions .ROUTE 11/05/19 04/13/20 Rx .COMPLEX #1 device fluorouracil See Rx Instructions .ROUTE 11/19/19 04/13/20 Rx .COMPLEX #1 device fluorouracil See Rx Instructions .ROUTE 11/19/19 04/13/20 Rx .COMPLEX #1 device fluorouracil See Rx Instructions .ROUTE 12/30/19 04/13/20 Rx .COMPLEX #1 device prochlorperazine maleate 10 mg PO Q6H PRN #60 tab 12/30/19 04/13/20 Rx [Compazine] fluorouracil See Rx Instructions .ROUTE 01/20/20 04/13/20 Rx .COMPLEX #1 device fluorouracil See Rx Instructions .ROUTE 03/02/20 04/13/20 Rx .COMPLEX #1 device fluorouracil See Rx Instructions .ROUTE 04/13/20 Rx .COMPLEX #1 device Allergies Allergy/AdvReac Type Severity Reaction Status Date / Time No Known Drug Allergies Allergy Verified 11/15/18 15:27 Exam Vital signs: Vital Signs Temp Pulse Resp BP Pulse Ox 04/13/20 09:00 96.6 F L 102 H 18 135/99 H 96 Narrative: ECOG 1 Vitals above reviewed Constitutional: WDWN, well nourished, and well groomed. NAD. Pleasant and cooperative. HEENT: NCAT, EOMI, PERRLA. Anicteric sclera. Neck: Supple and symmetrical, no palpable masses. No palpable thyromegaly. Respiratory: No use of accessory muscles. CTAB, no wheezes. Cardiovascular: RRR, S1 and S2 normal, no M/G/R. No edema of lower extremities. Abdomen: Soft, liver is not palpable. Left colostomy noted. Lymphatic: no palpable palpable lymph nodes in the neck, axillae Musculoskeletal: normal gait and station Skin: No rashes, lesions, or ulcers. No induration, or subcutaneous nodules. Neurological: CN II-XII grossly intact. No focal motor or sensory deficit. Psychiatric: Normal judgment and insight. AOx3. Normal memory (recent and remote). Normal mood and affect. Results - Labs Laboratory Last Values WBC 5.7 X10^3/uL (4.5-11.0) 04/13/20 09:00 RBC 5.06 X10^6/uL (4.5-5.9) 04/13/20 09:00 Hgb 15.2 g/dL (13.5-17.5) 04/13/20 09:00 Hct 44.2 % (41-53) 04/13/20 09:00 MCV 87.4 fL (80-100) 04/13/20 09:00 MCH 30.0 PG (26-34) 04/13/20 09:00 MCHC 34.3 % (30-36) 04/13/20 09:00 RDW 15.6 % (11.6-14.8) H 04/13/20 09:00 Plt Count 222 X10^3/uL (150-400) 04/13/20 09:00 Neut % (Auto) 54.0 % (50-75) 04/13/20 09:00 Lymph % (Auto) 22.6 % (25-40) L 04/13/20 09:00 Gates % (Auto) 19.3 % (3-14) H 04/13/20 09:00 Eos % (Auto) 3.2 % (2-4) 04/13/20 09:00 Baso % (Auto) 0.9 % (0-2) 04/13/20 09:00 Neut # (Auto) 3100 /uL (7497-8000) 04/13/20 09:00 Lymph # (Auto) 1300 /uL (9460-2490) 04/13/20 09:00 Gates # (Auto) 1100 /uL (0-900) H 04/13/20 09:00 Eos # (Auto) 200 /uL (0-450) 04/13/20 09:00 Baso # (Auto) 100 /uL (0-100) 04/13/20 09:00 RBC Morphology See below 02/19/19 09:15 Hypochromasia 1+ H 02/05/19 08:59 Poikilocytosis 2+ H 02/05/19 08:59 Anisocytosis 1+ H 02/19/19 09:15 Macrocytosis 1+ H 02/05/19 08:59 Rouleaux 1+ H 02/19/19 09:15 Sodium 140 mmol/L (137-145) 04/13/20 09:00 Potassium 4.1 mmol/L (3.4-5.1) 04/13/20 09:00 Chloride 104 mmol/L (98-107) 04/13/20 09:00 Carbon Dioxide 29 mmol/L (22-32) 04/13/20 09:00 BUN 12 mg/dL (9-20) 04/13/20 09:00 Creatinine 0.87 mg/dL (0.66-1.25) 04/13/20 09:00 Estimated GFR > 60.0 mL/min (>60) 04/13/20 09:00 BUN/Creatinine Ratio 13.8 (6-22) 04/13/20 09:00 Glucose 144 mg/dL (70-100) H 04/13/20 09:00 Calcium 8.9 mg/dL (8.4-10.2) 04/13/20 09:00 Magnesium 1.9 mg/dL (1.6-2.3) 09/03/19 09:30 Total Bilirubin 0.6 mg/dL (0.2-1.3) 04/13/20 09:00 AST 32 IU/L (17-59) 04/13/20 09:00 ALT 24 IU/L (<50) 04/13/20 09:00 Alkaline Phosphatase 150 U/L (38-126) H 04/13/20 09:00 Total Protein 7.9 g/dL (6.3-8.2) 04/13/20 09:00 Albumin 4.2 g/dL (3.5-5.0) 04/13/20 09:00 Globulin 3.7 g/dL (1.7-4.1) 04/13/20 09:00 Albumin/Globulin Ratio 1.1 (1.0-2.8) 04/13/20 09:00 Carcinoembryonic Ag 1230.0 ng/mL (0.1-3.0) H 04/13/20 09:00 Assessment and Plan (1) Colon cancer Overview: 59-year-old man with a rectosigmoid mass and liver metastasis. Biopsy showed invasive well-differentiated adenocarcinoma. Mismatch repair proteins were normal. MARION and BRAF mutations are normal. He has completed 8 cycles of FOLFIRI with Erbitux with a decrease in the irinotecan dose. He then was on maintenance therapy with Erbitux. In 09/2019, he underwent urgent diverting colostomy for bowel obstruction. Dur to significantly elevated CEA level 10/14/2019, follow-up CT scan 10/16/2019 showed disease progression as evidenced by interval increase in the numerous hypodense hepatic metastasis and shoddy retrocrural and para-aortic lymph nodes and abnormal thickening of the rectosigmoid junction. After discussion with the patient, we decided to resume chemotherapy with FOLFIRI/Avastin. Patient received his first cycle on 10/22/2019. Up until now, he has had 6 cycles. On 01/27/2020 CT scan CAP w/contrast showed mild but definite interval improvement in size of multiple hepatic mass lesions, mild aneurysmal dilatation of the mid to distal 3rd of the abdominal aorta, with aneurysmal dilatation of the common iliac arteries bilaterally and also of the internal iliac arteries bilaterally which measure up to 3.[address] Rajesh Burgess at [facility] evaluated margaret patient regarding bilateral internal iliac artery aneurysms. Surgical repair has been discussed with the patient but the patient has not decided if he would like to proceed with any surgical interventions at this moment. Assessment: I talked with the patient about the results of the CT scans. I talked with him that it showed clear evidence of disease progression especially in the liver. This is consistent with his clinical signs and symptoms especially the right upper quadrant abdominal pain. Patient just resumed the chemotherapy on 03/23/2020. Talked with the patient that I usually would continue for about 3-4 cycles and will evaluate if he response to the treatment. If there is any evidence of refractoriness or resistance the treatment, we will discuss about the next line of therapy. Patient voiced understanding. Plan: Ok to proceed to cycle 8# RTC in 3 weeks, Labs per protocol (2) Pulmonary embolism He had incidental bilateral pulmonary emboli discovered in December 2018 and he remains on anticoagulation Eliquis 5 mg bid. No bleeding events. Will continue (3) Colostomy in place Standard colostomy care. (4) Port-A-Cath in place Flush every 4-6 weeks
[2020-04-13] MEDS: ACETAMINOPHEN 325 MG TABLET 650 MG PO (10:36)
[2020-04-13] MEDS: SODIUM CHLORIDE 0.9% 100 ML 21 ML IV (10:37)
[2020-04-13] MEDS: diphenhydrAMINE 25 MG TABLET PO (10:37)
[2020-04-13] MEDS: ONDANSETRON 16 MG in SODIUM CHLORIDE 0.9% 50 ML 232 ML IV (11:08)
[2020-04-13] MEDS: BEVACIZUMAB IV (11:46)
[2020-04-13] MEDS: SODIUM CHLORIDE 0.9% IV (11:46)
[2020-04-13] MEDS: IRINOTECAN IV (12:38)
[2020-04-13] MEDS: DEXTROSE 5% IV ×2 (12:38)
[2020-04-13] MEDS: LEUCOVORIN IV (12:38)
[2020-04-13] MEDS: ATROPINE 0.4 MG/ML VIAL 0.25 MG SUBCUT ×2 (12:53→14:53)
--- NOTE | 2020-04-13 15:38 | PC.NURSE ---
PUMP CONNECT Verified dose/rate with second nurse (StephanieRN). Clave and occlusive dressing in place, positive blood return, pump connected per protocol. Confirmed pump was on and running with patient. Patient stated he would return to clinic Monday at ~1330 for disconnect.
[2020-04-15] MEDS: SODIUM CHLORIDE 0.9% 50 ML 1000 ML IV (14:29)
--- NOTE | 2020-04-15 15:51 | PC.NURSE ---
PUMP DISCONNECT Pump disconnect per protocol, 1L NS bolus given. + blood return, port deaccessed per protocol.
--- NOTE | 2020-04-23 15:16 | ONC.MSW ---
Description: Son's FMLA Activity: Completed pt's son's FMLA forms in order for him to assist with care. Scanned and emailed back to patient, per his request.
[2020-05-04 09:09] LABS: Add Manual Diff / Slide Review NO; Basophils Absolute Auto 100 /uL (0-100); Eosinophils Absolute Auto 400 /uL (0-450); Hematocrit 42.9 % (41-53); Hemoglobin 14.4 g/dL (13.5-17.5); Lymphocytes Absolute Auto 1400 /uL (1100-4500); Lymphocytes Percent Auto 18.3 % (25-40); Mean Corpuscular HGB Conc 33.6 % (30-36); Mean Corpuscular Hemoglobin 29.9 PG (26-34); Mean Corpuscular Volume 89.1 fL (80-100); Monocytes Absolute Auto 1400 /uL (0-900); Monocytes Percent Auto 18.2 % (3-14); Neutrophils Absolute Auto 4400 /uL (1500-7000); Neutrophils Percent Auto 57.5 % (50-75); Platelet Count 237 X10^3/uL (150-400); Red Blood Cell Count 4.82 X10^6/uL (4.5-5.9); Red Cell Distribution Width 16.3 % (11.6-14.8); White Blood Cell Count 7.6 X10^3/uL (4.5-11.0)
[2020-05-04 09:16] VITALS: BP 155/100; PULSE 74; RESP 16; TEMP 36.7; O2SAT 96
--- NOTE | 2020-05-04 09:19 | ONC.PN ---
PN -Subjective Interval history: ID/CC: 59 year old male with metastatic colon cancer with liver metastasis, pMMR, wtRAS/BRAF now on treatment with FOLFIRI/Avastin. History of Present Illness: 59-year-old man presented initially with blood in the stool, abdominal pain and weight loss. CT scan showed some thickening of the colon at the rectosigmoid junction as well as multiple liver metastasis. His CEA was 1652. He was seen by Dr. Deleon and had a colonoscopy performed in 10/10/2018. He was found to have a mass at 20 cm, unable to transit. Biopsy showed serrated adenoma but no evidence of malignancy. Patient underwent repeat colonoscopy with sedation on 10/24/2018. At this time, the scope was able to transit through a circumferential malignant mass at around 20-25 cm. The surgical pathology showed invasive well differentiated colon adenocarcinoma, MMR intact (IHC), wild type KRAS and wild type NRAS, and wild type BRAF. He then received FOLFIRI and Erbitux for 8 cycles with dose reduction in irinotecan starting in October 2018, followed by maintenance therapy with 5 FU leucovorin and Erbitux beginning in March 2019 until late 2018. Starting from 07/09/2019, he was started on single agent maintenance with Erbitux. In 09/2019, he developed intractable nausea, vomiting abdominal cramping pain. He was evaluated at the emergency room of [facility]. CT of the abdomen pelvis on 09/08/2019 showed distal sigmoid colonic mass decreased in size from the index examination of 09/30/2018. However it resulted in luminal narrowing and upstream colonic dilation, suggestive of at least partial colonic obstruction. Multiple hepatic metastasis have significantly improved from the prior examination. Small left adrenal nodule appeared slightly decreased in size. Indeterminate lingular nodule was noted. Fusiform aneurysms of the abdominal aorta (3.3 cm), bilateral common iliac arteries (right 2.6 cm, left 2.4 cm), bilateral internal iliac arteries (right 2.7 cm, left 3.2 cm), and proximal left external iliac artery (2.0 cm). Dr. Durham took the patient to the operating room and performed an exploratory laparotomy with left lower quadrant loop diverting colostomy on 09/09/2019. Due to CEA increased from 25.4 on 09/03/2019 to 149 on 10/14/2019, he underwent CT scan of the chest abdomen pelvis on 10/16/2019 that showed progression of the liver metastasis. In addition it showed presence of thickening of the sigmoid rectal junction. On 10/22/2019, patient resumed chemotherapy with FOLFIRI/Avastin. On 01/27/2020 CT scan CAP W/contrast showed mild but definite interval improvement in size of multiple hepatic mass lesions previously documented, mild aneurysmal dilatation of the mid to distal 3rd of the abdominal aorta, with aneurysmal dilatation of the common iliac arteries bilaterally and also of the internal iliac arteries bilaterally which measure up to 3.1 cm each. Vascular surgical consultation likely is warranted specifically with attention to the internal iliac artery caliber which are unusually prominent in this patient. He was evaluated by vascular surgeon Dr. Rajesh Burgess at [facility]. As far as the bilateral internal iliac artery aneurysms are concerned, they are above 3 cm on the left and 2.8 cm on the right. Per Dr. Burgess, in an otherwise healthy patient, he would without doubt treated at least the left internal iliac artery aneurysm. Patient is undecided regarding the surgery repair of the aneurysms. Interval history: Marvel came in here today for cycle 9 chemotherapy with FOLFIRI and Avastin. Since his previous visit, patient reported that improvement as far as the right upper quadrant abdominal pain is concerned. He is also reporting better appetite and his weight has improved. He denies any nausea or vomiting. He denies any diarrhea or constipation. As far as the iliac artery aneurysm is concerned, patient said that he has decided not to pursue any surgical intervention. Currently patient is taking dexamethasone 1 mg once a day and has found out that it is quite helpful in terms of symptoms improvement. He is also using fentanyl patch 25 mcg for pain control. Summary of Therapies: 1. FOLFIRI and Erbitux for 8 cycles with a dose reduction in irinotecan starting in October 2018 2. Maintenance therapy with 5 FU leucovorin and Erbitux beginning in March 2019 3. Single agent maintenance with Erbitux started 07/09/2019 4. LLQ loop diverting colostomy on 09/09/2019 for bowel obstruction. 5. FOLFIRI and Avastin 10/22/2019 - - Patient Self-Reported Symptoms SR Constitution: Fatigue/Malaise SR Cardiovascular issues: Shortness of breath with activity or lying flat SR Gastrointestinal issues: Abdominal pain SR Musculoskeletal issues: Muscle pain or cramps - Additional ROS All systems PM: reviewed and no additional remarkable complaints except as stated Home Medications and Allergies Home Medications Medication Instructions Recorded Confirmed Type docusate calcium [Stool Softener] 240 mg DAILY 10/17/18 05/04/20 History ergocalciferol (vitamin D2) 50,000 unit PO QWEEK 10/17/18 05/04/20 History [Vitamin D2] oxycodone 10 mg PO Q4-6H PRN 10/17/18 05/04/20 History lorazepam [Ativan] 0.5 mg PO BID-TID PRN #30 tab 11/15/18 05/04/20 Rx hyoscyamine sulfate 0.25 mg PO QID PRN #100 tab 12/05/18 05/04/20 Rx apixaban [Eliquis] See Rx Instructions .ROUTE 01/04/19 05/04/20 Rx .COMPLEX #74 each dexamethasone 1 mg PO DAILY 30 Days #30 tab 04/30/19 05/04/20 Rx oxycodone 5 mg PO Q4H PRN #180 tab 07/09/19 05/04/20 Rx apixaban [Eliquis] 5 mg PO BID #60 tab 07/18/19 05/04/20 Rx fluorouracil See Rx Instructions .ROUTE 10/14/19 05/04/20 Rx .COMPLEX #1 device fluorouracil See Rx Instructions .ROUTE 10/22/19 05/04/20 Rx .COMPLEX #1 device fluorouracil See Rx Instructions .ROUTE 11/05/19 05/04/20 Rx .COMPLEX #1 device fluorouracil See Rx Instructions .ROUTE 11/19/19 05/04/20 Rx .COMPLEX #1 device fluorouracil See Rx Instructions .ROUTE 11/19/19 05/04/20 Rx .COMPLEX #1 device fluorouracil See Rx Instructions .ROUTE 12/30/19 05/04/20 Rx .COMPLEX #1 device prochlorperazine maleate 10 mg PO Q6H PRN #60 tab 12/30/19 05/04/20 Rx [Compazine] fluorouracil See Rx Instructions .ROUTE 01/20/20 05/04/20 Rx .COMPLEX #1 device fluorouracil See Rx Instructions .ROUTE 03/02/20 05/04/20 Rx .COMPLEX #1 device fluorouracil See Rx Instructions .ROUTE 04/13/20 05/04/20 Rx .COMPLEX #1 device fluorouracil See Rx Instructions .ROUTE 05/04/20 Rx .COMPLEX #1 device Allergies Allergy/AdvReac Type Severity Reaction Status Date / Time No Known Drug Allergies Allergy Verified 11/15/18 15:27 Exam Vital signs: Vital Signs Temp Pulse Resp BP Pulse Ox 05/04/20 09:16 98.0 F 74 16 155/100 H 96 Intake and Output 05/03/20 05/04/20 05/04/20 23:59 07:59 15:59 Other: Weight 83.1 kg Patient Weight 05/04/20 23:59 Weight 83.1 kg Narrative: ECOG 1 Vitals above reviewed Constitutional: WDWN, well nourished, and well groomed. NAD. Pleasant and cooperative. HEENT: NCAT, EOMI, PERRLA. Anicteric sclera. Neck: Supple and symmetrical, no palpable masses. No palpable thyromegaly. Respiratory: No use of accessory muscles. CTAB, no wheezes. Cardiovascular: RRR, S1 and S2 normal, no M/G/R. No edema of lower extremities. Abdomen: Soft, liver is not palpable. Left colostomy noted. Lymphatic: no palpable palpable lymph nodes in the neck, axillae Musculoskeletal: normal gait and station Skin: No rashes, lesions, or ulcers. No induration, or subcutaneous nodules. Neurological: CN II-XII grossly intact. No focal motor or sensory deficit. Psychiatric: Normal judgment and insight. AOx3. Normal memory (recent and remote). Normal mood and affect. Results - Labs Laboratory Last Values WBC 7.6 X10^3/uL (4.5-11.0) 05/04/20 09:00 RBC 4.82 X10^6/uL (4.5-5.9) 05/04/20 09:00 Hgb 14.4 g/dL (13.5-17.5) 05/04/20 09:00 Hct 42.9 % (41-53) 05/04/20 09:00 MCV 89.1 fL (80-100) 05/04/20 09:00 MCH 29.9 PG (26-34) 05/04/20 09:00 MCHC 33.6 % (30-36) 05/04/20 09:00 RDW 16.3 % (11.6-14.8) H 05/04/20 09:00 Plt Count 237 X10^3/uL (150-400) 05/04/20 09:00 Neut % (Auto) 57.5 % (50-75) 05/04/20 09:00 Lymph % (Auto) 18.3 % (25-40) L 05/04/20 09:00 Bartholomew % (Auto) 18.2 % (3-14) H 05/04/20 09:00 Eos % (Auto) 5.0 % (2-4) H 05/04/20 09:00 Baso % (Auto) 1.0 % (0-2) 05/04/20 09:00 Neut # (Auto) 4400 /uL (3760-7367) 05/04/20 09:00 Lymph # (Auto) 1400 /uL (4526-3458) 05/04/20 09:00 Bartholomew # (Auto) 1400 /uL (0-900) H 05/04/20 09:00 Eos # (Auto) 400 /uL (0-450) 05/04/20 09:00 Baso # (Auto) 100 /uL (0-100) 05/04/20 09:00 RBC Morphology See below 02/19/19 09:15 Hypochromasia 1+ H 02/05/19 08:59 Poikilocytosis 2+ H 02/05/19 08:59 Anisocytosis 1+ H 02/19/19 09:15 Macrocytosis 1+ H 02/05/19 08:59 Rouleaux 1+ H 02/19/19 09:15 Sodium 140 mmol/L (137-145) 05/04/20 09:00 Potassium 4.0 mmol/L (3.4-5.1) 05/04/20 09:00 Chloride 106 mmol/L (98-107) 05/04/20 09:00 Carbon Dioxide 29 mmol/L (22-32) 05/04/20 09:00 BUN 10 mg/dL (9-20) 05/04/20 09:00 Creatinine 0.64 mg/dL (0.66-1.25) L 05/04/20 09:00 Estimated GFR > 60.0 mL/min (>60) 05/04/20 09:00 BUN/Creatinine Ratio 15.6 (6-22) 05/04/20 09:00 Glucose 67 mg/dL (70-100) L 05/04/20 09:00 Calcium 8.8 mg/dL (8.4-10.2) 05/04/20 09:00 Magnesium 1.9 mg/dL (1.6-2.3) 09/03/19 09:30 Total Bilirubin 0.5 mg/dL (0.2-1.3) 05/04/20 09:00 AST 31 IU/L (17-59) 05/04/20 09:00 ALT 23 IU/L (<50) 05/04/20 09:00 Alkaline Phosphatase 98 U/L (38-126) 05/04/20 09:00 Total Protein 7.5 g/dL (6.3-8.2) 05/04/20 09:00 Albumin 4.0 g/dL (3.5-5.0) 05/04/20 09:00 Globulin 3.5 g/dL (1.7-4.1) 05/04/20 09:00 Albumin/Globulin Ratio 1.1 (1.0-2.8) 05/04/20 09:00 Carcinoembryonic Ag 1170.0 ng/mL (0.1-3.0) H 05/04/20 09:00 Assessment and Plan (1) Colon cancer Overview: 59-year-old man with a rectosigmoid mass and liver metastasis. Biopsy showed invasive well-differentiated adenocarcinoma. Mismatch repair proteins were normal. MARION and BRAF mutations are normal. He has completed 8 cycles of FOLFIRI with Erbitux with a decrease in the irinotecan dose. He then was on maintenance therapy with Erbitux. In 09/2019, he underwent urgent diverting colostomy for bowel obstruction. Dur to significantly elevated CEA level 10/14/2019, follow-up CT scan 10/16/2019 showed disease progression as evidenced by interval increase in the numerous hypodense hepatic metastasis and shoddy retrocrural and para-aortic lymph nodes and abnormal thickening of the rectosigmoid junction. After discussion with the patient, we decided to resume chemotherapy with FOLFIRI/Avastin. Patient received his first cycle on 10/22/2019. Up until now, he has had 6 cycles. On 01/27/2020 CT scan CAP w/contrast showed mild but definite interval improvement in size of multiple hepatic mass lesions, mild aneurysmal dilatation of the mid to distal 3rd of the abdominal aorta, with aneurysmal dilatation of the common iliac arteries bilaterally and also of the internal iliac arteries bilaterally which measure up to 3.[address] Rajesh Burgess at [facility] evaluated [facility] patient regarding bilateral internal iliac artery aneurysms. Surgical repair has been discussed with the patient but the patient has not decided if he would like to proceed with any surgical interventions at this moment. Assessment: I reviewed the lab results with the patient. CBC and CMP are unremarkable. The CEA level has decreased since his previous visit. Clinically patient actually has been feeling better than before with less pain in the right upper quadrant. He is also having good appetite. All of the above indicates that the chemotherapy is effective. I talked with the patient that I will continue the current treatment with monitoring closely. Plan: Ok to proceed to cycle 9# RTC in 3 weeks, Labs per protocol (2) Pulmonary embolism He had incidental bilateral pulmonary emboli discovered in December 2018 and he remains on anticoagulation Eliquis 5 mg bid. No bleeding events. Will continue (3) Colostomy in place Standard colostomy care. (4) Port-A-Cath in place Flush every 4-6 weeks
[2020-05-04 09:22] LABS: Alanine Aminotransferase 23 IU/L (<50); Albumin Globulin Ratio 1.1 (1.0-2.8); Alkaline Phosphatase 98 U/L (38-126); Aspartate Aminotransferase 31 IU/L (17-59); BUN Creatinine Ratio 15.6 (6-22); Bilirubin Total 0.5 mg/dL (0.2-1.3); Blood Urea Nitrogen 10 mg/dL (9-20); Calcium 8.8 mg/dL (8.4-10.2); Carbon Dioxide 29 mmol/L (22-32); Chloride 106 mmol/L (98-107); Estimated Glomerular Filt Rate > 60.0 mL/min (>60); Globulin 3.5 g/dL (1.7-4.1); Glucose 67 mg/dL (70-100); Sodium 140 mmol/L (137-145); Total Protein 7.5 g/dL (6.3-8.2)
[2020-05-04] MEDS: diphenhydrAMINE 25 MG TABLET PO (10:12)
[2020-05-04] MEDS: SODIUM CHLORIDE 0.9% 100 ML 21 ML IV (10:13)
[2020-05-04 10:30] LABS: HEMOLYSIS 38 (0-50)
[2020-05-04] MEDS: ONDANSETRON 16 MG in SODIUM CHLORIDE 0.9% 50 ML 232 ML IV (10:38)
[2020-05-04] MEDS: SODIUM CHLORIDE 0.9% IV (11:20)
[2020-05-04] MEDS: BEVACIZUMAB IV (11:20)
[2020-05-04] MEDS: LEUCOVORIN IV (12:15)
[2020-05-04] MEDS: DEXTROSE 5% IV ×2 (12:15→12:16)
[2020-05-04] MEDS: IRINOTECAN IV (12:16)
[2020-05-04] MEDS: ATROPINE 0.4 MG/ML VIAL 0.25 MG SUBCUT ×2 (12:19→14:05)
--- NOTE | 2020-05-04 15:15 | PC.NURSE ---
PUMP CONNECT Verified dose/rate with second nurse (Torie. & J.S.). Clave and occlusive dressing in place, positive blood return, pump connected per protocol. Confirmed pump was on and running with patient. Patient stated he would return to clinic Monday at ~1300 for disconnect.
[2020-05-06 13:51] VITALS: BP 137/97; PULSE 82; RESP 16; TEMP 36.6; O2SAT 92
--- NOTE | 2020-05-06 14:12 | PC.NURSE ---
PUMP DISCONNECT VSS. Confirmed pump infusion was complete, no adverse effects reported. + blood return, flushed port with NS and heparin. De-accessed port needle per protocol.
--- NOTE | 2020-05-21 16:03 | PC.NURSE ---
Treatment schedule: Pt called and reports that he fell off a ladder and broke 3 ribs. Pt requesting to postpone treatment scheduled for Monday. Per Dr. Trinidad, okay to reschedule in two weeks. Orders moved and scheduling notified.
--- NOTE | 2020-06-03 10:08 | PC.NURSE ---
Addendum entered by Victorina Joyner R.N. 06/03/20 14:56: PER DR MELÉNDEZ CT CHEST/ABD/PELVIS WITH CONTRAST ORDERED [facility] LABS Original Note: PALLIATIVE NURSE RENETTA DAVID CALLED REPORTING THAT PATIENT'S PAIN DUE TO RIB FRACTURE ON RIGHT IS GETTING WORSE INSTEAD OF BETTER, ALSO INHIBITING HIS MOVEMENT. SHE IS REQUESTING DR MELÉNDEZ TO ORDER A CHEST/ABDOMEN CT AND LABS TO R/O ANY FURTHER ISSUES/BLEEDING THAN WHAT WAS REVEALED BY THE CHEST XRAY ON 05/20 ON DAY OF HIS FALL FROM LADDER. REQUEST FAXED WITH THIS REPORT TO DR MELÉNDEZ AT [facility].
--- NOTE | 2020-06-03 16:48 | ONC.SCHED ---
Left msg. for patient to call back regarding scheduling CT scan and that I received an approval from [facility] for it.
[2020-06-04 12:03] LABS: BUN Creatinine Ratio 19.7 (6-22); Blood Urea Nitrogen 14 mg/dL (9-20); Estimated Glomerular Filt Rate > 60.0 mL/min (>60)
--- NOTE | 2020-06-04 14:21 | PC.NURSE ---
CT results: Dr. Trinidad reviewed CT. Pt scheduled to see Dr. Trinidad on MondayJun.08 to go over results.
--- NOTE | 2020-06-08 10:11 | ONC.PN ---
PN -Subjective Interval history: ID/CC: 59 year old male with metastatic colon cancer History of Present Illness: 59-year-old man presented initially with blood in the stool, abdominal pain and weight loss. CT scan showed some thickening of the colon at the rectosigmoid junction as well as multiple liver metastasis. His CEA was 1652. He was seen by Dr. Deleon and had a colonoscopy performed in 10/10/2018. He was found to have a mass at 20 cm, unable to transit. Biopsy showed serrated adenoma but no evidence of malignancy. Patient underwent repeat colonoscopy with sedation on 10/24/2018. At this time, the scope was able to transit through a circumferential malignant mass at around 20-25 cm. The biopsy pathology showed invasive well differentiated colon adenocarcinoma, MMR intact (IHC), wild type KRAS and wild type NRAS, and wild type BRAF. He received FOLFIRI and Erbitux for 8 cycles with dose reduction in irinotecan starting in October 2018, followed by maintenance therapy with 5 FU leucovorin and Erbitux beginning in March 2019 until late 2018. Starting from 07/09/2019, he was started on single agent maintenance with Erbitux. In 09/2019, he developed intractable nausea, vomiting, and abdominal cramping pain. He was evaluated at the emergency room of [facility]. CT of the abdomen pelvis on 09/08/2019 showed distal sigmoid colonic mass decreased in size from the index examination of 09/30/2018. However it resulted in luminal narrowing and upstream colonic dilation, suggestive of at least partial colonic obstruction. Multiple hepatic metastasis have significantly improved from the prior examination. Small left adrenal nodule appeared slightly decreased in size. Indeterminate lingular nodule was noted. Fusiform aneurysms of the abdominal aorta (3.3 cm), bilateral common iliac arteries (right 2.6 cm, left 2.4 cm), bilateral internal iliac arteries (right 2.7 cm, left 3.2 cm), and proximal left external iliac artery (2.0 cm). Dr. Durham took the patient to the operating room and performed an exploratory laparotomy with left lower quadrant loop diverting colostomy on 09/09/2019. Due to CEA increased from 25.4 on 09/03/2019 to 149 on 10/14/2019, he underwent CT scan of the chest abdomen pelvis on 10/16/2019 that showed progression of the liver metastasis. In addition it showed presence of thickening of the sigmoid rectal junction. On 10/22/2019, patient resumed chemotherapy with FOLFIRI/Avastin. On 01/27/2020 CT scan CAP W/contrast showed mild but definite interval improvement in size of multiple hepatic mass lesions previously documented, mild aneurysmal dilatation of the mid to distal 3rd of the abdominal aorta, with aneurysmal dilatation of the common iliac arteries bilaterally and also of the internal iliac arteries bilaterally which measure up to 3.1 cm each. He was evaluated by vascular surgeon Dr. Rajesh Burgess at [facility]. As far as the bilateral internal iliac artery aneurysms were concerned, they were above 3 cm on the left and 2.8 cm on the right. Per Dr. Burgess, in an otherwise healthy patient, he would without doubt treated at least the left internal iliac artery aneurysm. Patient was undecided regarding the surgery repair of the aneurysms. Marvel eventually decided not to pursue any surgical intervention. Interval history: On 05/20/2020, Marvel fall 8 ft off ladder when cleaning the gutter, landing on his right side, without loss of consciousness. He was evaluated at ER. CXR showed question nondisplaced posterior right 10th rib fracture and question interval increase i size of left lower lobe pulmonary nodule. He presents today for review of recent staging CT scan of 06/04/2020 showed significant interval change involving the liver and azul structures within the abdomen. The liver contains new and enlarging multifocal metastatic lesions. New retroperitoneal and mesenteric adenopathy has developed, best seen in the peripancreatic region. Clinically, Marvel is complaining right back, right lower ribs and right upper quadrant of the abdomen. He is also complaining of severe fatigue. He denies fever or chills. Summary of Therapies: 1. FOLFIRI and Erbitux for 8 cycles with a dose reduction in irinotecan starting in October 2018 2. Maintenance therapy with 5 FU leucovorin and Erbitux beginning in March 2019 3. Single agent maintenance with Erbitux started 07/09/2019 4. LLQ loop diverting colostomy on 09/09/2019 for bowel obstruction. 5. FOLFIRI and Avastin 10/22/2019 - - Patient Self-Reported Symptoms SR Constitution: Fatigue/Malaise SR Cardiovascular issues: Shortness of breath with activity or lying flat SR Gastrointestinal issues: Abdominal pain SR Musculoskeletal issues: Muscle pain or cramps - Additional ROS All systems PM: reviewed and no additional remarkable complaints except as stated Home Medications and Allergies Home Medications Medication Instructions Recorded Confirmed Type docusate calcium [Stool Softener] 240 mg DAILY 10/17/18 05/04/20 History ergocalciferol (vitamin D2) 50,000 unit PO QWEEK 10/17/18 05/04/20 History [Vitamin D2] oxycodone 10 mg PO Q4-6H PRN 10/17/18 05/04/20 History lorazepam [Ativan] 0.5 mg PO BID-TID PRN #30 tab 11/15/18 05/04/20 Rx hyoscyamine sulfate 0.25 mg PO QID PRN #100 tab 12/05/18 05/04/20 Rx apixaban [Eliquis] See Rx Instructions .ROUTE 01/04/19 05/04/20 Rx .COMPLEX #74 each dexamethasone 1 mg PO DAILY 30 Days #30 tab 04/30/19 05/04/20 Rx oxycodone 5 mg PO Q4H PRN #180 tab 07/09/19 05/04/20 Rx apixaban [Eliquis] 5 mg PO BID #60 tab 07/18/19 05/04/20 Rx fluorouracil See Rx Instructions .ROUTE 10/14/19 05/04/20 Rx .COMPLEX #1 device fluorouracil See Rx Instructions .ROUTE 10/22/19 05/04/20 Rx .COMPLEX #1 device fluorouracil See Rx Instructions .ROUTE 11/05/19 05/04/20 Rx .COMPLEX #1 device fluorouracil See Rx Instructions .ROUTE 11/19/19 05/04/20 Rx .COMPLEX #1 device fluorouracil See Rx Instructions .ROUTE 11/19/19 05/04/20 Rx .COMPLEX #1 device fluorouracil See Rx Instructions .ROUTE 12/30/19 05/04/20 Rx .COMPLEX #1 device prochlorperazine maleate 10 mg PO Q6H PRN #60 tab 12/30/19 05/04/20 Rx [Compazine] fluorouracil See Rx Instructions .ROUTE 01/20/20 05/04/20 Rx .COMPLEX #1 device fluorouracil See Rx Instructions .ROUTE 03/02/20 05/04/20 Rx .COMPLEX #1 device fluorouracil See Rx Instructions .ROUTE 04/13/20 05/04/20 Rx .COMPLEX #1 device fluorouracil See Rx Instructions .ROUTE 05/04/20 Rx .COMPLEX #1 device fluorouracil See Rx Instructions .ROUTE 06/08/20 Rx .COMPLEX 2 Days #1 device levofloxacin 750 mg PO DAILY 06/08/20 06/08/20 History Allergies Allergy/AdvReac Type Severity Reaction Status Date / Time No Known Drug Allergies Allergy Verified 05/20/20 16:13 Exam Vital signs: 06/09/20 22:23 Last Vital Signs Temp 97.3 F L 06/08/20 10:12 Pulse 101 H 06/08/20 10:12 Resp 18 06/08/20 10:12 BP 150/109 H 06/08/20 10:12 Pulse Ox 91 06/08/20 10:12 Narrative: ECOG 1 Vitals above reviewed Constitutional: WDWN, well nourished, and well groomed. NAD. Pleasant and cooperative. HEENT: NCAT, EOMI, PERRLA. Anicteric sclera. Neck: Supple and symmetrical, no palpable masses. No palpable thyromegaly. Respiratory: No use of accessory muscles. CTAB, no wheezes. Cardiovascular: RRR, S1 and S2 normal, no M/G/R. No edema of lower extremities. Abdomen: Soft, RUQ tenderness noted. liver is not palpable. Left colostomy noted. Lymphatic: no palpable palpable lymph nodes in the neck, axillae Musculoskeletal: normal gait and station Skin: No rashes, lesions, or ulcers. No induration, or subcutaneous nodules. Neurological: AOx3. CN II-XII grossly intact. No focal motor or sensory deficit. Psychiatric: Normal judgment and insight. Normal memory (recent and remote). Normal mood and affect. Results - Labs Laboratory Last Values WBC 11.0 X10^3/uL (4.5-11.0) 06/08/20 10:55 RBC 4.64 X10^6/uL (4.5-5.9) 06/08/20 10:55 Hgb 13.5 g/dL (13.5-17.5) 06/08/20 10:55 Hct 41.4 % (41-53) 06/08/20 10:55 MCV 89.2 fL (80-100) 06/08/20 10:55 MCH 29.0 PG (26-34) 06/08/20 10:55 MCHC 32.5 % (30-36) 06/08/20 10:55 RDW 16.4 % (11.6-14.8) H 06/08/20 10:55 Plt Count 304 X10^3/uL (150-400) 06/08/20 10:55 Neut % (Auto) 81.7 % (50-75) H 06/08/20 10:55 Lymph % (Auto) 4.4 % (25-40) L 06/08/20 10:55 [place] % (Auto) 11.9 % (3-14) 06/08/20 10:55 Eos % (Auto) 1.4 % (2-4) L 06/08/20 10:55 Baso % (Auto) 0.6 % (0-2) 06/08/20 10:55 Neut # (Auto) 9000 /uL (9756-7091) H 06/08/20 10:55 Lymph # (Auto) 500 /uL (6222-3045) L 06/08/20 10:55 [place] # (Auto) 1300 /uL (0-900) H 06/08/20 10:55 Eos # (Auto) 100 /uL (0-450) 06/08/20 10:55 Baso # (Auto) 100 /uL (0-100) 06/08/20 10:55 RBC Morphology See below 02/19/19 09:15 Hypochromasia 1+ H 02/05/19 08:59 Poikilocytosis 2+ H 02/05/19 08:59 Anisocytosis 1+ H 02/19/19 09:15 Macrocytosis 1+ H 02/05/19 08:59 Rouleaux 1+ H 02/19/19 09:15 Sodium 136 mmol/L (137-145) L 06/08/20 10:55 Potassium 4.2 mmol/L (3.4-5.1) 06/08/20 10:55 Chloride 103 mmol/L (98-107) 06/08/20 10:55 Carbon Dioxide 28 mmol/L (22-32) 06/08/20 10:55 BUN 10 mg/dL (9-20) 06/08/20 10:55 Creatinine 0.65 mg/dL (0.66-1.25) L 06/08/20 10:55 Estimated GFR > 60.0 mL/min (>60) 06/08/20 10:55 BUN/Creatinine Ratio 15.4 (6-22) 06/08/20 10:55 Glucose 112 mg/dL (70-100) H 06/08/20 10:55 Calcium 8.9 mg/dL (8.4-10.2) 06/08/20 10:55 Magnesium 1.9 mg/dL (1.6-2.3) 09/03/19 09:30 Total Bilirubin 0.5 mg/dL (0.2-1.3) 06/08/20 10:55 AST 44 IU/L (17-59) 06/08/20 10:55 ALT 33 IU/L (<50) 06/08/20 10:55 Alkaline Phosphatase 306 U/L (38-126) H 06/08/20 10:55 Total Protein 7.9 g/dL (6.3-8.2) 06/08/20 10:55 Albumin 3.9 g/dL (3.5-5.0) 06/08/20 10:55 Globulin 4.0 g/dL (1.7-4.1) 06/08/20 10:55 Albumin/Globulin Ratio 1.0 (1.0-2.8) 06/08/20 10:55 Carcinoembryonic Ag 1880.0 ng/mL (0.1-3.0) H 06/08/20 10:55 Assessment and Plan (1) Colon cancer Overview: 59-year-old man with a rectosigmoid mass and liver metastasis. Biopsy showed invasive well-differentiated adenocarcinoma. Mismatch repair proteins were normal. MARION and BRAF mutations are normal. He has completed 8 cycles of FOLFIRI with Erbitux with a decrease in the irinotecan dose. He then was on maintenance therapy with Erbitux. In 09/2019, he underwent urgent diverting colostomy for bowel obstruction. Dur to significantly elevated CEA level 10/14/2019, follow-up CT scan 10/16/2019 showed disease progression as evidenced by interval increase in the numerous hypodense hepatic metastasis and shoddy retrocrural and para-aortic lymph nodes and abnormal thickening of the rectosigmoid junction. After discussion with the patient, we decided to resume chemotherapy with FOLFIRI/Avastin. Patient received his first cycle on 10/22/2019. Up until now, he has had 6 cycles. On 01/27/2020 CT scan CAP w/contrast showed mild but definite interval improvement in size of multiple hepatic mass lesions, mild aneurysmal dilatation of the mid to distal 3rd of the abdominal aorta, with aneurysmal dilatation of the common iliac arteries bilaterally and also of the internal iliac arteries bilaterally which measure up to 3.[address] Rajesh Burgess at [facility] evaluated [facility] patient regarding bilateral internal iliac artery aneurysms. Surgical repair has been discussed with the patient but the patient has not decided if he would like to proceed with any surgical interventions at this moment. Assessment: I reviewed the CT scan results with the patient. Clearly it showed disease progression as evidenced by the increase in size of the tumor. However his most recent CEA level has begun to decrease after we restarted the treatment with 5 FU irinotecan and Avastin. I talked with the patient that I would recommend that we repeat the laboratory tests first. If the CEA level continues to decrease, I would definitely continue the current treatment without any changes. But if the CEA level increases dramatically, I would recommend that we switch the treatment to [id number] with Avastin. Patient has not received oxaliplatin treatment in the past. Hopefully he is going to respond to the treatment with oxaliplatin. I tried to explain the rationale about my recommendations. Patient has not been on regular treatment with FOLFIRI and Avastin. If he had been on more scheduled treatment, the tumor marker may continue to decrease and the increase in size of the tumor may be less prominent. Patient has a lot of back pain and abdominal pain. He has been followed by palliative care physician. He would like to restart the treatment next Monday Plan: CBC, CMP, CEA RTC in 1 weeks, resume chemotherapy, FOLFIRI/Avastin vs FOLFOX/Avast, Labs per protocol (2) Pulmonary embolism He had incidental bilateral pulmonary emboli discovered in December 2018 and he remains on anticoagulation Eliquis 5 mg bid. No bleeding events. Will continue (3) Colostomy in place Standard colostomy care. (4) Port-A-Cath in place Flush every 4-6 weeks
[2020-06-08 10:12] VITALS: BP 150/109; PULSE 101; RESP 18; TEMP 36.3; O2SAT 91
[2020-06-08 11:14] LABS: Add Manual Diff / Slide Review NO; Basophils Absolute Auto 100 /uL (0-100); Basophils Percent Auto 0.6 % (0-2); Eosinophils Absolute Auto 100 /uL (0-450); Eosinophils Percent Auto 1.4 % (2-4); Hematocrit 41.4 % (41-53); Hemoglobin 13.5 g/dL (13.5-17.5); Lymphocytes Absolute Auto 500 /uL (1100-4500); Lymphocytes Percent Auto 4.4 % (25-40); Mean Corpuscular HGB Conc 32.5 % (30-36); Mean Corpuscular Volume 89.2 fL (80-100); Monocytes Absolute Auto 1300 /uL (0-900); Monocytes Percent Auto 11.9 % (3-14); Neutrophils Absolute Auto 9000 /uL (1500-7000); Neutrophils Percent Auto 81.7 % (50-75); Platelet Count 304 X10^3/uL (150-400); Red Blood Cell Count 4.64 X10^6/uL (4.5-5.9); Red Cell Distribution Width 16.4 % (11.6-14.8)
[2020-06-08 11:23] LABS: Alanine Aminotransferase 33 IU/L (<50); Albumin 3.9 g/dL (3.5-5.0); Alkaline Phosphatase 306 U/L (38-126); Aspartate Aminotransferase 44 IU/L (17-59); BUN Creatinine Ratio 15.4 (6-22); Bilirubin Total 0.5 mg/dL (0.2-1.3); Blood Urea Nitrogen 10 mg/dL (9-20); Calcium 8.9 mg/dL (8.4-10.2); Carbon Dioxide 28 mmol/L (22-32); Chloride 103 mmol/L (98-107); Estimated Glomerular Filt Rate > 60.0 mL/min (>60); Glucose 112 mg/dL (70-100); HEMOLYSIS < 15 (0-50); Potassium 4.2 mmol/L (3.4-5.1); Sodium 136 mmol/L (137-145); Total Protein 7.9 g/dL (6.3-8.2)
--- NOTE | 2020-06-08 12:52 | PC.NURSE ---
support person: Alley Gonzalez agreed to support person to accompany pt on first treatment Monday06/15/20. This Rn will call pt and let him know.
--- NOTE | 2020-06-08 15:49 | PC.NURSE ---
lab results: reviewed with Dr. Trinidad. This RN called pt and notified him of lab results. Dr. Trinidad stated he will order Oxaliplatin and pt aware.
[2020-06-15 09:10] LABS: Add Manual Diff / Slide Review NO; Basophils Absolute Auto 0 /uL (0-100); Basophils Percent Auto 0.3 % (0-2); Eosinophils Absolute Auto 100 /uL (0-450); Eosinophils Percent Auto 0.6 % (2-4); Hematocrit 43.6 % (41-53); Hemoglobin 14.5 g/dL (13.5-17.5); Lymphocytes Absolute Auto 900 /uL (1100-4500); Lymphocytes Percent Auto 5.4 % (25-40); Mean Corpuscular HGB Conc 33.2 % (30-36); Mean Corpuscular Hemoglobin 29.4 PG (26-34); Mean Corpuscular Volume 88.6 fL (80-100); Monocytes Absolute Auto 2100 /uL (0-900); Monocytes Percent Auto 13.3 % (3-14); Neutrophils Absolute Auto 12600 /uL (1500-7000); Neutrophils Percent Auto 80.4 % (50-75); Platelet Count 362 X10^3/uL (150-400); Red Blood Cell Count 4.92 X10^6/uL (4.5-5.9); Red Cell Distribution Width 16.1 % (11.6-14.8); White Blood Cell Count 15.7 X10^3/uL (4.5-11.0)
--- NOTE | 2020-06-15 09:15 | ONC.PN ---
PN -Subjective Interval history: ID/CC: 59 year old male with metastatic colon cancer History of Present Illness: 59-year-old man presented initially with blood in the stool, abdominal pain and weight loss. CT scan showed some thickening of the colon at the rectosigmoid junction as well as multiple liver metastasis. His CEA was 1652. He was seen by Dr. Deleon and had a colonoscopy performed in 10/10/2018. He was found to have a mass at 20 cm, unable to transit. Biopsy showed serrated adenoma but no evidence of malignancy. Patient underwent repeat colonoscopy with sedation on 10/24/2018. At this time, the scope was able to transit through a circumferential malignant mass at around 20-25 cm. The biopsy pathology showed invasive well differentiated colon adenocarcinoma, MMR intact (IHC), wild type KRAS and wild type NRAS, and wild type BRAF. He received FOLFIRI and Erbitux for 8 cycles with dose reduction in irinotecan starting in October 2018, followed by maintenance therapy with 5 FU leucovorin and Erbitux beginning in March 2019 until late 2018. Starting from 07/09/2019, he was started on single agent maintenance with Erbitux. In 09/2019, he developed intractable nausea, vomiting, and abdominal cramping pain. He was evaluated at the emergency room of [facility]. CT of the abdomen pelvis on 09/08/2019 showed distal sigmoid colonic mass decreased in size from the index examination of 09/30/2018. However it resulted in luminal narrowing and upstream colonic dilation, suggestive of at least partial colonic obstruction. Multiple hepatic metastasis have significantly improved from the prior examination. Small left adrenal nodule appeared slightly decreased in size. Indeterminate lingular nodule was noted. Fusiform aneurysms of the abdominal aorta (3.3 cm), bilateral common iliac arteries (right 2.6 cm, left 2.4 cm), bilateral internal iliac arteries (right 2.7 cm, left 3.2 cm), and proximal left external iliac artery (2.0 cm). Dr. Durham took the patient to the operating room and performed an exploratory laparotomy with left lower quadrant loop diverting colostomy on 09/09/2019. Due to CEA increased from 25.4 on 09/03/2019 to 149 on 10/14/2019, he underwent CT scan of the chest abdomen pelvis on 10/16/2019 that showed progression of the liver metastasis. In addition it showed presence of thickening of the sigmoid rectal junction. On 10/22/2019, patient resumed chemotherapy with FOLFIRI/Avastin. On 01/27/2020 CT scan CAP W/contrast showed mild but definite interval improvement in size of multiple hepatic mass lesions previously documented, mild aneurysmal dilatation of the mid to distal 3rd of the abdominal aorta, with aneurysmal dilatation of the common iliac arteries bilaterally and also of the internal iliac arteries bilaterally which measure up to 3.1 cm each. He was evaluated by vascular surgeon Dr. Rajesh Burgess at [facility]. As far as the bilateral internal iliac artery aneurysms were concerned, they were above 3 cm on the left and 2.8 cm on the right. Per Dr. Burgess, in an otherwise healthy patient, he would without doubt treated at least the left internal iliac artery aneurysm. Patient was undecided regarding the surgery repair of the aneurysms. Marvel eventually decided not to pursue any surgical intervention. Interval history: On 05/20/2020, Marvel fall 8 ft off ladder when cleaning the gutter, landing on his right side, without loss of consciousness. He was evaluated at ER. CXR showed question non-displaced posterior right 10th rib fracture and question interval increase i size of left lower lobe pulmonary nodule. Staging CT scan of 06/04/2020 showed significant interval change involving the liver and azul structures within the abdomen. The liver contains new and enlarging multifocal metastatic lesions. New retroperitoneal and mesenteric adenopathy has developed, best seen in the peripancreatic region. He presents here today for initiation of treatment with modified FOLFOX 6. Patient said that since his previous visit, because of the right-sided ?liver pain?, he went to [facility] emergency room. Patient said that he was given fluids and then Dilaudid. Patient has noticed that the Dilaudid has been very helpful in terms of pain control. Otherwise patient reports no shortness of breath, no chest pain. Patient does have right-sided shoulder pain. He denies any vomiting. He denies any blood in the stool. Summary of Therapies: 1. FOLFIRI and Erbitux for 8 cycles with a dose reduction in irinotecan starting in October 2018 2. Maintenance therapy with 5 FU leucovorin and Erbitux beginning in March 2019 3. Single agent maintenance with Erbitux started 07/09/2019 4. LLQ loop diverting colostomy on 09/09/2019 for bowel obstruction. 5. FOLFIRI and Avastin 10/22/2019 - 05/04/2020 6. mFOLFOX6/Avastin, 06/15/2020 - - Patient Self-Reported Symptoms SR Constitution: Fatigue/Malaise SR Cardiovascular issues: Shortness of breath with activity or lying flat SR Gastrointestinal issues: Abdominal pain SR Musculoskeletal issues: Muscle pain or cramps - Additional ROS All systems PM: reviewed and no additional remarkable complaints except as stated Home Medications and Allergies Home Medications Medication Instructions Recorded Confirmed Type docusate calcium [Stool Softener] 240 mg DAILY 10/17/18 05/04/20 History ergocalciferol (vitamin D2) 50,000 unit PO QWEEK 10/17/18 05/04/20 History [Vitamin D2] oxycodone 10 mg PO Q4-6H PRN 10/17/18 05/04/20 History lorazepam [Ativan] 0.5 mg PO BID-TID PRN #30 tab 11/15/18 05/04/20 Rx hyoscyamine sulfate 0.25 mg PO QID PRN #100 tab 12/05/18 05/04/20 Rx apixaban [Eliquis] See Rx Instructions .ROUTE 01/04/19 05/04/20 Rx .COMPLEX #74 each dexamethasone 1 mg PO DAILY 30 Days #30 tab 04/30/19 05/04/20 Rx oxycodone 5 mg PO Q4H PRN #180 tab 07/09/19 05/04/20 Rx apixaban [Eliquis] 5 mg PO BID #60 tab 07/18/19 05/04/20 Rx prochlorperazine maleate 10 mg PO Q6H PRN #60 tab 12/30/19 05/04/20 Rx [Compazine] fluorouracil See Rx Instructions .ROUTE 06/08/20 Rx .COMPLEX 2 Days #1 device levofloxacin 750 mg PO DAILY 06/08/20 06/08/20 History fluorouracil See Rx Instructions .ROUTE 06/15/20 Rx .COMPLEX 2 Days #1 device hydromorphone [Dilaudid] 2 mg PO Q4H PRN #60 tab 06/15/20 Rx Allergies Allergy/AdvReac Type Severity Reaction Status Date / Time No Known Drug Allergies Allergy Verified 05/20/20 16:13 Exam Vital signs: 06/15/20 09:39 Last Vital Signs Temp 97.3 F L 06/08/20 10:12 Pulse 101 H 06/08/20 10:12 Resp 18 06/08/20 10:12 BP 150/109 H 06/08/20 10:12 Pulse Ox 91 06/08/20 10:12 Narrative: ECOG 1 Vitals above reviewed Constitutional: WDWN, well nourished, and well groomed. NAD. seems to be in pain HEENT: NCAT, EOMI, PERRLA. Anicteric sclera. Neck: Supple and symmetrical, no palpable masses. No palpable thyromegaly. Respiratory: No use of accessory muscles. CTAB, no wheezes. Cardiovascular: slightly irregular heart beat, S1 and S2 normal, no M/G/R. No edema of lower extremities. Abdomen: Tight, hepatomegaly noted, about 8 cm below RCM with exquite tenderness. Left colostomy noted. Lymphatic: no palpable palpable lymph nodes in the neck, or axillae Neurological: AOx3. CN II-XII grossly intact. No focal motor or sensory deficit. Psychiatric: Normal judgment and insight. Normal memory (recent and remote). Normal mood and affect. Results - Labs Laboratory Last Values WBC 15.7 X10^3/uL (4.5-11.0) H 06/15/20 09:00 RBC 4.92 X10^6/uL (4.5-5.9) 06/15/20 09:00 Hgb 14.5 g/dL (13.5-17.5) 06/15/20 09:00 Hct 43.6 % (41-53) 06/15/20 09:00 MCV 88.6 fL (80-100) 06/15/20 09:00 MCH 29.4 PG (26-34) 06/15/20 09:00 MCHC 33.2 % (30-36) 06/15/20 09:00 RDW 16.1 % (11.6-14.8) H 06/15/20 09:00 Plt Count 362 X10^3/uL (150-400) 06/15/20 09:00 Neut % (Auto) 80.4 % (50-75) H 06/15/20 09:00 Lymph % (Auto) 5.4 % (25-40) L 06/15/20 09:00 Boyle % (Auto) 13.3 % (3-14) 06/15/20 09:00 Eos % (Auto) 0.6 % (2-4) L 06/15/20 09:00 Baso % (Auto) 0.3 % (0-2) 06/15/20 09:00 Neut # (Auto) 28082 /uL (6015-7750) H 06/15/20 09:00 Lymph # (Auto) 900 /uL (8297-0856) L 06/15/20 09:00 Boyle # (Auto) 2100 /uL (0-900) H 06/15/20 09:00 Eos # (Auto) 100 /uL (0-450) 06/15/20 09:00 Baso # (Auto) 0 /uL (0-100) 06/15/20 09:00 RBC Morphology See below 02/19/19 09:15 Hypochromasia 1+ H 02/05/19 08:59 Poikilocytosis 2+ H 02/05/19 08:59 Anisocytosis 1+ H 02/19/19 09:15 Macrocytosis 1+ H 02/05/19 08:59 Rouleaux 1+ H 02/19/19 09:15 Sodium 138 mmol/L (137-145) 06/15/20 09:00 Potassium 3.7 mmol/L (3.4-5.1) 06/15/20 09:00 Chloride 101 mmol/L (98-107) 06/15/20 09:00 Carbon Dioxide 33 mmol/L (22-32) H 06/15/20 09:00 BUN 12 mg/dL (9-20) 06/15/20 09:00 Creatinine 0.69 mg/dL (0.66-1.25) 06/15/20 09:00 Estimated GFR > 60.0 mL/min (>60) 06/15/20 09:00 BUN/Creatinine Ratio 17.4 (6-22) 06/15/20 09:00 Glucose 121 mg/dL (70-100) H 06/15/20 09:00 Calcium 8.6 mg/dL (8.4-10.2) 06/15/20 09:00 Magnesium 1.9 mg/dL (1.6-2.3) 09/03/19 09:30 Total Bilirubin 0.7 mg/dL (0.2-1.3) 06/15/20 09:00 AST 68 IU/L (17-59) H 06/15/20 09:00 ALT 49 IU/L (<50) 06/15/20 09:00 Alkaline Phosphatase 370 U/L (38-126) H 06/15/20 09:00 Total Protein 7.7 g/dL (6.3-8.2) 06/15/20 09:00 Albumin 3.8 g/dL (3.5-5.0) 06/15/20 09:00 Globulin 3.9 g/dL (1.7-4.1) 06/15/20 09:00 Albumin/Globulin Ratio 1.0 (1.0-2.8) 06/15/20 09:00 Carcinoembryonic Ag 1880.0 ng/mL (0.1-3.0) H 06/08/20 10:55 Assessment and Plan (1) Colon cancer Overview: 59-year-old man with a rectosigmoid mass and liver metastasis. Biopsy showed invasive well-differentiated adenocarcinoma. Mismatch repair proteins were normal. MARION and BRAF mutations are normal. He has completed 8 cycles of FOLFIRI with Erbitux with a decrease in the irinotecan dose. He then was on maintenance therapy with Erbitux. In 09/2019, he underwent urgent diverting colostomy for bowel obstruction. Dur to significantly elevated CEA level 10/14/2019, follow-up CT scan 10/16/2019 showed disease progression as evidenced by interval increase in the numerous hypodense hepatic metastasis and shoddy retrocrural and para-aortic lymph nodes and abnormal thickening of the rectosigmoid junction. After discussion with the patient, we decided to resume chemotherapy with FOLFIRI/Avastin. Patient received his first cycle on 10/22/2019. Up until now, he has had 6 cycles. On 01/27/2020 CT scan CAP w/contrast showed mild but definite interval improvement in size of multiple hepatic mass lesions, mild aneurysmal dilatation of the mid to distal 3rd of the abdominal aorta, with aneurysmal dilatation of the common iliac arteries bilaterally and also of the internal iliac arteries bilaterally which measure up to 3.[address] Rajesh Burgess at [facility] evaluated the patient regarding bilateral internal iliac artery aneurysms. Surgical repair has been discussed with the patient but the patient has not decided if he would like to proceed with any surgical interventions at this moment. Assessment: Today, I talked with the patient that since his previous visit, the lab results of CEA showed dramatic increase indicating disease progression and also refractoriness to the previous chemotherapy including FOLFIRI/Avastin. Therefore I decided to change the treatment to modified FOLFOX 6/Avastin. As I mentioned before, patient has not used oxaliplatin before. Hopefully it will be helpful in combination with 5 FU. I today also discussed with the patient and his daughter about the potential side effects of the oxaliplatin. 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 I advised the patient to be cautious with cold objects and cold beverages. He voiced understanding. I talked with the patient that his next treatment would be in 14 days. He said he would like to decide whether he wants to do in 14 days or in 21 days. He will call us if he feels up to it. As far as the liver pain is concerned, on my physical examination, it is exquisitely sensitive. I talked with the patient that I will prescribe Dilaudid 2 mg every 4 hours on as-needed basis. Patient voiced understanding. Plan: Ok to proceed to mFOLFOX/Avastin today RTC in 2 weeks, for C2# mFOLFOX/Avastin, Labs per protocol Dilaudid 2 mg q4h,prn, pain (2) Pulmonary embolism He had incidental bilateral pulmonary emboli discovered in December 2018 and he remains on anticoagulation Eliquis 5 mg bid. No bleeding events. Will continue. I talked with the patient that during the chemotherapy, if the platelet counts decrease to less than 50,000, will hold Eliquis. (3) Colostomy in place Standard colostomy care. (4) Port-A-Cath in place Flush every 4-6 weeks
[2020-06-15 09:21] LABS: Alanine Aminotransferase 49 IU/L (<50); Albumin 3.8 g/dL (3.5-5.0); Alkaline Phosphatase 370 U/L (38-126); Aspartate Aminotransferase 68 IU/L (17-59); BUN Creatinine Ratio 17.4 (6-22); Bilirubin Total 0.7 mg/dL (0.2-1.3); Blood Urea Nitrogen 12 mg/dL (9-20); Calcium 8.6 mg/dL (8.4-10.2); Carbon Dioxide 33 mmol/L (22-32); Chloride 101 mmol/L (98-107); Estimated Glomerular Filt Rate > 60.0 mL/min (>60); Globulin 3.9 g/dL (1.7-4.1); Glucose 121 mg/dL (70-100); HEMOLYSIS < 15 (0-50); Potassium 3.7 mmol/L (3.4-5.1); Sodium 138 mmol/L (137-145); Total Protein 7.7 g/dL (6.3-8.2)
[2020-06-15 10:05] VITALS: BP 139/89; PULSE 88; RESP 18; TEMP 36.6; O2SAT 91
[2020-06-15] MEDS: SODIUM CHLORIDE 0.9% 100 ML 21 ML IV (11:12)
[2020-06-15] MEDS: DEXTROSE 5 % IN WATER 100 ML 21 ML IV (11:12)
[2020-06-15] MEDS: ACETAMINOPHEN 325 MG TABLET 650 MG PO (11:12)
[2020-06-15] MEDS: diphenhydrAMINE 25 MG TABLET PO (11:12)
[2020-06-15] MEDS: ONDANSETRON 16 MG in SODIUM CHLORIDE 0.9% 50 ML 232 ML IV (11:50)
[2020-06-15] MEDS: BEVACIZUMAB IV (12:27)
[2020-06-15] MEDS: SODIUM CHLORIDE 0.9% IV (12:27)
[2020-06-15] MEDS: DEXTROSE 5% IV ×2 (13:49→13:50)
[2020-06-15] MEDS: LEUCOVORIN IV (13:49)
[2020-06-15] MEDS: OXALIPLATIN IV (13:50)
--- NOTE | 2020-06-15 15:43 | PC.NURSE ---
IV FLUIDS Pt declined 500ml NS bolus today. Requests fluids for Monday (06/17) after being disconnected from pump.
--- NOTE | 2020-06-15 17:13 | PC.NURSE ---
PUMP CONNECT Verified dose/rate with second nurse (Jerod,RN). Clave and occlusive dressing in place, positive blood return, pump connected per protocol. Confirmed pump was on and running with patient. Patient stated he would return to clinic Monday at ~1500 for disconnect.
--- NOTE | 2020-06-17 16:07 | PC.NURSE ---
PUMP DC; 5FU pump dc'd w/o issue. Pt declined IV fluids, states I can't do the fluids, I just want to go home. Education provided to pt r/t importance of fluids, pt continued to decline states I have been able to drink water. iIm not doing the IV fluids. Port flushed, needle dc'd intact. Pt denies chest pain and SOB. Reports nausea, today I didn't have nausea yesterday, but man, I have today. Pt states I just want to go home, take and shower and Zofran and sleep. Speech clear, RR equal and unlabored. Pt wheeled to exit and assisted to car, [place], driving pt home,
[2020-06-29 09:12] LABS: Add Manual Diff / Slide Review NO; Basophils Absolute Auto 100 /uL (0-100); Basophils Percent Auto 0.6 % (0-2); Eosinophils Absolute Auto 200 /uL (0-450); Eosinophils Percent Auto 1.7 % (2-4); Hemoglobin 14.1 g/dL (13.5-17.5); Lymphocytes Absolute Auto 1600 /uL (1100-4500); Lymphocytes Percent Auto 11.6 % (25-40); Mean Corpuscular HGB Conc 32.7 % (30-36); Mean Corpuscular Hemoglobin 28.9 PG (26-34); Mean Corpuscular Volume 88.2 fL (80-100); Monocytes Absolute Auto 1600 /uL (0-900); Monocytes Percent Auto 11.1 % (3-14); Neutrophils Absolute Auto 10600 /uL (1500-7000); Platelet Count 271 X10^3/uL (150-400); Red Blood Cell Count 4.87 X10^6/uL (4.5-5.9); Red Cell Distribution Width 16.4 % (11.6-14.8); White Blood Cell Count 14.1 X10^3/uL (4.5-11.0)
[2020-06-29 09:18] LABS: Alanine Aminotransferase 50 IU/L (<50); Albumin 3.9 g/dL (3.5-5.0); BUN Creatinine Ratio 21.4 (6-22); Bilirubin Total 0.3 mg/dL (0.2-1.3); Blood Urea Nitrogen 12 mg/dL (9-20); Calcium 8.8 mg/dL (8.4-10.2); Carbon Dioxide 28 mmol/L (22-32); Chloride 107 mmol/L (98-107); Estimated Glomerular Filt Rate > 60.0 mL/min (>60); Globulin 3.8 g/dL (1.7-4.1); Glucose 109 mg/dL (70-100); Sodium 139 mmol/L (137-145); Total Protein 7.7 g/dL (6.3-8.2)
[2020-06-29 09:19] LABS: Potassium 4.5 mmol/L (3.4-5.1)
[2020-06-29 09:20] LABS: Alkaline Phosphatase 239 U/L (38-126); Aspartate Aminotransferase 53 IU/L (17-59)
[2020-06-29 09:24] VITALS: BP 137/94; PULSE 74; RESP 16; TEMP 36.8; O2SAT 93
[2020-06-29 10:30] LABS: HEMOLYSIS 50 (0-50)
[2020-07-07 08:53] LABS: Add Manual Diff / Slide Review NO; Basophils Absolute Auto 100 /uL (0-100); Basophils Percent Auto 0.9 % (0-2); Eosinophils Absolute Auto 200 /uL (0-450); Hematocrit 42.3 % (41-53); Lymphocytes Absolute Auto 1200 /uL (1100-4500); Lymphocytes Percent Auto 15.6 % (25-40); Mean Corpuscular HGB Conc 33.2 % (30-36); Mean Corpuscular Hemoglobin 29.2 PG (26-34); Monocytes Absolute Auto 1200 /uL (0-900); Monocytes Percent Auto 15.4 % (3-14); Neutrophils Absolute Auto 5000 /uL (1500-7000); Neutrophils Percent Auto 65.1 % (50-75); Platelet Count 219 X10^3/uL (150-400); Red Blood Cell Count 4.81 X10^6/uL (4.5-5.9); Red Cell Distribution Width 16.9 % (11.6-14.8); White Blood Cell Count 7.7 X10^3/uL (4.5-11.0)
[2020-07-07 09:10] LABS: Alanine Aminotransferase 48 IU/L (<50); Albumin 3.8 g/dL (3.5-5.0); Alkaline Phosphatase 302 U/L (38-126); Aspartate Aminotransferase 52 IU/L (17-59); BUN Creatinine Ratio 18.2 (6-22); Bilirubin Total 0.6 mg/dL (0.2-1.3); Blood Urea Nitrogen 12 mg/dL (9-20); Calcium 9.2 mg/dL (8.4-10.2); Carbon Dioxide 30 mmol/L (22-32); Chloride 103 mmol/L (98-107); Estimated Glomerular Filt Rate > 60.0 mL/min (>60); Globulin 3.9 g/dL (1.7-4.1); Glucose 95 mg/dL (70-100); HEMOLYSIS < 15 (0-50); Potassium 3.9 mmol/L (3.4-5.1); Sodium 138 mmol/L (137-145); Total Protein 7.7 g/dL (6.3-8.2)
[2020-07-07] MEDS: diphenhydrAMINE 25 MG TABLET PO (09:58)
[2020-07-07] MEDS: HYDROMORPHONE 1 MG INJ IV (09:58)
[2020-07-07] MEDS: ACETAMINOPHEN 325 MG TABLET 650 MG PO (09:58)
[2020-07-07] MEDS: ONDANSETRON 16 MG in SODIUM CHLORIDE 0.9% 50 ML 232 ML IV (10:45)
[2020-07-07 10:50] VITALS: BP 140/80; PULSE 70; RESP 18; TEMP 36.7
[2020-07-07] MEDS: BEVACIZUMAB IV (11:19)
[2020-07-07] MEDS: SODIUM CHLORIDE 0.9% IV (11:19)
[2020-07-07] MEDS: DEXTROSE 5% IV ×2 (12:37)
[2020-07-07] MEDS: OXALIPLATIN IV (12:37)
[2020-07-07] MEDS: LEUCOVORIN IV (12:37)
[2020-07-07] MEDS: HYDROMORPHONE 2 MG TABLET PO (13:35)
--- NOTE | 2020-07-07 16:05 | PC.NURSE ---
PUMP; Pump settings verified with RAY Good. Blood return confirmed. Pump infusing w/o difficulty, green light flashing.
[2020-07-09] MEDS: SODIUM CHLORIDE 0.9% 500 ML IV (13:20)
[2020-07-09 13:43] VITALS: BP 137/91; PULSE 73; RESP 18; TEMP 36.6; O2SAT 94
[2020-07-09] MEDS: ONDANSETRON 4 MG/2 ML INJ IV (13:48)
[2020-07-09 13:52] LABS: Alanine Aminotransferase 67 IU/L (<50); Albumin 3.8 g/dL (3.5-5.0); Alkaline Phosphatase 329 U/L (38-126); Aspartate Aminotransferase 86 IU/L (17-59); BUN Creatinine Ratio 29.2 (6-22); Bilirubin Total 0.9 mg/dL (0.2-1.3); Blood Urea Nitrogen 19 mg/dL (9-20); Calcium 8.8 mg/dL (8.4-10.2); Carbon Dioxide 30 mmol/L (22-32); Chloride 100 mmol/L (98-107); Estimated Glomerular Filt Rate > 60.0 mL/min (>60); Globulin 3.9 g/dL (1.7-4.1); Glucose 114 mg/dL (70-100); HEMOLYSIS < 15 (0-50); Magnesium 2.1 mg/dL (1.6-2.3); Potassium 4.6 mmol/L (3.4-5.1); Sodium 134 mmol/L (137-145); Total Protein 7.7 g/dL (6.3-8.2)
--- NOTE | 2020-07-13 13:16 | ONC.MSW ---
Description: Jury Duty Letter Activity: ASSEMBLY OPERATOR completed a letter for pt. excusing him from Jury Duty. Scanned and emailed to him per his request.
[2020-07-20 08:53] LABS: Add Manual Diff / Slide Review NO; Basophils Absolute Auto 100 /uL (0-100); Basophils Percent Auto 0.8 % (0-2); Eosinophils Absolute Auto 200 /uL (0-450); Eosinophils Percent Auto 2.1 % (2-4); Hematocrit 40.8 % (41-53); Hemoglobin 13.7 g/dL (13.5-17.5); Lymphocytes Absolute Auto 1200 /uL (1100-4500); Lymphocytes Percent Auto 11.6 % (25-40); Mean Corpuscular HGB Conc 33.6 % (30-36); Mean Corpuscular Hemoglobin 29.2 PG (26-34); Mean Corpuscular Volume 86.9 fL (80-100); Monocytes Absolute Auto 1200 /uL (0-900); Neutrophils Absolute Auto 7600 /uL (1500-7000); Neutrophils Percent Auto 73.5 % (50-75); Platelet Count 243 X10^3/uL (150-400); Red Blood Cell Count 4.69 X10^6/uL (4.5-5.9); Red Cell Distribution Width 16.7 % (11.6-14.8); White Blood Cell Count 10.3 X10^3/uL (4.5-11.0)
[2020-07-20 09:05] LABS: Alanine Aminotransferase 31 IU/L (<50); Albumin 3.8 g/dL (3.5-5.0); Alkaline Phosphatase 300 U/L (38-126); Aspartate Aminotransferase 45 IU/L (17-59); BUN Creatinine Ratio 24.2 (6-22); Bilirubin Total 0.5 mg/dL (0.2-1.3); Blood Urea Nitrogen 15 mg/dL (9-20); Calcium 8.8 mg/dL (8.4-10.2); Carbon Dioxide 28 mmol/L (22-32); Chloride 105 mmol/L (98-107); Estimated Glomerular Filt Rate > 60.0 mL/min (>60); Globulin 3.9 g/dL (1.7-4.1); Glucose 87 mg/dL (70-100); Potassium 4.2 mmol/L (3.4-5.1); Sodium 136 mmol/L (137-145); Total Protein 7.7 g/dL (6.3-8.2)
[2020-07-20 09:43] VITALS: BP 142/91; PULSE 84; RESP 18; TEMP 36.9; O2SAT 95
[2020-07-20 10:13] LABS: HEMOLYSIS 30 (0-50)
[2020-07-20] MEDS: diphenhydrAMINE 25 MG TABLET PO (10:19)
[2020-07-20] MEDS: SODIUM CHLORIDE 0.9% 100 ML 21 ML IV (10:19)
[2020-07-20] MEDS: ONDANSETRON 16 MG in SODIUM CHLORIDE 0.9% 50 ML 232 ML IV (10:44)
[2020-07-20] MEDS: HYDROMORPHONE 1 MG INJ IV (11:21)
[2020-07-20] MEDS: BEVACIZUMAB IV (11:42)
[2020-07-20] MEDS: SODIUM CHLORIDE 0.9% IV (11:42)
[2020-07-20] MEDS: DEXTROSE 5% IV ×2 (12:48→12:49)
[2020-07-20] MEDS: LEUCOVORIN IV (12:48)
[2020-07-20] MEDS: OXALIPLATIN IV (12:49)
--- NOTE | 2020-07-20 16:05 | PC.NURSE ---
5FU pump connected with equashield, +blood return, connections secured with tape.
[2020-07-22 14:54] VITALS: BP 140/89; PULSE 67; RESP 18; O2SAT 94
[2020-07-22] MEDS: SODIUM CHLORIDE 0.9% 1,000 ML 1000 ML IV (15:00)
--- NOTE | 2020-07-22 15:02 | PC.NURSE ---
Addendum entered by Madhavi Smith R.N. 07/22/20 15:40: FLUIDS Pt received 500ml NS. Stated I feel full, I don't want anymore. Original Note: PUMP DISCONNECT Pt arrived to clinic via wheelchair. Tearful, stating I can't do this anymore. Pt stated that he had been nauseated since Monday evening, and had vomited multiple times Monday night and Monday. Reported that he had taken PO zofran on Monday night, but had not taken any Monday due to being extremely tired. All I did was sleep Monday. Pt reported that he had not been able to get much food/fluid in by mouth since Monday. Magnesium drawn and 1L NS bolus administered. Pump disconnected per protocol. Verified pump complete. Flushed port with NS. Left accessed for NS bolus.
--- NOTE | 2020-08-04 15:16 | PC.NURSE ---
PATIENT CALLED STATING HE HAS BEEN FEELING SO LOUSY ON THE CURRENT REGIMEN (ESPECIALLY NAUSEAU ALTHO TAKING HIS NAUSEAU MEDICATION) AND THAT HE WANTS TO BE SURE DR MELÉNDEZ KNOWS THAT HE WOULD LIKE TO DISCUSS ALTERNATIVES AT HIS UPCOMING F/U ON 08/10.
[2020-08-10 08:27] VITALS: BP 158/104; PULSE 86; RESP 18; O2SAT 93
--- NOTE | 2020-08-10 08:27 | ONC.PN ---
PN -Subjective Interval history: ID/CC: 59 year old male with metastatic colon cancer History of Present Illness: 59-year-old man presented initially with blood in the stool, abdominal pain and weight loss. CT scan showed some thickening of the colon at the rectosigmoid junction as well as multiple liver metastasis. His CEA was 1652. He was seen by Dr. Deleon and had a colonoscopy performed in 10/10/2018. He was found to have a mass at 20 cm, unable to transit. Biopsy showed serrated adenoma but no evidence of malignancy. Patient underwent repeat colonoscopy with sedation on 10/24/2018. At this time, the scope was able to transit through a circumferential malignant mass at around 20-25 cm. The biopsy pathology showed invasive well differentiated colon adenocarcinoma, MMR intact (IHC), wild type KRAS and wild type NRAS, and wild type BRAF. He received FOLFIRI and Erbitux for 8 cycles with dose reduction in irinotecan starting in October 2018, followed by maintenance therapy with 5 FU leucovorin and Erbitux beginning in March 2019 until late 2018. Starting from 07/09/2019, he was started on single agent maintenance with Erbitux. In 09/2019, he developed intractable nausea, vomiting, and abdominal cramping pain. He was evaluated at the emergency room of [facility]. CT of the abdomen pelvis on 09/08/2019 showed distal sigmoid colonic mass decreased in size from the index examination of 09/30/2018. However it resulted in luminal narrowing and upstream colonic dilation, suggestive of at least partial colonic obstruction. Multiple hepatic metastasis have significantly improved from the prior examination. Small left adrenal nodule appeared slightly decreased in size. Indeterminate lingular nodule was noted. Fusiform aneurysms of the abdominal aorta (3.3 cm), bilateral common iliac arteries (right 2.6 cm, left 2.4 cm), bilateral internal iliac arteries (right 2.7 cm, left 3.2 cm), and proximal left external iliac artery (2.0 cm). Dr. Durham took the patient to the operating room and performed an exploratory laparotomy with left lower quadrant loop diverting colostomy on 09/09/2019. Due to CEA increased from 25.4 on 09/03/2019 to 149 on 10/14/2019, he underwent CT scan of the chest abdomen pelvis on 10/16/2019 that showed progression of the liver metastasis. In addition it showed presence of thickening of the sigmoid rectal junction. On 10/22/2019, patient resumed chemotherapy with FOLFIRI/Avastin. On 01/27/2020 CT scan CAP W/contrast showed mild but definite interval improvement in size of multiple hepatic mass lesions previously documented, mild aneurysmal dilatation of the mid to distal 3rd of the abdominal aorta, with aneurysmal dilatation of the common iliac arteries bilaterally and also of the internal iliac arteries bilaterally which measure up to 3.1 cm each. He was evaluated by vascular surgeon Dr. Rajesh Burgess at [facility], [place]. As far as the bilateral internal iliac artery aneurysms were concerned, they were above 3 cm on the left and 2.8 cm on the right. Per Dr. Burgess, in an otherwise healthy patient, he would without doubt treated at least the left internal iliac artery aneurysm. Patient was undecided regarding the surgery repair of the aneurysms. Marvel eventually decided not to pursue any surgical intervention. On 05/20/2020, Marvel fall 8 ft off ladder when cleaning the gutter, landing on his right side, without loss of consciousness. He was evaluated at ER. CXR showed question non-displaced posterior right 10th rib fracture and question interval increase i size of left lower lobe pulmonary nodule. Staging CT scan of 06/04/2020 showed significant interval change involving the liver and azul structures within the abdomen. The liver contains new and enlarging multifocal metastatic lesions. New retroperitoneal and mesenteric adenopathy has developed, best seen in the peripancreatic region. Interval history: On 06/15/2020, patient finally was able to start the palliative chemotherapy with modified FOLFOX 6. Patient up until now has received total of 3 cycles. Patient presents here today for scheduled cycle 4 modified FOLFOX6. He came in with his . Patient was complaining significant nausea and vomiting for the past 1 cycle. Patient said that he simply did not have any quality of time because of the symptoms. In addition patient is having right upper quadrant abdominal pain. He is now on fentanyl patch as well as Dilaudid for pain control. The pain medication has been followed by palliative care physician. Pain denies any fever or chills. He denies diarrhea. Patient said that the neuropathy is transient and temporary. He has only very mild tingling or numbing of the fingertips and the toes. Patient emphasized that it is the nausea and vomiting that it has become very much unbearable. Currently patient is using Zofran, Compazine, and Ativan for the symptoms of nausea and vomiting. Summary of Therapies: 1. FOLFIRI and Erbitux for 8 cycles with a dose reduction in irinotecan starting in October 2018 2. Maintenance therapy with 5 FU leucovorin and Erbitux beginning in March 2019 3. Single agent maintenance with Erbitux started 07/09/2019 4. LLQ loop diverting colostomy on 09/09/2019 for bowel obstruction. 5. FOLFIRI and Avastin 10/22/2019 - 05/04/2020 6. mFOLFOX6/Avastin, 06/15/2020 - - Patient Self-Reported Symptoms SR Constitution: Fatigue/Malaise SR Cardiovascular issues: Shortness of breath with activity or lying flat SR Gastrointestinal issues: Abdominal pain SR Musculoskeletal issues: Muscle pain or cramps - Additional ROS All systems PM: reviewed and no additional remarkable complaints except as stated Home Medications and Allergies Home Medications Medication Instructions Recorded Confirmed Type docusate calcium [Stool Softener] 240 mg DAILY 10/17/18 05/04/20 History ergocalciferol (vitamin D2) 50,000 unit PO QWEEK 10/17/18 05/04/20 History [Vitamin D2] oxycodone 10 mg PO Q4-6H PRN 10/17/18 05/04/20 History lorazepam [Ativan] 0.5 mg PO BID-TID PRN #30 tab 11/15/18 05/04/20 Rx hyoscyamine sulfate 0.25 mg PO QID PRN #100 tab 12/05/18 05/04/20 Rx apixaban [Eliquis] See Rx Instructions .ROUTE 01/04/19 05/04/20 Rx .COMPLEX #74 each dexamethasone 1 mg PO DAILY 30 Days #30 tab 04/30/19 05/04/20 Rx oxycodone 5 mg PO Q4H PRN #180 tab 07/09/19 05/04/20 Rx prochlorperazine maleate 10 mg PO Q6H PRN #60 tab 12/30/19 05/04/20 Rx [Compazine] fluorouracil See Rx Instructions .ROUTE 06/08/20 Rx .COMPLEX 2 Days #1 device levofloxacin 750 mg PO DAILY 06/08/20 06/08/20 History fluorouracil See Rx Instructions .ROUTE 12/14/20 Rx .COMPLEX 2 Days #1 device hydromorphone [Dilaudid] 2 mg PO Q4H PRN #60 tab 06/15/20 Rx apixaban [Eliquis] 5 mg PO BID #60 tab 06/25/20 05/04/20 Rx fluorouracil See Rx Instructions .ROUTE 07/09/20 Rx .COMPLEX 2 Days #1 device ondansetron HCl [Zofran] 4 mg PO Q6H PRN #60 tab 07/09/20 Rx fluorouracil See Rx Instructions .ROUTE 08/03/20 Rx .COMPLEX 2 Days #1 device olanzapine 10 mg PO BEDTIME #30 tab 08/10/20 Rx promethazine [Phenergan] 25 mg IM Q6H PRN #60 ml 08/10/20 Rx Allergies Allergy/AdvReac Type Severity Reaction Status Date / Time No Known Drug Allergies Allergy Verified 05/20/20 16:13 Exam Vital signs: 08/10/20 09:12 Last Vital Signs Temp 98.4 F 07/20/20 09:43 Pulse 86 08/10/20 08:27 Resp 18 08/10/20 08:27 BP 158/104 H 08/10/20 08:27 Pulse Ox 93 08/10/20 08:27 Narrative: ECOG 1 Vitals above reviewed Constitutional: WDWN, well nourished, and well groomed. NAD. seems to be in pain HEENT: NCAT, EOMI, PERRLA. Anicteric sclera. Neck: Supple and symmetrical, no palpable masses. No palpable thyromegaly. Respiratory: No use of accessory muscles. CTAB, no wheezes. Cardiovascular: slightly irregular heart beat, S1 and S2 normal, no M/G/R. No edema of lower extremities. Abdomen: Tight, hepatomegaly noted, about 8 cm below RCM with exquite tenderness. Left colostomy noted. Lymphatic: no palpable palpable lymph nodes in the neck, or axillae Neurological: AOx3. CN II-XII grossly intact. No focal motor or sensory deficit. Psychiatric: Normal judgment and insight. Normal memory (recent and remote). Normal mood and affect. Results - Labs Laboratory Last Values WBC 6.8 X10^3/uL (4.5-11.0) 08/10/20 08:11 RBC 4.94 X10^6/uL (4.5-5.9) 08/10/20 08:11 Hgb 14.1 g/dL (13.5-17.5) 08/10/20 08:11 Hct 42.5 % (41-53) 08/10/20 08:11 MCV 85.9 fL (80-100) 08/10/20 08:11 MCH 28.5 PG (26-34) 08/10/20 08:11 MCHC 33.1 % (30-36) 08/10/20 08:11 RDW 17.0 % (11.6-14.8) H 08/10/20 08:11 Plt Count 239 X10^3/uL (150-400) 08/10/20 08:11 Neut % (Auto) 59.4 % (50-75) 08/10/20 08:11 Lymph % (Auto) 16.4 % (25-40) L 08/10/20 08:11 [place] % (Auto) 22.3 % (3-14) H 08/10/20 08:11 Eos % (Auto) 1.1 % (2-4) L 08/10/20 08:11 Baso % (Auto) 0.8 % (0-2) 08/10/20 08:11 Neut # (Auto) 4000 /uL (7703-6236) 08/10/20 08:11 Lymph # (Auto) 1100 /uL (5159-3549) 08/10/20 08:11 [place] # (Auto) 1500 /uL (0-900) H 08/10/20 08:11 Eos # (Auto) 100 /uL (0-450) 08/10/20 08:11 Baso # (Auto) 100 /uL (0-100) 08/10/20 08:11 RBC Morphology See below 02/19/19 09:15 Hypochromasia 1+ H 02/05/19 08:59 Poikilocytosis 2+ H 02/05/19 08:59 Anisocytosis 1+ H 02/19/19 09:15 Macrocytosis 1+ H 02/05/19 08:59 Rouleaux 1+ H 02/19/19 09:15 Sodium 137 mmol/L (137-145) 08/10/20 08:11 Potassium 3.9 mmol/L (3.4-5.1) 08/10/20 08:11 Chloride 102 mmol/L (98-107) 08/10/20 08:11 Carbon Dioxide 32 mmol/L (22-32) 08/10/20 08:11 BUN 8 mg/dL (9-20) L 08/10/20 08:11 Creatinine 0.64 mg/dL (0.66-1.25) L 08/10/20 08:11 Estimated GFR > 60.0 mL/min (>60) 08/10/20 08:11 BUN/Creatinine Ratio 12.5 (6-22) 08/10/20 08:11 Glucose 100 mg/dL (70-100) 08/10/20 08:11 Calcium 9.2 mg/dL (8.4-10.2) 08/10/20 08:11 Magnesium 2.0 mg/dL (1.6-2.3) 07/22/20 14:45 Total Bilirubin 0.6 mg/dL (0.2-1.3) 08/10/20 08:11 AST 82 IU/L (17-59) H 08/10/20 08:11 ALT 33 IU/L (<50) 08/10/20 08:11 Alkaline Phosphatase 332 U/L (38-126) H 08/10/20 08:11 Total Protein 8.1 g/dL (6.3-8.2) 08/10/20 08:11 Albumin 3.8 g/dL (3.5-5.0) 08/10/20 08:11 Globulin 4.3 g/dL (1.7-4.1) H 08/10/20 08:11 Albumin/Globulin Ratio 0.9 (1.0-2.8) L 08/10/20 08:11 Carcinoembryonic Ag 2200.0 ng/mL (0.1-3.0) H 08/10/20 08:11 Assessment and Plan (1) Colon cancer Overview: 59-year-old man with a rectosigmoid mass and liver metastasis. Biopsy showed invasive well-differentiated adenocarcinoma. Mismatch repair proteins were normal. MARION and BRAF mutations are normal. He has completed 8 cycles of FOLFIRI with Erbitux with a decrease in the irinotecan dose. He then was on maintenance therapy with Erbitux. In 09/2019, he underwent urgent diverting colostomy for bowel obstruction. Due to significantly elevated CEA level 10/14/2019, follow-up CT scan 10/16/2019 was done and showed disease progression as evidenced by interval increase in the numerous hypodense hepatic metastasis and shoddy retrocrural and para-aortic lymph nodes and abnormal thickening of the rectosigmoid junction. After discussion with the patient, we decided to resume chemotherapy with FOLFIRI/Avastin. Patient received his first cycle on 10/22/2019. On 01/27/2020 CT scan CAP w/contrast showed mild, but definite interval improvement in size of multiple hepatic mass lesions, mild aneurysmal dilatation of the mid to distal 3rd of the abdominal aorta, with aneurysmal dilatation of the common iliac arteries bilaterally and also of the internal iliac arteries bilaterally which measure up to 3.[address] Rajesh Burgess at [facility], [place] evaluated the patient regarding bilateral internal iliac artery aneurysms. Surgical repair has been discussed with the patient but the patient has not decided if he would like to proceed with any surgical interventions at this moment. He completed 9 cycles of FOLFIRRI/Avast on 05/04/2020. On 06/15/2020, he was started on mFOLFOX/Avastin Assessment: Patient has received 3 cycles of modified FOLFOX6. He is here for cycle 4 modified FOLFOX6. First of all I reviewed the lab results with the patient. Clearly the tumor markers have begun to decrease. I talked with the patient this is a very good indication that the current chemotherapy with modified FOLFOX6 is efficacious in terms of his underlying metastatic colon cancer. I talked with the patient that the symptoms he is now experiencing, that is, nausea, vomiting, and abdominal pain, probably is a combination of both the underlying metastatic colon cancer and the chemotherapy. Patient used to be doing well with FOLFIRI and Avastin, after we switched to FOLFOX and Avastin, patient showed the nausea and vomiting. In my opinion, that the oxaliplatin most likely is the reason but we cannot completely exclude the possibility disease progression. I talked with the patient that it probably worth trying other nausea and vomiting medications. I recommended Phenergan in combination with olanzapine. With better control of the nausea vomiting, patient may be able to continue the current chemotherapy and to enjoy a better quality of time. In addition to evaluate the underlying disease progression, I also recommended CT of the chest abdomen pelvis. I talked with patient that I will bring him back next Monday and will talk about our plans. Today I talked with the patient that there third line or fourth line options patient has not tried yet. I briefly touched base with him about the use of Lonsurf as well as the use of regorafenib. I talked with them the have pros and cons. But some patients do respond to the treatment with prolonged survival. For now I will temporarily hold the chemotherapy. Patient voiced understanding. Plan: Hold mFOLFOX/Avastin for now CT CAP w/contrast Continue Fentanyl patch and Dilaudud Olazapine 10 mg daily bedtime Phernergan, 25 mg q6h prn n/v RTC in 1 week (2) Pulmonary embolism He had incidental bilateral pulmonary emboli discovered in December 2018 and he remains on anticoagulation Eliquis 5 mg bid. No bleeding events. Will continue. I talked with the patient that during the chemotherapy, if the platelet counts decrease to less than 50,000, will hold Eliquis. (3) Colostomy in place Standard colostomy care. (4) Port-A-Cath in place Flush every 4-6 weeks
[2020-08-10 08:35] LABS: Add Manual Diff / Slide Review NO; Basophils Absolute Auto 100 /uL (0-100); Basophils Percent Auto 0.8 % (0-2); Eosinophils Absolute Auto 100 /uL (0-450); Eosinophils Percent Auto 1.1 % (2-4); Hematocrit 42.5 % (41-53); Hemoglobin 14.1 g/dL (13.5-17.5); Lymphocytes Absolute Auto 1100 /uL (1100-4500); Lymphocytes Percent Auto 16.4 % (25-40); Mean Corpuscular HGB Conc 33.1 % (30-36); Mean Corpuscular Hemoglobin 28.5 PG (26-34); Mean Corpuscular Volume 85.9 fL (80-100); Monocytes Absolute Auto 1500 /uL (0-900); Monocytes Percent Auto 22.3 % (3-14); Neutrophils Absolute Auto 4000 /uL (1500-7000); Neutrophils Percent Auto 59.4 % (50-75); Platelet Count 239 X10^3/uL (150-400); Red Blood Cell Count 4.94 X10^6/uL (4.5-5.9); White Blood Cell Count 6.8 X10^3/uL (4.5-11.0)
[2020-08-10 08:38] LABS: Alanine Aminotransferase 33 IU/L (<50); Albumin 3.8 g/dL (3.5-5.0); Albumin Globulin Ratio 0.9 (1.0-2.8); Alkaline Phosphatase 332 U/L (38-126); Aspartate Aminotransferase 82 IU/L (17-59); BUN Creatinine Ratio 12.5 (6-22); Bilirubin Total 0.6 mg/dL (0.2-1.3); Blood Urea Nitrogen 8 mg/dL (9-20); Calcium 9.2 mg/dL (8.4-10.2); Carbon Dioxide 32 mmol/L (22-32); Chloride 102 mmol/L (98-107); Estimated Glomerular Filt Rate > 60.0 mL/min (>60); Globulin 4.3 g/dL (1.7-4.1); Glucose 100 mg/dL (70-100); HEMOLYSIS 31 (0-50); Potassium 3.9 mmol/L (3.4-5.1); Sodium 137 mmol/L (137-145); Total Protein 8.1 g/dL (6.3-8.2)
--- NOTE | 2020-08-10 15:30 | ONC.MSW ---
Description: Spouse's Letter for Work/Leave of Absence Need Activity: [employer]NA[employer] compiled the letter w/Dr. Trinidad's signature, sent to pt via email, per his request. No further needs are indicated at this time. Scanned copy into EMR.
--- NOTE | 2020-08-11 10:11 | PC.NURSE ---
ER VISIT BY PATIENT YESTERDAY PER TELEPHONE MESSAGE FROM HIS PALLIATIVE NURSE PRACTITIONER WHO SENT OVER THE REPORTS AND REQUESTS A CONVERSATION TODAY WITH DR MELÉNDEZ. ER REPORT FAXED WITH THIS NOTE TO DR MELÉNDEZ AT [facility] REQUESTING HIM TO CALL THE [facility] AT: [phone].
--- NOTE | 2020-08-11 11:13 | PC.NURSE ---
Addendum entered by Victorina Joyner R.N. 08/11/20 15:14: PER FAX FROM DR MELÉNDEZ OK FOR PATIENT TO HAVE A TELEPHONE CALL WITH HIM AT SCHEDULED APPT TIME OF 0820 ON 08/13. PATIENT INFORMED AND INSTRUCTED TO CALL CLINIC AT THAT TIME. MA INFORMED, FLOOR SWEEPER INFORMED. Original Note: TELEPHONE CONVERSATION WITH PATIENT RE CT CHEST/ABD/PELVIS PLANNED FOR TOMORROW, HE WOULD PREFER NOT TO COME IN, ABD/PELVIS WERE DONE AT ER VISIT AT [facility] YESTERDAY AND FAXED TO DR MELÉNDEZ AT [facility]. CT AT [facility] CANCELLED. REQUEST WITH THIS NOTE TO DR MELÉNDEZ WHETHER PATIENT CAN HAVE A TELEPHONE CONVERSATION ON THURS AM IN [place] OF HIS FACE TO FACE APPT DUE TO PATIENT CONDITION WITH PAIN, NAUSEAU AND FATIGUE. PATIENT WORKING WITH PALLIATIVE NURSE ON THESE ISSUES.
--- NOTE | 2020-08-13 09:49 | ONC.MSW ---
Description: Spouse FMLA Letter, Paid Leave of [place] Form Activity: Completed the above forms and sent to pt's via US Mail, per her request.
--- NOTE | 2020-08-13 14:47 | ONC.MSW ---
Patient is now on hospice, per and patient.
--- NOTE | 2020-09-03 10:52 | ONC.MSW ---
*Sent bereavement card.
== END ==
PROVIDERS: PCP Nurse Practitioner Family; Visit Provider Internal Medicine Hematology & Oncology
DX: C18.7 Malignant neoplasm of sigmoid colon (principal); C78.7 Secondary malignant neoplasm of liver and intrahepatic bile duct
CPT/HCPCS: 36000; 36415; 36591; 36592; 71260; 74177; 80053; 82378; 82565; 83735; 84520; 85025; 96360; 96361; 96365; 96366; 96367; 96368; 96372; 96374; 96375; 96376; 96411; 96413; 96415; 96417; 96523; 99205; 99211; 99213; 99214; 99215; J0461; J0640; J1100; J1170; J1200; J1453; J2405; J2469; J2997; J9035; J9055; J9190; J9206; J9263; Q9967